=== PATIENT | female | born 1960 | race Caucasian/White ===

== ENCOUNTER → 2020-08-13 11:37 | Outpatient (CLI) | payer OTHER, SELFPAY ==
--- NOTE | ~2020-08-13 | DEXA_ITS ---
Bone Density Report Name: Teri Russ Age: 60 Sex: Female Ethnicity: White Date of : 1960 Indication: postmenopausal; screening for osteoporosis; height loss; prior fracture; Referring Provider: Talat, Bess Study: Bone densitometry was performed. Exam Date: August 13, 2020 Accession number: [id number] Bone Density: Region BMD T-score Z-score Classification AP Spine (L1, L2, L3) 1.155 1.2 2.8 Normal Femoral Neck (Left) 0.755 -0.8 0.5 Normal Total Hip (Left) 1.031 0.7 1.8 Normal Femoral Neck (Right) 0.738 -1.0 0.4 Normal Total Hip (Right) 0.939 0.0 1.0 Normal Total Hip Mean 0.985 0.4 1.4 Normal World Health Organization criteria for BMD impression classify patients as: Normal (T-score at or above -1.0), Osteopenia (T-score between -1.0 and -2.5), or Osteoporosis (T-score at or below -2.5). 10-year Fracture Risk: FRAX not reported because: All T-scores for Spine Total, Hip Total, Femoral Neck at or above -1.0 Previous Exams: Region Exam Age BMD T-score BMD Change BMD Change Date g/cm2 vs Baseline vs Previous AP Spine(L1, L2, L3) 08/13/2020 60 1.155 1.2 -0.014 -0.003 12/27/2016 56 1.158 1.3 -0.011 -0.011 12/06/2014 54 1.169 1.4 Total Hip(Left) 08/13/2020 60 1.031 0.7 0.006 0.000 12/27/2016 56 1.030 0.7 0.005 0.005 12/06/2014 54 1.025 0.7 Total Hip(Right) 08/13/2020 60 0.939 0.0 -0.029* -0.022 12/27/2016 56 0.961 0.2 -0.007 -0.007 12/06/2014 54 0.968 0.2 *Denotes significance at 95% confidence level, LSC for AP Spine = 0.022 g/cm2, LSC for Total Hip = 0.027 g/cm2 Clinical Information Provided by Patient: Has had a low trauma fracture Has used the following medications: Vitamin D Patient maximum height was 64 Menopause Age: 51 No regular weight bearing exercise Does not regularly consume dairy products Drinks caffeinated beverages Onset of menses at age 13 Number of children 2 Impression: The patient has normal bone mass. The patient has risk factors, including: previous fracture. No significant bone loss was observed. Discussion: BONE DENSITY IS ABOVE THE MINIMUM DESIRABLE LEVEL AT ALL SKELETAL SITES TESTED. This patient?s bone mineral density is above the minimum desirable level (T-score -1.0 or better) at all sites measured. The patient should follow a heal
== END ==
PROVIDERS: Visit Provider Nurse Practitioner
DX: Z13.820 Encounter for screening for osteoporosis (principal); Z78.0 Asymptomatic menopausal state
CPT/HCPCS: 77080

== ENCOUNTER → 2020-09-23 13:15 | Outpatient (CLI) | payer OTHER, SELFPAY ==
--- NOTE | ~2020-09-23 | MM_ITS ---
EXAMINATION: MM screening [facility] BI w chula HISTORY: Screening mammogram TECHNIQUE: Craniocaudal and mediolateral oblique 3-D tomosynthesis images were obtained and synthetic 2-D images were generated. CAD analysis was submitted and interpreted. COMPARISON: 09/16/2017, 12/27/2016, 11/22/2016, 11/27/2015 BREAST PARENCHYMAL COMPOSITION: There are scattered areas of fibroglandular density. FINDINGS: Scattered benign-appearing calcifications are present. There is no evidence of suspicious m ass, calcification, or architectural distortion to suggest malignancy in either breast. There has bee n no suspicious interval change. IMPRESSION: 1. No mammographic evidence of malignancy. 2. Recommend routine screening mammography in one year. BI-RADS Category 2: Benign finding(s). Reviewed, dictated and finalized at location A. UIT WALKER
== END ==
PROVIDERS: PCP Internal Medicine; Visit Provider Nurse Practitioner
DX: Z12.31 Encounter for screening mammogram for malignant neoplasm of breast (principal)
CPT/HCPCS: 77063; 77067

== ENCOUNTER → 2022-03-04 10:38 | Outpatient (CLI) | payer OTHER, SELFPAY ==
--- NOTE | ~2022-03-04 | MM_ITS ---
EXAMINATION: MM screening [facility] BI w chula HISTORY: Screening TECHNIQUE: Craniocaudal and mediolateral oblique 3-D tomosynthesis images were obtained and synthetic 2-D images were generated. CAD analysis was submitted and interpreted. COMPARISON: Comparison to multiple prior studies sequentially, with oldest reviewed study dated 11/27. BREAST PARENCHYMAL COMPOSITION: There are scattered areas of fibroglandular density. FINDINGS: There is no evidence of suspicious mass, calcification, or architectural distortion to sugg est malignancy in either breast. There has been no suspicious interval change. IMPRESSION: 1. No mammographic evidence of malignancy. 2. Recommend routine screening mammography in one year. BI-RADS Category 1: Negative Reviewed, dictated and finalized at location A.
== END ==
PROVIDERS: PCP Internal Medicine; Visit Provider Nurse Practitioner
DX: Z12.31 Encounter for screening mammogram for malignant neoplasm of breast (principal)
CPT/HCPCS: 77063; 77067

== ENCOUNTER → 2022-04-15 10:26 | Outpatient (CLI) | payer OTHER, SELFPAY ==
--- NOTE | ~2022-04-15 | US_ITS ---
US thyroid INDICATION: Thyroid nodule TECHNIQUE: Real-time sonographic images of the thyroid gland were obtained. COMPARISON: Ultrasound dated 11/10/2019 FINDINGS: The right thyroid lobe measures 2.6 x 0.7 x 0.9 cm. The left thyroid lobe measures 3.4 x 0 .7 x 1 cm. There are small hypoechoic masses in the right thyroid measuring 4 mm or less, likely rafiq gn. Isthmus measures 2 mm. Normal vascular flow is present. IMPRESSION: 1. No significant change to small hypoechoic left thyroid nodules, largest measuring 4 mm, likely be nign. Reviewed, dictated and finalized at location B. IMPRESSION: 1. No significant change to small hypoechoic left thyroid nodules, largest vanesa suring 4 mm, likely benign.
== END ==
PROVIDERS: PCP Internal Medicine; Visit Provider Internal Medicine Endocrinology, Diabetes & Metabolism
DX: E04.1 Nontoxic single thyroid nodule (principal)
CPT/HCPCS: 76536

== ENCOUNTER 2022-08-23 10:58 | Outpatient (CLI) | payer OTHER, SELFPAY ==
[2022-08-23 11:17] LABS: Basophils Percent Auto 0.4 % (0.2-1.2); Eosinophils Absolute Auto 0.1 K/mm3 (0-0.3); Eosinophils Percent Auto 0.7 % (0-4.4); Hematocrit 50.5 % (37.0-47.0); Hemoglobin 16.2 g/dL (12.0-15.0); Immature Granulocyte Absolute 0.02 K/mm3 (0.00-0.031); Immature Granulocyte Percent A 0.2 % (0-0.5); Immature Platelet Fraction Pct 4.2 % (0.9-11.2); Lymphocytes Absolute Auto 1.36 K/mm3 (0.9-3.2); Lymphocytes Percent Auto 16.1 % (18.3-44.2); Mean Corpuscular HGB Conc 32.1 g/dl (32-36); Mean Corpuscular Hemoglobin 29.6 pg (26-34); Mean Corpuscular Volume 92.3 fl (80-100); Mean Platelet Volume 10.4 fl (7.4-10.4); Monocytes Absolute Auto 0.4 K/mm3 (0.1-0.6); Monocytes Percent Auto 4.4 % (2.6-8.5); Neutrophils Absolute Auto 6.6 K/mm3 (1.3-6.7); Neutrophils Percent Auto 78.2 % (45.5-73.1); Platelet Count Result 110 k/mm3 (150-375); Red Blood Count 5.47 M/mm3 (4.2-5.4); Red Cell Distribution Width 13.2 % (11.5-14.5); White Blood Count 8.4 K/mm3 (4.5-10.0)
[2022-08-23 11:21] LABS: Blood Urea Nitrogen 21 mg/dL (8-26); Carbon Dioxide 31 mmol/L (22-30); Chloride 98 mmol/L (98-109); Estimated Glomerular Filt Rate 56; Glucose 258 mg/dL (70-105); Ionized Calcium (POC) 1.27 mmol/L (1.11-1.31); Potassium 4.2 mmol/L (3.5-4.9); Sodium 140 mmol/L (138-146)
[2022-08-23 16:16] LABS: Alanine Aminotransferase 93 U/L (6-35); Albumin Level 4.6 g/dL (3.5-5.1); Alkaline Phosphatase 214 U/L (38-126); Anion Gap 12 mmol/L (8-16); Aspartate Amino Transferase 61 U/L (14-36); Bilirubin,Total 0.8 mg/dL (0.2-1.3); Blood Urea Nitrogen 21 mg/dL (7-17); Calcium 9.9 mg/dL (8.4-10.2); Carbon Dioxide 29 mmol/L (22-30); Chloride 98 mmol/L (98-107); Estimated Glomerular Filt Rate > 60; Glucose 250 mg/dL (65-110); Potassium 4.2 mmol/L (3.4-5.0); Sodium 139 mmol/L (137-145)
[2022-08-23 17:46] LABS: Folic Acid > 20.0 ng/mL (2.76->20); Vitamin B12 > 1000.0 pg/mL (239-931)
== END 2022-08-23 10:59 | disposition home or self-care (01) ==
LOC: ANHLAB 10:59
PROVIDERS: PCP Internal Medicine; Visit Provider Internal Medicine Hematology & Oncology
DX: D75.838 Other thrombocytosis (principal)
CPT/HCPCS: 36415; 80047; 80053; 82607; 82746; 85025; 85055

== ENCOUNTER 2023-02-18 10:58 | Outpatient (CLI) | payer OTHER, SELFPAY ==
[2023-02-18 11:20] LABS: Basophils Percent Auto 0.5 % (0.2-1.2); Eosinophils Absolute Auto 0.1 K/mm3 (0-0.3); Eosinophils Percent Auto 1.5 % (0-4.4); Hematocrit 44.9 % (37.0-47.0); Hemoglobin 14.2 g/dL (12.0-15.0); Immature Granulocyte Absolute 0.02 K/mm3 (0.00-0.031); Immature Granulocyte Percent A 0.3 % (0-0.5); Immature Platelet Fraction Pct 5.5 % (0.9-11.2); Lymphocytes Percent Auto 26.4 % (18.3-44.2); Mean Corpuscular HGB Conc 31.6 g/dl (32-36); Mean Corpuscular Hemoglobin 29.8 pg (26-34); Mean Corpuscular Volume 94.3 fl (80-100); Mean Platelet Volume 10.9 fl (7.4-10.4); Monocytes Absolute Auto 0.5 K/mm3 (0.1-0.6); Monocytes Percent Auto 7.6 % (2.6-8.5); Neutrophils Absolute Auto 3.9 K/mm3 (1.3-6.7); Neutrophils Percent Auto 63.7 % (45.5-73.1); Platelet Count Result 80 k/mm3 (150-375); Red Blood Count 4.76 M/mm3 (4.2-5.4); Red Cell Distribution Width 13.3 % (11.5-14.5); White Blood Count 6.1 K/mm3 (4.5-10.0)
[2023-02-18 13:42] LABS: Alanine Aminotransferase 57 U/L (6-35); Albumin Level 4.4 g/dL (3.5-5.1); Alkaline Phosphatase 166 U/L (38-126); Anion Gap 4 mmol/L (8-16); Aspartate Amino Transferase 46 U/L (14-36); Bilirubin,Total 0.7 mg/dL (0.2-1.3); Blood Urea Nitrogen 10 mg/dL (7-17); Calcium 9.7 mg/dL (8.4-10.2); Carbon Dioxide 36 mmol/L (22-30); Chloride 101 mmol/L (98-107); Estimated Glomerular Filt Rate > 60; Glucose 197 mg/dL (65-110); Potassium 4.9 mmol/L (3.4-5.0); Sodium 141 mmol/L (137-145)
[2023-02-18 14:46] LABS: Folic Acid > 20.0 ng/mL (2.76->20); Vitamin B12 > 1000.0 pg/mL (239-931)
== END 2023-02-18 10:59 | disposition home or self-care (01) ==
LOC: ANHLAB 11:00
PROVIDERS: PCP Internal Medicine; Visit Provider Internal Medicine Hematology & Oncology
DX: D75.838 Other thrombocytosis (principal)
CPT/HCPCS: 36415; 80053; 82607; 82746; 85025; 85055

== ENCOUNTER 2023-05-20 15:38 | Outpatient (CLI) | payer OTHER, SELFPAY ==
[2023-05-20 15:50] LABS: Hematocrit 45.2 % (37.0-47.0); Hemoglobin 14.1 g/dL (12.0-15.0); Immature Platelet Fraction Pct 4.3 % (0.9-11.2); Mean Corpuscular HGB Conc 31.2 g/dl (32-36); Mean Corpuscular Hemoglobin 29.3 pg (26-34); Mean Platelet Volume 10.3 fl (7.4-10.4); Platelet Count Result 71 k/mm3 (150-375); Red Blood Count 4.81 M/mm3 (4.2-5.4); White Blood Count 4.2 K/mm3 (4.5-10.0)
[2023-05-20 17:16] LABS: Folic Acid > 20.0 ng/mL (2.76->20); Vitamin B12 > 1000.0 pg/mL (239-931)
== END 2023-05-20 15:39 | disposition home or self-care (01) ==
LOC: ANHLAB 15:39
PROVIDERS: PCP Internal Medicine; Visit Provider Internal Medicine Hematology & Oncology
DX: D75.838 Other thrombocytosis (principal)
CPT/HCPCS: 36415; 82607; 82746; 85027; 85055

== ENCOUNTER → 2023-09-03 11:32 | Outpatient (CLI) | payer OTHER, SELFPAY ==
--- NOTE | ~2023-09-03 | MR_ITS ---
EXAMINATION: MR lumbar spine wo con DATE: 09/03/2023 12:20 INDICATION: Low back pain. TECHNIQUE: Magnetic resonance imaging (MRI) of the lumbar spine was performed without intravenous con trast. Sequences included sagittal T2-weighted FSE, sagittal T2-weighted FS FSE, sagittal T1-weighted FSE, and axial T2-weighted FSE. COMPARISON: Lumbar spine MRI 09/24/2017 FINDINGS: There is 11 degrees levoscoliosis of lumbar spine. There is 3 mm anterolisthesis of L3 on L 4. There is mild chronic anterior wedging of T11 vertebral body. There is moderately decreased disc h eight at T10-T11, mildly decreased disc height at T11-T12 and L2-L3, moderately decreased disc height at L3-L4, and severely decreased disc height at L4-L5. The distal spinal cord signal intensity is no rmal. The conus medullaris is at L1-L2. The following disc levels are specifically discussed: L1-L2: The disc is bulging. There is mild bilateral facet joint osteoarthritis. There is mild left ne ural foraminal stenosis. There is mild central canal stenosis. L2-L3: The disc is bulging and has an annular fissure. There is severe bilateral facet joint osteoart hritis. There is mild bilateral neural foraminal stenosis. There is mild central canal stenosis. L3-L4: The disc is bulging. There is severe bilateral facet joint osteoarthritis. There is mild bilat eral neural foraminal stenosis. There is mild central canal stenosis. L4-L5: The disc is bulging and has an annular fissure. There is severe right and moderate left facet joint osteoarthritis. There is moderate right and mild left neural foraminal stenosis. There is mild central canal stenosis. L5-S1: The disc does not extend beyond the endplate margin. There is severe bilateral facet joint ost eoarthritis. There is mild left neural foraminal stenosis. There is no central canal stenosis. IMPRESSION: 1. Severe lumbar spondylosis, mildly worsened from 09/24/2017. 2. Lumbar levoscoliosis. Reviewed, dictated and finalized at location E.
== END ==
PROVIDERS: PCP Internal Medicine; Visit Provider Nurse Practitioner Family
DX: M43.06 Spondylolysis, lumbar region (principal); M41.86 Other forms of scoliosis, lumbar region
CPT/HCPCS: 72148

== ENCOUNTER → 2023-10-06 10:41 | Outpatient (CLI) | payer OTHER, MEDICARE, SELFPAY ==
--- NOTE | ~2023-10-06 | MM_ITS ---
EXAMINATION: MM screening [facility] BI w chula HISTORY: Screening mammogram TECHNIQUE: Craniocaudal and mediolateral oblique 3-D tomosynthesis images were obtained and synthetic 2-D images were generated. CAD analysis was submitted and interpreted. COMPARISON: 03/04/2022, 09/23/2020 bilateral screening mammogram examinations BREAST PARENCHYMAL COMPOSITION: There are scattered areas of fibroglandular density. FINDINGS: There is a biopsy marker on the left; history of prior benign left breast biopsy. There is no evidence of suspicious mass, calcification, or architectural distortion to suggest malignancy in e ither breast. There has been no suspicious interval change. IMPRESSION: 1. No mammographic evidence of malignancy. 2. Recommend routine screening mammography in one year. BI-RADS Category 1: Negative Reviewed, dictated and finalized at location A. TS
--- NOTE | ~2023-10-06 | DEXA_ITS ---
Bone Density Report Name: ANDERSON GUERRERO Age: 63 Sex: Female Ethnicity: White Date of : 1960 Indication: postmenopausal; screening for osteoporosis; height loss; prior fracture; Referring Provider: Candice, Jacob Study: Bone densitometry was performed. Exam Date: October 06, 2023 Accession number: [id number] Bone Density: Region BMD T-score Z-score Classification AP Spine (L1, L2, L3) 1.126 1.0 2.7 Normal Femoral Neck (Left) 0.718 -1.2 0.3 Osteopenia Total Hip (Left) 0.984 0.3 1.6 Normal Femoral Neck (Right) 0.722 -1.1 0.4 Osteopenia Total Hip (Right) 0.926 -0.1 1.1 Normal Total Hip Mean 0.955 0.1 1.4 Normal World Health Organization criteria for BMD impression classify patients as: Normal (T-score at or above -1.0), Osteopenia (T-score between -1.0 and -2.5), or Osteoporosis (T-score at or below -2.5). 10-year Fracture Risk(1): Major Osteoporotic Fracture 12% Hip Fracture 1.0% Reported Risk Factors: [place] (), Neck BMD=0.718, BMI=38.5, previous fracture (1) FRAX(R) Version 3.08. Fracture probability calculated for an untreated patient. Fracture probability may be lower if the patient has received treatment. Previous Exams: Region Exam Age BMD T-score BMD Change BMD Change Date g/cm2 vs Baseline vs Previous AP Spine(L1, L2, L3) 10/06/2023 63 1.126 1.0 -0.044* -0.030* 08/13/2020 60 1.155 1.2 -0.014 -0.003 12/27/2016 56 1.158 1.3 -0.011 -0.011 12/06/2014 54 1.169 1.4 Total Hip(Left) 10/06/2023 63 0.984 0.3 -0.041* -0.047* 08/13/2020 60 1.031 0.7 0.006 0.000 12/27/2016 56 1.030 0.7 0.005 0.005 12/06/2014 54 1.025 0.7 Total Hip(Right) 10/06/2023 63 0.926 -0.1 -0.042* -0.013 08/13/2020 60 0.939 0.0 -0.029* -0.022 12/27/2016 56 0.961 0.2 -0.007 -0.007 12/06/2014 54 0.968 0.2 *Denotes significance at 95% confidence level, LSC for AP Spine = 0.022 g/cm2, LSC for Total Hip = 0.027 g/cm2 Clinical Information Provided by Patient: Has had a low trauma fracture Has used the following medications: Vitamin D, Calcium, MTV Patient maximum height was 64.0 Menopause Age: 51 No regular weight bearing exercise Does not regularly consume dairy products Onset of menses at age 13 Number of children 2
== END ==
PROVIDERS: PCP Obstetrics & Gynecology Gynecology; Visit Provider Internal Medicine
DX: Z12.31 Encounter for screening mammogram for malignant neoplasm of breast (principal); Z13.820 Encounter for screening for osteoporosis; M85.852 Other specified disorders of bone density and structure, left thigh; M85.851 Other specified disorders of bone density and structure, right thigh
CPT/HCPCS: 77063; 77067; 77080

== ENCOUNTER 2023-11-17 13:42 | Outpatient (CLI) | payer MEDICARE, SELFPAY ==
[2023-11-17 13:58] LABS: Basophils Percent Auto 0.6 % (0.2-1.2); Eosinophils Absolute Auto 0.2 K/mm3 (0-0.3); Eosinophils Percent Auto 3.1 % (0-4.4); Hematocrit 45.6 % (37.0-47.0); Hemoglobin 14.3 g/dL (12.0-15.0); Immature Granulocyte Absolute 0.01 K/mm3 (0.00-0.031); Immature Granulocyte Percent A 0.2 % (0-0.5); Lymphocytes Absolute Auto 1.52 K/mm3 (0.9-3.2); Lymphocytes Percent Auto 29.6 % (18.3-44.2); Mean Corpuscular HGB Conc 31.4 g/dl (32-36); Mean Corpuscular Hemoglobin 29.4 pg (26-34); Mean Corpuscular Volume 93.8 fl (80-100); Mean Platelet Volume 10.5 fl (7.4-10.4); Monocytes Absolute Auto 0.4 K/mm3 (0.1-0.6); Monocytes Percent Auto 7.8 % (2.6-8.5); Neutrophils Percent Auto 58.7 % (45.5-73.1); Platelet Count Result 87 k/mm3 (150-375); Red Blood Count 4.86 M/mm3 (4.2-5.4); Red Cell Distribution Width 13.5 % (11.5-14.5); White Blood Count 5.1 K/mm3 (4.5-10.0)
[2023-11-17 17:44] LABS: Alanine Aminotransferase 76 U/L (6-35); Albumin Level 3.9 g/dL (3.5-5.1); Alkaline Phosphatase 189 U/L (38-126); Anion Gap 8 mmol/L (8-16); Aspartate Amino Transferase 59 U/L (14-36); Bilirubin,Total 0.7 mg/dL (0.2-1.3); Blood Urea Nitrogen 12 mg/dL (7-17); Calcium 9.5 mg/dL (8.4-10.2); Carbon Dioxide 33 mmol/L (22-30); Chloride 100 mmol/L (98-107); Estimated Glomerular Filt Rate > 60; Glucose 261 mg/dL (65-110); Potassium 4.7 mmol/L (3.4-5.0); Sodium 141 mmol/L (137-145)
[2023-11-17 19:03] LABS: Folic Acid > 20.0 ng/mL (2.76->20); Vitamin B12 > 1000.0 pg/mL (239-931)
== END 2023-11-17 13:43 | disposition home or self-care (01) ==
LOC: ANHLAB 13:47
PROVIDERS: PCP Obstetrics & Gynecology Gynecology; Visit Provider Internal Medicine Hematology & Oncology
DX: D75.838 Other thrombocytosis (principal)
CPT/HCPCS: 36415; 80053; 82607; 82746; 85025

== ENCOUNTER 2024-01-26 14:18 | Outpatient (CLI) | payer MEDICARE, SELFPAY ==
--- NOTE | ~2024-01-26 | XR_ITS ---
Right Knee Technique: AP and lateral views were obtained. Clinical History: Pain Findings: No fracture or dislocation is seen. There is medial compartment narrowing and medial joint line osteophyte formation.. Soft tissues are unremarkable. No joint effusion is seen. Impression: Moderate to severe degenerative change of the medial compartment. Reviewed, dictated and finalized at location . Impression: Moderate to severe degenerative change of the medial compartment.
--- NOTE | ~2024-01-26 | XR_ITS ---
Left Knee Technique: AP and lateral views were obtained. Clinical History: Pain Findings: No fracture or dislocation is seen. There is mild medial compartment narrowing with medial joint line osteophyte formation. Soft tissues are unremarkable. No joint effusion is seen. Impression: Moderate medial compartment degenerative change, as above. Reviewed, dictated and finalized at location M. Impression: Moderate medial compartment degenerative change, as above.
== END 2024-01-26 14:19 ==
PROVIDERS: PCP Nurse Practitioner Family; Visit Provider Nurse Practitioner Family
DX: M17.0 Bilateral primary osteoarthritis of knee (principal)
CPT/HCPCS: 73560

== ENCOUNTER 2024-05-28 07:12 | Outpatient (CLI) | payer MEDICARE, SELFPAY ==
--- NOTE | ~2024-05-28 | MR_ITS ---
EXAMINATION: MR brain/brain stem wo con DATE: 05/28/2024 07:50 INDICATION: Headache TECHNIQUE: Magnetic resonance imaging (MRI) of the brain and brainstem was performed without intraven ous contrast. Sequences included sagittal and axial T1-weighted SE, axial diffusion-weighted FS EPI A SSET, axial T2*-weighted GRE, axial T2-weighted FLAIR Propeller, and axial T2-weighted Propeller. Kemi arent diffusion coefficient (ADC) maps were created. COMPARISON: None. FINDINGS: No abnormal restricted diffusion to suggest acute ischemic infarct. No MRI evidence of hemorrhage or extra-axial collection. No suspicious foci of susceptibility to suggest prior intraparenchymal hemorr joe. Scattered foci of white matter hyperintensity, likely representing mild small vessel ischemic d isease. No evidence of advanced or lobar predominant parenchymal volume loss. The basilar cisterns ar e patent. Flow voids are preserved. Mild ethmoid mucosal thickening. Paranasal sinuses are otherwise within normal limits. Globes and orbital contents are within normal limits. IMPRESSION: Unremarkable MR brain findings. Reviewed, dictated and finalized at location K.
== END 2024-05-28 07:13 ==
PROVIDERS: PCP Internal Medicine; Visit Provider Internal Medicine
DX: R51.9 Headache, unspecified (principal)
CPT/HCPCS: 70551

== ENCOUNTER 2024-11-19 13:54 | Outpatient (CLI) | payer MEDICARE, SELFPAY ==
[2024-11-19 14:10] LABS: Basophils Percent Auto 0.5 % (0.2-1.2); Eosinophils Absolute Auto 0.1 K/mm3 (0-0.3); Eosinophils Percent Auto 1.6 % (0-4.4); Hematocrit 42.8 % (37.0-47.0); Hemoglobin 13.6 g/dL (12.0-15.0); Immature Granulocyte Absolute 0.02 K/mm3 (0.00-0.031); Immature Granulocyte Percent A 0.2 % (0-0.5); Lymphocytes Absolute Auto 2.01 K/mm3 (0.9-3.2); Lymphocytes Percent Auto 24.7 % (18.3-44.2); Mean Corpuscular HGB Conc 31.8 g/dl (32-36); Mean Corpuscular Hemoglobin 29.4 pg (26-34); Mean Corpuscular Volume 92.4 fl (80-100); Mean Platelet Volume 10.5 fl (7.4-10.4); Monocytes Absolute Auto 0.8 K/mm3 (0.1-0.6); Monocytes Percent Auto 9.9 % (2.6-8.5); Neutrophils Absolute Auto 5.1 K/mm3 (1.3-6.7); Neutrophils Percent Auto 63.1 % (45.5-73.1); Platelet Count Result 117 k/mm3 (150-375); Red Blood Count 4.63 M/mm3 (4.2-5.4); Red Cell Distribution Width 13.5 % (11.5-14.5); White Blood Count 8.2 K/mm3 (4.5-10.0)
[2024-11-19 17:00] LABS: Anion Gap 7 mmol/L (4-12); Blood Urea Nitrogen 35 mg/dL (7-17); Calcium 10.1 mg/dL (8.4-10.2); Carbon Dioxide 34 mmol/L (22-30); Chloride 94 mmol/L (98-107); Estimated Glomerular Filt Rate 37; Glucose 158 mg/dL (65-110); Potassium 4.3 mmol/L (3.4-5.0); Sodium 135 mmol/L (137-145)
[2024-11-19 18:09] LABS: Folic Acid > 20.0 ng/mL (2.76->20); Vitamin B12 > 1000.0 pg/mL (239-931)
== END 2024-11-19 13:55 | disposition home or self-care (01) ==
LOC: ANHLAB 13:56
PROVIDERS: PCP Internal Medicine; Visit Provider Internal Medicine Hematology & Oncology
DX: D69.59 Other secondary thrombocytopenia (principal)
CPT/HCPCS: 36415; 80048; 82607; 82746; 85025

== ENCOUNTER 2025-03-21 14:27 | Outpatient (CLI) | payer MEDICARE, SELFPAY ==
--- NOTE | ~2025-03-21 | XR_ITS ---
Right foot Technique: AP, oblique, and lateral views were obtained. Clinical History: Diabetic foot ulcer Findings: Prior amputation of the phalanges of the fifth digit noted. Amputation of the middle and distal phalanges of the third digit noted. No acute fracture or dislocat ion is seen. Osseous alignment is anatomic. Joint spaces are preserved without erosive or degenerativ e change. There is prominent soft tissue swelling of the first, second, and fourth toes. There is marine abhishek soft tissue swelling the forefoot.. Impression: No definite evidence for acute osteomyelitis. Prior amputations of the third and fifth toes, as above. Extensive soft tissue swelling of the toes and forefoot. Reviewed, dictated and finalized at location M. Impression: No definite evidence for acute osteomyelitis. Prior amputations of the third and fifth toes, as above. Extensive soft tissue swelling of the toes and forefoot.
== END 2025-03-21 14:28 | disposition home or self-care (01) ==
LOC: MICIMG 14:29
PROVIDERS: PCP Internal Medicine; Visit Provider Podiatrist Foot & Ankle Surgery
DX: E11.621 Type 2 diabetes mellitus with foot ulcer (principal); Z89.421 Acquired absence of other right toe(s); M79.89 Other specified soft tissue disorders
CPT/HCPCS: 73630

== ENCOUNTER 2025-04-22 07:01 | Outpatient (CLI) | payer MEDICARE, SELFPAY ==
--- NOTE | ~2025-04-22 | MR_ITS ---
MRI of the right foot CLINICAL HISTORY: Osteomyelitis fourth toe TECHNIQUE: Sagittal T1-weighted and STIR images, axial T1-weighted and T2 fat-sat images, and coronal T1-weighted and T2 fat-sat images were performed. FINDINGS: There is extensive T1 hypointense marrow signal with corresponding marrow edema involving t he proximal, middle, and distal phalanges of the fourth toe, there is a probable cortical destruction . Probable soft tissue ulcer present over the dorsal aspect of the fourth distal phalanx. Prior amputation of the phalanges of the fifth digit. There is marrow edema at the fifth metatarsal h ead with probable focal erosion, and focal osteomyelitis is a consideration at this location. Prior amputation of the middle and distal phalanges of the third digit. No other suspicious bone luci ow signal abnormality seen. There is moderate degenerative change at the fourth tarsometatarsal joint . There is moderate to advanced degenerative change of the interphalangeal joint of the great toe. There is diffuse dorsal subcutaneous soft tissue edema in the foot. No abscess evident. Plantar fasci a intact. Plantar musculature of the foot is intact, aside from generalized fatty atrophy. Possible m ild intermetatarsal bursitis of the first and third interspaces. IMPRESSION: Extensive osteomyelitis involving the proximal, middle, and distal phalanges of the fourth toe. Possible focal/early osteomyelitis of the fifth metatarsal head. Diffuse subcutaneous soft tissue edema over the dorsum of the foot with soft tissue ulcer probably pr esent at the dorsal aspect of the distal fourth toe. No abscess evident. Prior amputation of the phalanges of the fifth toe and the middle and distal phalanges of the third t oe. Reviewed, dictated and finalized at location M. IMPRESSION: Extensive osteomyelitis involving the proximal, middle, and distal phalanges of the fourth toe. Possible focal/early osteomyelitis of the fifth metatarsal head. Diffuse subcutaneous soft tissue edema over the dorsum of the foot with soft ti ssue ulcer probably present at the dorsal aspect of the distal fourth toe. No a bscess evident. Prior amputation of the phalanges of the fifth toe and the middle and distal ph alanges of the third toe.
== END 2025-04-22 07:02 | disposition home or self-care (01) ==
LOC: MICIMG 07:02
PROVIDERS: PCP Internal Medicine; Visit Provider Podiatrist Foot & Ankle Surgery
DX: M86.18 Other acute osteomyelitis, other site (principal)
CPT/HCPCS: 73718

== ENCOUNTER 2025-05-08 12:18 | Outpatient (CLI) | payer MEDICARE, SELFPAY ==
--- NOTE | ~2025-05-08 | MM_ITS ---
EXAMINATION: MM screening [facility] BI w chula HISTORY: Screening mammogram TECHNIQUE: Craniocaudal and mediolateral oblique 3-D tomosynthesis images were obtained and synthetic 2-D images were generated. CAD analysis was submitted and interpreted. COMPARISON: 10/06/2023, 03/04/2022, 09/23/2020 BREAST PARENCHYMAL COMPOSITION:Not Dense. There are scattered areas of fibroglandular density. FINDINGS: No suspicious mass, calcification, or architectural distortion are identified in either micah ast to suggest malignancy. There has been no suspicious interval change. IMPRESSION: No mammographic evidence of malignancy. Recommend routine screening mammography in one year. BI-RADS Category 1: Negative Reviewed, dictated and finalized at location .
== END 2025-05-08 12:19 | disposition home or self-care (01) ==
LOC: MICIMG 12:19
PROVIDERS: PCP Internal Medicine; Visit Provider Obstetrics & Gynecology Gynecology
DX: Z12.31 Encounter for screening mammogram for malignant neoplasm of breast (principal)
CPT/HCPCS: 77063; 77067

== ENCOUNTER 2025-05-20 11:58 | Outpatient (CLI) | payer MEDICARE, SELFPAY ==
--- OUTSIDE RECORDS SUMMARY | 2025-05-20 12:01 | XMS_ITS | Clinical Summary ---
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 0 0 5 Active baclofen (LIORESAL) 10 mg tablet take 1 tablet by oral route 4 times every day 0 0 5 Active PARoxetine (PAXIL) 10 mg tablet take 1 tablet by oral route every day 0 0 5 Active gabapentin ER (GRALISE) 600 mg tablet extended release 24 hr take 3 tablet by oral route every day with the evening meal 0 0 5 Active furosemide (LASIX) 20 mg tablet take 1 tablet by oral route 2 times every day 0 0 5 Active valsartan (DIOVAN) 80 mg tablet take 1 tablet by oral route every day 0 0 5 Active lovastatin (MEVACOR) 40 mg tablet take 2 Tablet by oral route every day with the evening meal 0 0 5 Active allopurinol (ZYLOPRIM) 100 mg tablet take 1 tablet by oral route 3 times every day 0 0 5 Active amitriptyline (ELAVIL) 75 mg tablet take 1 tablet by oral route every day at bedtime 0 0 5 Active HYDROcodone-aceta minophen (NORCO) 7.5-325 mg per tablet take 1 tablet by oral route every 6 hours as needed for pain 0 0 5 Active nitroglycerin (RECTIV) 0.4 % (w/w) ointment Apply ointment into rectum using a Qtip 3 times per day. Wipe away excess ointment (30gm) 1 0 5 Active vitamin E (AQUASOL E) 100 unit capsule Take 100 Units by mouth daily. Active cholecalciferol (VITAMIN D-3) 10,000 unit capsule Take 10,000 Units by mouth daily. Active cyanocobalamin (Vitamin B-12) 2,500 mcg tablet, sublingualIndicat ions:Prevention of Vitamin B12 Deficiency Active black cohosh 20 mg tablet Take by mouth. Activ e cinnamon bark 500 mg capsule Take 500 mg by mouth daily. Active losartan-hydroCHL OROthiazide (HYZAAR) 100-12.5 mg per tablet Take 1 tablet by mouth daily. Active pregabalin (LYRICA) 25 mg capsule Take 25 mg by mouth 2 (two) times a day. Active therapeutic multivitamin (THERA) tabletIndications :Vitamin Deficiency Prevention Take 1 tablet by mouth daily. Active raNITIdine (ZANTAC) 75 mg tablet Take 75 mg by mouth 2 (two) times a day. Active liraglutide (VICTOZA) 0.6 mg/0.1 mL (18 mg/3 mL) injectionIndicati ons:type 2 diabetes mellitus Inject 1.2 mg under the skin daily. Active ascorbic acid (vitamin C) 100 mg tablet Take 100 mg by mouth daily. Active Active Problems No known active problems Encounters Date Type Department Care Team Description 04/29/2025 2:00 PM CDT Orders Only [facility] [address] [place] [address] Other injury of unspecified body region, initial encounter; Cellulitis of umbilicus from Last 3 Months Surgical History Surgery Date Site/Laterality Comments OTHER SURGICAL HISTORY Bilateral elbow surgery for Tennis Elbow SECTION section Medical History Medical History Date Comments Arthritis Arthritis Diabetes mellitus (HCC) Diabetes mellitus Hypertension Hypertension Family History Medical History Relation Name Comments Diabetes Brother Diabetes mellit us; Hypertension Brother Hypertension; Hypertension Father Hypertension; Hypertension Mother Hypertension; Liver cancer Mother Cancer, liver; Diabetes Sister Diabetes mellit us; Hypertension Sister Hypertension; Relation Name Status Comments Brother Father Mother Sister Social History Tobacco Use Types Packs/Day Years Used Date Smoking Tobacco: Former Alcohol Use Standard Drinks/Week Comments No 0 (1 standard drink = 0.6 oz pur e alcohol) Personal Safety Answer Date Recorded Getting School Help Needed Not on file 01/01 Comments Unknown Sex and Gender Information Value Date Recorded Sex Assigned at Not on file Legal Sex Female 9:42 PM 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 Gender Identity Not on file Sexual Orientation Not on file Obstetrics History Last Filed Vital Signs Vital Sign Reading Time Taken Comments Blood Pressure 144/80 10/06/2022 6:35 PM 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 Pulse 72 10/06/2022 6:35 PM 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 Temperature 36.9 C (98.4 F) 10/06/2022 6:35 PM 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 Respiratory Rate 16 10/06/2022 6:35 PM 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 Oxygen Saturation 98% 10/06/2022 6:35 PM 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 Inhaled Oxygen Concentration - - Weight 103.4 kg (228 lb) 10/06/2022 6:35 PM 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 Height 162.6 cm (5' 4) 10/06/2022 6:35 PM 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 Body Mass Index 39.14 10/06/2022 6:35 PM 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 Plan of Treatment Health Maintenance Due Date Last Done Comments Colon Cancer Screening-Colonoscopy 1960 Depression Screening 1960 Fall Risk Assessment 1960 Hepatitis C Screening 1960 Hepatitis B Screening 1976 Breast Cancer Screening-Mammogram 01/13/2020 019, 01/02/2018 Osteoporosis Screening-Bone Density Scan 12/11/2022 12/11/2020, 12/11/2020, 05/29/2020, Additional history exists Well Visit 65+ 2023 Covid-19 Vaccine (2023- 5 season) 2024 09/03/2023, 10/24/2021, 01/09/2021 Pneumococcal vaccine 65+ (3 of 3 - PCV20 or PCV21) 09/10/2024 09/10/2019, 09/01/2018 Influenza Vaccine (#1) 2025 , 07/28/2022, 07/29/2021, Additional history exists DTaP/Tdap/Td Vaccine (2 - Td or Tdap) 05/17/2027 05/17/2017 Zoster Vaccine Completed 12/24/2018, 10/16/2018 Procedures Procedure Name Priority Date/Time Associated Diagnosis Comments SCREENING MAMMOGRAM BILATERAL W JOSH Schedule Routine, Read Routine (OP Routine) 01/12/2019 11:47 AM 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 Encounter for screening mammogram for malignant neoplasm of breast from Last 3 Months or Most Recently Relevant to Health Maintenance Results * Screening Mammogram Bilateral W Josh (01/12/2019 11:47 AM 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) Anatomical Region Laterality Modality Breast Bilateral Mammography Narrative 01/15/2019 10:26 AM CDT Mammogram Technique: Bilateral Digital Breast Tomosynthesis, Bilateral C-view 2D Screening mammogram. Views obtained: bilateral craniocaudal and bilateral mediolateral oblique. Computer Aided Detection was performed. Mammogram Findings: The present examination has been compared to a prior imaging study performed at [facility] on 01/02/2018. There are scattered areas of fibroglandular density. There is no suspicious abnormality in either breast. Impression: Annual screening mammography is recommended. OVERALL FINAL ASSESSMENT: BI-RADS CATEGORY 1: Negative. Procedure Note Aleshia Louis MD - 01/15/2019 Mammogram Technique: Bilateral Digital Breast Tomosynthesis, Bilateral C-view 2D Screening mammogram. Views obtained: bilateral craniocaudal and bilateral mediolateral oblique. Computer Aided Detection was performed. Mammogram Findings: The present examination has been compared to a prior imaging study performed at [facility] on 01/02/2018. There are scattered areas of fibroglandular density. There is no suspicious abnormality in either breast. Impression: Annual screening mammography is recommended. OVERALL FINAL ASSESSMENT: BI-RADS CATEGORY 1: Negative. Johnson Harvey MD IMG MAMMO PROCEDURES Final Result from Last 3 Months or Most Recently Relevant to Health Maintenance Insurance [employer] PREFERRED Care Teams Construction And Maintenance Inspector Relationship Specialty Start Date End Date Johnson Harvey MD [address] [address] PCP - General 01/21/18
--- OUTSIDE RECORDS SUMMARY | 2025-05-20 12:01 | XMS_ITS | Referral Summary ---
Author Organization [facility] Address [address] [facility] [address] [place] [address] Phone Care Team Providers Care Assistant Store Manager Name Role Phone Johnson Harvey MD Primary Care Provide r Encounters Date Type Department Care Team Description 04/29/2025 2:00 PM CDT Orders Only [facility] [address] [place] [address] Other injury of unspecified body region, initial encounter; Cellulitis of umbilicus from Last 3 Months Allergies No known active allergies Medications glipiZIDE [...] Active Active Problems No known active problems Social History Tobacco Use Types Packs/Day Years Used Date Smoking Tobacco: Former Alcohol Use Standard Drinks/Week Comments No 0 (1 standard drink = 0.6 oz pur e alcohol) Personal Safety Answer Date Recorded Getting School Help Needed Not on file 01/01 Comments Unknown Sex and Gender Information Value Date Recorded Sex Assigned at Not on file Legal Sex Female 9:42 PM GAS SYSTEM OPERATOR Gender Identity Not on file Sexual Orientation Not on file Last Filed Vital Signs Vital Sign Reading Time Taken Comments Blood Pressure 144/80 10/06/2022 6:35 PM GAS SYSTEM OPERATOR Pulse 72 10/06/2022 6:35 PM GAS SYSTEM OPERATOR Temperature 36.9 C (98.4 F) 10/06/2022 6:35 PM GAS SYSTEM OPERATOR Respiratory Rate 16 10/06/2022 6:35 PM GAS SYSTEM OPERATOR Oxygen Saturation 98% 10/06/2022 6:35 PM GAS SYSTEM OPERATOR Inhaled Oxygen Concentration - - Weight 103.4 kg (228 lb) 10/06/2022 6:35 PM GAS SYSTEM OPERATOR Height 162.6 cm (5' 4) 10/06/2022 6:35 PM GAS SYSTEM OPERATOR Body Mass Index 39.14 10/06/2022 6:35 PM GAS SYSTEM OPERATOR Plan of Treatment Not on file Procedures Procedure Name Priority Date/Time Associated Diagnosis Comments SCREENING MAMMOGRAM BILATERAL W JOSH Schedule Routine, Read Routine (OP Routine) 01/12/2019 11:47 AM GAS SYSTEM OPERATOR Encounter for screening mammogram for malignant neoplasm of breast from Last 3 Months or Most Recently Relevant to Health Maintenance Results * Screening Mammogram Bilateral W Josh (01/12/2019 11:47 AM GAS SYSTEM OPERATOR) Anatomical Region Laterality Modality Breast Bilateral Mammography Narrative 01/15/2019 10:26 AM CDT Mammogram Technique: Bilateral Digital Breast Tomosynthesis, Bilateral C-view 2D Screening mammogram. Views obtained: bilateral craniocaudal and bilateral mediolateral oblique. Computer Aided Detection was performed. Mammogram Findings: The present examination has been compared to a prior imaging study performed at [facility] on 01/02/2018. There are scattered areas [...] to a prior imaging study performed at [facility] on 01/02/2018. There are scattered areas of fibroglandular density. There is no suspicious abnormality in either breast. Impression: Annual screening mammography is recommended. OVERALL FINAL ASSESSMENT: BI-RADS CATEGORY 1: Negative. Johnson Harvey MD IMG MAMMO PROCEDURES Final Result from Last 3 Months or Most Recently Relevant to Health Maintenance Insurance [facility] CORE HEALTH PLAN [facility] HMO/PPO Address: [address] [place] [address] [place] [address] [facility] MEDICARE ADVANTAGE [facility] MEDICARE Address: [facility] [address] [place] [address] Care Teams Assistant Store Manager Relationship Specialty Start Date End Date Johnson Harvey MD [address] [facility] [address] [place] [address] PCP - General 01/21/18
--- OUTSIDE RECORDS SUMMARY | 2025-05-20 12:01 | XMS_ITS ---
Author Organization [employer] [facility] Address [address] [place] [address] Care Team Providers Care Ophthalmic Lens Inspector Name Role Phone Karen Hernández Primary Care Provider REASON FOR VISIT establish care Encounters Encounter Location Date Provider Diagnosis [facility] - Karen Hernández [address] [place] [address] 11/05/2024 Karen Hernández Plan Of Treatment No Information Progress Notes * Eddy GUERREROOB: (64 yo F)Acc No.[id number]:11/05/2024 Progress Notes Patient: Teri RAMIREZ Provider: Twan Hernández MD :1960 A ge:64 Y S ex:Female Date:11/05/2024 Address:[address] [place], [place] [address] Subjective: * Chief Complaints: * 1 . Establish care. * Medical History: Objective: * Vitals: Assessment: Plan: * Treatment: * Billing Information: * Visit Code: * Procedure Codes: * Electronic signature of Escobar Hernández MD on 05/20/2025 at 12:01 PM CDT Sign off status: Pending * Provider: Twan Hernández MD Date: Generated for Concha love/Nancy/Angelaitting on: 05/20/2025 12:01 PM CDT
--- OUTSIDE RECORDS SUMMARY | 2025-05-20 12:01 | XMS_ITS | Encounter Summary ---
Author Organization [facility] Address [address] [address] Care Team Providers Care Childhood Development Teacher Name Role Phone Jacob Harvey MD Primary Care Provider Reason for Visit * Reason Comments Cirrhosis Encounter Details Date Type Department Care Team (Late Contact Info) Description 04/05/2024 Telephone [facility] - [address] [address] Debi Luque RN Cirrhosis Social History Tobacco Use Types Packs/Day Years Used Date Smoking Tobacco: Former Cigarettes Smokeless Tobacco: Never Comments:Quit 1 1/2 years Alcohol Use Standard Drinks/Week Comments No 0 (1 standard drink = 0.6 oz pur e alcohol) Socially Comments No Sex and Gender Information Value Date Recorded Sex Assigned at Not on file Legal Sex Female 8:11 AM FIELD SERVICE REPRESENTATIVE Gender Identity Not on file Sexual Orientation Not on file 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 Not on file Not on file documented as of this encounter Miscellaneous Notes * Telephone Encounter - Debi Luque RN - 04/05/2024 5:06 PM CDT Call received from MD aguilar pt to report documented in this encounter Plan of Treatment Upcoming Encounters Date Type Department Care Team (Late Contact Info) Description 06/14/2025 8:00 AM CDT Office Visit [facility] [place] [address] [facility] [place] [address] Tennille Lopes, CLOSING SPECIALIST-SERVICE COUNTER CASHIER [address] [facility] [place] [address] documented as of this encounter Goals Goal Patient Goal Type Associated Problems Recent Progress Patient-Stated? Author Medication Management General On track( 024 12:39 PM FIELD SERVICE REPRESENTATIVE) Beatriz Fernández, RN Note: Expected end date: Ongoing Interventions: Take all medications as prescribed Let your doctor know right away about any changes in your medications Make sure to request a refill of your medication at least one week prior to your last dose documented as of this encounter Visit Diagnoses Not on filedocumented in this encounter Care Teams Childhood Development Teacher Relationship Specialty Start Date End Date Jacob Harvey MD [address] [phone] PCP - General 06/30/18 documented as of this encounter
--- OUTSIDE RECORDS SUMMARY | 2025-05-20 12:01 | XMS_ITS | Encounter Summary ---
Author Organization [facility] Address [address] [facility] [place] [address] Care Team Providers Care Federal Appellate Law Clerk Name Role Phone Jacob Harvey MD Primary Care Provider Encounter Details Date Type Department Care Team (Late Contact Info) Description 05/01/2025 Results Follow-Up [facility] - [place] [address] [place] [phone] Tennille Lopes, FISHERIES TECHNICAL OFFICER-SCHEDULER MAINTENANCE [address] OF GASTROENTEROLOGY [place], [place] [phone] Social History Tobacco Use Types Packs/Day Years Used Date Smoking Tobacco: Former Cigarettes Smokeless Tobacco: Never Comments:Quit 1 1/2 years Alcohol Use Standard Drinks/Week Comments No 0 (1 standard drink = 0.6 oz pur e alcohol) Socially Comments No Sex and Gender Information Value Date Recorded Sex Assigned at Not on file Legal Sex Female 8:11 AM CARPENTRY SUPERVISOR Gender Identity Not on file Sexual Orientation Not on file 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 Author Medication Management General On track( 024 12:39 PM CARPENTRY SUPERVISOR) No Beatriz Mccall, RN Note: Expected end date: Ongoing Interventions: Take all medications as prescribed Let your doctor know right away about any changes in your medications Make sure to request a refill of your medication at least one week prior to your last dose Safety General On track( 024 1:06 PM CARPENTRY SUPERVISOR) No Merry Remy, DEA Note: Expected end date: ongoing Interventions: Your nurse will assess your risk for falls/injury each visit documented as of this encounter Visit Diagnoses Not on filedocumented in this encounter Care Teams Federal Appellate Law Clerk Relationship Specialty Start Date End Date Jacob Harvey MD [address] [phone] PCP - General 06/30/18 documented as of this encounter
--- OUTSIDE RECORDS SUMMARY | 2025-05-20 12:02 | XMS_ITS | Patient Health Record ---
Author Organization [employer] [facility] Address [address] [facility] [place] [address] Care Team Providers Care Solar Photovoltaic Electrician Name Role Phone Karen Hernández Primary Care Provider [phone] Reason For Referral No Information Encounters Encounter Location Date Provider Diagnosis [facility] - Karen Hernández [address] [place] [address] 08/31/2024 Karen [facility] - Karen Hernández [address] [place] [address] 09/03/2024 Karen Hernández Plan Of Treatment No Information
--- OUTSIDE RECORDS SUMMARY | 2025-05-20 12:02 | XMS_ITS | Clinical Summary ---
Author Organization [facility] Address [address] [place] [address] [place] [address] Care Team Providers Care Technical Internship Name Role Phone Jacob Harvey MD Primary Care Provider Allergies No known active allergies Medications allopurinoL (ZYLOPRIM) 100 mg tablet allopurinol 100 mg tablet TAKE 1 TABLET BY MOUTH TWICE DAILY Active baclofen (LIORESAL) 10 mg tablet TK 1 T PO TID WF OR MILK PRF MSP 0 Active gabapentin (NEURONTIN) 600 mg tablet TK 2 TS PO TID 0 Active metFORMIN (GLUCOPHAGE XR) 500 mg Extended Release 24 hour tablet 0 Active levothyroxine 50 mcg tablet 0 Active furosemide (LASIX) 20 mg tablet Take 40 mg by mouth daily. Active rosuvastatin (CRESTOR) 40 mg tablet 0 Active Vitamin Y85-Pmwxg Acid 0.5-1 mg Tablet Vitamin B-12 TK 1T PO QD Active Vitamin E 100 unit/0.25 mL Drops Take 400 Units by mouth. Active cholecalciferol , Vitamin D3, (Vitamin D3) 25 mcg (1,000 unit) Capsule Vitamin D TK 1T PO QD Active Vit B Comp & C-Vit E-FA-Myesha-Zn (Adult One Daily Multivitamin) 0.4 mg Tablet Take by mouth. A ctive Cinnamon Bark (Cinnamon) 500 mg Capsule Cinnamon 1 tablet daily Active alcohol Pads, Medicated Alcohol Pads 1 PER INJECTION Active atorvastatin (LIPITOR) 80 mg tablet Take 80 mg by mouth daily. 2 Active rOPINIRole (REQUIP) 0.25 mg tablet Take 0.25 mg by mouth 3 times daily. Active spironolactone (ALDACTONE) 50 mg tablet Take 50 mg by mouth daily. Active buprenorphine (BUTRANS) 10 mcg/hour patch Apply 10 mcg to skin as directed every 7 days. Active Jardiance 25 mg tablet Take 1 Tablet by mouth daily in the morning. Active semaglutide (Ozempic) 2 mg/dose (8 mg/3 mL) Pen Injector Apply 1 mg to affected area. Active solifenacin (VESICARE) 10 mg Tablet Take 10 mg by mouth daily. Active diclofenac sodium (VOLTAREN) 75 mg Tablet, Delayed Release (E.C.) Take 75 mg by mouth 2 times daily. 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 Encounters Date Type Department Care Team Description 04/30/2025 External Device Data [facility] ABSTRACTION Provider, Abstract 03/28/2025 External Device Data [facility] ABSTRACTION Provider, Abstract 03/27/2025 External Device Data [facility] ABSTRACTION Provider, Abstract from Last 3 Months Family History Medical History Relation Name Comments Diabetes Brother Healthy Daughter Heart Failure Father Cancer Mother Healthy Sister Liver Disease Sister Healthy Son Relation Name Status Comments Brother Alive Daughter Alive Father Mother Sister Alive Son Alive Social History Tobacco Use Types Packs/Day Years Used Date Smoking Tobacco: Former Cigarettes 3 1 1 - 09/04/1987 Smokeless Tobacco: Never Tobacco Cessation:Counseling Given: Not Answered Alcohol Use Standard Drinks/Week Comments Yes 0 (1 standard drink = 0.6 oz pur e alcohol) OCCASIONLLY Comments Unknown Sex and Gender Information Value Date Recorded Sex Assigned at Not on file Legal Sex Female 2:12 PM CDT Gender Identity Not on file Sexual Orientation Not on file Last Filed Vital Signs Vital Sign Reading Time Taken Comments Blood Pressure 92/52 11/21/2024 11:37 AM BATCHMAKER Pulse 68 11/21/2024 11:37 AM BATCHMAKER Temperature 36.3 C (97.4 F) 11/21/2024 11:37 AM BATCHMAKER Respiratory Rate 18 05/21/2024 11:52 AM CDT Oxygen Saturation 90% 11/21/2024 11:37 AM BATCHMAKER Inhaled Oxygen Concentration - - Weight 93.9 kg (207 lb) 11/21/2024 11:37 AM BATCHMAKER Height 160 cm (5' 3) 03/02/2022 11:36 AM CDT Body Mass Index 36.67 03/02/2022 11:36 AM CDT Plan of Treatment Upcoming Encounters Date Type Department Care Team (Late st Contact Info) Description 05/21/2025 10:00 AM CDT Office Visit [facility] - [place] [address] [facility] [address] [place] [address] Eric Bhatt MD [address] [facility] [address] [place] [address] Health Maintenance Due Date Last Done Comments DIABETES ANNUAL FOOT EXAM 1976 DIABETES ANNUAL RETINAL EXAM 1976 DIABETES MICROALBUMIN ANNUAL SCREEN 1976 LDL CHOLESTEROL ANNUAL 1976 COLORECTAL SCREENING 2003 Colorectal Cancer Screening 2003 FIT-DNA Q 3 years 2003 FIT/FOBT Q 1 year 2003 Flex Sig/CT Colonography Q 5 years 2003 RSV VACCINE (60+ or ) (1 - Risk 60-74 years 1-dose series) 2018 ZOSTER VACCINE (2 of 3) 02/18/2019 12/24/2018 BREAST CANCER SCREENING 01/13/2020 01/13/20 19, 01/12/2019, 01/02/2018, Additional history exists DIABETES HBA1C Q 6 MONTHS 03/10/2024 09/10/2023 PNEUMOCOCCAL VACCINE 50+ YEA RS (3 of 3 - PCV20 or PCV21) 09/10/2024 09/10/2019, 09/01/2018 Medicare [place]) Preventative Visit/Annual Wellness Visit 11/07/2024 INFLUENZA VACCINE (#1) 2025 2, 07/29/2021, 07/16/2020, Additional history exists OSTEOPOROSIS SCREENING 12/11/2025 1, 12/11/2020, 05/29/2020, Additional history exists DTAP/TDAP/TD VACCINES (2 - T d or Tdap) 05/17/2027 05/17/2017 Insurance [facility] [address] [address] Care Teams Technical Internship Relationship Specialty Start Date End Date Jacob Harvey MD PCP - General Internal Medicine 11/22/23
--- OUTSIDE RECORDS SUMMARY | 2025-05-20 12:02 | XMS_ITS | Clinical Summary ---
Author Organization [facility] Address [address] [place] [address] Care Team Providers Care Television News Anchor Name Role Phone Jacob Harvey MD Primary Care Provider Source Comments [facility],non-owned Affiliates and Associated Physician Practices is amultiple site organization consisting of ambulatory clinics and hospital sitesin [place], [place], [place] and [place]. This disclosure is being madepursuant to the Care Everywhere program and may not contain all information available regarding this patient. Last updated 18.[facility] Allergies No known active allergies Medications * Be aware that medications may not be up to date on this document. Alwaysverify current medications with the patient. ALLOPURINOL PO Take 100 mg by mouth 2 times daily As directed Active baclofen (LIORESAL) 10 MG tabletIndicati ons:Nonalcohol ic fatty liver disease Take 1 (one) tablet by mouth 3 times daily May cause drowsiness. Active glimepiride (AMARYL) 2 MG tablet Take 2 (two) tablets by mouth 2 times daily Active JARDIANCE 25 MG tablet Take 1 (one) tablet by mouth once daily 0 8 Active gabapentin (NEURONTIN) 600 MG tablet Take 2 (two) tablets by mouth 3 times daily 0 8 Active rOPINIRole (REQUIP) 0.25 MG tablet Take 1 (one) tablet by mouth Take one tablet in the AM, two tablets in the PM. 0 8 Active vitamin C (ASCORBIC ACID) 1000 MG tablet Take 1 (one) tablet by mouth once daily Active vitamin E (TOCOPHERYL) 400 UNIT capsule Take 1,000 Units by mouth once daily Active Cinnamon 500 MG Take 2 (two) tablets by mouth once daily Active levothyroxine (SYNTHROID) 50 MCG tablet Take 1 (one) tablet by mouth daily before breakfast Active hydroCHLOROthi azide (MICROZIDE) 12.5 MG capsule Take 1 (one) capsule by mouth once daily Active losartan (COZAAR) 100 MG tablet Take 1 (one) tablet by mouth once daily Active semaglutide (OZEMPIC, 0.25 OR 0.5 MG/DOSE,) 2 MG/1.5ML pen Inject 0.5 mg subcutaneously every 7 days Active solifenacin (Vesicare) 10 MG tablet Take 1 (one) tablet by mouth once daily Active atorvastatin (Lipitor) 80 MG tablet Take 1 (one) tablet by mouth once daily 3 Active multivitamin daily tablet Take 1 (one) tablet by mouth daily with food Active calcium carbonate (Caltrate) 600 MG tablet Take 1 (one) tablet by mouth daily with food Active Cyanocobalamin (VITAMIN B 12 PO) Take 1 tablet by mouth once daily 5000 units po every Tuesday, Tuesday, Tuesday Active Cholecalcifero l (Vitamin D-3) 125 MCG (5000 UT) Take 1 (one) tablet by mouth once daily Active spironolactone (Aldactone) 50 MG tablet TAKE 3 TABLETS BY MOUTH DAILY 270 tablet 1 4 Active buprenorphine (Butrans) 10 MCG/HR patch Apply 1 (one) patch to skin every 7 days Active Tresiba FlexTouch 100 UNIT/ML pen Inject 20 (twenty) Units subcutaneously at bedtime Active furosemide (Lasix) 40 MG tablet Take 1.5 (one and one-half) tablets by mouth once daily 135 tablet 3 5 026 Active Active Problems Problem Noted Date Diagnosed Date Vitamin D deficiency 12/20/2019 Overview (12/20/2019): 12/13/19 25-OH vit D (study labs): 51 ng/ml on 1000 IU/d Obesity 10/24/2018 Hypertension 10/24/2018 Esophageal stricture 10/24/2018 Overview (10/24/2018): Hx of dilatations at [facility] multiple times 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 Biopsy; [facility] 02/12. Stage 4 10/06/18 Fibroscan CAP 387, E 14.3 kPa US 01/2019, no lesions 05/18/19 liver biopsy (BMS study entry): PAYNE cirrhosis 05/03/19 Fibroscan (study): CAP 372, E 45.9 kPa 05/29/20 Fibroscan (study): CAP 348, LSM 33.2 kPa 06/03/20 liver biopsy (BMS study): PAYNE cirrhosis 02/05/22: her treatment assignment in BMS was 10 ug qwk (out of 0, 10, 20, 40) x 48 wks Metabolic syndrome 06/30/2018 Type 2 diabetes mellitus 06/30/2018 Hyperlipidemia 06/30/2018 Sleep apnea 05/17/2017 Leg pain 10/15/2009 Numbness and tingling of leg 10/15/2009 Neuropathy Encounters Date Type Department Care Team Description 05/01/2025 Results Follow-Up [facility] - GI [address] [facility] [place] [address] Tennille Lopes APRN-CNP 04/29/2025 10:22 AM CDT - 04/29/2025 11:59 PM CDT Hospital Encounter [facility] [address] [place] [address] Tennille Lopes APRN-CNP Discharge Disposition: Home or Self Care 04/29/2025 Travel 04/11/2025 Travel from Last 3 Months Family History Relation Name Status Comments Brother Alive Father Mother Sister Alive Social History Tobacco Use Types Packs/Day Years Used Date Smoking Tobacco: Former Cigarettes Smokeless Tobacco: Never Tobacco Cessation:Counseling Given: Not Answered Comments:Quit 1 1/2 years Alcohol Use Standard Drinks/Week Comments No 0 (1 standard drink = 0.6 oz pur e alcohol) Socially Comments No Sex and Gender Information Value Date Recorded Sex Assigned at Not on file Legal Sex Female 8:11 AM FURNACE CLEANER Gender Identity Not on file Sexual Orientation Not on file 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 Not on file Not on file Last Filed Vital Signs Vital Sign Reading Time Taken Comments Blood Pressure 122/70 10/25/2024 12:31 PM FURNACE CLEANER Pulse 73 10/25/2024 12:31 PM F[employer]NACE CLE[employer]ER Temperature 36.6 C (97.8 F) 10/25/2024 12:31 PM F[employer]NACE CLE[employer]ER Respiratory Rate 18 04/19/2024 9:30 PM CDT Oxygen Saturation 98% 10/25/2024 12:31 PM FURNACE CLEANER Inhaled Oxygen Concentration - - Weight 93 kg (205 lb) 10/25/2024 12:31 PM FURNACE CLEANER Height 157.5 cm (5' 2) 10/25/2024 12:31 PM FURNACE CLEANER Body Mass Index 37.49 10/25/2024 12:31 PM FURNACE CLEANER Plan of Treatment Upcoming Encounters Date Type Department Care Team (Late st Contact Info) Description 06/14/2025 8:00 AM CDT Office Visit [facility] - GI [address] [facility] [place] [address] Tennille Lopes, STAMPER BLOCKER-TUBE PULLER [address] [place] [address] [address] [place] [address] Health Maintenance Due Date Last Done Comments COLOGUARD (AGES 45-75) - COLON CA SCREENING 1958 COLON MONITORING 1958 COLONOSCOPY - COLON CA SCREENING 1958 CT COLONOGRAPHY - COLON CA SCREENING 1960 Colorectal Cancer Screening 1958 FIT - COLON CA SCREENING 1958 FLEX SIG - COLON CA SCREENING 1958 DTAP/TDAP/TD VACCINES (1 - Tdap) 1977 PNEUMOCOCCAL VACCINE 50+ (1 of 2 - PCV) 1977 ZOSTER VACCINE (1 of 2) 2008 HEPATITIS B VACCINE (1 of 3 - Risk 3-dose series) 2018 Respiratory Syncytial Virus (RSV) Vaccine Pt: or over 60 yrs (1 - Risk 60-74 years 1-dose series) 2018 DIABETES RETINOPATHY SCREENING 12/29/2018 DIABETES-FOOT EXAM WITH MONOFILAMENT 12/29/2018 MAMMOGRAM 01/12/2021 01/12/2019, 06/2019, 01/12/2019, Additional history exists DIABETES-HGB A1C 03/10/2024 09/10/2023 COVID-19 VACCINE ( season) 2024 09/03/2023, 10/24/2021, 01/09/2021 DEPRESSION SCREENING 11/07/2024 DIABETES - URINE PROTEIN SCREENING 11/07/2024 MEDICARE AWV CALENDAR YEAR 2024 INFLUENZA VACCINE (#1) 2025 , 09/03/2023, 07/28/2022, Additional history exists DIABETES-SERUM CREATININE 11/06/20252023, 10/25/2024, 07/21/2024, Additional history exists HEPATITIS C SCREENING Completed 06/30/2018 BONE DENSITY TESTING Completed 12/11/2020, 05/29/2020, 05/18/2019 HIB VACCINE Aged Out No longer eligi ble based on patient's age to complete this topic HPV VACCINE Aged Out No longer eligi ble based on patient's age to complete this topic MENINGOCOCCAL (Group B) VACCINE SHARED DECISION-MAKING Aged Out No longer eligible based on patient's age to complete this topic MENINGOCOCCAL GROUPS A/C/Y/W VACCINE Aged Out No longer eligible based on patient's age to complete this topic Goals Goal Patient Goal Type Associated Problems Recent Progress Patient-Stated? Author Medication Management General On track( 024 12:39 PM FURNACE CLEANER) Beatriz Fernández, RN Note: Expected end date: Ongoing Interventions: Take all medications as prescribed Let your doctor know right away about any changes in your medications Make sure to request a refill of your medication at least one week prior to your last dose Safety General On track( 024 1:06 PM FURNACE CLEANER) No Merry Remy, RN Note: Expected end date: ongoing Interventions: Your nurse will assess your risk for falls/injury each visit Procedures Procedure Name Priority Date/Time Associated Diagnosis Comments US ABDOMEN LIMITED Routine 04/29/2025 10 :53 AM CDT 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 (HCC) BASIC METABOLIC PANEL (CALCIUM TOTAL) Routine 11/06/2024 10:03 AM FURNACE CLEANER 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 Other ascites HEMOGLOBIN A1C (EXTERNAL RESULT ENTRY) Routine 09/10/2023 11:58 AM CDT DEXA BONE DENSITY AXIAL SKELETON Routine 12/11/2020 10:12 AM FURNACE CLEANER 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 No discrete hepatic observations identified. 2.Liver Visualization Score B: Moderate limitations. 3.US-1 Negative. Repeat surveillance US in 6 months. 4.Cholelithiasis without evidence of acute cholecystitis. The report was drafted by Óscar Ames MD (associate vice president). I, Hali Tobin MD have personally reviewed and interpreted this examination/study. 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 Liver Observations: None. Main Portal Vein: Color Doppler evaluation demonstrates patency of the main portal vein. Hepatic Veins: Color Doppler evaluation demonstrates patency of the hepatic veins. Bile Ducts: The common bile duct is nondilated, measuring 3.2 mm. No intrahepatic or extrahepatic biliary dilation. Gallbladder: Gallstones are seen within the gallbladder without pericholecystic fluid or gallbladder wall thickening. Sonographic Song's sign is negative. Ascites: No ascites is present. Spleen: The spleen measures 15.7 cm in length. Pancreas: The visible pancreas is normal in echogenicity. Right Kidney: The right kidney measures 10.9 cm in length. Limited views of the right kidney reveal no evidence of nephrolithiasis or hydronephrosis. No discrete mass identified. 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 Liver Observations: None. Main Portal Vein: Color Doppler evaluation demonstrates patency of the main portal vein. Hepatic Veins: Color Doppler evaluation demonstrates patency of the hepatic veins. Bile Ducts: The common bile duct is nondilated, measuring 3.2 mm. No intrahepatic or extrahepatic biliary dilation. Gallbladder: Gallstones are seen within the gallbladder without pericholecystic fluidor gallbladder wall thickening. Sonographic Song's sign is negative. Ascites: No ascites is present. Spleen: The spleen measures 15.7 cm in length. Pancreas: The visible pancreas is normal in echogenicity. Right Kidney: The right kidney measures 10.9 cm in length. Limited views of the right kidney reveal no evidence of nephrolithiasis or hydronephrosis. No discrete mass identified. Impression: 1.Hepatic cirrhosis with sequelae of portal hypertension including splenomegaly. No discrete hepatic observations identified. 2.Liver Visualization Score B: Moderate limitations. 3.US-1 Negative. Repeat surveillance US in 6 months. 4.Cholelithiasis without evidence of acute cholecystitis. The report was drafted by Óscar Ames MD (associate vice president). I, Hali Tobin MD have personally reviewed and interpreted this examination/study. > Interpreting Provider: Hali Tobin MD on 51:24 PM us Tennillemarcelle Lopes STAMPER BLOCKER-TUBE PULLER US ORDERABLES Fin al Result * (ABNORMAL) BASIC METABOLIC PANEL (CALCIUM TOTAL) (11/06/2024 10:03 AM FURNACE CLEANER) Glucose 150(H) 65 - 99 mg/dL [facility] Comment: Fasting reference interval For someone without known diabetes, a glucose value >125 mg/dL indicates that they may have diabetes and this should be confirmed with a follow-up test. BUN 21 7 - 25 mg/dL [facility] Creatinine 0.95 0.50 - 1.05 mg/dL [facility] eGFR by Cystatin C 66 > OR = 60 mL/min/1. 73m2 [facility] BUN/Creatinine Ratio SEE NOTE: 6 - 22 (calc) [facility] Comment: Not Reported: BUN and Creatinine are within reference range. Sodium 139 135 - 146 mmol/L [facility] Potassium 4.1 3.5 - 5.3 mmol/L [facility] Chloride 97(L) 98 - 110 mmol/L [facility] CO2 33(H) 20 - 32 mmol/L [facility] Calcium 9.7 8.6 - 10.4 mg/dL [facility] Comment: Test Performed at: [facility] [address] [place] [address] ZANE RIBEIRO MD Blood BLOOD SPECIMEN / Unknown 11/06/2024 10:03 AM FURNACE CLEANER 11/06/2024 10:03 AM FURNACE CLEANER Tennille Lopes STAMPER BLOCKER-TUBE PULLER LAB - CHEMISTRY ORD ERABLES Final Result Performing Organization Address City/[facility]/ZIP Co de Phone Number [place] [address] [place] [address] * (ABNORMAL) HEMOGLOBIN A1C (EXTERNAL RESULT ENTRY) (09/10/2023 11:58 AM CDT) Hemoglobin A1c (EXTERNAL RESULT) 6.9(A) % [facility] Blood BLOOD SPECIMEN / Unknown 09/10/2023 11:58 AM CDT Historical Provider MD LAB - CHEMISTRY ORDERABLE S Final Result Performing Organization Address [facility] Co de Phone Number [place] [address] [place] [address] * BONE DENSITY AXIAL SKELETON(1OR MORE SITES)[id number] (12/11/2020 10:12 AM FURNACE CLEANER) Anatomical Region Laterality Modality Other 12/11/2020 1:36 PM FURNACE CLEANER Narrative 12/11/2020 2:35 PM FURNACE CLEANER EXAMINATION: Dual energy x-ray absorptiometry of the lumbar spine and hip. 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 Patient's height 64 in; weight 240 lb. FINDINGS: Detailed data from the exam is sent separately to the ordering physician and is also available on [employer], the Radiology Department's computerized picture archive system. COMPARISON: Comparison is made to a prior study dated 05/29/2020. SUMMARY: BONE MINERAL DENSITY (BMD) lumbar spine (L1-4): Normal; T-score 1.3, previously 1.1. BONE MINERAL DENSITY (BMD) left femoral neck: Normal; T-score -0.6 previously -0.8. FRAX 10-year fracture risk is not reported because all T-scores for lumbar spine and left femur are above -1.0. DEFINITIONS: T-score = Standard Deviation Normal: A value for bone mineral density(BMD) within 1 standard deviation of the young adult reference mean. (T-score above -1) Low bone mass(osteopenia): A value for bone mineral density(BMD) more than 1 standard deviation below the young adult mean, but less than 2.5 standard deviations below the young adult mean. ( T-score between -1 and -2.5) Osteoporosis: A value for bone mineral density 2.5 standard deviations or more below the young adult mean. ( T-score at or below -2.5) Severe osteoporosis: Osteoporosis + the presence of one or more fragility fractures. Please note that T-score values are important in determining increased risk for fractures. The T-score represents the standard deviation above or below the mean bone mineral density for young adults. With each -1 standard deviation decrease in bone mineral density, the risk for fracture doubles exponentially. A T-score of -1 will double the risk , and -2 will be 4 times the risk. As a rule of thumb, a T-score of -1 to -2.5 indicates increasing degrees of osteopenia. Dictated by Wicho Altamirano MD (Nuclear Medicine resident). This report was approved by Wicho Altamirano on 12/11/2020 1:37 PM . I, Dr. GO LOUIS D.O. have personally reviewed and interpreted this examination/study. This report was electronically signed by GO LOUIS D.O. on 12/11/2020 2:35 PM . Procedure Note Go Louis, DO - 12/11/2020 EXAMINATION: Dual energy x-ray absorptiometry of the lumbar spine andhip. 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 Patient's height 64 in;weight 240 lb. FINDINGS: Detailed data from the exam is sent separately to the ordering physician and is also available on [employer], the Radiology Department's computerized picture archive system. COMPARISON: Comparison is made to a prior study dated 05/29/2020. SUMMARY: BONE MINERAL DENSITY (BMD) lumbar spine (L1-4): Normal; T-score 1.3, previously 1.1. BONE MINERAL DENSITY (BMD) left femoral neck: Normal; T-score -0.6 previously -0.8. FRAX 10-year fracture risk is not reported because all T-scores forlumbar spine and left femur are above -1.0. DEFINITIONS: T-score = Standard Deviation Normal: A value for bone mineral density(BMD) within 1 standarddeviation of the young adult reference mean. (T-score above -1) Low bone mass(osteopenia): A value for bone mineral density(BMD) morethan 1 standard deviation below the young adult mean, but less than 2.5 standard deviations below the young adult mean. ( T-score between -1 and -2.5) Osteoporosis: A value for bone mineral density 2.5 standard deviationsor more below the young adult mean. ( T-score at or below -2.5) Severe osteoporosis: Osteoporosis + the presence of one or morefragility fractures. Please note that T-score values are important in determining increased risk for fractures. The T-score represents the standard deviation aboveor below the mean bone mineral density for young adults. With each -1 standard deviation decrease in bone mineral density, the risk forfracture doubles exponentially. A T-score of -1 will double the risk , and -2will be 4 times the risk. As a rule of thumb, a T-score of -1 to -2.5indicates increasing degrees of osteopenia. Dictated by Wicho Altamirano MD (Nuclear Medicine resident). This report was approved by Wicho Altamirano on 12/11/2020 1:37 PM . I, Dr. GO LOUIS D.O. have personally reviewed and interpreted this examination/study. This report was electronically signed by GO LOUIS D.O. on12/11/2020 2:35 PM . Kev Tyler MD DEXA ORDERABLES Fi nal Result * HEPATITIS C AB SCREEN RFLX NAAT QUANT (06/30/2018 12:37 PM CDT) Hepatitis C Antibody Non-react misti Non-reac tive 06/30/2018 3:41 PM CDT [facility] Comment: Hepatitis C Antibody screen indicates no serologic evidence of past or current infection with Hepatitis C Virus. Patients with unexplained liver disease who are immunocompromised or suspected of having acute Hepatitis C infection may benefit from Nucleic Acid Test (CHEVY) for Hepatitis C Viral RNA to confirm Hepatitis C status. Blood BLOOD SPECIMEN / Unknown Lab Venipuncture / Unknown 06/30/2018 12:37 PM CDT 06/30/2018 1:58 PM CDT [facility] Lenin Alejandro Granado MD LAB - CHEMISTR Y ORDERABLES Final Result [facility] [address] [place] [address], [facility] [phone] from Last 3 Months or Most Recently Relevant to Health [place] [address] [employer] [place] [address] Care Teams Television News Anchor Relationship Specialty Start Date End Date Jacob Harvey MD [address] [facility] [address] [place] [address] PCP - General 06/30/18
--- OUTSIDE RECORDS SUMMARY | 2025-05-20 12:02 | XMS_ITS | Data Portability ---
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 General Assignment Reporter variances may occur. Despite proofreading, typographical errors may occur. Occasional wrong-word or 'ptnts-n-wyjy' substitutions may have occurred due to the inherent limitations of voice recording. Read the chart carefully and recognize, using context, where substitutions have occurred. Not available 03/28/2025 14:27:39 04/08/2025 04/08/2025 This note is dictated and transcribed by [employer]. General Assignment Reporter variances may occur. Despite proofreading, typographical errors may occur. Occasional wrong-word or 'qctig-s-azml' substitutions may have occurred due to the inherent limitations of voice recording. Read the chart carefully and recognize, using context, where substitutions have occurred. Not available 04/08/2025 16:12:52 04/15/2025 04/15/2025 05/14/2023: TSH 5.62H, FT4 1.1 AST/ALT 44/56, ALP 166 A1C 6.8H 05/20/2023: Dr Bhatt WBC 4.2, PLT 71 09/10/2023: Gluc 107 ALP 218, ALT 52/AST 49 A1C 6.9 WBC 3.6, PLT 65 01/14/2024: ALP 195, AST 37, ALT 48 A1C 8.2 WBC 3.7, PLT 67 03/28/2024: SL CBC: PLT 65L 04/11/2024: [facility] CMP: Stable 05/17/2024: TG 179 Gluc 206, BUN 30H, Cr 1.35H, GFR 44L, ALP 200, AST/ALT 43/55 A1C 9.0 TSH 4.94 PLT 75 08/15/2024: TSH 4.51H TG 164 A1C 11.9 ALP 332, AST/ALT 62/66 HCT 45.7, PLT 94L 11/08/2024: A1C 8.7 HCT 45.7, PLT 98 Gluc 156, BUN 29, Cr 1.18, GFR 51, AST/ALT 36/44, ALP 213 11/19/2024: DR Bhatt BUN 35, Cr 1.43, GFR 37, gluc 158 PLT 117 [email or web address] Not available 04/15/2025 15:07:12 05/06/2025 05/06/2025 This note is dictated and transcribed by [employer]. General Assignment Reporter variances may occur. Despite proofreading, typographical errors may occur. Occasional wrong-word or 'vxyve-q-nfpu' substitutions may have occurred due to the inherent limitations of voice recording. Read the chart carefully and recognize, using context, where substitutions have occurred.[email or web address] Not available 05/06/2025 14:43:36 Plan of Treatment Reminders Order Date Submit Date Provider Last Modified By Organization Details Last Modified Time Details Appointments Establish ed Patient 2024 11:30A Twan Oliveira DPM Not available Not available Not available Any 2024 02:30P Twan morales MD Not available Not available Not available Post-Op 2024 03:15P Twan Oliveira DPM Not available Not available Not available Follow Up 2024 10:00A M Bry morales MD Not available Not available Not available Lab CMP, serum or plasma 2024 025 [employer] [facility], [address], [place], [address], 04/19/2025 04:31:29 lipid panel, serum 2024 025 [employer] [facility], [address], [place], [address], 04/19/2025 04:31:27 CBC w/ auto diff 2024 025 [employer] [facility], [address], [place], [address], 04/19/2025 04:31:31 TSH + free T4, serum 2024 025 [employer] [facility], [address], [place], [address], 04/19/2025 04:31:28 Referral vascular surgeon referral - Please call patient to schedule an appointme nt. Thank you. 2024 025 [place], [address] [facility] [place], [address], [place], [address], 04/22/2025 11:05:22 nephrolog ist referral - Please call patient to schedule an appointme nt. Thank you. 2024 025 RUFINA Marquez MD, [address], [address], [place], [address], 04/22/2025 11:35:21 orthopedi c surgeon referral - Please call patient to schedule an appointme nt with David Cerna. Thank you. 2024 025 RUFINA [facility], [address], [place], [address], 04/16/2025 14:40:29 Procedures None recorded. Surgeries None recorded. Imaging MAMMO, screening , digital, bilateral 2024 025 [email or web address] [facility], [address], [place], [address], 04/15/2025 16:03:02 MRI, foot, w/o contrast - rule out osteomyel itis 4th toe 2024 025 [email or web address] [facility], [address], [place], [address], 05/13/2025 08:13:23 Medication Orders None recorded. Patient TargetsNo targets recorded. Patient InstructionsNo instructions recorded. Reason for Referral Orthopedic Surgeon Referral for Pain of right hip joint Please call patient to schedule an appointment with David Cerna. Thank you. Referring Physician: Bry Harvey, Internal Medicine, Encounter Date: 04/15/2025 Vascular Surgeon Referral fo r Varicose veins of lower extremity Please call patient to schedule an appointment. Thank you. Referring Physician: Bry Harvey, Internal Medicine, Encounter Date: 04/15/2025 Cardiovascular Disease Specialist Referral for Ch ronic kidney disease Please call patient to schedule an appointment. Thank you. Referring Physician: Bry Harvey Internal Medicine, Encounter Date: 04/15/2025 Results Created Date Observation Date Name Description Value Unit Range Abnormal Flag Note LastModifiedBy Organization Detail LastModifiedTime 03/22/20 25 03/21/2025 imagi ng/di agnos tic resul t No observ ation record ed. [facility] [address], [place], [address], 03/22/2025 07:26:07 03/22/20 25 03/21/2025 imagi ng/di agnos tic resul t No observ ation record ed. [facility] [address], [place], [address], 03/22/2025 07:36:09 03/25/20 25 03/21/2025 XR, foot, 3 or more view No observ ation record ed. [email or web address] Not Available 03/26 09:01:11 04/22/20 25 04/22/2025 MRI, foot, w/o contr ast No observ ation record ed. [email or web address] [facility] [address], [place], [address], 05/13/2025 08:13:23 05/08/20 25 05/08/2025 imagi ng/di agnos tic resul t No observ ation record ed. [facility] [address], [place], [address], 05/08/2025 13:55:33 Result Notes None recorded. Problems Name Problem SNOMED Code Status Onset Date Resolution Date Notes Provider Name and Address Organization Details Recorded Time Renewal of prescript ion Active 2021 Not Available [facility] 3 02:53:36 Celluliti s of toe of left foot 60785289348 371232 Active 2018 Not Available [facility] 3 02:53:36 Disorder of shoulder 972381094 Active Not Available [facility] 3 02:53:36 Benign essential hypertens ion 5088792 Active Not Available [facility] 3 02:53:36 Foot ulcer due to type 2 diabetes mellitus 31359737766 00 Active 2021 Not Available [facility] 3 02:53:36 Dry skin 50834696 Active 2018 Not Available [facility] 3 02:53:36 Puncture wound of foot 46062080 Active 2016 Not Available [facility] 3 02:53:36 Radiother apy follow-up 175831327 Active Not Available [facility] 3 02:53:36 Localized , primary osteoarth ritis 310296376 Active Not Available [facility] 3 02:53:37 Partial thickness rotator cuff tear Active Not Available [facility] 3 02:53:37 Synovitis and tenosynov itis Active Not Available [facility] 3 02:53:37 Idiopathi c periphera l neuropath y 98620200 Active Not Available [facility] 3 02:53:37 Osteoarth ritis of knee 305420308 Active Not Available [facility] 3 02:53:37 Shoulder joint pain 145892185 Active Not Available [facility] 3 02:53:37 Eruption 217798562 Active 2021 Not Available [facility] 3 02:53:37 Current tear of medial cartilage AND/OR meniscus of knee Active Not Available [facility] 3 02:53:37 Knee pain Active Not Available [facility] 3 02:53:37 Type 2 diabetes mellitus without complicat ion 404215048 Completed Bry hernandez MD [address] [facility], [address], [address] , [facility] 3 17:43:16 Pain of left hip joint 89475025957 9100 Active 2021 Not Available [facility] 3 02:53:37 Pain of right hip joint 53305600257 9102 Active 2021 Not Available [facility] 3 02:53:37 Pain of toe of right foot 29085891592 9101 Active 2018 Not Available [facility] 3 02:53:38 Trochante jinny bursitis of left hip 05125966976 9103 Active 2021 Not Available [facility] 3 02:53:38 Trochante jinny bursitis of right hip 97367198131 9100 Active 2021 Not Available [facility] 3 02:53:38 Mononeuri tis 76231760 Active Not Available [facility] 3 02:53:38 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 785889864 Active 2021 Not Available [facility] 3 02:53:38 Uncontrol led type 2 diabetes mellitus 652517805 Active Not Available [facility] 3 02:53:38 Blister of toe without infection 82502776 Active Not Available [facility] 3 02:53:38 Hyperlipi demia 90415578 Active Not Available [facility] 3 02:53:38 Essential hypertens ion 81681807 Active 2021 Not Available [facility] 3 02:53:39 Tinea pedis 2443872 Active 2018 Not Available [facility] 3 02:53:39 Derangeme nt of knee 06386267 Active Not Available [facility] 3 02:53:39 Fracture of forearm 65122737 Active Not Available [facility] 3 02:53:39 Closed fracture of head of radius 28082163 Active Not Available [facility] 3 02:53:39 Brachial neuritis 82332484 Active Not Available [facility] 3 02:53:39 Diabetes mellitus 81524900 Active 2018 Not Available [facility] 3 02:53:39 Sleep apnea 28765215 Active 2016 Not Available [facility] 3 02:53:39 Fatigue 00604890 Active Not Available [facility] 3 02:53:39 Gout 42582856 Active 2018 Not Available [facility] 3 02:53:39 Pain in limb 96084054 Active Not Available [facility] 3 02:53:40 Type 2 diabetes mellitus without complicat ion 631331081 Active 2022 Bry hernandez MD [address], [place], [address] , [facility] [employer] [facility] 3 17:43:16 Low back pain 571128725 Active 2022 Bry hernandez MD [address], [place], [address] , [employer] 3 17:44:07 Thromboti c thrombocy topenic purpura 53647576 Active 2022 Bry hernandez MD [address], [address], [place], [address] , [employer] 3 17:44:31 Non-alcoh olic fatty liver 925087617 Active 2022 Bry hernandez MD [address], [place], [address] , [employer] 3 17:44:40 Chronic kidney disease 579850138 Active 2022 Bry hernandez MD [address], [address], [place], [address] , [employer] 3 17:44:49 Dysphagia 84761932 Active 2022 Bry hernandez MD [address], [place], [address] , [employer] 3 17:45:00 Urinary incontine nce 301582034 Active 2022 Bry hernandez MD [address], [place], [address] , [employer] 3 17:45:06 Hypothyro idism 38295033 Active 2022 Bry hernandez MD [address], [address], [place], [address] , [employer] 3 17:45:11 Varicose veins of lower extremity 98006377 Active 2022 Bry hernandez MD [address], [place], [address] , [employer] 3 17:45:56 Restless legs 32215236 Active 2022 Bry hernandez MD [address], [address], [place], [address] , [facility] 3 17:47:28 Moderate recurrent major depressio n 06583926 Active 2022 Bry hernandez MD [address], [place], [address] , [facility] 3 17:47:56 Well controlle d type 2 diabetes mellitus 330620414 Active 2022 Karen Hernández MD [address], [address], [place], [address] , [facility] 3 12:56:16 Pain of left shoulder joint 18554331391 768202 Active 2022 Merced Boucher null, [facility] 3 12:55:10 Pain of bilateral hip joints 28123512453 432127 Active 2022 Vicky Colon CNA null, [facility] 3 14:56:31 Lumbar spondylos is 303167125 Active 2022 DONALD Cintron [address], [place], [address] , [facility] 3 15:37:37 Upper respirato ry infection 15838428 Active 2023 Daniela Bolivar MA null, [place] [facility] 4 12:39:25 Hammer toe 598248663 Active 2023 Brian Oliveira DPM [address], [address], [place], [address] , [facility] 4 13:54:31 Pain in toe 590813280 Active 2023 Brian Oliveira DPM [address], [address], [place], [address] , [facility] 4 13:54:40 Abdominal bloating 709425668 Active 2023 Bry hernandez MD [address], [place], [address] , [facility] 4 15:23:34 Ascites 744213398 Active 2023 Bry hernandez MD [address], [place], [address] , [facility] 4 15:47:22 Headache 60584573 Active 2023 Daniela Bolivar MA null, [facility] 4 17:41:34 Vitamin D deficienc y 72740022 Active 2023 Daniela Bolivar MA null, [place] [employer] [facility] 4 17:42:33 Ulcer of big toe 517950791 Active 2023 Brian Oliveira DPM [address], [place], [address] , [facility] [employer] [facility] [employer] [facility] 4 15:10:51 Ulcer of toe 279889715 Active 2023 Brian Oliveira DPM [address], [place], [address] , [facility] [employer] [facility] [employer] [facility] 4 15:10:57 Acute osteomyel itis of phalanx of toe 936147243 Active 2023 Brian Oliveira DPM [address], [place], [address] , [facility] 4 13:06:47 Dehiscenc e of external surgical incision wound 52254417431 9108 Active 2023 Brian Oliveira DPM [address], [place], [address] , [facility] 4 14:15:27 Callosity on toe 760057033 Active 2023 Brian Oliveira DPM [address], [place], [address] , [facility] 4 14:16:03 Celluliti s of right foot 22800040118 659305 Active 2023 Brian Oliveira DPM [address], [place], [address] , [facility] 4 14:41:15 Blister of foot with infection 34613988 Active 2023 Brian Oliveira DPM [address], [place], [address] , [facility] 4 14:42:40 Pain in left foot 85523094305 9107 Active 2023 Brian Oliveira DPM [address], [place], [address] , [facility] 4 14:57:13 Deep venous thrombosi s of lower extremity 934793697 Active 2023 Brian Oliveira DPM [address], [place], [address] , [facility] 4 14:57:56 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 86427771144 988538 Active 2023 Brian Oliveira DPM [address], [place], [address] , [facility] 4 12:45:22 Open wound of foot 783928717 Active 2024 Bry hernandez MD [address], [place], [address] , [facility] 5 22:52:44 Periphera l arterial occlusive disease 402355448 Active 2024 Brian Oliveira DPM [address], [place], [address] , [facility] 5 12:47:33 Postopera tive visit 126852765 Active 2024 Brian Oliveira DPM [address], [place], [address] , [facility] [employer] [facility] 5 14:57:06 Dehiscenc e of surgical wound 63291744 Active 2024 Brian Oliveira DPM [address], [place], [address] , [facility] [employer] [facility] 5 15:59:58 Celluliti s of toe of right foot Active 2024 Brian Oliveira DPM [address], [place], [address] , [facility] [employer] [facility] 5 15:01:59 Acute osteomyel itis 706781900 Active 2024 Brian Oliveira DPM [address], [place], [address] , [facility] [employer] [facility] 5 16:13:17 Type 2 diabetes mellitus 46252696 Active 2024 Bry hernandez MD [address], [place], [address] , [facility] [employer] [facility] 5 12:32:00 Open wound of foot, excluding toe(s) 315459554 Active 2024 PARKER Moraes, [facility] 5 15:05:13 Open wound 945271845 Active 2024 PARKER Moraes, [facility] 5 15:07:28 Ulcer of toe of right foot Active 2024 Brian Oliveira DPM [address], [place], [address] , [facility] [employer] [facility] 5 14:43:29 Acute osteomyel itis of right foot 42646571677 37354 Active 2024 Brian Oliveira DPM [address], [place], [address] , [employer] 5 12:37:02 Problem Notes None recorded. Procedures Surgical History Date Name Laterality Status Provider Name and Address Organization Details Recorded Time 5 Suture Removal completed Brian Oliveira DPM [address], [place], [address], [employer] [facility] [facility] [email or web address] 02/18/2025 10:21:28 4 Wound Care-Podiatry completed Brian Oliveira DPM [address], [place], [address], [employer] [facility] [email or web address] 10/24/2024 12:19:47 4 Wound Care-Podiatry completed Brian Oliveira DPM [address], [place], [address], [employer] [facility] [email or web address] 10/18/2024 16:55:51 4 Wound Care-Podiatry completed Brian Oliveira DPM [address], [place], [address], [employer] 09/12/2024 15:59:38 4 Wound Care-Podiatry completed Carmen Meyer RN [place] [facility] [employer] 08/29/2024 11:51:08 4 Callus Debridement, One completed Brian Oliveira DPM [address], [place], [address], [employer] [facility] [email or web address] 08/29/2024 14:19:02 4 Wound Care-Podiatry completed Brian Oliveira DPM [address], [place], [address], [employer] [facility] [email or web address] 08/29/2024 14:11:03 4 Callus Debridement, One completed Brian Oliveira DPM [address], [place], [address], [facility] [employer] [facility] 08/29/2024 14:16:31 4 Wound Care-Podiatry completed Brian Oliveira DPM [address] [facility] [address], [place], [address], [facility] [employer] [facility] 08/15/2024 14:12:21 4 Wound Care-Podiatry completed Brian Oliveira DPM [address], [place], [address], [facility] [employer] [facility] 06/11/2024 15:08:36 4 Medicare Wellness CPT Code, Welcome completed Earnest Monterroso LPN [facility] [employer] [facility] 05/29/2024 09:09:41 4 Advanced Care Planning completed Earnest Monterroso LPN [facility] [employer] [facility] 05/29/2024 12:05:49 2 procedure on vein completed Not Available [facility] 01/05/2023 02:47:42 9 Rotator cuff surgery completed Vicky Colon [facility] [employer] [facility] 09/06/2023 14:54:26 0 section completed Vicky Colon [facility] [employer] [facility] 09/06/2023 14:54:42 procedure on elbow completed Vicky Colon [facility] [employer] [facility] 09/06/2023 14:54:07 Knee completed Not Available [facility] 11/2022 02:47:42 Toe completed Sherie Foster [facility] 08/28/2024 12:02:58 amputation of toe completed Sherie Foster [employer] [facility] 04/15/2025 14:34:40 Imaging Results None recorded. Procedure Notes None recorded. Medical Equipment None Reported. Allergies No known drug allergies Medications Name Sig Start Date Stop Date Status Note LastModified by Organization Details LastModified Time amoxicill in 500 mg capsule TAKE 1 CAPSULE BY MOUTH THREE TIMES DAILY UNTIL GONE 02/08 completed Not Available Not Available Not Available furosemid e 40 mg tablet TAKE 1 AND 1/2 TABLETS BY MOUTH ONCE DAILY active Not Available Not Available No t Available clotrimaz ole 10 mg praveena DISSOLVE 1 TABLET BY MOUTH FIVE TIMES DAILY 04/14 completed Not Available Not Available Not Available atorvasta tin 80 mg tablet TAKE 1 TABLET BY MOUTH EVERY DAY active Not Available Not Available No t Available prednison e 10 mg tablet 04/09 completed Not Available Not Available Not Available gabapenti n 600 mg tablet TAKE 2 TABLETS ORALLY THREE TIMES PER DAY 30 DAYS active Not Available Not Available No t Available paroxetin e 10 mg tablet Take 1 tablet every day by oral route. 01/22 completed Not Available Not Available Not Available clindamyc in HCl 300 mg capsule 12/26 completed Not Available Not Available Not Available ammonium lactate 12 % lotion APPLY LOTION TOPICALL Y TWICE DAILY TO FEET 09/17 completed Not Available Not Available Not Available triazolam 0.25 mg tablet TAKE 1 TABLET BY MOUTH ONE HOUR PRIOR TO DENTAL PROCEDUR E. BRING 2ND DOSE TO DENTAL APPOINTM ENT. 05/17 completed Not Available Not Available Not Available azithromy jane 250 mg tablet TAKE 2 TABLETS BY MOUTH TODAY, THEN TAKE 1 TABLET DAILY FOR 4 DAYS DIRECTED 04/19 completed Not Available Not Available Not Available amitripty line 75 mg tablet Take 1 tablet every day by oral route at bedtime for 90 days. 07/07 completed Not Available Not Available Not Available ofloxacin 0.3 % eye drops INSTILL 2 DROPS INTO EACH EYE 4 TIMES DAILY FOR 7 DAYS 02/08 completed Not Available Not Available Not Available fluconazo le 150 mg tablet active Not Available Not Available Not Available hydrocodo ne 5 mg-acetam inophen 325 mg tablet TAKE 1 TABLET BY MOUTH EVERY 6 HOURS NEEDED PAIN 05/20 completed Not Available Not Available Not Available meloxicam 15 mg tablet Take 1 tablet every day by oral route. active Not Available Not Available No t Available glipizide 10 mg tablet TAKE ONE TABLET BY MOUTH TWICE DAILY 07/24 completed Not Available Not Available Not Available bupivacai ne HCl 0.5 % (5 mg/mL) injection solution in office 04/15 completed Not Available Not Available Not Available Alcohol Pads 1 PER INJECTIO N active Not Available Not Available No t Available lovastati n 40 mg tablet one daily 05/11 completed Not Available Not Available Not Available terconazo le 0.8 % vaginal cream 05/17 completed Not Available Not Available Not Available Nexium 40 mg capsule,d elayed release TAKE ONE CAPSULE BY MOUTH ONCE DAILY 05/17 completed Not Available Not Available Not Available allopurin ol 100 mg tablet TAKE 1 TABLET BY MOUTH TWICE A DAY active Not Available Not Available No t Available ciproflox acin 500 mg tablet Take 1 tablet every 12 hours by oral route for 7 days. 2024 active Not Available Not Available Not Avai lable hydrocodo ne 10 mg-acetam inophen 325 mg tablet TAKE 1 TABLET BY MOUTH THREE TIMES A DAY NEEDED 09/06 completed Not Available Not Available Not Available peg-elect rolyte solution 420 gram oral solution active Not Available Not Available Not Available spironola ctone 25 mg tablet 04/19 completed Not Available Not Available Not Available amoxicill in 500 mg tablet TAKE 1 TABLET BY MOUTH THREE TIMES DAILY UNTIL ALL TAKEN 05/17 completed Not Available Not Available Not Available glimepiri de 2 mg tablet TAKE 2 TABLETS BY MOUTH TWICE A DAY WITH MEALS 04/15 completed Not Available Not Available Not Available valsartan 80 mg-hydroc hlorothia zide 12.5 mg tablet TAKE ONE TABLET BY MOUTH ONCE DAILY active Not Available Not Available No t Available Promethaz ine VC-Codein e 6.25 mg-5 mg-10 mg/5 mL oral syrup active Not Available Not Available Not Available hydrocort isone 2.5 % topical cream with perineal applicato r 01/18 completed Not Available Not Available Not Available Euthyrox 25 mcg tablet TAKE 1 TABLET BY MOUTH ONCE DAILY IN THE MORNING active Not Available Not Available No t Available amoxicill in 875 mg tablet TAKE 1 TABLET BY MOUTH TWICE DAILY FOR 5 DAYS 02/08 completed Not Available Not Available Not Available gabapenti n 800 mg tablet 05/08 completed Not Available Not Available Not Available ropinirol e 0.25 mg tablet PLEASE SEE ATTACHED FOR DETAILED DIRECTIO NS active Not Available Not Available No t Available ciproflox acin 0.3 % eye drops 08/28 completed Not Available Not Available Not Available Kenalog 10 mg/mL suspensio n for injection in office 04/15 completed ND: [id number] 02-24 Not Available Not Available Not Available dexametha sone 1 mg tablet Take 1 tablet at 10 pm night before 8 am cortisol level drawn active Not Available Not Available No t Available baclofen 10 mg tablet TAKE 1 TABLET BY MOUTH THREE TIMES A DAY FOR 90 DAYS active Not Available Not Available No t Available doxycycli ne monohydra te 100 mg capsule TAKE 1 CAPSULE BY MOUTH TWICE DAILY WITH MEALS FOR 10 DAYS active Not Available Not Available No t Available levothyro xine 50 mcg tablet TAKE 1 TABLET BY MOUTH EVERY DAY IN THE MORNING active Not Available Not Available No t Available hydrocodo ne 7.5 mg-acetam inophen 325 mg tablet TAKE 1 TABLET BY MOUTH EVERY 6 HOURS FOR 30 DAYS 06/18 completed Not Available Not Available Not Available cephalexi n 500 mg capsule TAKE 2 CAPSULES BY MOUTH TWICE DAILY FOR 10 DAYS active Not Available Not Available No t Available pantopraz ole 40 mg tablet,de layed release Take 1 tablet every day by oral route for 30 days. active Not Available Not Available No t Available dexametha sone 4 mg tablet 05/17 completed Not Available Not Available Not Available clotrimaz ole-betam ethasone 1 %-0.05 % topical cream APPLY CREAM TWICE DAILY FOR 7 DAYS THEN NEEDED 04/14 completed Not Available Not Available Not Available glimepiri de 4 mg tablet TAKE 1 TABLET BY MOUTH TWICE DAILY BEFORE MEAL(S) FOR 30 DAYS active Not Available Not Available No t Available hydrocodo ne 7.5 mg-acetam inophen 650 mg tablet active Not Available Not Available Not Available gentian danika 2 % topical solution Apply in between toes daily toe resoluti on 09/17 completed Not Available Not Available Not Available hydrochlo rothiazid e 12.5 mg capsule TAKE 1 CAPSULE BY MOUTH ONCE DAILY 06/18 completed Not Available Not Available Not Available nystatin- triamcino lone 100,000 unit/g-0. 1 % topical cream 06/09 completed Not Available Not Available Not Available diclofena c potassium 50 mg tablet active Not Available Not Available Not Available gabapenti n 300 mg capsule Take 3 capsules 3 times a day by oral route. 07/24 completed Not Available Not Available Not Available diclofena c sodium 75 mg tablet,de layed release TAKE 1 TABLET BY MOUTH TWICE A DAY 2023 active Not Available Not Available Not Avai lable cephalexi n 500 mg tablet Take 1 tablet every 6 hours by oral route as directed for 10 days, for cellulit is of foot. 12/19 completed Not Available Not Available Not Available mupirocin 2 % topical ointment APPLY A VERY SMALL AMOUNT TO THE WOUND DAILY WITH LIGHT DRESSING 05/17 completed Not Available Not Available Not Available furosemid e 20 mg tablet take 1 po qd 09/17 completed Not Available Not Available Not Available lidocaine HCl 20 mg/mL (2 %) injection solution Take 80 mg by injectio n route. 09/07 completed Not Available Not Available Not Available levofloxa jane 500 mg tablet TAKE 1 TABLET BY MOUTH EVERY DAY FOR 10 DAYS active Not Available Not Available No t Available lovastati n 20 mg tablet one daily 08/20 completed Not Available Not Available Not Available methylpre dnisolone 4 mg tablets in a dose pack 09/07 completed Not Available Not Available Not Available Vitamin D2 1,250 mcg (50,000 unit) capsule 05/17 completed Not Available Not Available Not Available colchicin e 0.6 mg tablet TAKE TWO TABLETS BY MOUTH NOW AND ONE TALBET AN HOUR LATER active Not Available Not Available No t Available ketoconaz ole 2 % topical cream as needed 06/09 completed Not Available Not Available Not Available hydrocodo ne 7.5 mg-acetam inophen 500 mg tablet active Not Available Not Available Not Available losartan 100 mg tablet TAKE 1/2 TABLET ONCE DAILY active Not Available Not Available No t Available metformin ER 500 mg tablet,ex tended release 24 hr TAKE 1 TABLET BY MOUTH TWICE DAILY WITH MEALS 06/18 completed Not Available Not Available Not Available spironola ctone 50 mg tablet TAKE 3 TABLETS BY MOUTH DAILY active Not Available Not Available No t Available amoxicill in 875 mg-potass ium clavulana te 125 mg tablet TAKE 1 TABLET BY MOUTH TWICE DAILY FOR 7 DAYS 01/03 completed Not Available Not Available Not Available Pneumovax -23 25 mcg/0.5 mL injection syringe 12/11 completed Not Available Not Available Not Available bupivacai ne (PF) 0.25 % (2.5 mg/mL) injection solution in office 04/19 completed Not Available Not Available Not Available rosuvasta tin 40 mg tablet TAKE 1 TABLET BY MOUTH TWICE WEEKLY AT BEDTIME 05/17 completed Not Available Not Available Not Available Marcaine (PF) 0.5 % (5 mg/mL) injection solution Take 20 mg by injectio n route. 05/29 completed Not Available Not Available Not Available Tricor 48 mg tablet Take 1 tablet every day by oral route. 05/02 completed Not Available Not Available Not Available solifenac in 10 mg tablet Take 1 tablet every day by oral route for 90 days. active Not Available Not Available No t Available fentanyl 12 mcg/hr transderm al patch APPLY 1 PATCH EVERY 72 HOURS 12/26 completed Not Available Not Available Not Available Lyrica 150 mg capsule 05/08 completed Not Available Not Available Not Available chlorhexi dine gluconate 0.12 % mouthwash RINSE WITH 15 ML BY MOUTH FOR 30 SECONDS THEN EXPECTOR ATE TWICE DAILY FOR 2 WEEKS 05/17 completed Not Available Not Available Not Available losartan 100 mg-hydroc hlorothia zide 12.5 mg tablet TAKE 1 TABLET BY MOUTH ONCE DAILY 11/13 completed Not Available Not Available Not Available Vitamin B-12 TK 1T PO QD 2017 active Not Available Not Available Not Avai lable vitamin E TK 1T PO QD 2017 active Not Available Not Available Not Avai lable Vitamin D TK 1T PO QD 2017 active Not Available Not Available Not Avai lable potassium 1 tablet daily 06/11 completed Not Available Not Available Not Available ketoconaz ole 12/[address] marlo chiu Not Available Not Available Not Available black cohosh 1 Tablet daily 02/03 completed Not Available Not Available Not Available Ranitidin e 04/09 completed Not Available Not Available Not Available Cinnamon 1 tablet daily 2017 active Not Available Not Available Not Avai lable OneTouch Ultra2 Meter kit active Not Available Not Available No t Available lidocaine (PF) 5 mg/mL (0.5 %) injection solution Take 30 mg by injectio n route. 09/07 completed Not Available Not Available Not Available Zostavax (PF) 19,400 unit/0.65 mL subcutane ous suspensio n active Not Available Not Available Not Available metformin ER 500 mg 24 hr tablet,ex tended release (gastric retention ) TAKE ONE TABLET BY MOUTH TWICE DAILY WITH MEALS 02/03 completed Not Available Not Available Not Available fenofibra te nanocryst allized 145 mg tablet TAKE 1 TABLET BY MOUTH ONCE DAILY FOR 90 DAYS active Not Available Not Available No t Available Janumet 50 mg-1,000 mg tablet Take 1 tablet twice a day by oral route. 09/19 completed Not Available Not Available Not Available Havrix (PF) 1,440 AVERY unit/mL intramusc ular syringe 08/20 completed Not Available Not Available Not Available Vaqta (PF) 50 unit/mL intramusc ular suspensio n 12/11 completed Not Available Not Available Not Available fenofibra te 54 mg tablet Take 1 tablet by mouth once daily 01/18 completed Not Available Not Available Not Available Prevnar 13 (PF) 0.5 mL intramusc ular syringe PHARMACI ST ADMINIST ERED IMMUNIZA TION ADMINIST ERED AT TIME OF DISPENSI NG active Not Available Not Available No t Available Suprep Bowel Prep Kit 17.5 gram-3.13 gram-1.6 gram oral solution MIX AND DRINK 1 2 AT 5PM ON 4 1 AND 1 2 AT 5AM ON 4 2 05/05 completed Not Available Not Available Not Available buprenorp kailey 10 mcg/hour weekly transderm al patch APPLY 1 PATCH ONTO THE SKIN ONCE WEEKLY active Not Available Not Available No t Available ropivacai ne (PF) 5 mg/mL (0.5 %) injection solution Take 20 mg by injectio n route. 09/07 completed Not Available Not Available Not Available Gralise 600 mg tablet,ex tended release active Not Available Not Available Not Available OneTouch Verio test strips USE TO TEST ONCE DAILY 01/22 completed Not Available Not Available Not Available Rectiv 0.4 % (w/w) ointment 05/17 completed Not Available Not Available Not Available Fluzone 7963-5822 45 mcg (15 mcg x 3)/0.5 mL intramusc ular suspensio n active Not Available Not Available Not Available Vascepa 1 gram capsule Take 2 capsules twice a day by oral route for 90 days. 01/16 completed Not Available Not Available Not Available Invokana 300 mg tablet TAKE 1 TABLET BY MOUTH ONCE DAILY 01/11 completed Not Available Not Available Not Available Victoza 3-Elias 0.6 mg/0.1 mL (18 mg/3 mL) subcutane ous pen injector Inject 1.2 Milligra ms subcutan eously daily 12/17 completed Not Available Not Available Not Available Fluvirin 8699-1474 45 mcg (15 mcg x 3)/0.5 mL intramusc ular suspensio n INJECT 0.5 ML INTRAMUS CULARLY DIRECTED . active Not Available Not Available No t Available Jardiance 10 mg tablet Take 1 tablet every day by oral route in the morning for 14 days. active Not Available Not Available No t Available Jardiance 25 mg tablet TAKE 1 TABLET BY MOUTH EVERY DAY active Not Available Not Available No t Available Trulicity 0.75 mg/0.5 mL subcutane ous pen injector INJECT 0.75 MG SUBCUTAN EOUSLY IN THE MORNING EACH WEEK active Not Available Not Available No t Available Tresiba FlexTouch U-100 insulin 100 unit/mL (3 mL) subcutane ous pen INJECT 20 UNITS UNDER THE SKIN ONCE DAILY AT BEDTIME WITH A SNACK active Not Available Not Available No t Available Belbuca 150 mcg buccal film 1 EA BUCCALLY EVERY 12 HOURS 10 DAYS 08/28 completed Not Available Not Available Not Available Narcan 4 mg/actuat ion nasal spray 05/05 completed Not Available Not Available Not Available OneTouch Verio Flex Meter USE TO TEST BLOOD GLUCOSE ONCE DAILY 01/22 completed Not Available Not Available Not Available Afluria 2545-4094 (PF) 45 mcg(15 mcg x 3)/0.5 mL intramusc ular syringe active Not Available Not Available Not Available Fluarix Quad (PF) 60 mcg (15 mcg x 4)/0.5 mL IM syringe 12/26 completed Not Available Not Available Not Available Shingrix (PF) 50 mcg/0.5 mL intramusc ular suspensio n, kit 04/09 completed Not Available Not Available Not Available Ozempic 0.25 mg or 0.5 mg (2 mg/1.5 mL) subcutane ous pen injector INJECT SUBCUTAN EOUSLY 0.5MG WEEKLY IN THE MORNING 09/07 completed Not Available Not Available Not Available Dexcom G6 Sensor device FOR CONTINUO US BLOOD GLUCOSE MONITORI NG CHANGE SENSOR EVERY 10 DAYS 06/09 completed Not Available Not Available Not Available Dexcom G6 Transmitt er device USE DIRECTED 06/09 completed Not Available Not Available Not Available Fluarix Quad (PF) 60 mcg (15 mcg x 4)/0.5 mL IM syringe 12/11 completed Not Available Not Available Not Available OneTouch Delica Plus Lancet 33 gauge USE TO TEST BLOOD GLUCOSE ONCE DAILY active Not Available Not Available No t Available Flublok Quad (PF) 180 mcg (45 mcg x 4)/0.5 mL IM syringe 08/20 completed Not Available Not Available Not Available Flublok Quad (PF) 180 mcg (45 mcg x 4)/0.5 mL IM syringe PHARMACI ST ADMINIST ERED IMMUNIZA TION ADMINIST ERED AT TIME OF DISPENSI NG active Not Available Not Available No t Available Ozempic 1 mg/dose (4 mg/3 mL) subcutane ous pen injector INJECT 1MG UNDER THE SKIN ONCE WEEKLY 04/15 completed Not Available Not Available Not Available Ozempic 2 mg/dose (8 mg/3 mL) subcutane ous pen injector INJECT 2MG UNDER THE SKIN ONCE WEEKLY active Not Available Not Available No t Available Ozempic 0.25 mg or 0.5 mg (2 mg/3 mL) subcutane ous pen injector INJECT 0.5 MG EVERY WEEK BY SUBCUTAN EOUS ROUTE FOR 90 DAYS. 12/19 completed Not Available Not Available Not Available Dulce Maria 2nd Gen Pen Needle 32 gauge x 5/32 USE TO INJECT INSULIN ONCE DAILY active Not Available Not Available No t Available Vitals Date Recorded Body height Body mass index (BMI) Body weight Heart rate Respiratory rate Oxygen saturation Oxygen saturation in Arterial blood by Pulse oximetry Systolic And Diastolic Provider Name and Address Organization Details Last Updated DateTime 5 157.48 cm 37.3 kg/m2 00227.8 4 g 84 /min 14 /min 99 % 99 % 103/60 mm[Hg] Ingrid VICTORIA - [facility] [employer] [facility] 5 14:13:03 Date Recorded Body height Body mass index (BMI) Body weight Heart rate Respiratory rate Oxygen saturation Oxygen saturation in Arterial blood by Pulse oximetry Systolic And Diastolic Provider Name and Address Organization Details Last Updated DateTime 5 157.48 cm 37.3 kg/m2 09178.8 4 g 80 /min 14 /min 98 % 98 % 113/58 mm[Hg] Ingrid Figueroa [facility] [employer] [facility] 5 15:28:57 Date Recorded Body height Body mass index (BMI) Body weight Body temperature Heart rate Systolic And Diastolic Provider Name and Address Organization Details Last Updated DateTime 5 157.48 cm 37.5 kg/m2 83030.4 4 g 98.2 [degF] 66 /min 114/70 mm[Hg] Sherie Foster Terrance [facility] [employer] [facility] 5 14:37:23 Date Recorded Body height Body mass index (BMI) Body weight Respiratory rate Heart rate Body temperature Oxygen saturation Oxygen saturation in Arterial blood by Pulse oximetry Systolic And Diastolic Provider Name and Address Organization Details Last Updated DateTime 5 157.48 cm 37.5 kg/m2 65457.4 4 g 16 /min 83 /min 98.1 [degF] 98 % 98 % 120/72 mm[Hg] Beatriz Louis [facility] [employer] 5 14:29:32 Date Recorded Body height Body mass index (BMI) Body weight Heart rate Body temperature Oxygen saturation Oxygen saturation in Arterial blood by Pulse oximetry Systolic And Diastolic Provider Name and Address Organization Details Last Updated DateTime 5 157.48 cm 37.5 kg/m2 13812.4 4 g 80 /min 97.7 [degF] 96 % 96 % 114/64 mm[Hg] Ming Tomlinson Terrance [facility] [employer] [facility] 5 12:19:40 Social History Question Answer Notes LastModified by Organization Details LastModified Time Tobacco Smoking Status Former Smoker quit 1985 MISA Floyd, [facility] [employer] [facility] 09/06/2023 14:53:41 Do You Have An Advance Directive? No [id number] Information not available 01/05/2023 How Many Years Have You Consumed Alcohol? 40 [email or web address] Information not available 05/29/2024 Are You Blind Or Do You Have Difficulty Seeing? No Information not available 04/19/2024 Is Blood Transfusion Acceptable In An Emergency? Yes [email or web address] Information not available 05/29/2024 What Is Your Level Of Caffeine Consumption? Occasional [id number] Information not available 01/05/2023 How Much Tobacco Do You Chew? None [id number] Information not available 01/05/2023 In The 14 Days Before Symptom Onset, Have You Had Close Contact With A Laboratory-confi rmed COVID-19 While That Case Was Ill? No [id number] Information not available 01/05/2023 In The 14 Days Before Symptom Onset, Have You Had Close Contact With A Person Who Is Under Investigation For COVID-19 While That Person Was Ill? No [id number] Information not available 01/05/2023 Are You Deaf Or Do You Have Serious Difficulty Hearing? Yes Information not available 04/19/2024 What Type Of Diet Are You Following? REGULAR [id number] Information not available 01/05/2023 Which Illicit Or Recreational Drugs Have You Used? None [id number] Information not available 01/05/2023 What Is The Highest Grade Or Level Of School You Have Completed Or The Highest Degree You Have Received? [id number] MIGRATION.030 [id number] Information not available 01/05/2023 How Many Days Of Moderate To Strenuous Exercise, Like A Brisk Walk, Did You Do In The Last 7 Days? 0 [email or web address] Information not available 05/29/2024 Have There Been Any Changes To Your Family Or Social Situation? No [id number] [id number] Information not available 01/05/2023 What Is The Fluoride Status Of Your Home? Unknown [id number] Information not available 01/05/2023 When Did You Quit Smoking? 14+yearssincelastc igarette MIGRATION.030 [id number] Information not available 01/05/2023 Are There Any Guns Present In Your Home? Yes Kept In Safe MIGRATION.030 [id number] Information not available 01/05/2023 Do You Use Insect Repellent Routinely? Yes [id number] Information not available 01/05/2023 Where Do You Live? SingleLevelHouse MIGRATION.[id number] [id number] Information not available 01/05/2023 Advance Directive- Providers Has Reviewed Directive And Consents To Follow Them (insert Provider Name With Any Objectives In Notes Field) No [email or web address] Information not available 05/29/2024 Presence Of Domestic Violence No Information not available 05/29/2024 Guns Present In The Home? Yes [email or web address] Information not available 05/29/2024 Are You Able To Care For Yourself? Yes [email or web address] Information not available 05/29/2024 Are You Blind Or Do Yo Have Difficulty Seeing? No [email or web address] Information not available 05/29/2024 Are You Deaf Or Do You Have Serious Difficulty Hearing? No [email or web address] Information not available 05/29/2024 General Stress Level? Low [email or web address] Information not available 05/29/2024 Live Alone Of With Others? With Others [email or web address] Information not available 05/29/2024 Do You Have A Medical Power Of Environmental Quality Analyst? No [id number] Information not available 01/05/2023 What Was The Date Of Your Most Recent Tobacco Screening? 05/20/2025 [email or web address] Information not available 05/20/2025 What Is Your Current Pack Years? 10-19packyears [email or web address] Information not available 05/29/2024 Have You Ever Been Counseled For Unhealthy Alcohol Use? No [email or web address] Information not available 05/29/2024 Do You Have Any Pets? Yes Dog [email or web address] Information not available 05/29/2024 What Is Your Relationship Status? [id number] Information not available 01/05/2023 Do You Have Smoke And Carbon Monoxide Detectors In Your Home? Yes [id number] Information not available 01/05/2023 At What Age Did You Start Smoking Tobacco? 15 [email or web address] Information not available 05/29/2024 Are You Passively Exposed To Smoke? Yes MIGRATION.[id number] [id number] Information not available 01/05/2023 Are There Any Smokers In Your House? Yes MIGRATION.[id number] [id number] Information not available 01/05/2023 How Much Tobacco Do You Smoke? No [email or web address] Information not available 05/29/2024 What Types Of Sporting Activities Do You Participate In? None [email or web address] Information not available 05/29/2024 Do You Use Sunscreen Routinely? Yes [id number] [id number] Information not available 01/05/2023 Has Tobacco Cessation Counseling Been Provided? No Information not available 02/08/2023 How Many Years Have You Smoked Tobacco? 10 [email or web address] Information not available 05/29/2024 Have You Recently Traveled Abroad? No MIGRATION.[id number] [id number] Information not available 01/05/2023 Do You Have Difficulty Walking Or Climbing Stairs? Yes Information not available 04/19/2024 Do You Have Any Dietary Restrictions? No MIGRATION.0301 [id number] Information not available 01/05/2023 How Many Days In The Past Year Have You Consumed 4 Or More Drinks? 0 [email or web address] Information not available 05/29/2024 Sex: Female Functional Status Question Answer Note LastModified by Organizat ion Details LastModified Time Do you use any illicit or recreational drugs? No [id number] Information not available 01/05/2023 Do you or have you ever used any other forms of tobacco or nicotine? No [id number] Information not available 01/05/2023 What is your level of alcohol consumption? Occasional [email or web address] Information not available 09/06/2023 Are you currently employed? Yes Information not available 09/20/2023 Do you have transportation difficulties? No Information not available 04/19/2024 Are you able to walk? [email or web address] Information not available 04/19/2024 Do you have difficulty doing errands alone? No Information not available 04/19/2024 Are you able to care for yourself? 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 No Information not available 04/19/2024 Do you or have you ever used e-cigarettes or vape? Never used electronic cigarettes MIGRATION.[id number] Information not available 01/05/2023 What is your exercise level? None stays active MIGRATION.[id number] Information not available 01/05/2023 Mental Status Question Answer Note LastModified by Organizat ion Details LastModified Time Do you feel stressed (tense, restless, nervous, or anxious, or unable to sleep at night)? [id number] Information not available 01/05/2023 Do you have difficulty concentrating, remembering or making decisions? Yes Information no t available 04/19/2024 Family History Relationship Description Onset Age of this Age Resolved Age Notes LastModified by Organization Details LastModified Time Mother Family history of malignant neoplasm [email or web address] Not available 05/06 14:10:20 Mother Hypertensive disorder [id number] Not available 01/05/2023 02:47:47 Father Hypertensive disorder [id number] Not available 01/05/2023 02:47:47 Medical History Condition Response NERVE DISEASE Y BLINDNESS N RHEUMATIC FEVER N KIDNEY STONES N BLADDER PROBLEMS N MRSA N CARPAL TUNNEL SYNDROME N OTHER # 1 N POLIO N LUNG DISEASE/DISORDER N HISTORY OF DRUG ABUSE N RADIATION / CHEMOTHERAPY N COPD N Other # 2 N SPORTS INJURY N ANKLE PAIN N BLOOD DISEASES N EAR OR HEARING PROBLEMS N MUMPS N SCHIZOPHRENIA N SHINGLES N SHOULDER PAIN N DEPRESSION (INCLUDING POST ) N BOWEL PROBLEMS N STROKE/TIA N KNEE PAIN N ULCERS N BENIGN PROSTATIC HYPERPLASIA N MEASLES N HYPOTENSION N MYOCARDIAL INFARCTION N OBESITY N GERD/NAUSEA N ANEURYSM N URINARY/BLADDER/KIDNEY PROBLEMS N CORONARY ARTERY DISEASE (CAD) N ADDICTION CONCERNS N ENDOMETRIOSIS N Impotence N USE OF BLOOD THINNERS N SKIN PROBLEMS N EMPHYSEMA N GASTROINTESTINAL DISORDER N PERIPHERAL VASCULAR DISEASE N MUSCLE,JOINT OR BONE PROBLEMS N DVT N STOMACH ULCERS N GASTROINTESTINAL BLEEDING N BLOOD CLOTS Y ASTHMA N CATARACTS N USE OF NSAIDS N CONCUSSION OR SPINAL TRAUMA N ERECTILE DYSFUNCTION N VARICOSITIES Y GI PROBLEMS N Low Testosterone N NEUROPATHY N INFERTILITY N AIDS/HIV N FRACTURES N CHEMOTHERAPY / RADIATION N LIVER DISEASE Y MALE HYPOGONADISM N ELBOW PAIN N HYPERTENSION Y Deficiency N TOURETTE'S N ANXIETY DISORDER N Metal allergy N BLOOD TRANSFUSION N ANEMIA/BLOOD DISORDER N CHRONIC EAR INFECTIONS N BIPOLAR DISORDER N BRONCHITIS N OSTEOARTHRITIS N TUBERCULOSIS N GLAUCOMA N FOOT PROBLEM N HEART VALVE DISORDERS N DIVERTICULITIS N CHICKENPOX N SLEEP APNEA N SOFT TISSUE INJURY N ALLERGIES/HAYFEVER N INFECTIOUS DISEASE N PROSTATE N HEART ARRHYTHMIA N INSOMNIA N RHEUMATOID ARTHRITIS N HIGH CHOLESTEROL / HYPERLIPIDEMIA N EYE PROBLEMS N HYPERTHYROIDISM N EDEMA N CHRONIC PAIN SYNDROME N HYPOTHYROIDISM Y CAROTID BLOCKAGE N CONSTIPATION N BACK / NECK PROBLEMS N ATHEROSCLEROSIS N BURSITIS N BREAST PROBLEMS N HERNIATED DISC N DIALYSIS N ECZEMA N FIBROMYALGIA N OSTEOPOROSIS N ARTHRITIS Y PERIPHERAL NEUROPATHY N APPENDICITIS N DIABETES, TYPE Y BAD TEETH N ENT N HEARTBURN / REFLUX N AUTISM SPECTRUM DISORDER (ASD) N HEPATITIS / LIVER DISEASE Y GOUT Y SLEEP DISORDER N ALZHEIMER'S DISEASE N Brain Problems N HERPES N DEMENTIA N HEADACHES/MIGRAINES N SEIZURES/EPILEPSY N VASCULAR DISEASE N PACEMAKER N Blood Disorder N HIP PAIN N DIZZINESS N HEAD TRAUMA OR INJURY N HEART DISEASE/HEART PROBLEMS N KIDNEY DISEASE N MULTIPLE SCLEROSIS N CARDIAC ARRHYTHMIA N CANCER: SPECIFY N ANESTHESIA COMPLICATIONS N ATRIAL FIBRILLATION N Gall Stones N PULMONARY EMBOLISM N AUTOIMMUNE DISEASE N Gynecological History Statement/Question Response How many live births 2 Date of Last Colonoscopy Date of Last Mammogram Date of LMP Most Recent Bone Density Date of Last Pap Current Control Method Menopause Obstetrics History GPAL:G 2 P 2 0 0 2 Type Value Multiple Births 0 Full Term 2 Induced 0 Spontaneous 0 Premature 0 Living 2 Ectopics 0 Total 2 Immunizations Vaccine Type Date Status Note Provider Nam e and Address Organization Details Recorded Time Influenza, split virus, quadrivalent, preservative 2 [facility] 09[facility]11[facility]59 COVID-19, mRNA, LNP-S, PF, 100 mcg/0.5mL dose or 50 mcg/0.25mL dose 1 [facility] 09:11:59 Influenza, split virus, quadrivalent, preservative 1 completed CLARITZA Honeycutt [facility] 05/29/2024 09:11:59 COVID-19 vaccine, vector-nr, rS-Ad26, PF, 0.5 mL 1 completed CLARITZA Honeycutt [facility] 05/29/2024 09:11:59 Pneumococcal conjugate PCV 13 9 completed CLARITZA Honeycutt [facility] 05/29/2024 09:11:59 Influenza, split virus, quadrivalent, preservative 9 completed Not Available [facility] 01/05/2023 03:00:11 zoster live 9 completed CLARITZA Honeycutt, [facility] 05/29/2024 09:11:59 influenza, unspecified formulation 8 completed Not Available [facility] 01/05/2023 03:00:11 pneumococcal polysaccharide PPV23 8 completed Earnest Monterroso LPN null, [facility] 05/29/2024 09:11:59 Influenza, split virus, quadrivalent, preservative 0 completed CLARITZA Honeycutt, [facility] 05/29/2024 09:11:59 influenza, unspecified formulation 7 completed CLARITZA Honeycutt, [facility] 05/29/2024 09:11:59 Tdap 7 completed Not Available [facility] 01/05/2023 03:00:11 Influenza, split virus, trivalent, PF 3 [facility]29/[facility]24 09:11:59 COVID-19, mRNA, LNP-S, PF, 100 mcg/0.5mL dose or 50 mcg/0.25mL dose 3 completed [facility] 05/29/2024 09:15:14 Influenza, high-dose, quadrivalent, PF 3 completed [facility]/29/2024 09:15:14 RSV, recombinant, protein subunit RSVpreF, adjuvant reconstituted, 0.5 mL, PF 3 completed [facility]/29/2024 09:15:14 Influenza, recombinant, quadrivalent, PF 0 completed CLARITZA Honeycutt, [facility] 05/29/2024 09:11:59 Influenza, recombinant, quadrivalent, PF 1 completed Earnest Monterroso LPN null, [facility] 05/29/2024 09:11:59 zoster recombinant 9 completed Earnest Monterroso LPN null, [facility] 05/29/2024 09:11:59 zoster recombinant 8 completed Earnest Monterroso LPN null, [facility] 05/29/2024 09:11:59 Influenza, split virus, trivalent, preservative 4 completed Earnest Monterroso LPN null, [facility] 05/29/2024 09:11:59 Influenza, split virus, trivalent, PF 5 completed Earnest Monterroso LPN null, [facility] 05/29/2024 09:11:59 Influenza, split virus, trivalent, PF 6 completed Earnest Monterroso LPN null, [facility] 05/29/2024 09:11:59 Influenza, split virus, trivalent, PF 7 completed Earnest Monterroso LPN null, [facility] 05/29/2024 09:11:59 Hep A, adult 9 completed Earnest Monterroso LPN null, [facility] 05/29/2024 09:11:59 Hep A, adult 8 completed Earnest Monterroso LPN null, [facility] 05/29/2024 09:11:59 Influenza, split virus, quadrivalent, PF 8 completed Earnest Monterroso LPN null, [facility] 05/29/2024 09:11:59 Influenza, split virus, quadrivalent, PF 2 completed Earnest Monterroso LPN null, [facility] 05/29/2024 09:11:59 COVID-19, mRNA, LNP-S, PF, 50 mcg/0.5 mL 3 completed Earnest Monterroso LPN null, [facility] 05/29/2024 09:15:14 COVID-19, mRNA, LNP-S, PF, jose-sucrose, 30 mcg/0.3 mL 4 completed PARKER Moraes, [facility] [employer] [facility] 04/15/2025 14:33:21 Influenza, high-dose, trivalent, PF 4 completed PARKER Moraes null, [facility] [employer] [facility] 04/15/2025 14:33:21 Past Encounters Encounter ID Performer Location Encounter Start Date Encounter Closed Date Diagnosis/Indication Diagnosis SNOMED-CT Code Diagnosis ICD10 Code Diagnosis Note [id number] MD ERNESTO Triplett[facility] [place] [address] [place] [address] 02/03/2021 00:00:00 02/03/2021 17:14:59 [id number] Bry hernandez MD S_[facility] Internal Med [facility] [address] [place] [address] [place] [address] 04/27/2021 00:00:00 04/27/2021 18:26:25 [id number] Karen Hernández MD [facility] [place] [address] [place] [address] 05/05/2021 00:00:00 05/05/2021 13:31:00 [id number] S_Histor ic_Gateway [facility] Podiat[facility] [place] [address] [place] [address] 05/25/2021 00:00:00 05/26/2021 09:07:14 [id number] Karen Hernández MD [facility] [place] [address] [place] [address] 08/07/2021 00:00:00 08/07/2021 13:01:39 [id number] Bry hernandez MD S[facility] Internal Med [facility] [address] [facility], [facility] 15 [place] [address] 09/17/2021 00:00:00 09/30/2021 12:21:52 [id number] A[facility] ic[facility]Gateway [facility] [place] [address] [place] [address] 12/28/2021 00:00:00 12/28/2021 14:15:09 [id number] Bry hernandez MD [facility] [address] [facility] [place] [address] 01/18/2022 00:00:00 01/18/2022 15:21:19 [id number] A[facility]_Histor ic[facility]Gateway [facility] [place] [address] [place] [address] 01/25/2022 00:00:00 01/25/2022 13:37:16 [id number] Karen Hernández MD [facility] [place] [address] [place] [address] 02/05/2022 00:00:00 02/05/2022 12:40:07 [id number] A[facility]_Histor ic[facility]Gateway [facility] [place] [address] [place] [address] 02/15/2022 00:00:00 02/16/2022 11:47:16 [id number] Ryan Faulkner MD [facility] [place] [address] [place] [address] 02/16/2022 00:00:00 02/16/2022 15:36:30 [id number] Ryan Faulkner MD [facility] [place] [address] [place] [address] 04/01/2022 00:00:00 04/01/2022 11:54:41 [id number] Bry hernandez MD [facility] Internal Med [facility] [address] [place] [address] 05/11/2022 00:00:00 05/11/2022 17:15:06 [id number] Ryan Faulkner MD [facility] [place] [address] [place] [address] 05/13/2022 00:00:00 05/13/2022 13:59:04 [id number] Ryan Faulkner MD [facility] [place] [address] [place] [address] 06/17/2022 00:00:00 06/17/2022 12:11:07 [id number] A[facility]_Histor ic_Gateway [facility] [place] [address] [place] [address] 07/05/2022 00:00:00 07/05/2022 13:30:49 [id number] Bry hernandez MD [facility] Internal Med [facility] 15 [address] [facility], [facility] [address] [place] [address] 09/07/2022 00:00:00 09/07/2022 12:33:41 [id number] AHS_Histor ic_Gateway [facility] [place] [address] [place] [address] 10/04/2022 00:00:00 10/04/2022 15:45:43 [id number] Bry hernandez MD [facility] Internal Med [facility] [address] [facility], [address] [address] 02/08/2023 11:57:12 02/08/2023 12:53:04 Screening - NAD [id number] Z13.9 C-Scope: 02/07/15, Dr Wagner, next in 5 years from [facility]-scop e: 02/06/2021 : Dr Wagner, next in 7 yearsEGD: 06/12/2021 : Dr Wagner Mammogram: 01/12/19: NegOrdered PAP: Done by Dr Blanca, is on paxil for night sweats DEXA: done on 12/11/2020 , thru Dr Ryan ed 09/07/2022 UTD on flu shotUTD on Tdap 05/17/17UT D PCV #23 09/01/18, #12 09/10/2019 [facility] A vaccine[facility]D on COVID 19 vaccine RTC in 4 monthsdo labsER if worse,she did verbalize her understand ing of the above Type 2 vito betes mellitus without complication [id number] E11.9 On glimeperid e 2mg 2 tab bidOn jardiance 25mg dailyOn ozempic Dr Hernández: 02/05/[address] Groves on 02/15/2022 , next 06/21/2022 Eye: [facility] 04/2022 Get labs Hyperlipidemia 58249159 E78.5 On atorvastat in 80mg dailyStop the fenofibrat e On vascepa 1gm 2 cap bidDoes well Get labs Pain of le ft hip joint [id number] 27675 M25.552 David BENNETT 05/13/2022 Low back pain 533054261 M54.50 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 She insists that she will going to drive On narcanOn hydrocodon Jenn baclofenOn gabapentin 600mg 2 tabs tid Sees pain management IPC Gout 10350066 M10.9 On allopurino lDoes well Essential hypertension 63975549 I10 Not on lasixOn HCTZ 12.5mg dailyOn losartan 100mg dailyOn KDoes well Thrombotic thrombocytopenic purpura 79636074 M31.[address] Bhatt in the pastLow plt could be from hepatitisD oes not want to see hematology Needs to keep apt with hepatology Dr Bhatt, 02/18/2022 , 03/02/2022 Non-alcoho lic fatty liver 011175113 K76.0 US and hepatitis panel was done by Dr Juan hernandez referral to GI OV 08/07/18:D id get liver biopsy, get the reportNext apt is on 08/30/[address] Granado ADDENDUM:Jesenia Martinez, 09/07/18, get EGD and follow up in 4 months Addendum: 11/26/18:1 12/25/17: EGD at [facility] OV 12/11/18:F ollow up with GI Addendum:D r [place] 01/08/19: Got a referral to bariatric surgery and also US liver every 6 months OV 04/09/19:S ees Dr Martinez liver MD OV 08/20/19:S ees Dr Barone, is to get labs and is getting a study medication OV 12/17/2019 :Sees hepatologdelma st, is in a 'liver study' was told it was doing the sameNext apt in 2 month, she is getting an 'injection ' every h e did have a MRI done, get the report OV 04/14/2020 :Sees Dr Barone GIIs to get a biopsy in May 2020 OV 08/18/2020 :See hepatology Get another apt OV 12/15/2020 :Keep apt with hepatology OV 04/27/2021 :Needs to see hepatology Get a referral OV 09/17/2021 :CMP: LFTs WNL 09/12/2021 See GI OV 01/18/2022 :Is to see hepatology on 06/14/2022 in [facility] OV 05/11/2022 :Sees Dr Barone [facility] OV 09/07/2022 :Needs an apt with hepatology OV 02/08/2023 :Needs to see Dr barone Chronic ki dney disease 496650330 N18.9 Still declines any aptGFR stable 02/04/2023 labs Dysphagia 62631191 R13.1 0 EGD: 06/12/2021 : Dr Wagner, +ve esophageal ring, gastritisF eels that this is very intermitte nt, is able to eat and drink Urinary incontinence 165 470409 R32 On solifenaci n 10mg daily, given by [employer] OB Hypothyroidism 66221528 E03.9 On levothyrox ine 50mcgs dailySees Dr Hernández Pain of ri ght hip joint [id number] 64806 M25.551 David BENNETT, referred again 02/08/2023 Varicose v eins of lower extremity 09380272 I83.[address] Anderson DE PAZ in the past, feels she needs to get another referralDr Barron 04/28/2022 , get another apt Restless legs 50435611 G 25.81 On ropinirole 0.25mg dailyDoes well Moderate r ecurrent major depression 81717604 F33.1 On paroxetine 10mg daily Does wellGiven to her by Dr Blanca 09/01/2022 Screening mammography 24 998034 Z12.31 Screening for osteoporosis 624970142 Z13.820 [id number] Bry hernandez MD [facility] Internal Med [facility] [address] [facility], [facility] [address] [place] [address] 05/17/2023 14:05:50 05/17/2023 14:55:02 Screening - NAD 126020600 Z13.9 C-Scope: 02/07/15, Dr Wagner, next in 5 years [facility]: 02/06/2021 : Dr Wagner, next in 7 yearsEGD: 06/12/2021 : Dr Wagner Mammogram: 01/12/19: NegOrdered PAP: Done by Dr Blanca, is on paxil for night sweats DEXA: done on 12/11/2020 , thru Dr Ryan ed 09/07/2022 UTD on flu shotUTD on Tdap 05/17/17UT D PCV #23 09/01/18, #12 09/10/2019 [facility] A vaccineUTD on COVID 19 vaccine RTC in 4 monthsdo labsER if worse,she did verbalize her understand ing of the above Type 2 vito betes mellitus without complication 330835903 E11.9 On glimeperid e 2mg 2 tab bidOn metformin ER 500mg bidOn jardiance 25mg dailyOn ozempic Dr Hernández: next apt 06/09/[address] Groves on 02/15/2022 , next 06/21/2022 Eye: [facility] 04/2022 Get labs Hyperlipidemia 39110108 E78.5 On atorvastat in 80mg daily, should not be on any other statinStop the fenofibrat Jenn vascepa 1gm 2 cap bidDoes well Get labs Pain of le ft hip joint [id number] 97722 M25.552 David BENNETT 05/13/2022 Low back pain 410472437 M54.50 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 She insists that she will going to drive On narcanOn hydrocodon Jenn baclofenOn gabapentin 600mg 2 tabs tid Sees pain management IPC Gout 92003433 M10.9 On allopurino lDoes well Essential hypertension 60504646 I10 Not on lasix On HCTZ 12.5mg dailyOn losartan 100mg dailyOn K Does well Thrombotic thrombocytopenic purpura 90906714 M31.[address] Bhatt in the pastLow plt could be from hepatitis Needs to keep apt with hepatology Dr Bhatt, 02/18/2022 , 03/02/2022 Non-alcoho lic fatty liver 602720350 K76.0 US and hepatitis panel was done by Dr Martinez t a referral to GI OV 08/07/18:D id get liver biopsy, get the reportNext apt is on 08/30/[address] Granado ADDENDUM:Jesenia Martinez, 09/07/18, get EGD and follow up in 4 months Addendum: 11/26/18:1 12/25/17: EGD at [facility] OV 12/11/18:F ollow up with GI Addendum:Jesenia Granado 01/08/19: Got a referral to bariatric surgery and also US liver every 6 months OV 04/09/19:S ees Dr Martinez liver MD OV 08/20/19:S ees Dr Barone, is to get labs and is getting a study medication OV 12/17/2019 :Sees hepatologi st, is in a 'liver study' was told it was doing the sameNext apt in 2 month, she is getting an 'injection ' every h e did have a MRI done, get the report OV 04/14/2020 :Sees Dr Barone GIIs to get a biopsy in May 2020 OV 08/18/2020 :See hepatology Get another apt OV 12/15/2020 :Keep apt with hepatology OV 04/27/2021 :Needs to see hepatology Get a referral OV 09/17/2021 :CMP: LFTs WNL 09/12/2021 See GI OV 01/18/2022 :Is to see hepatology on 06/14/2022 in [facility] OV 05/11/2022 :Sees Dr Giacomo HENDRIX OV 09/07/2022 :Needs an apt with hepatology OV 02/08/2023 :Needs to see Dr barone OV 05/17/2023 : Keep apt with Dr Barone Chronic ki dney disease 614233463 N18.9 Still declines any aptGFR stable Dysphagia 60006949 R13.1 0 EGD: 06/12/2021 : Dr Wagner, +ve esophageal ring, gastritisF eels that this is very intermitte nt, is able to eat and drink Urinary incontinence 165 801191 R32 On solifenaci n 10mg daily, given by [employer] OB Hypothyroidism 15954541 E03.9 On levothyrox ine 50mcgs dailySees Dr Hernández Pain of ri ght hip joint 2548540335 97564 M25.551 David Cerna PA, referred again 02/08/2023 Varicose v eins of lower extremity 98584431 I83.[address] Anderson LOERA in the past, feels she needs to get another referral Dr Barron 04/28/2022 , get another apt Restless legs 75500089 G 25.81 On ropinirole 0.25mg dailyDoes well Moderate r ecurrent major depression 72462014 F33.1 On paroxetine 10mg daily Does wellGiven to her by Dr Blanca 09/01/2022 Screening mammography 24 339888 Z12.31 Screening for osteoporosis 141201404 Z13.820 [id number] Karen Hernández MD [facility] [place] [address] [place] [address] 06/09/2023 12:31:49 06/09/2023 13:08:46 Well controlled type 2 diabetes mellitus 638700237 E11.9 a1c of 6.8% down from 8.4% range - continue on current regimen but uptitrate ozempic to 2 mg once weekly- samples provided for 2 months and continue on glimepirid e scale, jardiance. Discussed carb counting and how to read food labels. Recommende d patient to utilize the diabetesfo [employer]Hash[employer] from the ADA website to help with food preparatio n as this presents ideal carb content per meal so this will make carb counting much easier for patient. Recommende d she incorporat e natural insulin low vision therapist s such as pears, apples, cinnamon, roz and sweet potatoes to help mobilize her endogenous insulin. Recommende d up to 150 minutes of moderate level activity/e xercise weekly. Hypothyroidism 84374800 E03.9 TSH and FT4 in range- continue on LT4 50 mcg daily. She was reminded to take her LT4 on empty stomach with glass of water and wait one hour to eat or have her coffee in morning and up to 4 hours if ever taking any heartburn or reflux medication s to help optimize absorption . Discussed paleo like diet with restrictio n of GMOs to help with energy and to optimize absorption of vitamins and minerals and reduce inflammati on. Spent up to 25 minutes preparing to see the patient (eg, review of tests), obtaining and/or reviewing separately obtained history, performing a medically appropriat e examinatio n and evaluation , counseling and educating the patient, ordering medication s, tests, along with documentin g clinical informatio n in the electronic health record, independen tly interpreti ng results and communicat ing results to the patient. Patient can be followed by PCP - she/he is aware of my resignatio n and last day of August 19. If needed his/her PCP can refer patient to another endocrinol ogist in the area. All questions /concerns answered and refills necessary at visit today. [id number] Jc Crisostomo MD [facility] [place] [address] [place] [address] 09/06/2023 14:30:42 09/06/2023 15:58:17 Trochanteric bursitis of left hip 8608583116 43709 M70.62 Trochanter ic bursitis of right hip 1735318605 40922 M70.61 Pain of bi lateral hip joints 6553457053 4193211 M25.551 M25.552 Low back pain 490187906 M54.50 Lumbar spondylosis 05289 0009 M47.253 [id number] Bry hernandez MD [facility] Internal [facility] [address] [place] [address] 09/20/2023 11:46:28 09/20/2023 12:58:18 Screening - NAD 891220118 Z13.9 C-Scope: 02/07/15, Dr Wagner, next in 5 years [facility]-sc[facility]: 02/06/2021 : Dr Wagner, next in 7 yearsEGD: 06/12/2021 : Dr Wagner Mammogram: 01/12/19: NegOrdered PAP: Done by Dr Blanca, is on paxil for night sweats DEXA: done on 12/11/2020 , thru Dr Ryan ed 09/07/2022 UTD on flu shotUTD on Tdap 05/17/17UT D PCV #23 09/01/18, #12 09/10/2019 UTD [facility]rix [facility]16[facility]18 [facility] on hep A vaccineUTD on COVID 19 vaccine, get latest vaccineCan do RSV vaccine RTC in 4 monthsdo labsER if worse,she did verbalize her understand ing of the above Type 2 vito betes mellitus without complication 117664764 E11.9 On glimeperid e 2mg 2 tab bidOn metformin ER 500mg bidOn jardiance 25mg dailyOn ozempic, renewed 09/20/[address] Hernández 06/09/[address] Groves on 02/15/2022 , next 06/21/2022 Eye: [facility] 04/2022 Get labs Hyperlipidemia 91601166 E78.5 On atorvastat in 80mg daily, should not be on any other statinStop the fenofibrat Jenn vascepa 1gm 2 cap bid, renewed 09/20/2023 Does well Get labs Pain of le ft hip joint 1342875225 15771 M25.552 David Cerna PA 05/13/2022 Low back pain 258990259 M54.50 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 She insists that she will going to drive On narcanOn hydrocodon Jenn baclofenOn gabapentin 600mg 2 tabs tid Sees pain management IPC MRI L Spine 09/03/2023 : Lauren Choi Gout 50581336 M10.9 On allopurino lDoes well Essential hypertension 14556124 I10 Not on lasix On HCTZ 12.5mg dailyOn losartan 100mg dailyOn K Does well Thrombotic thrombocytopenic purpura 48942537 M31.[address] Bhatt in the pastLow plt could be from hepatitis Needs to keep apt with hepatology Dr Bhatt, 02/18/2022 , 03/02/2022 Dr Bhatt 05/23/2023 , f/u in 6 months Non-alcoho lic fatty liver 626182725 K76.0 US and hepatitis panel was done by Dr Martinez t a referral to GI OV 08/07/18:D id get liver biopsy, get the reportNext apt is on 08/30/[address] Granado ADDENDUM:Jesenia Martinez, 09/07/18, get EGD and follow up in 4 months Addendum: 11/26/18:1 12/25/17: EGD at [facility] OV 12/11/18:F ollow up with GI Addendum:Jesenia Granado 01/08/19: Got a referral to bariatric surgery and also US liver every 6 months OV 04/09/19:S ees Dr Martinez liver MD OV 08/20/19:S ees Dr Barone, is to get labs and is getting a study medication OV 12/17/2019 :Sees hepatologdelma gleason, is in a 'liver study' was told it was doing the sameNext apt in 2 month, she is getting an 'injection ' every h e did have a MRI done, get the report OV 04/14/2020 :Sees Dr Barone GIIs to get a biopsy in May 2020 OV 08/18/2020 :See hepatology Get another apt OV 12/15/2020 :Keep apt with hepatology OV 04/27/2021 :Needs to see hepatology Get a referral OV 09/17/2021 :CMP: LFTs WNL 09/12/2021 See GI OV 01/18/2022 :Is to see hepatology on [facility]14/2022 [facility] OV 05/11/2022 :Sees Dr Barone [facility] OV 09/07/2022 :Needs an apt with hepatology OV 02/08/2023 :Needs to see Dr barone OV 05/17/2023 : Keep apt with Dr Barone OV 09/20/2023 Tennille Lopes [facility] [employer] GI: 05/03/2023 , next apt in 6 months Chronic ki dney disease 301082363 N18.9 Still declines any aptGFR stable Dysphagia 07923378 R13.1 0 EGD: 06/12/2021 : Dr Wagner, +ve esophageal ring, gastritisF eels that this is very intermitte nt, is able to eat and drink Urinary incontinence 165 886534 R32 On solifenaci n 10mg daily, given by [employer] OB Hypothyroidism 56300021 E03.9 On levothyrox ine 50mcgs daily Seen Dr Edgar Heredia of [facility] hip joint 1123617221 32314 M25.551 David BENNETT, referred again 02/08/2023 Varicose v eins of lower extremity 11640934 I83.[address] Barron [facility] in the past, feels she needs to get another referral Dr Barron 04/28/2022 , get another apt Restless legs 40248556 G 25.81 On ropinirole 0.25mg dailyDoes well Moderate r ecurrent major depression 36712673 F33.1 On paroxetine 10mg daily Does wellGiven to her by Dr Blanca 09/01/2022 Screening mammography 24 329176 Z12.31 Screening for osteoporosis 470586209 Z13.610 [id number] Bry hernandez MD [facility] Internal Med [facility] [address] [facility], [address] [place] [address] 01/17/2024 14:42:28 01/17/2024 15:40:23 Screening - NAD 135165660 Z13.9 C-Scope: 02/07/15, Dr Wagner, next in 5 years from [facility]-scop e: 02/06/2021 : Dr Wagner, next in 7 yearsEGD: 06/12/2021 : Dr Wagner Mammogram: 01/12/19: Neg 023: Neg PAP: Done by Dr Blanca, is on paxil for night sweats DEXA: done on 12/11/2020 , thru Dr Watkins12/06: Low bone mass, ca and vit d UTD on flu shotUTD on Tdap 05/17/17UT D PCV #23 09/01/18, #12 09/10/2019 UTD [facility]ingrix 10[place]16/18 [facility]UT[facility] on hep A vaccineUTD on COVID 19 vaccine, get latest vaccineCan do RSV vaccine RTC in 4 monthsdo labsER if worse,she did verbalize her understand ing of the above Type 2 vito betes mellitus without complication 557549679 E11.9 On glimeperid e 2mg 2 tab bidOn metformin ER 500mg bidOn jardiance 25mg dailyOn ozempic Has seen Dr Hernández 06/09/[address] Groves on 02/15/2022 , next 06/21/2022 Eye: [facility] 04/2022 Get labs Hyperlipidemia 66461186 E78.5 On atorvastat in 80mg daily, should not be on any other statinStop the fenofibrat eNot on vascepa 1gm 2 cap bidDoes well Get labs Pain of le ft hip joint 2047970619 71807 M25.552 David BENNETT 05/13/2022 Low back pain 858526617 M54.50 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 She insists that she will going to drive On narcanOn hydrocodon Jenn baclofenOn gabapentin 600mg 2 tabs tid Sees pain management IPC MRI L Spine 09/03/2023 : Lauren Choi Gout 80436354 M10.9 On allopurino lDoes well Essential hypertension 13780303 I10 Not on lasix On HCTZ 12.5mg dailyOn losartan 100mg dailyOn K Does well Thrombotic thrombocytopenic purpura 51021574 M31.[address] Bhatt in the pastLow plt could be from hepatitis Needs to keep apt with hepatology Dr Bhatt, 02/18/2022 , 03/02/2022 Dr Bhatt 05/23/2023 , f/u in 6 months Non-alcoho lic fatty liver 093090704 K76.0 US and hepatitis panel was done by Dr ViscontiGe t a referral to GI OV 08/07/18:D ion get liver biopsy, get the reportNext apt is on 08/30/[address] Granado ADDENDUM:Jeesnia Martinez, 09/07/18, get EGD and follow up in 4 months Addendum: 11/26/18:1 12/25/17: EGD at [facility] OV 12/11/18:F ollow up with GI Addendum:Jesenia Granado 01/08/19: Got a referral to bariatric surgery and also US liver every 6 months OV 04/09/19:S ees Dr Martinez liver OV 08/20/19:S ees Dr Barone, is to get labs and is getting a study medication OV 12/17/2019 :Sees hepatologdelma gleason, is in a 'liver study' was told it was doing the sameNext apt in 2 month, she is getting an 'injection ' every h e did have a MRI done, get the report OV 04/14/2020 :Sees Dr Barone GIIs to get a biopsy in May 2020 OV 08/18/2020 :See hepatology Get another apt OV 12/15/2020 :Keep apt with hepatology OV 04/27/2021 :Needs to see hepatology Get a referral OV 09/17/2021 :CMP: LFTs WNL 09/12/2021 See GI OV 01/18/2022 :Is to see hepatology on 06/14/2022 in [facility] OV 05/11/2022 :Sees Dr Barone U OV 09/07/2022 :Needs an apt with hepatology OV 02/08/2023 :Needs to see Dr barone OV 05/17/2023 : Keep apt with Dr Barone OV 09/20/2023 Tennille Lopes [employer] GI: 05/03/2023 , next apt in 6 months OV 01/17/2024 : Sees GI Chronic ki dney disease 614935554 N18.9 Still declines any aptGFR stable Dysphagia 15798564 R13.1 0 EGD: 06/12/2021 : Dr Wagner, +ve esophageal ring, gastritisF eels that this is very intermitte nt, is able to eat and drink Urinary incontinence 165 553822 R32 On solifenaci n 10mg daily, given by [employer] OB Hypothyroidism 98860377 E03.9 On levothyrox ine 50mcgs daily Seen Dr Edgar [facility] 2074335617 38384 M25.551 David BENNETT, referred again 01/17/2024 Varicose v eins of lower extremity 21444969 I83.[address] Barron [facility] in the past, feels she needs to get another referral Dr Barron 04/28/2022 , get another apt Restless legs 51638105 G 25.81 On ropinirole 0.25mg dailyDoes well Moderate r ecurrent major depression 22362211 F33.1 On paroxetine 10mg daily Does wellGiven to her by Dr Blanca 09/01/2022 [id number] Martín Coronado MD [facility] [place] [place] [address] [place] [address] 02/13/2024 09:45:28 02/13/2024 11:18:02 Trochanteric bursitis of left hip 7556472637 60803 M70.62 Trochanter ic bursitis of right hip 8386693588 63998 M70.61 Low back pain 057430756 M54.50 [id number] Brian Oliveira DPM [facility] Pod[facility] [place] [address] [place] [address] 03/12/2024 14:55:58 03/14/2024 14:54:01 Hammer toe 972659707 M20.41 M20.42 discussed options in detailPati ent will need to get her sugars under control and then we will discuss surgeryfol low up 2 mo Pain in toe 901919503 M7 9.674 recommend offloading educated patient on offloading optionspat ient to get her sugars down and will discuss surgery [id number] Bry hernandez MD S_G Internal Med [facility] [address] , [address] [place] [address] 04/19/2024 15:03:18 04/19/2024 15:53:14 Screening - NAD 950017149 Z13.9 C-Scope: 02/07/15, Dr Wagner, next in 5 years from [facility]: 02/06/2021 : Dr Wagner, next in 7 yearsEGD: 06/12/2021 : Dr Wagner Mammogram: 01/12/19: Neg 023: Neg PAP: Done by Dr Blanca, is on paxil for night sweats DEXA: done on 12/11/2020 , thru Dr Clarosi112/06: Low bone mass, ca and vit d UTD on flu shotUTD on Tdap 05/17/17UT D PCV #23 09/01/18, #12 09/10/2019 UTD shingrix 10/16/18 at [facility]UTD on hep A vaccineUTD on COVID 19 vaccine, get latest vaccineCan do RSV vaccine RTC in 4 monthsdo labsER if worse,she did verbalize her understand ing of the above Type 2 vito betes mellitus without complication 523314160 E11.9 On glimeperid e 2mg 2 tab bidOn metformin ER 500mg bidOn jardiance 25mg dailyOn ozempic Has seen Dr Hernández 06/09/[address] Groves on 02/15/2022 , next 06/21/2022 Eye: [facility] 04/2022 Get labs Hyperlipidemia 01033908 E78.5 On atorvastat in 80mg daily, should not be on any other statinStop the fenofibrat eNot on vascepa 1gm 2 cap bidDoes well Get labs Pain of le ft hip joint 6477118849 65324 M25.552 David BENNETT 05/13/2022 Low back pain 690129444 M54.50 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 She insists that she will going to drive On narcanOn hydrocodon Jenn baclofenOn gabapentin 600mg 2 tabs tid Sees pain management IPC MRI L Spine 09/03/2023 : Lauren Choi Gout 40335706 M10.9 On allopurino lDoes well Essential hypertension 71970455 I10 Not on lasix On HCTZ 12.5mg dailyOn losartan 100mg dailyOn K Does well Thrombotic thrombocytopenic purpura 21409896 M31.[address] Bhatt in the pastLow plt could be from hepatitis Needs to keep apt with hepatology Dr Bhatt, 02/18/2022 , 03/02/2022 Dr Bhatt 05/23/2023 , f/u in 6 months Non-alcoho lic fatty liver 196052482 K76.0 US and hepatitis panel was done by Dr Martinez t a referral to GI OV 08/07/18:D id get liver biopsy, get the reportNext apt is on 08/30/[address] Granado ADDENDUM:Jesenia Martinez, 09/07/18, get EGD and follow up in 4 months Addendum: 11/26/18:1 12/25/17: EGD at [facility] OV 12/11/18:F ollow up with GI Addendum:Jesenia Granado 01/08/19: Got a referral to bariatric surgery and also US liver every 6 months OV 04/09/19:S ees Dr Martinez liver MD OV 08/20/19:S ees Dr Barone, is to get labs and is getting a study medication OV 12/17/2019 :Sees hepatologdelma gleason, is in a 'liver study' was told it was doing the sameNext apt in 2 month, she is getting an 'injection ' every h e did have a MRI done, get the report OV 04/14/2020 :Sees Dr Barone GIIs to get a biopsy in May 2020 OV 08/18/2020 :See hepatology Get another apt OV 12/15/2020 :Keep apt with hepatology OV 04/27/2021 :Needs to see hepatology Get a referral OV 09/17/2021 :CMP: LFTs WNL 09/12/2021 See GI OV 01/18/2022 :Is to see hepatology on 06/14/2022 [facility] OV 05/11/2022 :Sees Dr Barone [facility] OV 09/07/2022 :Needs an apt with hepatology OV 02/08/2023 :Needs to see Dr barone OV 05/17/2023 : Keep apt with Dr Barone OV 09/20/2023 Tennille Lopes [employer] GI: 05/03/2023 , next apt in 6 months OV 01/17/2024 : Sees GI OV 04/19/2024 : See her GI, referred 04/19/2024 Chronic ki dney disease 864552776 N18.9 Still declines any aptGFR stable Dysphagia 62311590 R13.1 0 EGD: 06/12/2021 : Dr Wagner, +ve esophageal ring, gastritisF eels that this is very intermitte nt, is able to eat and drink Urinary incontinence 165 450847 R32 On solifenaci n 10mg daily, given by [employer] OB Hypothyroidism 75273735 E03.9 On levothyrox ine 50mcgs daily Seen Dr Edgar [facility] 1138075714 59857 M25.551 David BENNETT, referred again 01/17/2024 Varicose v eins of lower extremity 86506338 I83.[address] Barron [facility] in the past, feels she needs to get another referral Dr Barron 04/28/2022 , get another apt Restless legs 50087606 G 25.81 On ropinirole 0.25mg dailyDoes well Moderate r ecurrent major depression 85178449 F33.1 On paroxetine 10mg daily Does wellGiven to her by Dr Blanca 09/01/2022 Abdominal bloating 24910 9008 R14.0 Is on ozempic and opiatesAdv ised to stop the ozempic and curtail her use of opiatesWil l now proceed to [facility] ER as she prefers to go there as her liver MD is there Ascites 302028974 R18.8 Has seen her liver MDNow on aldactone 50mg dailyNow on lasix 40mg daily+ve ascites noted, will need to get drained, will need to go to the ER, will go to U ERDid d/w Dr. Chowdary [facility] ER attending, patient to proceed to the ER stat, she has verbalized her understand ing of the above Addendum: 04/23/2024 [facility] 04/20/2024 , large volume paracentes is performed, now to see GI hepatology [id number] Martín Coronado MD [facility] [address] [address] 05/22/2024 10:41:38 05/22/2024 11:41:46 Pain of right hip joint 6045627166 56913 M25.551 Trochanter ic bursitis of left hip 5686585558 09693 M70.62 Trochanter ic bursitis of right hip 9462739037 68002 M70.61 Low back pain 825552539 M54.50 [id number] Bry hernandez MD [facility] Internal Med [facility] [address] [facility], [facility] [place] [address] 05/29/2024 10:50:16 05/29/2024 11:55:03 Screening - NAD 575155995 Z13.9 C-Scope: 02/07/15, Dr Wagner, next in 5 years [facility]: 02/06/2021 : Dr Wagner, next in 7 yearsEGD: 06/12/2021 : Dr Wagner Mammogram: 01/12/19: Neg 023: Neg PAP: Done by Dr Blanca, is on paxil for night sweats DEXA: done on 12/11/2020 , thru Dr Clarosi112/06: Low bone mass, ca and vit d UTD on flu shotUTD on Tdap 05/17/17UT D PCV #23 09/01/18, #12 09/10/2019 UTD [facility]rix 10[place]16[place]18 [facility]UT[facility] on hep A vaccineUTD on COVID 19 vaccine, get latest vaccineCan do RSV vaccine RTC in 4 monthsdo labsER if worse,she did verbalize her understand ing of the above Type 2 vito betes mellitus without complication 614977650 E11.9 On glimeperid e 2mg 2 tab bidOn metformin ER 500mg bid, will d/c this d/t CKDOn jardiance 25mg dailyOn molly Has seen Dr Hernández 06/09/[address] Groves on 02/15/2022 , next 06/21/2022 Eye: [facility] 04/2022 Repeat the labs, may need to start on insulin, discussed this today, 05/29/2024 , wants to hold off and get labs Hyperlipidemia 20634271 E78.5 On atorvastat in 80mg daily, should not be on any other statinStop the fenofibrat eNot on vascepa 1gm 2 cap bidDoes well Get labs Pain of le ft hip joint 3869500327 23424 M25.552 David BENNETT 05/13/2022 , 05/22/2024 Low back pain 850796491 M54.50 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.[address] Bhatt in the pastLow plt could be from hepatitis Needs to keep apt with hepatology Dr Bhatt, 02/18/2022 , 03/02/2022 Dr Bhatt 05/23/2023 , f/u in 6 monthsDr Bhatt 05/21/2024 , f/u in 6 months Non-alcoho lic fatty liver 545076762 K76.0 US and hepatitis panel was done by Dr Martinez t a referral to GI OV 08/07/18:D id get liver biopsy, get the reportNext apt is on 08/30/[address] Granado ADDENDUM:Jesenia Martinez, 09/07/18, get EGD and follow up in 4 months Addendum: 11/26/18:1 12/25/17: EGD at [facility] OV 12/11/18:F ollow up with GI Addendum:Jesenia Granado 01/08/19: Got a referral to bariatric surgery and also US liver every 6 months OV 04/09/19:S ees Dr Martinez liver MD OV 08/20/19:S ees Dr Barone, is to get labs and is getting a study medication OV 12/17/2019 :Sees hepatologi st, is in a 'liver study' was told it was doing the sameNext apt in 2 month, she is getting an 'injection ' every h e did have a MRI done, get the report OV 04/14/2020 :Sees Dr Barone GIIs to get a biopsy in May 2020 OV 08/18/2020 :See hepatology Get another apt OV 12/15/2020 :Keep apt with hepatology OV 04/27/2021 :Needs to see hepatology Get a referral OV 09/17/2021 :CMP: LFTs WNL 09/12/2021 See GI OV 01/18/2022 :Is to see hepatology on [facility]14[facility]2022 [facility] OV 05/11/2022 :Sees Dr Barone [facility] OV 09/07/2022 :Needs an apt with hepatology OV 02/08/2023 :Needs to see Dr barone OV 05/17/2023 : Keep apt with Dr Barone OV 09/20/2023 Tennille Lopes [employer] GI: 05/03/2023 , next apt in 6 months OV 01/17/2024 : Sees GI OV 04/19/2024 : See her GI, referred 04/19/2024 OV 05/29/2024 : Referral provided last month Chronic ki dney disease 890196780 N18.9 Needs to see nephrology , can refer Dysphagia 77086578 R13.1 0 EGD: 06/12/2021 : Dr Wagner, +ve esophageal ring, gastritisF eels that this is very intermitte nt, is able to eat and drink Urinary incontinence 165 602381 R32 On solifenaci n 10mg daily, given by [employer] OB Hypothyroidism 30667554 E03.9 On levothyrox ine 50mcgs daily Seen Dr Edgar Heredia of ri ght hip joint 5645357367 87792 M25.551 David BENNETT 05/22/2024 , s/p kenalog Varicose v eins of lower extremity 79561667 I83.[address] Barron [facility] in the past, feels she needs to get another referral Dr Barron 04/28/2022 , get another apt, referred 05/29/2024 Restless legs 91033369 G 25.81 On ropinirole 0.25mg dailyDoes well Moderate r ecurrent major depression 10039204 F33.1 On paroxetine 10mg daily Does wellGiven to her by Dr Blanca 09/01/2022 Abdominal bloating 53963 9008 R14.0 Is on ozempic and opiatesAdv ised to stop the ozempic and curtail her use of opiatesWil l now proceed to [facility] ER as she prefers to go there as her liver MD is there Ascites 990469152 R18.8 Has seen her liver MDNow on aldactone 50mg dailyNow on lasix 40mg daily+ve ascites noted, will need to get drained, will need to go to the ER, will go to U ERDid d/w Dr. Chowdary [facility] ER attending, patient to proceed to the ER stat, she has verbalized her understand ing of the above Addendum: 04/23/2024 [facility] health 04/20/2024 , large volume paracentes is performed, now to see GI hepatology OV 05/29/2024 : States that she did see GI and now has increased her lasix Adult heal th examination 425303457 Z00.00 Screening for disorder 906004740 Z13.9 Headache 12790980 R51.9 MRI 05/28/2024 : NegDoes well now, intermitte nt headaches, advised not to take any tylenol [id number] Brian Oliveira DPM [facility] Podiatry [place] [address] [place] [address] 06/11/2024 14:24:45 06/11/2024 15:44:07 Ulcer of big toe 216177993 L97.509 right great toe - full-thick ness fibrotic and callus wound beddaily Betadine wet-to-dry dressingsd ebrided todayofflo ading at all timesFollo w-up 1 week Ulcer of toe 795071426 L 97.509 distal third toe - Full-thick ness granular wound bednot debridedwo und care as above [id number] Brian Oliveira DPM [facility] Podiatry [place] [address] [place] [address] 06/18/2024 16:55:47 06/19/2024 13:47:12 Ulcer of big toe 396705315 L97.509 right great toe - full-thick ness callus wound beddaily Betadine wet-to-dry dressingso ffloading at all timesFollo w-up Two weeks Ulcer of toe 357556568 L 97.509 distal third toe - Full-thick ness granular wound bednot debridedwo und care as abovefollo w-up 2 weeks [id number] Brian Oliveira DPM [facility] Podiatry [place] [address] [place] [address] 08/02/2024 14:27:51 2024 16:17:55 Ulcer of big toe 472718565 L97.509 right great toe x 2 - full-thick ness callus wound beddaily Betadine wet-to-dry dressingso ffloading at all timesFollo w-up Two weeks Ulcer of toe 392033112 L 97.509 distal third toe - Full-thick ness granular wound bednot debridedof floading at timeswound care as abovefollo w-up 2 weeks [id number] Martín Coronado MD [facility] Ortho [place] [address] [place] [address] 08/03/2024 11:37:19 08/03/2024 12:39:45 Pain of right hip joint 3630732731 40090 M25.551 Trochanter ic bursitis of right hip 4445599586 74157 M70.61 Low back pain 324812393 M54.50 [id number] Brian Oliveira DPM [facility] [address] [place] [address] 08/15/2024 12:04:43 08/15/2024 14:38:13 Acute osteomyelitis of phalanx of toe 647102850 M86.179 right 3rd toeDiscuss ed options in detailpati ent states she will go to the emergency roomcephal exin on 08/02- for 10 days- finishedx- rays reviewed on 08/02 with erosive changes to the distal phalanxpla n amputation right 3rd toe with biopsy Ulcer of big toe 8070986 02 L97.509 right great toe x 1 - full-thick ness callus wound beddaily Betadine wet-to-dry dressingso ffloading at all timesFollo w-up Two weeks Ulcer of toe 713823841 L 97.509 distal third toe - Full-thick ness granular wound bednot debridedpr obing to ava finney at timeswound care dailyfollo w-up in hospital [id number] Brian Oliveira DPM [facility] [address] [place] [address] 08/22/2024 13:57:42 08/30/2024 11:12:05 Postoperative care 985588700 Z48.89 right third toe, partial amputation eschar to woundcont betadine wet-to-dry dressing daily Blister of toe without infection 57040336 S90.424A right second toe- blisterBet adine wet-to-dry dressingof floadingda jose wound care Dehiscence of external surgical incision wound 7506815446 80400 T81.31XA right 3rd toedressin gs as above Callosity on toe 5150963 01 L84 wound healed right great toe with calluscall us debrided without incident [id number] Bry hernandez MD [facility] Internal Med [facility] [address] [facility], [address] [place] [address] 08/28/2024 11:46:21 08/28/2024 12:58:33 Screening - NAD 178704727 Z13.9 C-Scope: 02/07/15, Dr Wagner, next in 5 years from the date-scop e: 02/06/2021 : Dr Wagner, next in 7 yearsEGD: 06/12/2021 : Dr Wagner Mammogram: 01/12/19: Neg 023: Neg PAP: Done by Dr Blanca, is on paxil for night sweats DEXA: done on 12/11/2020 , thru Dr Clarosi112/06: Low bone mass, ca and vit d Get yearly flu shotUTD on Tdap 05/17/17UT D PCV #23 09/01/18, #12 09/10/2019 UTD [facility]rix [facility]16[facility]18 [facility]UT[facility] on hep A vaccineUTD on COVID 19 vaccine, get latest vaccineCan do RSV vaccine RTC in 4 monthsdo labsER if worse,she did verbalize her understand ing of the above Type 2 vito betes mellitus without complication 526521635 E11.9 On glimeperid e 2mg 2 tab bid, will now do 1 tab bid 08/28/2024 as now will be on trescibaOn metformin ER 500mg bid, will d/marvin this d/t CKDOn jardiance 25mg dailyNot taking ozempicSta rt on tresciba 10U at bedtime 08/28/2024 , all side effects explained to her, including the side effects for LOW glucose Has seen Dr Hernández 06/09/[address] Groves on 02/15/2022 , next 06/21/2022 Eye: [facility] 04/2022 Hyperlipidemia 35539872 E78.5 On atorvastat in 80mg daily, should not be on any other statinStop the fenofibrat eNot on vascepa 1gm 2 cap bidDoes well Get labs Pain of le ft hip joint 1180060510 64348 M25.552 David BENNETT 05/13/2022 , 05/22/2024 Low back pain 940355983 M54.50 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 She insists that she will going to drive On narcanOn hydrocodon Jenn baclofenOn gabapentin 600mg 2 tabs tid Sees pain management IPC MRI L Spine 09/03/2023 : Lauren Cifuentes ay 05/29/2024 : Advised to discuss with the pain management to get off the hydrocodon e d/t tylenol in the medication , discuss use of oxycodone or even morphine Gout 36419298 M10.9 On allopurino lDoes well Essential hypertension 46519673 I10 Not on HCTZ 12.5mg dailyOn lasix Tennille Lopes NPOn losartan 100mg dailyOn spironolac tone 50mg dailyOn K Does wellSeen by Dr Barron 04/08/2024 Thrombotic thrombocytopenic purpura 58758339 M31.[address] Bhatt in the pastLow plt could be from hepatitis Needs to keep apt with hepatology Dr Bhatt, 02/18/2022 , 03/02/2022 Dr Bhatt 05/23/2023 , f/u in 6 monthsDr Bhatt 05/21/2024 , f/u in 6 months Non-alcoho lic fatty liver 063284651 K76.0 US and hepatitis panel was done by Dr Martinez t a referral to GI OV 08/07/18:D id get liver biopsy, get the reportNext apt is on 08/30/[address] Granado ADDENDUM:Jesenia Martinez, 09/07/18, get EGD and follow up in 4 months Addendum: 11/26/18:1 12/25/17: EGD at [facility] OV 12/11/18:F ollow up with GI Addendum:Jesenia Granado 01/08/19: Got a referral to bariatric surgery and also US liver every 6 months OV 04/09/19:S ees Dr Martinez liver MD OV 08/20/19:S ees Dr Barone, is to get labs and is getting a study medication OV 12/17/2019 :Sees hepatologdelma gleason, is in a 'liver study' was told it was doing the sameNext apt in 2 month, she is getting an 'injection ' every h e did have a MRI done, get the report OV 04/14/2020 :Sees Dr Barone GIIs to get a biopsy in May 2020 OV 08/18/2020 :See hepatology Get another apt OV 12/15/2020 :Keep apt with hepatology OV 04/27/2021 :Needs to see hepatology Get a referral OV 09/17/2021 :CMP: LFTs WNL 09/12/2021 See GI OV 01/18/2022 :Is to see [facility]2022 [facility] 05/11/2022 :Sees Dr Barone [facility] 09/07/2022 :Needs an apt with hepatology OV 02/08/2023 :Needs to see Dr barone OV 05/17/2023 : Keep apt with Dr Barone OV 09/20/2023 Tennille Lopes [employer] GI: 05/03/2023 , next apt in 6 months OV 01/17/2024 : Sees GI OV 04/19/2024 : See her GI, referred 04/19/2024 OV 05/29/2024 : Referral provided last month OV 08/28/2024 : Sees Tennille Lopes [employer] GI Chronic ki dney disease 598642134 N18.9 Needs to see nephrology , can refer Dysphagia 59183098 R13.1 0 EGD: 06/12/2021 : Dr Wagner, +ve esophageal ring, gastritisF eels that this is very intermitte nt, is able to eat and drink Urinary incontinence 165 406024 R32 On solifenaci n 10mg daily, 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 by EVENT [employer] MEMBER OB Hypothyroidism 37247925 E03.9 On levothyrox ine 50mcgs daily Seen Dr Hernández Pain of ri ght hip joint [id number] 66132 M25.551 David Cerna PA 05/22/2024 , s/p kenalog Varicose v eins of lower extremity 88711994 I83.[address] Anderson LOERA in the past, feels she needs to get another referral Dr Barron 04/28/2022 , get another apt, referred 05/29/2024 Restless legs 86971807 G 25.81 On ropinirole 0.25mg dailyDoes well Moderate r ecurrent major depression 58380677 F33.1 On paroxetine 10mg daily Does wellGiven to her by Dr Blanca 09/01/2022 Abdominal bloating 07104 9008 R14.0 Is on ozempic and opiatesAdv ised to stop the ozempic and curtail her use of opiatesWil l now proceed to [facility] as she prefers to go there as her liver MD is there Ascites 755447329 R18.8 Has seen her liver MDNow on aldactone 50mg dailyNow on lasix 40mg daily+ve ascites noted, will need to get drained, will need to go to the ER, will go to [facility] d/w Dr. Chowdary [facility] ER attending, patient to proceed to the ER stat, she has verbalized her understand ing of the above Addendum: 04/23/2024 [facility] health 04/20/2024 , large volume paracentes is performed, now to see GI hepatology OV 05/29/2024 : States that she did see GI and now has increased her lasix OV 08/28/2024 : Sees GINow on aldactone and lasix Headache 68040255 R51.9 MRI 05/28/2024 : NegDoes well now, intermitte nt headaches, advised not to take any tylenol Screening mammography 24 885474 Z12.31 [id number] Brian Oliveira DPM [facility] [address] [place] [address] 08/29/2024 11:03:31 08/29/2024 14:07:28 Postoperative care 291618360 Z48.89 right third toe, partial amputation eschar to woundcont betadine wet-to-dry dressing daily Blister of toe without infection 61970740 S90.424A right second toe- blisterres olved Dehiscence of external surgical incision wound 6633730872 33570 T81.31XD right 3rd toedressin gs as above Callosity on toe 8693798 01 L84 wound healed right great toe with calluscall us debrided without incident [id number] ALEKSANDR[facility] [address] [place] [address] 09/12/2024 14:37:10 09/12/2024 16:38:51 Postoperative care 737897408 Z48.89 right third toe, partial amputation healedoffl oading Dehiscence of external surgical incision wound 7198948853 24970 T81.31XD right 3rd toehealedr ecommend diabetic shoes and a diabetic insoles Callosity on toe 6038018 01 L84 wound healed right great toe with calluscall us debrided without incident [id number] Brian Oliveira DPM [facility] [place] [address] [facility] [address] [place] [address] 10/11/2024 14:21:07 11/02/2024 14:42:57 Blister of foot with infection 94903589 L08.9 toes right 5,4,and 2ndkeep toes clean and dryapply betadine wet to dry dressings dailyrecom mend wide extra depth shoesfollo w up in one week Cellulitis of right foot 0258836589 2261887 L03.115 right foot Pain in left foot 944668 6146 69213 M79.672 rule out osteomyeli tis- toe fracture Deep venou s thrombosis of lower extremity 309721705 I82.281 [id number] Brian Oliveira DPM [facility] [address] [place] [address] 10/17/2024 11:08:40 10/17/2024 15:40:32 Blister of foot with infection 70481439 L08.9 toes right 5,4 resolvedke ep toes clean and dryapply betadine wet to dry dressings dailyrecom mend wide extra depth shoesfollo w up in one week Cellulitis of right foot 2841084758 5069869 L03.115 right foot - resolved Pain in left foot 729533 9165 91974 M79.672 rule out osteomyeli tis- toe fracturene g xrayspain is better Deep venou s thrombosis of lower extremity 634482789 I82.409 awaiting testing 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 2051364929 1284047 E11.621 right 2nd toewound debridedda jose wound careoffloa ding of toesfollow up in one week [id number] Brian Oliveira DPM [facility] [address] [place] [address] 10/24/2024 11:04:09 10/24/2024 13:03:54 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 4207800827 6880978 E11.621 right 2nd toe and right 5th toewound debridedda jose wound careoffloa ding of toesfollow up in 2-3 weeks, if problems arise prior to patient will need to go to urgent Care, ER, primary care as I will be out of town until November 12 which I notified the patient [id number] Bry hernandez MD [facility] Primary [facility] [address] [facility] [address] [place] [address] 12/19/2024 09:30:35 12/19/2024 10:22:40 Screening - NAD 799037807 Z13.9 C-Scope: 02/07/15, Dr Wagner, next in 5 years from [facility]-scop e: 02/06/2021 : Dr Wagner, next in 7 yearsEGD: 06/12/2021 : Dr Wagner Mammogram: 01/12/19: Neg 023: Neg PAP: Done by Dr Blanca, is on paxil for night sweats DEXA: done on 12/11/2020 , thru Dr Clarosi112/06: Low bone mass, ca and vit d Get yearly flu shotUTD on Tdap 05/17/17UT D PCV #23 09/01/18, #12 09/10/2019 [facility] A vaccineUTD on COVID 19 vaccine, get latest vaccineCan do RSV vaccine RTC in 3 monthsdo labsER if worse,she did verbalize her understand ing of the above Type 2 vito betes mellitus without complication 470765032 E11.9 On glimeperid e 2mg 2 tab bid, will now do 1 tab bid 08/28/2024 as now will be on trescibaOn metformin ER 500mg bid, will d/marvin this d/t CKDOn jardiance 25mg dailyNot taking ozempicOn tresciba 10U at bedtime 08/28/2024 , all side effects explained to her, including the side effects for LOW glucose Has seen Dr Hernández 06/09/[address] Groves on 02/15/2022 , next 06/21/2022 Eye: [facility] 04/2022 Malika Walsh [employer] endocrine 10/03/2024 , restarted the ozempic Hyperlipidemia 12421446 E78.5 On atorvastat in 80mg daily, should not be on any other statinStop the fenofibrat eNot on vascepa 1gm 2 cap bidDoes well Get labs Pain of le ft hip joint 1126209592 34822 M25.552 David Cerna PA 05/13/2022 , 05/22/2024 Low back pain 446967741 M54.50 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 She insists that she will going to drive On narcanOn hydrocodon Jenn baclofenOn gabapentin 600mg 2 tabs tid Sees pain management IPC MRI L Spine 09/03/2023 : Lauren Colinjesenia ay 05/29/2024 : Advised to discuss with the pain management to get off the hydrocodon e d/t tylenol in the medication , discuss use of oxycodone or even morphine Gout 06759145 M10.9 On allopurino lDoes well Essential hypertension 81513431 I10 Not on HCTZ 12.5mg dailyOn lasix Tennille Lopes NPOn losartan 100mg dailyOn spironolac tone 50mg dailyOn K Does wellSeen by Dr Barron 04/08/2024 Thrombotic thrombocytopenic purpura 72122972 M31.[address] Bhatt in the pastLow plt could be from hepatitis Needs to keep apt with hepatology Dr Bhatt, 02/18/2022 , 03/02/2022 Dr Bhatt 05/23/2023 , f/u in 6 monthsDr Bhatt 05/21/2024 , f/u in 6 months Non-alcoho lic fatty liver 739938255 K76.0 US and hepatitis panel was done by Dr Martinez t a referral to GI OV 08/07/18:D id get liver biopsy, get the reportNext apt is on 08/30/[address] Granado ADDENDUM:Jesenia Martinez, 09/07/18, get EGD and follow up in 4 months Addendum: 11/26/18:1 12/25/17: EGD at [facility] OV 12/11/18:F ollow up with GI Addendum:Jesenia Granado 01/08/19: Got a referral to bariatric surgery and also US liver every 6 months OV 04/09/19:S ees Dr Martinez liver OV 08/20/19:S ees Dr Barone, is to get labs and is getting a study medication OV 12/17/2019 :Sees hepatologi st, is in a 'liver study' was told it was doing the sameNext apt in 2 month, she is getting an 'injection ' every h e did have a MRI done, get the report OV 04/14/2020 :Sees Dr Barone GIIs to get a biopsy in May 2020 OV 08/18/2020 :See hepatology Get another apt OV 12/15/2020 :Keep apt with hepatology OV 04/27/2021 :Needs to see hepatology Get a referral OV 09/17/2021 :CMP: LFTs WNL 09/12/2021 See GI OV 01/18/2022 :Is to see hepat[facility] on [facility]14[facility]2022 [facility] OV 05/11/2022 :Sees Dr Barone [facility] OV 09/07/2022 :Needs an apt with hepatology OV 02/08/2023 :Needs to see Dr barone OV 05/17/2023 : Keep apt with Dr Barone OV 09/20/2023 Tennille Lopes [employer] GI: 05/03/2023 , next apt in 6 months OV 01/17/2024 : Sees GI OV 04/19/2024 : See her GI, referred 04/19/2024 OV 05/29/2024 : Referral provided last month OV 08/28/2024 : Sees Tennille Lopes NP GI OV 12/19/2024 : Keep apts with GI Chronic ki dney disease 193843536 N18.9 Needs to see nephrology , can refer Dysphagia 96872851 R13.1 0 EGD: 06/12/2021 : Dr Wagner, +ve esophageal ring, gastritisF eels that this is very intermitte nt, is able to eat and drink Urinary incontinence 165 520203 R32 On solifenaci n 10mg daily, given by [employer] OB Hypothyroidism 93192354 E03.9 On levothyrox ine 50mcgs daily Seen Dr Hernández Pain of ri ght hip joint 6641535881 89333 M25.551 David BENNETT 05/22/2024 , s/p kenalog Varicose v eins of lower extremity 40792069 I83.[address] Barron [facility] Restless legs 17694367 G 25.81 On ropinirole 0.25mg dailyDoes well Moderate r ecurrent major depression 29553680 F33.1 On paroxetine 10mg daily Does wellGiven to her by Dr Blanca 09/01/2022 Abdominal bloating 00177 9008 R14.0 Is on ozempic and opiatesAdv ised to stop the ozempic and curtail her use of opiatesWil l now proceed to [facility] ER as she prefers to go there as her liver MD is there Ascites 082721026 R18.8 Has seen her liver MDNow on aldactone 50mg dailyNow on lasix 40mg daily+ve ascites noted, will need to get drained, will need to go to the ER, will go to [facility] ERDid d/w Dr. Chowdary [facility] ER attending, patient to proceed to the ER stat, she has verbalized her understand ing of the above Addendum: 04/23/2024 [facility] health 04/20/2024 , large volume paracentes is performed, now to see GI hepatology OV 05/29/2024 : States that she did see GI and now has increased her lasix OV 08/28/2024 : Sees GINow on aldactone and lasix OV 12/19/2024 : Has noted increased ascites, not tense, no abdominal pain, she is going to call Tennille Lopes [employer] and see if she should have this drained now, advised to go to the ER if any symptoms worsen! Headache 02431717 R51.9 MRI 05/28/2024 : NegDoes well now, intermitte nt headaches, advised not to take any tylenol Screening mammography 24 036149 Z12.31 Open wound of foot [address] Oliveira podiatry 10/24/2024 , next 11/14/2024 US venous 10/23/2024 : Neg for DVT Upper resp iratory infection 54278057 J06.9 Has noted a slight cough, productive for yellowish sputum, will start on augmentin, will call if not betterOff work note provided 12/19/2024 ER if worse [id number] Brian Oliveira DPM [facility] [place] [address] [place] [address] 11/15/2024 14:48:22 11/21/2024 08:54:56 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 2350072902 0955557 E11.621 right 2nd toe - healedrigh t 5th toe- full-thick ness wounddaily wound care - daily with Betadine wet-to-dry dressingof floading of toesx-rays reviewed with the patient negative for erosive changes 5th toefollow up 1 weekobtain arterial ultrasound rule out arterial insufficie ncy [id number] Brian Oliveira DPM [facility] Podiat[facility] [place] [address] [place] [address] 11/26/2024 11:26:36 11/30/2024 13:33:24 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 3816921998 6284295 E11.621 right 5th toe- full-thick ness wounddaily wound care - daily with Betadine wet-to-dry dressingof floading of toesmupiro jane dressing applied todayx-ray s reviewed with the patient negative for erosive changes 5th toefollow up 2 weeksobtai n arterial ultrasound rule out arterial insufficie ncy Peripheral arterial occlusive disease 667992685 I73.9 due to non-healin g wound spoke to [facility]- Dr. Cortez is vascular- will reach out to schedule a follow up and ART [id number] Brian Oliveira DPM [facility] Podiat[facility] [place] [address] [place] [address] 12/24/2024 12:33:38 12/25/2024 12:56:23 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 5935004815 8292795 E11.621 right 5th toe- full-thick ness wounddaily wound care - daily with Betadine wet-to-dry dressingfi bereket amoxicilli n per PCPoffload ing of toesmupiro jane dressing applied todayx-ray s reviewed with the patient negative for erosive changes 5th toefollow up 2 weeks- repeat x-rays at that timearteri al ultrasound s on 11/28/2024 normal bilateral Peripheral arterial occlusive disease 575892096 I73.9 follow-up per vascular recommenda melly al ultrasound s 11/28/2024 - normal [id number] Brian Oliveira DPM [facility] Podiatry [place] [address] [place] [address] 01/03/2025 12:39:48 01/04/2025 14:20:42 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 0330955951 0281080 E11.621 right 5th toe- full-thick ness wounddaily wound care - daily with Betadine wet-to-dry dressingof floading of toesx-rays reviewed with the patient negative for erosive changes 5th toe With pathologic fracture to the proximal phalanx consistent with osteomyeli tisschedul e january 14 amputation of right 5th toe due to open wound and osteo proximal phalanxobt ain surgical clearancea rterial ultrasound s on 11/28/2024 normal bilateral Peripheral arterial occlusive disease 526793116 I73.9 follow-up per vascular recommenda melly salguero ultrasound s 11/28/2024 - normal [id number] Bry hernandez MD [facility] Primary Care [facility] [address] [facility] [address] [place] [address] 01/07/2025 14:01:01 01/09/2025 10:46:52 Screening - NAD 360076098 Z13.9 C-Scope: 02/07/15, Dr Wagner, next in 5 years from the date-scop e: 02/06/2021 : Dr Wagner, next in 7 yearsEGD: 06/12/2021 : Dr Wagner Mammogram: 01/12/19: Neg 023: Neg PAP: Done by Dr Blanca, is on paxil for night sweats DEXA: done on 12/11/2020 , thru Dr Clarosi112/06: Low bone mass, ca and vit d Get yearly flu shotUTD on Tdap 05/17/17UT D PCV #23 09/01/18, #12 09/10/2019 [facility] hep A vaccineUTD on COVID 19 vaccine, get latest vaccineCan do RSV vaccine RTC in 3 monthsdo labsER if worse,she did verbalize her understand ing of the above Type 2 vito betes mellitus without complication 417446494 E11.9 On glimeperid e 2mg 2 tab bid, will now do 1 tab bid 08/28/2024 as now will be on trescibaOn metformin ER 500mg bid, will d/marvin this d/t CKDOn jardiance 25mg dailyNot taking ozempicOn tresciba 10U at bedtime 08/28/2024 , all side effects explained to her, including the side effects for LOW glucose Has seen Dr Hernández 06/09/[address] Groves on 02/15/2022 , next 06/21/2022 Eye: [facility] 04/2022 Malika Walsh [employer] endocrine 10/03/2024 , restarted the ozempicAnn Altgilbers 11/21/2024 Hyperlipidemia 34121324 E78.5 On atorvastat in 80mg daily, should not be on any other statinStop the fenofibrat eNot on vascepa 1gm 2 cap bidDoes well Get labs Pain of le ft hip joint 4592608292 03015 M25.552 David Cerna PA 05/13/2022 , 05/22/2024 Low back pain 333407180 M54.50 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 She insists that she will going to drive On narcanOn hydrocodon Jenn baclofenOn gabapentin 600mg 2 tabs tid Sees pain management IPC, last OV 12/13/2024 MRI L Spine 09/03/2023 : Lauren Cifuentes ay 05/29/2024 : Advised to discuss with the pain management to get off the hydrocodon e d/t tylenol in the medication , discuss use of oxycodone or even morphine Gout 48880155 M10.9 On allopurino lDoes well Essential hypertension 95330365 I10 Not on HCTZ 12.5mg dailyOn lasix Tennille Lopes NPOn losartan 100mg dailyOn spironolac tone 50mg dailyOn K Does wellSeen by Dr Barron 04/08/2024 Dr Barron [facility] 11/28/2024 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.[address] Bhatt in the pastLow plt could be from hepatitis Needs to keep apt with hepatology Dr Bhatt, 02/18/2022 , 03/02/2022 Dr Bhatt 05/23/2023 , f/u in 6 monthsDr Bhatt 05/21/2024 , f/u in 6 months Non-alcoho lic fatty liver 191249674 K76.0 US and hepatitis panel was done by Dr Martinez t a referral to GI OV 08/07/18:D id get liver biopsy, get the reportNext apt is on 08/30/[address] Granado ADDENDUM:Jesenia Martinez, 09/07/18, get EGD and follow up in 4 months Addendum: 11/26/18:1 12/25/17: EGD at [facility] OV 12/11/18:F ollow up with GI Addendum:Jesenia Granado 01/08/19: Got a referral to bariatric surgery and also US liver every 6 months OV 04/09/19:S ees Dr Martinez liver MD OV 08/20/19:S ees Dr Barone, is to get labs and is getting a study medication OV 12/17/2019 :Sees hepatologdelma st, is in a 'liver study' was told it was doing the sameNext apt in 2 month, she is getting an 'injection ' every h e did have a MRI done, get the report OV 04/14/2020 :Sees Dr Barone GIIs to get a biopsy in May 2020 OV 08/18/2020 :See hepatology Get another apt OV 12/15/2020 :Keep apt with hepatology OV 04/27/2021 :Needs to see hepatology Get a referral OV 09/17/2021 :CMP: LFTs WNL 09/12/2021 See GI OV 01/18/2022 :Is to see hepatology on 06/14/2022 [facility] OV 05/11/2022 :Sees Dr Barone [facility] OV 09/07/2022 :Needs an apt with hepatology OV 02/08/2023 :Needs to see Dr barone OV 05/17/2023 : Keep apt with Dr Barone OV 09/20/2023 Tennille Lopes [employer] GI: 05/03/2023 , next apt in 6 months OV 01/17/2024 : Sees GI OV 04/19/2024 : See her GI, referred 04/19/2024 OV 05/29/2024 : Referral provided last month OV 08/28/2024 : Sees Tennille Lopes NP GI OV 12/19/2024 : Keep apts with GI Chronic ki dney disease 291819147 N18.9 Needs to see nephrology , can refer Dysphagia 19087096 R13.1 0 EGD: 06/12/2021 : Dr Wagner, +ve esophageal ring, gastritisF eels that this is very intermitte nt, is able to eat and drink Urinary incontinence 165 363432 R32 On solifenaci n 10mg daily, given by [employer] OB Hypothyroidism 75154461 E03.9 On levothyrox ine 50mcgs daily Seen Dr [facility] 7940372910 28883 M25.551 David BENNETT 05/22/2024 , s/p kenalog Varicose v eins of lower extremity 05193521 I83.[address] Barron [facility] Restless legs 14783468 G 25.81 On ropinirole 0.25mg dailyDoes well Moderate r ecurrent major depression 90347662 F33.1 On paroxetine 10mg daily Does wellGiven to her by Dr Blanca 09/01/2022 Abdominal bloating 38309 9008 R14.0 Is on ozempic and opiatesAdv ised to stop the ozempic and curtail her use of opiatesWil l now proceed to [facility] ER as she prefers to go there as her liver MD is there Ascites 110191333 R18.8 Has seen her liver MDNow on aldactone 50mg dailyNow on lasix 40mg daily+ve ascites noted, will need to get drained, will need to go to the ER, will go to [facility] [place] d/w Dr. Chowdary [facility] ER attending, patient to proceed to the ER stat, she has verbalized her understand ing of the above Addendum: 04/23/2024 [facility] health 04/20/2024 , large volume paracentes is performed, now to see GI hepatology OV 05/29/2024 : States that she did see GI and now has increased her lasix OV 08/28/2024 : Sees [place]ow on aldactone and lasix OV 12/19/2024 : Has noted increased ascites, not tense, no abdominal pain, she is going to call Tennille Lopes NP and see if she should have this drained now, advised to go to the ER if any symptoms worsen! Headache 32884389 R51.9 MRI 05/28/2024 : NegDoes well now, intermitte nt headaches, advised not to take any tylenol Screening mammography 24 979554 Z12.31 Open wound of foot [address] Oliveira podiatry 10/24/2024 , next 11/14/2024 US venous 10/23/2024 : Neg for DVT Surgery Amputation of R 5th toeSurgeon : Eric earance: Cleared by Dr Barron and she will remain a moderate risk for this procedure [id number] Martín Coronado MD [facility] Ortho [place] [address] [place] [address] 01/22/2025 15:08:31 01/22/2025 15:52:02 Pain of right hip joint 1949625320 45016 M25.551 Trochanter ic bursitis of right hip 7402103974 84899 M70.61 [id number] Brian Oliveira DPM [facility] Podiatry [place] [address] [place] [address] 02/04/2025 14:36:24 02/11/2025 09:51:36 Postoperative visit 941755955 Z48.89 Follow-up amputation right 5th toedressin gs changedpat ient formed on what dressings to apply- Betadine wet-to-dry dressing or apply triple antibiotic ointment and dry dressing dailyfollo w-up on week [id number] Brian Oliveira DPM [facility] Podiatry [place] [address] [place] [address] 02/11/2025 14:55:38 02/18/2025 12:36:36 Postoperative visit 415267402 Z48.89 Follow-up amputation right 5th toesilver nitrate applied to the distal aspect of the area of wound dehiscence dressings changedpat ient formed on what dressings to apply- Betadine wet-to-dry dressing dailyfollo w-up on week- Possible suture removal Dehiscence of surgical wound 77079353 T81.30XA distal aspect right 5th toe 0.5 cm in lengthsilv er nitrate applied to the area of granular tissue at the wound dehiscence Betadine wet-to-dry dressing applied [id number] Brian Oliveira DPM [facility] Podiatry [place] [address] [place] [address] 02/18/2025 09:53:04 02/21/2025 08:36:44 Postoperative visit 605688921 Z48.89 amputation right 5th toedressin gs changedmay DC dressingss utures removedpat h results- positive for chronic osteomyeli tis completely removed with amputation follow-up 2 months- for diabetic foot care Dehiscence of surgical wound 86244214 T81.30XA distal aspect right 5th toe healed [id number] Brian Oliveira DPM [facility] Podiatry [place] [address] [facility] [address] [place] [address] 03/21/2025 13:53:53 03/25/2025 13:40:39 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 1135711256 2583255 E11.621 right 4th toe- full-thick ness wounddaily wound care - daily with Betadine wet-to-dry dressingof floading of toesx-rays rule out- osteomyeli tis 4th toearteria l ultrasound s on 11/28/2024 normal bilateralr eturn to office in 1 week Cellulitis of toe of right foot 6247859148 L03.031 right 4th toe-order for aerobic wound cultures right 4th toe with sensitivit y [id number] Brian Oliveira DPM [facility] Podiatry [place] [address] [place] [address] 03/28/2025 13:54:06 03/29/2025 11:44:24 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 6671503475 1149582 E11.621 right 4th toe- full-thick ness wounddaily wound care - daily with Betadine wet-to-dry dressingof floading of toesx-rays rule out- osteomyeli tis 4th toearteria l ultrasound s on 11/28/2024 normal bilateralr eturn to office in 1 week Cellulitis of toe of right foot 9831822880 L03.031 right 4th toeresolve d [id number] Brian Oliveira DPM [facility] Podiatry [place] [address] [place] [address] 04/08/2025 15:15:47 04/09/2025 15:19:46 Acute osteomyelitis 967222656 M86.18 order MRI to rule out osteomyeli tis right 4th toe Foot ulcer due to type 2 diabetes mellitus 1916841064 100 E11.621 right 4th toecontinu e Betadine wet-to-dry dressingwo und cleaned with Hibiclens todayprobi ng to bonepossib le osteomyeli tis obtain MRIfollow- up in 2 weeks [id number] Bry hernandez MD [facility] Primary Care [facility] [address] [facility] [address] [place] [address] 04/15/2025 14:18:08 04/15/2025 15:23:47 Screening - NAD 328763021 Z13.9 C-Scope: 02/07/15, Dr Wagner, next in 5 years from the date-scop e: 02/06/2021 : Dr Wagner, next in 7 yearsEGD: 06/12/2021 : Dr Wagner Mammogram: 01/12/19: Neg 023: Neg PAP: Done by Dr Blanca, is on paxil for night sweats DEXA: done on 12/11/2020 , thru Dr Clarosi112/06: Low bone mass, ca and vit d Get yearly flu shotUTD on Tdap 05/17/17UT D PCV #23 09/01/18, #12 09/10/2019 UTD shingrix 10/16/18 [facility] on hep A vaccineUTD on COVID 19 vaccine, get latest vaccineCan do RSV vaccine RTC in 3 monthsdo labsER if worse,she did verbalize her understand ing of the above Hyperlipidemia 95085251 E78.5 On atorvastat in 80mg daily, should not be on any other statinStop the fenofibrat eNot on vascepa 1gm 2 cap bidDoes well Get labs Pain of le ft hip joint [id number] 00329 M25.552 David BENNETT 05/13/2022 , 05/22/2024 Low back pain 151152268 M54.50 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 She insists that she will going to drive On narcanOn hydrocodon Jenn baclofenOn gabapentin 600mg 2 tabs tid Sees pain management [facility], last OV 12/13/2024 MRI L Spine 09/03/2023 : Lauren Cifuentes ay 05/29/2024 : Advised to discuss with the pain management to get off the hydrocodon e d/t tylenol in the medication , discuss use of oxycodone or even morphine Gout 09537450 M10.9 On allopurino lDoes well Essential hypertension 78607914 I10 Not on HCTZ 12.5mg dailyOn lasix Tennillerolo Lopes NPOn losartan 100mg dailyOn spironolac tone 50mg dailyOn K Does wellSeen by Dr Barron 04/08/2024 Dr Barron [facility] 11/28/2024 Thrombotic thrombocytopenic purpura 99388593 M31.[address] Bhatt in the pastLow plt could be from hepatitis Needs to keep apt with hepatology Dr Bhatt, 02/18/2022 , 03/02/2022 Dr Bhatt 05/23/2023 , f/u in 6 monthsDr Nova 05/21/2024 , f/u in 6 monthsDr Nova 11/21/2024 , f/u in 6 months Non-alcoho lic fatty liver 534157650 K76.0 US and hepatitis panel was done by Dr Juan hernanedz referral to GI OV 08/07/18:D id get liver biopsy, get the reportNext apt is on 08/30/[address] Granado ADDENDUM:Jesenia Martinez, 09/07/18, get EGD and follow up in 4 months Addendum: 11/26/18:1 12/25/17: EGD at [facility] OV 12/11/18:F ollow up with GI Addendum:Jesenia Granado 01/08/19: Got a referral to bariatric surgery and also US liver every 6 months OV 04/09/19:S ees Dr Martinez liver MD OV 08/20/19:S ees Dr Barone, is to get labs and is getting a study medication OV 12/17/2019 :Sees hepatologi st, is in a 'liver study' was told it was doing the sameNext apt in 2 month, she is getting an 'injection ' every e did have a MRI done, get the report OV 04/14/2020 :Sees Dr Barone GIIs to get a biopsy in May 2020 OV 08/18/2020 :See hepatology Get another apt OV 12/15/2020 :Keep apt with hepatology OV 04/27/2021 :Needs to see hepatology Get a referral OV 09/17/2021 :CMP: LFTs WNL 09/12/2021 See GI OV 01/18/2022 :Is to see hepatology on 06/14/2022 in [facility] OV 05/11/2022 :Sees Dr Barone [facility] OV 09/07/2022 :Needs an apt with hepatology OV 02/08/2023 :Needs to see Dr barone OV 05/17/2023 : Keep apt with Dr Barone OV 09/20/2023 Tennille Lopes [employer] GI: 05/03/2023 , next apt in 6 months OV 01/17/2024 : Sees GI OV 04/19/2024 : See her GI, referred 04/19/2024 OV 05/29/2024 : Referral provided last month OV 08/28/2024 : Sees Tennille Lopes [employer] GI OV 12/19/2024 : Keep apts with GI OV 04/15/2025 : Sees GI Chronic ki dney disease 892620517 N18.9 Needs to see nephrology , can refer Dysphagia 02591130 R13.1 0 EGD: 06/12/2021 : Dr Wagner, +ve esophageal ring, gastritis Feels that this is very intermitte nt, is able to eat and drink Urinary incontinence 165 795406 R32 On solifenaci n 10mg daily, given by [employer]FF [employer] OB Hypothyroidism 44052725 E03.9 On levothyrox ine 50mcgs daily Seen Dr Hernández Pain of [facility] hip joint 3114389996 58522 M25.551 David BENNETT 05/22/2024 , s/p kenalog Varicose v eins of lower extremity 74996135 I83.[address] Barron [facility] Restless legs 21677863 G 25.81 On ropinirole 0.25mg dailyDoes well Moderate r ecurrent major depression 46914652 F33.1 On paroxetine 10mg daily Does wellGiven to her by Dr Blanca 09/01/2022 Abdominal bloating 10491 9008 R14.0 Is on ozempic and opiatesAdv ised to stop the ozempic and curtail her use of opiates, but now 04/15/2025 states that she has restarted the ozempic and is doing well on thisWill now proceed to [facility] ER as she prefers to go there as her liver MD is there Ascites 970007580 R18.8 Has seen her liver MDNow on aldactone 50mg dailyNow on lasix 40mg daily+ve ascites noted, will need to get drained, will need to go to the ER, will go [facility] ERDid d/w Dr. Chowdary [facility] ER attending, patient to proceed to the ER stat, she has verbalized her understand ing of the above Addendum: 04/23/2024 [facility] 04/20/2024 , large volume paracentes is performed, now to see GI hepatology OV 05/29/2024 : States that she did see GI and now has increased her lasix OV 08/28/2024 : Sees GINow on aldactone and lasix OV 12/19/2024 : Has noted increased ascites, not tense, no abdominal pain, she is going to call Tennille Lopes [employer] and see if she should have this drained now, advised to go to the ER if any symptoms worsen! OV 04/15/2025 : Does well today,keep apt with GI Headache 66969550 R51.9 MRI 05/28/2024 : NegDoes well now, intermitte nt headaches, advised not to take any tylenol Screening mammography 24 219756 Z12.31 Open wound of foot [address] Oliveira podiatry 10/24/2024 , next 11/14/2024 US venous 10/23/2024 : Neg for DVT Surgery Amputation of R 5th toeSurgeon : Eric earance: Cleared by Dr Barron and she will remain a moderate risk for this procedure Dr Oliveira, next apt 05/20/2025 Type 2 vito betes mellitus 95808173 E11.8 On glimeperid e 2mg 2 tab bid, will now do 1 tab bid 08/28/2024 as now will be on trescibaOn metformin ER 500mg bid, will d/marvin this d/t CKDOn jardiance 25mg dailyOn ozempicOn tresciba 10U at bedtime 08/28/2024 , all side effects explained to her, including the side effects for LOW glucose Has seen Dr Hernández 06/09/[address] Groves on 02/15/2022 , next 06/21/2022 Eye: [facility] 04/2022 Malika Walsh [employer] endocrine 10/03/2024 , restarted the ozempicAnn Altgilbers 11/21/2024 [id number] Brian Oliveira DPM [facility] Podiat[facility] [place] [address] [place] [address] 05/06/2025 14:07:59 05/17/2025 08:42:56 Ulcer of toe of right foot 2080657577 3603558 L97.512 MRI reviewed- concerns for osteomyeli tistoe overall look good with oral abx treatmentd ue to continued wound with cellulitis patient was recommende d to report to the nearest emergency room for further evaluation and care- patient states understand ingBetadin e wet-to-dry dressing applied to woundsfoll ow-up post discharge from hospital Cellulitis of toe of right foot [id number] L03.031 right 4th toeas above Health Concerns Section Related Observation LastModified by Organization Detai ls LastModified Time None Recorded Concern Status LastModified by Organization Details LastModified Time None Recorded Advance Directives Directive N: Payers Insurance Date Sequence Insurance Name Policy Number Policy Suarez Covered Member ID Suarez Member ID Guarantor Name 05/17/2025 1 [facility] (MEDICARE REPLACEMENT/ ADVANTAGE - HMO) [id number] Teri Russ [id number] Teri Russ 05/02/2025 2 [employer] (MEDICARE REPLACEMENT/ ADVANTAGE - HMO) [id number] Teri Russ [id number] Teri Russ 01/17/2024 1 [facility] [id number] Elias Chiu Russ [id number] Teri Russ 05/02/2025 1 [place] Teri Russ [id number] Teri Russ Notes Date Note Type Note Provider Name and Address Organization Details Recorded Time 03/28/2025 text/html . Patient is a 64-year-old female who returns the office for open wound to the 4th toe she is doing well she had cellulitis of the right 4th toe which is resolved. Patient continues have a full-thickness wound over the proximal interphalangeal joint. Patient states she continues Betadine wet-to-dry dressing to the area. Patient denies any fever, chills, nausea vomiting. Patient denies any other complaints. Brian Oliveira DPM [address] [employer], [place], [address], [employer] 03/28/2025 14:59:54 04/08/2025 text/html . Patient is a 64-year-old female she returns with a wound to the right 4th toe. Patient states that the wound has not healed it continues to drain. Patient states that the cellulitis did resolve but she has noticed more drainage. Patient has mild swelling to the toe. Patient denies any other complaints. Brian Oliveira DPM [address], [place], [address], [employer] 04/09/2025 08:57:23 04/15/2025 text/html 12/26/17Here to establish carePast PMD Dr Rader Hx:LBPDMIIHLDKnelea painRLSReviewed social family and surgical historyHere to establish careShe states that she does she pain management and get 'shots' in the knee, and feels that this is helping her so that she does not need as much opiatesShe is to see Dr Martin and the pain management MD tooShlea also was seeing a steersman and wants another referral to a steersman and an eye MD OV 02/06/18:Here for her one month aptIs doing well at this timeOV 05/08/18:Here for her routine aptShe states that she is doing well at this timeNo recent labsOV 08/07/18:She is here for her routine aptShe did see Dr Hernández and her medications were changedIs now on glimeperide, jardiance and vicotzaOV 12/11/18:Here for her routine aptShe states that she is doing well at this timeShe did do the labs on 12/02/[address] Garcias also fell in 09/24 on the R shoulder now has pain, unable to lft the shoulder did get the shot in shoulder from Dr Faulkner 10/26/19OV 04/09/19:Here for her routine aptFeels well, s/p surgery for the R shoulder on 03/26/19, still has the staplesSelpidio did do the labs alsoOV 04/14/2020:Here for her routine aptShe is doing Chelsea has done the labs OV 08/18/2020:Here for her routine aptShe is doing well at this timeShe did do the labsShe has done [place] has yet to see hepatologyShe does have a incisional hernia and has noted that it has increased in sizeOV 12/15/2020:Here for her routine aptShe did do the labsShe is doing Chelsea is seeing pain managementOV 04/27/2021:Here for her routine aptShe is doing Chelsea did do the labs and is here to review theseOV 09/17/2021:Here for her routine aptShe did do the labsShe does state that she feels tired as she has been working 14 hour daysOV 01/18/2022:Here for her routine aptShe is doing Chelsea does c/o R hip pain, feels it 'gives out'Also wants a referral to Dr Barron for her R leg varicose veinsShlea did do the labs on 01/02/2022 OV 05/11/2022:Here for her routine aptShe is doing wellSome labs done by Mei a referral for L hip pain, is seeing David Cerna for R hip painOV 09/07/2022:Here for her f/u apt, she is doing well, she did do the labs on 09/04/2022 OV 02/08/2023:Here for her f/u apt, she did do the labs OV 05/17/2023: Here for her f/u apt, she is doing well today, she did do the labs on 05/14/2023 OV 09/20/2023: Here for her routine apt, she feels well today OV 01/17/2024: Here for her f/u apt, she is doing well today, she did do the labs OV 04/19/2024: Here for her f/u apt, she feels that she has noted some abdominal bloating, no N/V or diarrhea, no abd pain, feels 'gassy', no blood in urine or stool, no fevers or chills, no constipation OV 05/29/2024: Here for her routine apt and MWV, is doing well today OV 08/28/2024; Here for her f/u apt, she is doing well today OV 12/19/2024: Here for her f/u apt, she feels that she does have a URI with a cough and feeling feverish, she states that her Elias 'gave it to me'! She did do the labs on 11/19/2024 OV 04/15/2025: Here for her f/u apt, she is here with her , feels well today Bry Harvey MD [address], [address] [address], [place], [address], [facility] 04/15/2025 18:09:52 05/06/2025 text/html . Patient is a 64-year-old female she returns the office for follow-up on a wound to the right foot. Patient states that she has developed swelling and redness to the toe she states that the wound may have worsened. Patient had an MRI which is suggestive of osteomyelitis I did review these results with the patient and I recommended that she go to the emergency room due to the findings for further workup and evaluation due to the increased infection. Patient states understanding. Patient denies any other complaints. Brian Oliveira DPM [address], [place], [address], [facility] 05/15/2025 10:25:31 OBGyn Episode No OBEpisode recorded.
--- OUTSIDE RECORDS SUMMARY | 2025-05-20 12:02 | XMS_ITS ---
Author Organization [employer] [facility] Address [address] [facility] [place] [address] Care Team Providers Care Renal Social Worker Name Role Phone Karen Hernández Primary Care Provider REASON FOR VISIT diabetes Encounters Encounter Location Date Provider Diagnosis [facility] - Karen Hernández [address] [place] [address] 09/03/2024 Karen Hernández Plan Of Treatment No Information Progress Notes * Brooklyn GUERREROAntioneOB: (64 yo F)Acc No.[id number]:09/03/2024 Progress Notes Patient: Teri RAMIREZ Provider: Twan Hernández MD :1960 A ge:64 Y S ex:Female Date:09/03/2024 Address:[address] [place], [place] [id number] Subjective: * Chief Complaints: * 1 . Diabetes. * HPI: D viktorbetes: 64 yo female referred to our clinic by courtesy of Dr. Harvey for management and evaluation of hypothyroidism, uncontrolled type 2 DM, dyslipidemia. patient taking glimepiride twice daily before meals along with metformin twice daily along with farxiga 5 mg daily. She is also taking tresiba 10 units at bedtime. * Medical History: Objective: * Vitals: Assessment: Plan: * Treatment: * Billing Information: * Visit Code: * Procedure Codes: * Electronic signature of Escobar Hernández MD on 05/20/2025 at 12:01 PM CDT Sign off status: Pending * Provider: Twan Hernández MD Date: 1 Generated for Concha love/Nancy/eTransmitting on: 0 05/20/2025 12:01 PM CDT History and Physical Notes * HPI (History of Present Illness) Category Sub-Category Detail Notes Category Not es Diabetes 64 yo female referred to our clinic by courtesy of Dr. Harvey for management and evaluation of hypothyroidism, uncontrolled type 2 DM, dyslipidemia. patient taking glimepiride twice daily before meals along with metformin twice daily along with farxiga 5 mg daily. She is also taking tresiba 10 units at bedtime.
[2025-05-20 12:21] LABS: Hematocrit 41.1 % (37.0-47.0); Hemoglobin 12.9 g/dL (12.0-15.0); Immature Granulocyte Percent A 0.0 % (0-0.5); Lymphocytes Absolute Auto 1.09 K/mm3 (0.9-3.2); Mean Corpuscular HGB Conc 31.4 g/dl (32-36); Mean Corpuscular Hemoglobin 29.8 pg (26-34); Mean Corpuscular Volume 94.9 fl (80-100); Nucleated Red Blood Cells Absolute Auto 0.000 K/mm3 (0.0-0.012); Nucleated Red Blood Cells Perc 0.0 % (0.0-0.2); Platelet Count Result 61 k/mm3 (150-375); Red Blood Count 4.33 M/mm3 (4.2-5.4); White Blood Count 4.0 K/mm3 (4.5-10.0)
[2025-05-20 16:29] LABS: Anion Gap 6 mmol/L (4-12); Blood Urea Nitrogen 16 mg/dL (7-17); Calcium 9.4 mg/dL (8.4-10.2); Carbon Dioxide 28 mmol/L (22-30); Chloride 104 mmol/L (98-107); Estimated Glomerular Filt Rate > 60; Glucose 194 mg/dL (65-110); Potassium 4.2 mmol/L (3.4-5.0); Sodium 138 mmol/L (137-145)
[2025-05-20 17:42] LABS: Vitamin B12 > 1000.0 pg/mL (239-931)
== END 2025-05-20 11:59 | disposition home or self-care (01) ==
LOC: ANHLAB 11:58
PROVIDERS: PCP Internal Medicine; Visit Provider Internal Medicine Hematology & Oncology
DX: D69.59 Other secondary thrombocytopenia (principal)
CPT/HCPCS: 36415; 80048; 82607; 82746; 85025

== ENCOUNTER 2025-05-22 17:48 | Emergency (ER) | payer MEDICARE, SELFPAY ==
--- NOTE | ~2025-05-22 | CT_ITS ---
EXAMINATION: CT lumbar spine wo con DATE: 05/22/2025 20:08 INDICATION: lower back pain, radiating down L leg . TECHNIQUE: Computed tomography (CT) of the lumbar spine was performed without intravenous contrast. A utomated exposure control and iterative reconstruction technique were employed. The dose-length produ ct was 874.62 mGy-cm. COMPARISON: MR L-spine, 09/03/2023. FINDINGS: Nodular liver border. Upper abdominal varices. Atherosclerotic calcifications. Cholelithias is. Right common femoral vein stent. Mild scoliosis. 5 nonrib-bearing lumbar-type vertebral bodies. P edicles intact. 3 mm anterolisthesis at L3-4. Vertebral body heights preserved. Multilevel severe deg enerative disc disease. Multilevel moderate and severe degrees of facet arthropathy in the lower lumb ar spine. Severe right neural foraminal narrowing at L4-5 secondary to degenerative changes. Severe c entral canal stenosis at L4-L5 secondary to degenerative changes. Chronic mild anterior wedge deformi ty at T11. IMPRESSION: Stable grade 1 anterolisthesis at L3-4. Severe central canal narrowing and right neural foraminal mika rowing at L4-5, both secondary to degenerative changes. Cirrhosis with portal hypertension. Cholelithiasis, without definite evidence of cholecystitis. Reviewed, dictated and finalized at location K. IMPRESSION: Stable grade 1 anterolisthesis at L3-4. Severe central canal narrowing and righ t neural foraminal narrowing at L4-5, both secondary to degenerative changes. Cirrhosis with portal hypertension. Cholelithiasis, without definite evidence o f cholecystitis.
--- OUTSIDE RECORDS SUMMARY | 2025-05-22 17:51 | XMS_ITS | Clinical Summary ---
Author Organization [facility] Address [address] [place] [address] Care Team Providers Care Section Weaver Name Role Phone Unavailable Primary Care Provider Unavailabl e Social History Tobacco Use Types Packs/Day Years Used Date Smoking Tobacco: Never Assessed Comments Unknown Sex and Gender Information Value Date Recorded Sex Assigned at Not on file Legal Sex Female 7:41 AM CDT Gender Identity Not on file Sexual Orientation Not on file Plan of Treatment Health Maintenance Due Date Last Done Comments Colorectal Cancer Screening Colonoscopy (10 Years) 1960 Hepatitis C 1976 DTaP, Tdap and Td Vaccines ( 1 - Tdap) 1977 Mammogram Screening 1998 Pneumococcal Vaccine: 50+ Ye ars (1 of 1 - PCV) 2008 Zoster Vaccines (1 of 2) 2008 Annual Medicare Wellness Visit 2023 Dexa Scan (General) 2023 COVID-19 Vaccine ( - 2023-2 5 season) 2024 RSV Immunization or 60+ Years (1 - 1-dose 75+ series) 2033 Meningococcal B Vaccine Aged Out No l onger eligible based on patient's age to complete this topic Meningococcal Vaccine Aged Out No heather ole eligible based on patient's age to complete this topic RSV Immunizations Under 20 Months Aged Out No longer eligible based on patient's age to complete this topic Insurance [facility]
--- OUTSIDE RECORDS SUMMARY | 2025-05-22 17:51 | XMS_ITS | Clinical Summary ---
Author Organization [facility] Address [address] [facility] [address] [place] [address] Phone Care Team Providers Care Jet Blade Polisher Name Role Phone Johnson Harvey MD Primary [...] Description 04/29/2025 2:00 PM CDT Orders Only [facility] [address] [place] [address] Other injury of unspecified body region, initial [...] on file Legal Sex Female 9:42 PM ETHYLENE COMPRESSOR OPERATOR Gender Identity Not on file Sexual Orientation Not on file Obstetrics History Last Filed Vital Signs Vital Sign Reading Time Taken Comments Blood Pressure 144/80 10/06/2022 6:35 PM ETHYLENE COMPRESSOR OPERATOR Pulse 72 10/06/2022 6:35 PM ETHYLENE COMPRESSOR OPERATOR Temperature 36.9 C (98.4 F) 10/06/2022 6:35 PM ETHYLENE COMPRESSOR OPERATOR Respiratory Rate 16 10/06/2022 6:35 PM ETHYLENE COMPRESSOR OPERATOR Oxygen Saturation 98% 10/06/2022 6:35 PM ETHYLENE COMPRESSOR OPERATOR Inhaled Oxygen Concentration - - Weight 103.4 kg (228 lb) 10/06/2022 6:35 PM ETHYLENE COMPRESSOR OPERATOR Height 162.6 cm (5' 4) 10/06/2022 6:35 PM ETHYLENE COMPRESSOR OPERATOR Body Mass Index 39.14 10/06/2022 6:35 PM ETHYLENE COMPRESSOR OPERATOR Plan of Treatment Health Maintenance Due Date [...] Read Routine (OP Routine) 01/12/2019 11:47 AM ETHYLENE COMPRESSOR OPERATOR Encounter for screening mammogram for malignant neoplasm of breast from Last 3 Months or Most Recently Relevant to Health Maintenance Results * Screening Mammogram Bilateral W Josh (01/12/2019 11:47 AM ETHYLENE COMPRESSOR OPERATOR) Anatomical Region Laterality Modality Breast Bilateral Mammography Narrative 01/15/2019 10:26 AM CDT Mammogram Technique: Bilateral Digital Breast Tomosynthesis, Bilateral C-view 2D Screening mammogram. Views obtained: bilateral craniocaudal and bilateral mediolateral oblique. Computer Aided Detection was performed. Mammogram Findings: The present examination has been compared to a prior imaging study performed at [facility] on 01/02/2018. There are scattered areas of [...] to a prior imaging study performed at [facility] on 01/02/2018. There are scattered areas of fibroglandular density. There is no suspicious abnormality in either breast. Impression: Annual screening mammography is recommended. OVERALL FINAL ASSESSMENT: BI-RADS CATEGORY 1: Negative. Johnson Harvey MD IMG MAMMO PROCEDURES Final Result from Last 3 Months or Most Recently Relevant to Health Maintenance Insurance [employer] PREFERRED Care Teams Jet Blade Polisher Relationship Specialty Start Date End Date Johnson Harvey MD [address] [address] PCP - General 01/21/18
--- OUTSIDE RECORDS SUMMARY | 2025-05-22 17:51 | XMS_ITS | Continuity of Care Document ---
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 Name Role Phone JACOB HARVEY Primary Care Provider [phone] JACOB HARVEY Referring Provider BHANU OLIVEIRA Orderly DAVID CERNA Orthopedic Surgeon ROLO BHATT Care Assistant [facility] jenn [facility] Tow Truck Operator Assessment Encounter Date Assessment Date Assessment LastModified by Organization Details LastModified Time 05/21/2025 05/21/2025 05/14/2023: TSH 5.62H, FT4 1.1 AST/ALT 44/56, ALP 166 A1C 6.8H 05/20/2023: Dr Bhatt WBC 4.2, PLT 71 09/10/2023: Gluc 107 ALP 218, ALT 52/AST 49 A1C 6.9 WBC 3.6, PLT 65 01/14/2024: ALP 195, AST 37, ALT 48 A1C 8.2 WBC 3.7, PLT 67 03/28/2024: [facility] CBC: PLT 65L 04/11/2024: [facility] CMP: Stable 05/17/2024: TG 179 Gluc 206, [...] 1.43, GFR 37, gluc 158 PLT 117 04/18/2025: BUN 22/Cr 1.13/GFR 54, Gluc 143, AST/ALT 48/55, ALP 197 05/13/2025: A1C 7.2 Gluc 155 Lab done in endocrine office 45 minutes spent with the patient from 2.55pm till 3.50 pm Labs and consult reviewed, she is to get R toe surgery and is to get pbx teacher to be seen her tomorrow 05/22/2025 kar Not available 05/21/2025 17:00:00 Plan of Treatment Reminders Order Date Submit Date Provider Last Modified By Organization Details Last Modified Time Details Appointments Surgery 2024 08:00A Twan Oliveira DPM Not available Not available Not available Post-Op 2024 03:15P Twan Oliveira DPM Not available Not available Not available Follow Up 2024 10:00A Twan morales MD Not available Not available Not available Lab HbA1c (hemoglob in A1c), blood 2024 025 Dobleas [facility], [address], [place], [address], 05/21/2025 16:39:14 microalbu min, urine 2024 025 Dobleas [facility], [address], [place], [address], 05/21/2025 16:39:16 CMP, serum or plasma 2024 025 Dobleas [facility], [address], [place], [address], 05/21/2025 16:39:16 lipid panel, serum 2024 025 Dobleas [facility], [address], [address], [place], [address], 05/21/2025 16:39:15 CBC w/ auto diff 2024 025 Dobleas [facility], [address], [address], [place], [address], 05/21/2025 16:39:13 TSH + free T4, serum 2024 025 Dobleas [facility], [address], [address], [place], [address], 05/21/2025 16:39:14 Referral vascular surgeon referral - Please call patient to schedule an appointme nt. Thank you. 2024 025 [email or web address] [place], [address] [facility], [address], [place], [address], 05/21/2025 16:57:19 nephrolog ist referral - Please call patient to schedule an appointme nt. Thank you. 2024 025 Rell Marquez MD, [address], [address], [place], [address], 05/21/2025 16:57:20 podiatris t referral - Please call patient to schedule an appointme nt. Thank you. 2024 025 SELVIN Oliveira DPM, [address], [address], [place], [address], 05/22/2025 13:46:41 orthopedi c surgeon referral - Please call patient to schedule an appointme nt with David Cerna. Thank you. 2024 025 RUFINA [facility], [address], [place], [address], 05/22/2025 12:27:34 Procedures None recorded. Surgeries None recorded. Imaging MAMMO, screening , digital, bilateral 2024 025 [email or web address] [facility], [address], [address], [place], [address], 05/22/2025 09:28:42 Medication Orders None recorded. Patient TargetsNo targets recorded. Patient Instructions Encounter Date Encounter Id Patient Instructions Last Modified By Organization Details Last Modified Time 05/21/2025 [id number] diabetic eye exam* [email or web address] Not available 05/21/2025 16:56:28 Reason for Referral Orthopedic Surgeon Referral for Pain of right hip joint Please call patient to schedule an appointment with David Cerna. Thank you. Referring Physician: Jacob Harvey, Internal Medicine, Encounter Date: 05/21/2025 Vascular Surgeon Referral fo r Varicose veins of lower extremity Please call patient to schedule an appointment. Thank you. Referring Physician: Jacob Harvey, Internal Medicine, Encounter Date: 05/21/2025 Horse Buyer Referral for Ch ronic kidney disease Please call patient to schedule an appointment. Thank you. Referring Physician: Jacob Harvey Internal Medicine, Encounter Date: 05/21/2025 Orderly Referral for Type 2 diabetes mellitus Please call patient to schedule an appointment. Thank you. Referring Physician: Jacob Harvey Internal Medicine, Encounter Date: 05/21/2025 Results Created Date Observation Date Name Description Value Unit Range Abnormal Flag Note LastModifiedBy Organization Detail LastModifiedTime 04/22/2004/22/2025 MRI, foot, w/o contr ast No observ ation record ed. [email or web address] [facility] [address], [place], [address], 05/13/2025 08:13:23 05/08/20 25 05/08/2025 imagi ng/di agnos tic resul t No observ ation record ed. [facility] [address], [place], [address], 05/08/2025 13:55:33 05/22/20 25 XR, foot, 3 or more view No observ ation record ed. [email or web address] [place] [address], [place], [address], 05/22/2025 10:35:31 Result Notes None recorded. Problems Name Problem SNOMED Code Status Onset Date Resolution Date Notes Provider Name and Address Organization Details Recorded Time Renewal of prescript ion Active 2021 Not Available [facility] 3 02:53:36 Celluliti s of toe of left foot 20403315395 453539 Active 2018 Not Available [facility] 3 02:53:36 Disorder of shoulder 647024929 Active Not Available [facility] 3 02:53:36 Benign essential hypertens ion 3102774 Active Not Available [facility] 3 02:53:36 Foot ulcer due to type 2 diabetes mellitus 35351558236 00 Active 2021 Not Available [facility] 3 02:53:36 Dry skin 44601083 Active 2018 Not Available [facility] 3 02:53:36 Puncture wound of foot 49367543 Active 2016 Not Available [facility] 3 02:53:36 Radiother apy follow-up 647511022 Active Not Available [facility] 3 02:53:36 Localized , primary osteoarth ritis 940841241 Active Not Available [facility] 3 02:53:37 Partial thickness rotator cuff tear 215579922 Active Not Available [facility] 3 02:53:37 Synovitis and tenosynov itis 985566332 Active Not Available [facility] 3 02:53:37 Idiopathi c periphera l neuropath y 05562262 Active Not Available [facility] 3 02:53:37 Osteoarth ritis of knee 212039174 Active Not Available [facility] 3 02:53:37 Shoulder joint pain 590071708 Active Not Available [facility] 3 02:53:37 Eruption 635279015 Active 2021 Not Available [facility] 3 02:53:37 Current tear of medial cartilage AND/OR meniscus of knee Active Not Available [facility] 3 02:53:37 Knee pain Active Not Available [facility] 3 02:53:37 Type 2 diabetes mellitus without complicat ion 618587787 Completed Jacob hernandez MD [address] [facility], [facility] [address], [place], [address] , [facility] [employer] [facility] 3 17:43:16 Pain of left hip joint 30909307338 9100 Active 2021 Not Available [facility] 3 02:53:37 Pain of right hip joint 92917826130 9102 Active 2021 Not Available [facility] 3 02:53:37 Pain of toe of right foot 71462776432 9101 Active 2018 Not Available [facility] 3 02:53:38 Trochante jinny bursitis of left hip 45436050787 9103 Active 2021 Not Available [facility] 3 02:53:38 Trochante jinny bursitis of right hip 69862917902 9100 Active 2021 Not Available [facility] 3 02:53:38 Mononeuri tis 60896942 Active Not Available [facility] 3 02:53:38 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 641917763 Active 2021 Not Available [facility] 3 02:53:38 Uncontrol led type 2 diabetes mellitus 984504942 Active Not Available [facility] 3 02:53:38 Blister of toe without infection 18890336 Active Not Available [facility] 3 02:53:38 Hyperlipi demia 29196195 Active Not Available [facility] 3 02:53:38 Essential hypertens ion 92505164 Active 2021 Not Available [facility] 3 02:53:39 Tinea pedis 9656653 Active 2018 Not Available [facility] 3 02:53:39 Derangeme nt of knee 26485456 Active Not Available [facility] 3 02:53:39 Fracture of forearm 31811406 Active Not Available [facility] 3 02:53:39 Closed fracture of head of radius 12103414 Active Not Available [facility] 3 02:53:39 Brachial neuritis 84282050 Active Not Available [facility] 3 02:53:39 Diabetes mellitus 94172106 Active 2018 Not Available [facility] 3 02:53:39 Sleep apnea 66931255 Active 2016 Not Available [facility] 3 02:53:39 Fatigue 25143538 Active Not Available [facility] 3 02:53:39 Gout 32064458 Active 2018 Not Available [facility] 3 02:53:39 Pain in limb 61921859 Active Not Available [facility] 3 02:53:40 Type 2 diabetes mellitus without complicat ion 345245923 Active 2022 Jacob hernandez MD [address], [address], [place], [address] , [employer] [facility] [employer] 3 17:43:16 Low back pain 993346969 Active 2022 Jacob hernandez MD [address], [address], [place], [address] , [employer] 3 17:44:07 Thromboti c thrombocy topenic purpura 50160083 Active 2022 Jacob hernandez MD [address], [address], [place], [address] , [employer] [facility] [employer] 3 17:44:31 Non-alcoh olic fatty liver 825981406 Active 2022 Jacob hernandez MD [address], [address], [place], [address] , [facility] [employer] [facility] [employer] [facility] 3 17:44:40 Chronic kidney disease 189920388 Active 2022 Jacob hernandez MD [address], [address], [place], [address] , [employer] [facility] [employer] [facility] 17:44:49 Dysphagia 02505266 Active 2022 Jacob hernandez MD [address], [address], [place], [address] , [employer] [facility] [employer] [facility] 17:45:00 Urinary incontine sde 364406286 Active 2022 Jacob hernandez MD [address], [address], [place], [address] , [employer] [facility] [employer] [facility] 17:45:06 Hypothyro idism 16875080 Active 2022 Jacob hernandez MD [address], [address], [place], [address] , [employer] [facility] [employer] [facility] 17:45:11 Varicose veins of lower extremity 45232917 Active 2022 Jacob hernandez MD [address], [address], [place], [address] , [employer] [facility] [employer] [facility] 3 17:45:56 Restless legs 41262431 Active 2022 Jacob hernandez MD [address], [address], [place], [address] , [employer] [facility] [employer] [facility] 3 17:47:28 Moderate recurrent major depressio n 21112950 Active 2022 Jacob hernandez MD [address], [address], [place], [address] , [facility] [place] [facility] 3 17:47:56 Well controlle d type 2 diabetes mellitus 712807404 Active 2022 Karen Hernández MD [address], [address], [place], [address] , [facility] [place] [facility] 3 12:56:16 Pain of left shoulder joint 39452623548 570478 Active 2022 Merced Boucher null, [place] - [place] [facility] 3 12:55:10 Pain of bilateral hip joints 17618026314 791920 Active 2022 Vicky Colon CNA null, [place] - [facility] 3 14:56:31 Lumbar spondylos is 018396385 Active 2022 DONALD Cintron [address], [address], [place], [address] , [facility] - [facility] MEDICAL [facility] 3 15:37:37 Upper respirato ry infection 24542129 Active 2023 Daniela Bolivar MA null, [place] - [facility] [place] [facility] 4 12:39:25 Hammer toe 209689608 Active 2023 Bhanu Oliveira DPM [address], [address], [place], [address] , [facility]ICAL [facility] 4 13:54:31 Pain in toe 130223681 Active 2023 Bhanu Oliveira DPM [address], [address], [place], [address] , [facility] MEDICAL [facility] 4 13:54:40 Abdominal bloating 792425382 Active 2023 Jacob hernandez MD [address], [address], [place], [address] , [facility] - [facility] MEDICAL GROUP [facility] 4 15:23:34 Ascites 163868581 Active 2023 Jacob hernandez MD [address], [address], [place], [address] , [facility] [employer] [facility] 4 15:47:22 Headache 11813336 Active 2023 Daniela Bolivar MA null, [facility] MEDICAL GROUP [facility] 4 17:41:34 Vitamin D deficienc y 00994557 Active 2023 Daniela Bolivar MA null, [facility] Circular GROUP [facility] 4 17:42:33 Ulcer of big toe 043192340 Active 2023 Bhanu Oliveira DPM [address], [address], [place], [address] , [facility] [employer] GROUP [facility] 4 15:10:51 Ulcer of toe 233769711 Active 2023 Bhanu Oliveira DPM [address], [address], [place], [address] , [facility] Circ[employer] GROUP [facility] 4 15:10:57 Acute osteomyel itis of phalanx of toe 527512324 Active 2023 Bhanu Oliveira DPM [address], [address], [place], [address] , [facility] [employer] GROUP [facility] 4 13:06:47 Dehiscenc e of external surgical incision wound 84832967662 9108 Active 2023 Bhanu Oliveira DPM [address], [address], [place], [address] , [facility] [employer] [facility] 4 14:15:27 Callosity on toe 881522128 Active 2023 Bhanu Oliveira DPM [address], [address], [place], [address] , [facility] [employer] [facility] 4 14:16:03 Celluliti s of right foot 25675187413 581563 Active 2023 Bhanu Oliveira DPM [address], [address], [place], [address] , [facility] [employer] [facility] 4 14:41:15 Blister of foot with infection 94199243 Active 2023 Bhanu Oliveira DPM [address], [place], [address] , [facility] 4 14:42:40 Pain in left foot 04113711811 9107 Active 2023 Bhanu Oliveira DPM [address], [address], [place], [address] , [facility] 4 14:57:13 Deep venous thrombosi s of lower extremity 973021199 Active 2023 Bhanu Oliveira DPM [address], [address], [place], [address] , [facility] 4 14:57:56 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 74914026720 086548 Active 2023 Bhanu Oliveira DPM [address], [address], [place], [address] , [facility] MEDICAL [facility] 4 12:45:22 Open wound of foot 851263415 Active 2024 Jacob hernandez MD [address], [address], [place], [address] , [facility] 5 22:52:44 Periphera l arterial occlusive disease 186003428 Active 2024 Bhanu Oliveira DPM [address], [place], [address] , [facility] 5 12:47:33 Postopera tive visit 968999212 Active 2024 Bhanu Oliveira DPM [address], [address], [place], [address] , [facility] 5 14:57:06 Dehiscenc e of surgical wound 85207068 Active 2024 Bhanu Oliveira DPM [address], [address], [place], [address] , [facility] [employer] [facility] [employer] [facility] 5 15:59:58 Celluliti s of toe of right foot Active 2024 Bhanu Oliveira DPM [address], [address], [place], [address] , [facility] [employer] [facility] [employer] [facility] 5 15:01:59 Acute osteomyel itis 280652348 Active 2024 Bhanu Oliveira DPM [address], [place], [address] , [facility] [employer] [facility] [employer] [facility] 5 16:13:17 Type 2 diabetes mellitus 29098230 Active 2024 Jacob hernandez MD [address], [address], [place], [address] , [facility] [employer] [facility] [employer] [facility] 5 12:32:00 Open wound of foot, excluding toe(s) 812743528 Active 2024 PARKER Moraes, [facility] [employer] [facility] 5 15:05:13 Open wound 928917612 Active 2024 PARKER Moraes, [employer] [facility] [employer] [facility] 5 15:07:28 Ulcer of toe of right foot Active 2024 Bhanu Oliveira DPM [address], [place], [address] , [facility] [employer] [facility] [employer] [facility] 5 14:43:29 Acute osteomyel itis of right foot 03429104752 43877 Active 2024 Bhanu Oliveira DPM [address], [place], [address] , [employer] [facility] [employer] [facility] 5 12:37:02 Problem Notes None recorded. Procedures Surgical History Date Name Laterality Status Provider Name and Address Organization Details Recorded Time Suture Removal completed Bhanu Oliveira DPM [address], [address], [place], [address], [facility] [employer] [facility] [employer] [facility] 02/18/2025 10:21:28 4 Wound Care-Podiatry completed Bhanu Oliveira DPM [address], [place], [address], [facility] [employer] [facility] [employer] 10/24/2024 12:19:47 4 Wound Care-Podiatry completed Bhanu Oliveira DPM [address], [place], [address], [facility] [employer] [facility] 10/18/2024 16:55:51 4 Wound Care-Podiatry completed Bhanu Oliveira DPM [address], [place], [address], [facility] [employer] [facility] [employer] [place] 09/12/2024 15:59:38 4 Wound Care-Podiatry completed Carmen Meyer RN MA [employer] [facility] [employer] [place] 08/29/2024 11:51:08 4 Callus Debridement, One completed Bhanu Oliveira DPM [address], [place], [address], [facility] [employer] [facility] [employer] [facility] [employer] [place] 08/29/2024 14:19:02 4 Wound Care-Podiatry completed Bhanu Oliveira DPM [address], [address], [place], [address], [facility] [employer] [facility] MEDICAL [facility] 08/29/2024 14:11:03 4 Callus Debridement, One completed Bhanu Oliveira DPM [address], [address], [place], [address], [facility] [employer] [facility] 08/29/2024 14:16:31 4 Wound Care-Podiatry completed Bhanu Oliveira DPM [address], [place], [address], [facility] 08/15/2024 14:12:21 4 Wound Care-Podiatry completed Bhanu Oliveira DPM [address], [address], [place], [address], [facility] Circular [facility] 06/11/2024 15:08:36 4 Medicare Wellness CPT Code, Welcome completed Earnest Monterroso LPN [facility] Circular [facility] 05/29/2024 09:09:41 4 Advanced Care Planning completed Earnest Monterroso LPN [facility] [employer] [facility] 05/29/2024 12:05:49 2 procedure on vein completed Not Available [facility] 01/05/2023 02:47:42 9 Rotator cuff surgery completed Vicky Isaiah [facility] [employer] [facility] 09/06/2023 14:54:26 0 section completed Vicky Isaiah, [facility] 09/06/2023 14:54:42 procedure on elbow completed Vicky Isaiah [facility] [employer] [facility] 09/06/2023 14:54:07 Knee completed Not Available [facility] 11/2022 02:47:42 Toe completed Sherie Foster [facility] [employer] [facility] 08/28/2024 12:02:58 amputation of toe completed Sherie Foster [facility] [employer] [facility] 04/15/2025 14:34:40 Imaging Results None recorded. Procedure [...] hours by oral route for 7 days. 05/21 completed Not Available Not Available Not Available hydrocodo ne 10 mg-acetam inophen 325 mg [...] Not Available glimepiri de 2 mg tablet Take by oral route. active Not Available Not Available No t Available valsartan 80 mg-hydroc hlorothia zide 12.5 [...] n for injection in office 04/15 completed [facility]: [id number] 4-20 Not Available Not Available Not Available dexametha [...] BY MOUTH TWICE DAILY FOR 10 DAYS 05/21 completed Not Available Not Available Not Available pantopraz ole 40 mg tablet,de layed [...] Available hydrochlo rothiazid e 12.5 mg capsule Take 1 capsule every day by oral route. active Not Available Not Available No t Available nystatin- triamcino lone 100,000 unit/g-0. 1 [...] 1 TABLET BY MOUTH TWICE A DAY 05/21 completed Not Available Not Available Not Available cephalexi n 500 mg tablet Take 1 [...] 20 mg tablet take 1 po qd 11/11 /2021 completed Not Available Not Available Not Available lidocaine HCl 20 mg/mL (2 %) injection solution Take 80 mg by injectio n route. 09/07 completed Not Available Not Available Not Available levofloxa jane 500 mg tablet TAKE 1 TABLET BY MOUTH EVERY DAY FOR 10 DAYS 05/21 completed Not Available Not Available Not Available lovastati n 20 mg tablet one [...] completed Not Available Not Available Not Available calcium carbonate 600mg daily active Not Available Not Available No t Available Vitamin B-12 TK 1T PO QD [...] ole 12/[address] marlo hurd Not Available Not Available Not Available black [...] Not Available Not Available Not Available Fluzone 6135-6367 45 mcg (15 mcg x 3)/0.5 mL intramusc ular suspensio n active Not Available Not Available Not Available Vascepa 1 gram capsule Take 2 capsules twice a day by oral route for 90 days. 01/16 completed Not Available Not Available Not Available Multi Vitamin active Not Available Not Available Not Available Invokana 300 mg tablet TAKE 1 TABLET BY MOUTH ONCE DAILY 01/11 completed Not Available Not Available Not Available Victoza 3-Elias 0.6 mg/0.1 mL (18 mg/3 mL) subcutane ous pen injector Inject 1.2 Milligra ms subcutan eously daily 12/17 completed Not Available Not Available Not Available Fluvirin 4607-4261 45 mcg (15 mcg x 3)/0.5 mL [...] Not Available Not Available Not Available Afluria 8789-2172 (PF) 45 mcg(15 mcg x 3)/0.5 mL [...] (BMI) Body weight Body temperature Heart rate Oxygen saturation Oxygen saturation in Arterial blood by Pulse oximetry Systolic And Diastolic Provider Name and Address Organization Details Last Updated DateTime 5 157.48 cm 38.2 kg/m2 93601.8 1 g 97.5 [degF] 80 /min 94 % 94 % 112/60 mm[Hg] Arlyn Weller MA 3D Data 15:50:45 Social History Question Answer Notes LastModified by Organization Details LastModified Time Tobacco Smoking Status Former Smoker quit 1985 MISA Floyd 3D Data 09/06/2023 14:53:41 Do You Have An Advance Directive? No MIGRATION.0301 [id number] Information not available 01/05/2023 How Many Years Have You Consumed Alcohol? 40 [email or web address] Information not available 05/29/2024 Are You Blind Or Do You Have Difficulty Seeing? No Information not available 04/19/2024 Is Blood Transfusion Acceptable In An Emergency? Yes Information not available 05/29/2024 What Is Your Level Of Caffeine Consumption? Occasional MIGRATION.0301 [id number] Information not available 01/05/2023 How Much Tobacco Do You Chew? None MIGRATION.030 116797 Information not available 01/05/2023 In The 14 Days Before Symptom Onset, Have You Had Close Contact With A Laboratory-confi rmed COVID-19 While That Case Was Ill? No MIGRATION.030 506339 Information not available 01/05/2023 In The 14 Days Before Symptom Onset, Have You Had Close Contact With A Person Who Is Under Investigation For COVID-19 While That Person Was Ill? No MIGRATION.030 [id number] Information not available 01/05/2023 Are You Deaf Or Do You Have Serious Difficulty Hearing? Yes Information not available 04/19/2024 What Type Of Diet Are You Following? REGULAR MIGRATION.030 [id number] Information not available 01/05/2023 Which Illicit Or Recreational Drugs Have You Used? None MIGRATION.030 243472 Information not available 01/05/2023 What Is The Highest Grade Or Level Of School You Have Completed Or The Highest Degree You Have Received? [id number] MIGRATION.030 639038 Information not available 01/05/2023 How Many Days Of Moderate To Strenuous Exercise, Like A Brisk Walk, Did You Do In The Last 7 Days? 0 [email or web address] Information not available 05/29/2024 Have There Been Any Changes To Your Family Or Social Situation? No MIGRATION.0301 718897 Information not available 01/05/2023 What Is The Fluoride Status Of Your Home? Unknown MIGRATION.030 129494 Information not available 01/05/2023 When Did You Quit Smoking? 14+yearssincelastc igarette MIGRATION.030 156410 Information not available 01/05/2023 Are There Any Guns Present In Your Home? Yes Kept In Safe MIGRATION.030 971765 Information not available 01/05/2023 Do You Use Insect Repellent Routinely? Yes MIGRATION.0301 [id number] Information not available 01/05/2023 Where Do You Live? SingleLevelHouse MIGRATION.0301 [id number] Information not available 01/05/2023 Advance Directive- Providers Has Reviewed Directive And Consents To Follow Them (insert Provider Name With Any Objectives In Notes Field) No [email or web address] Information not available 05/29/2024 Presence Of Domestic Violence No [email or web address] Information not available 05/29/2024 Guns Present In The Home? Yes Information not available 05/29/2024 Are You Able To Care For Yourself? Yes [email or web address] Information not available 05/29/2024 Are You Blind Or Do Yo Have Difficulty Seeing? No [email or web address] Information not available 05/29/2024 Are You Deaf Or Do You Have Serious Difficulty Hearing? No [email or web address] Information not available 05/29/2024 General Stress Level? Low [email or web address] Information not available 05/29/2024 Live Alone Of With Others? With Others [email or web address] Information not available 05/29/2024 Do You Have A Medical Power Of Kitchen Chef? No MIGRATION.0301 707339 Information not available 01/05/2023 What Was The Date Of Your Most Recent Tobacco Screening? 05/21/2025 [email or web address] Information not available 05/21/2025 What Is Your Current Pack Years? 10-19packyears [email or web address] Information not available 05/29/2024 Have You Ever Been Counseled For Unhealthy Alcohol Use? No [email or web address] Information not available 05/29/2024 Do You Have Any Pets? Yes Dog [email or web address] Information not available 05/29/2024 What Is Your Relationship Status? MIGRATION.0301 [id number] Information not available 01/05/2023 Do You Have Smoke And Carbon Monoxide Detectors In Your Home? Yes MIGRATION.0301 [id number] Information not available 01/05/2023 At What Age Did You Start Smoking Tobacco? 15 [email or web address] Information not available 05/29/2024 Are You Passively Exposed To Smoke? Yes MIGRATION.0301 [id number] Information not available 01/05/2023 Are There Any Smokers In Your House? Yes MIGRATION.0301 550324 Information not available 01/05/2023 How Much Tobacco Do You Smoke? No [email or web address] Information not available 05/29/2024 What Types Of Sporting Activities Do You Participate In? None [email or web address] Information not available 05/29/2024 Do You Use Sunscreen Routinely? Yes MIGRATION.0301 506274 Information not available 01/05/2023 Has Tobacco Cessation Counseling Been Provided? No Information not available 02/08/2023 How Many Years Have You Smoked Tobacco? 10 [email or web address] Information not available 05/29/2024 Have You Recently Traveled Abroad? No MIGRATION.0301 611356 Information not available 01/05/2023 Do You Have Difficulty Walking Or Climbing Stairs? Yes Information not available 04/19/2024 Do You Have Any Dietary Restrictions? No MIGRATION.0301 [id number] Information not available 01/05/2023 How Many Days In The Past Year Have You Consumed 4 Or More Drinks? 0 [email or web address] Information not available 05/29/2024 Sex: Female Functional Status Question Answer Note LastModified by [employer] ion Details LastModified Time Do you use any illicit or recreational drugs? No MIGRATION.69828 40124 Information not available 01/05/2023 Do you or have you ever used any other forms of tobacco or nicotine? 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 No Information not available 04/19/2024 Do you or have you ever used e-cigarettes or vape? Never used electronic cigarettes MIGRATION.69127 50421 Information not available 01/05/2023 What is your exercise level? None stays active MIGRATION.93849 37127 Information not available 01/05/2023 Mental Status Question Answer Note LastModified by Organizat ion Details LastModified Time Do you feel stressed (tense, restless, nervous, or anxious, or unable to sleep at night)? [id number] MIGRATION.[id number] 26 Information not available 01/05/2023 Do you have difficulty concentrating, remembering or making decisions? Yes Information no t available 04/19/2024 Family History Relationship Description Onset Age of this Age Resolved Age Notes LastModified by Organization Details LastModified Time Mother Family history of malignant neoplasm Not available 05/06 14:10:20 Mother Hypertensive disorder MIGRATION.963 [id number] Not available 01/05/2023 02:47:47 Father Hypertensive disorder MIGRATION.905 [id number] Not available 01/05/2023 02:47:47 Medical History Condition Response BLINDNESS N NERVE DISEASE Y RHEUMATIC FEVER N BLADDER PROBLEMS N KIDNEY STONES N CARPAL TUNNEL SYNDROME N MRSA N OTHER # 1 N POLIO N LUNG DISEASE/DISORDER N HISTORY OF DRUG ABUSE N RADIATION / CHEMOTHERAPY N COPD N Other # 2 N ANKLE PAIN N SPORTS INJURY N BLOOD DISEASES N EAR OR HEARING PROBLEMS N MUMPS N SCHIZOPHRENIA N SHINGLES N DEPRESSION (INCLUDING POST ) N SHOULDER PAIN N BOWEL PROBLEMS N STROKE/TIA N KNEE [...] split virus, quadrivalent, preservative 2 completed CLARITZA Honeycutt, [facility] 05/29/2024 09:11:59 COVID-19, mRNA, LNP-S, PF, 100 mcg/0.5mL dose or 50 mcg/0.25mL dose 1 [facility] 09:11:59 Influenza, split virus, quadrivalent, preservative 1 completed CLARITZA Honeycutt, [facility] 05/29/2024 09:11:59 COVID-19 vaccine, vector-nr, rS-Ad26, PF, 0.5 mL 1 completed CLARITZA Honeycutt, [facility] 05/29/2024 09:11:59 Pneumococcal conjugate PCV 13 9 completed CLARITZA Honeycutt, [facility] 05/29/2024 09:11:59 Influenza, split virus, quadrivalent, preservative 9 completed Not Available [facility] 01/05/2023 03:00:11 zoster live 9 [facility] 05/29/2024 09:11:59 influenza, unspecified formulation 8 completed Not Available [facility] 01/05/2023 03:00:11 pneumococcal polysaccharide PPV23 8 completed Earnest Monterroso LPN null, [facility] 05/29/2024 09:11:59 Influenza, split virus, quadrivalent, preservative 0 completed CLARITZA Honeycutt, [facility] 05/29/2024 09:11:59 influenza, unspecified formulation 7 completed CLARITZA Honeycutt, [facility] 05/29/2024 09:11:59 Tdap 7 completed Not Available [facility] 01/05/2023 03:00:11 Influenza, split virus, trivalent, PF 3 completed [facility] 05/29/2024 09:11:59 COVID-19, mRNA, LNP-S, PF, 100 mcg/0.5mL dose or 50 mcg/0.25mL dose 3 [facility] 05/29/2024 09:15:14 Influenza, high-dose, quadrivalent, PF 3 completed [facility] 05/29/2024 09:15:14 RSV, recombinant, protein subunit RSVpreF, adjuvant reconstituted, 0.5 mL, PF 3 completed [facility] 05/29/2024 09:15:14 Influenza, recombinant, quadrivalent, PF 0 completed CLARITZA Honeycutt, [facility] 05/29/2024 09:11:59 Influenza, recombinant, quadrivalent, PF 1 completed Earnest Monterroso LPN null, [facility] 05/29/2024 09:11:59 zoster recombinant 9 completed Earnest Monterroso LPN null, [facility] 05/29/2024 09:11:59 zoster recombinant 8 completed Earnest Monterroso LPN null, [facility] 05/29/2024 09:11:59 Influenza, split virus, trivalent, preservative 4 completed Earnest Monterroso LPN null, [facility] 05/29/2024 09:11:59 Influenza, split virus, trivalent, PF 5 completed Earnest Monterroso LPN null, [facility] 05/29/2024 09:11:59 Influenza, split virus, trivalent, PF 6 completed Earnest Monterroso LPN null, [facility] 05/29/2024 09:11:59 Influenza, split virus, trivalent, PF 7 completed Earnest Monterroso LPN null, [facility] 05/29/2024 09:11:59 Hep A, adult 9 completed Earnest Monterroso LPN null, [facility] 05/29/2024 09:11:59 Hep A, adult 8 completed Earnest Monterroso LPN null, [facility] 05/29/2024 09:11:59 Influenza, split virus, quadrivalent, PF 8 completed Earnest Monterroso LPN null, [facility] 05/29/2024 09:11:59 Influenza, split virus, quadrivalent, PF 2 completed Earnest Monterroso LPN null, [facility] 05/29/2024 09:11:59 COVID-19, mRNA, LNP-S, PF, 50 mcg/0.5 mL 3 completed Earnest Monterrsoo LPN null, [facility] 05/29/2024 09:15:14 COVID-19, mRNA, LNP-S, PF, jose-sucrose, 30 mcg/0.3 mL 4 completed PARKER Moraes, [facility] [employer] [facility] 04/15/2025 14:33:21 Influenza, high-dose, trivalent, PF 4 completed PARKER Moraes, [facility] [employer] [facility] 04/15/2025 14:33:21 Past Encounters Encounter ID Performer Location Encounter Start Date Encounter Closed Date Diagnosis/Indication Diagnosis SNOMED-CT Code Diagnosis ICD10 Code Diagnosis Note [id number] Bhanu Oliveira DPM [facility] Podiat[facility] [place] [address] [place] [address] 05/06/2025 14:07:59 05/17/2025 08:42:56 Ulcer of toe of right foot [id number] 8638864 L97.512 MRI reviewed- concerns for osteomyeli tistoe overall look good with oral abx treatmentd ue to continued wound with cellulitis patient was recommende d to report to the nearest emergency room for further evaluation and care- patient states understand ingBetadin e wet-to-dry dressing applied to woundsfoll ow-up post discharge from hospital Cellulitis of toe of right foot 0637765377 L03.031 right 4th toeas above [id number] Bhanu Oliveira DPM [facility] Podiatry [place] [address] [place] [address] 05/20/2025 12:12:11 05/22/2025 10:31:58 Ulcer of toe of right foot 2050553060 1701215 L97.512 MRI reviewed- reviewed possible osteomyeli tisnew x-rays show confirmed new erosive changescul tures revieweddu e to continued breakdown of bone who will proceed with amputation of the toe secondary to osteomyeli tisObtain surgical clearancep gustavo amputation of toe right 4th toe at the ambulatory surgery center Acute oste omyelitis of right foot 7102473692 360785 M86.171 right 4th toe- proximal and middle phalanxcul tures Pseudomona s [id number] Jacob hernandez MD S[facility] Internal Med [facility] [address] [facility], [address] [place] [address] 05/21/2025 15:20:18 05/21/2025 16:57:19 Screening - NAD 851744951 Z13.9 C-Scope: 02/07/15, Dr Wagner, next in 5 years from the [facility]-scop e: 02/06/2021 : Dr Wagner, next in 7 yearsEGD: 06/12/2021 : Dr Wagner Mammogram: 01/12/19: Neg 023: Neg PAP: Done by Dr Blanca, is on paxil for night sweats DEXA: done on 12/11/2020 , thru Dr Clarosi112/06: Low bone mass, ca and vit d Get yearly flu shotUTD on Tdap 05/17/17UT D PCV #23 09/01/18, #12 09/10/2019 [facility] 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.[address] Bhatt in the pastLow plt could be from hepatitis Needs to keep apt with hepatology Dr Bhatt, 02/18/2022 , 03/02/2022 Dr Bhatt 05/23/2023 , f/u in 6 monthsDr Nova 05/21/2024 , f/u in 6 monthsDr Nova 11/21/2024 , f/u in 6 months Non-alcoho lic fatty liver 876753222 K76.0 US and hepatitis panel was done by Dr Martinez t a referral to GI OV 08/07/18:D id get liver biopsy, get the reportNext apt is on 08/30/[address] Granado ADDENDUM:Jesenia Martinez, 09/07/18, get EGD and follow up in 4 months Addendum: 11/26/18:1 12/25/17: EGD at [facility] OV 12/11/18:F ollow up with GI Addendum:Jesenia [...] with Dr Barone OV 09/20/2023 Tennille Lopes ENVIRONMENTAL LEAD GI: 05/03/2023 , next apt in 6 months OV 01/17/2024 : Sees GI OV 04/19/2024 : See her GI, referred 04/19/2024 OV 05/29/2024 : Referral provided last month OV 08/28/2024 : Sees Tennille Lopes NP GI OV 12/19/2024 : Keep apts with GI OV 04/15/2025 : Sees GI OV 05/21/2025 : Now sees her GI Chronic ki dney disease 750955329 N18.9 Needs to see nephrology , can refer Dysphagia 92262090 R13.1 0 EGD: 06/12/2021 : Dr Wagner, +ve esophageal ring, gastritis Feels that this is very intermitte nt, is able to eat and drink Urinary incontinence 165 862753 R32 On solifenaci n 10mg daily, given by ENVIRONMENTAL LEAD OB Hypothyroidism 81432450 E03.9 On levothyrox ine 50mcgs daily Seen Dr Hernández Pain of ri ght hip joint 9721538879 37023 M25.551 David BENNETT 05/22/2024 , s/p kenalog Varicose v eins of lower extremity 53785348 I83.[address] Barron SL Restless legs 74690764 G 25.81 On ropinirole 0.25mg dailyDoes well Moderate r ecurrent major depression 30196959 F33.1 Not on paroxetine 10mg daily Does wellwas given to her by Dr Blanca 09/01/2022 Abdominal bloating 33197 9008 R14.0 Is on ozempic and opiatesAdv ised to stop the ozempic and curtail her use of opiates, but now 04/15/2025 states that she has restarted the ozempic and is doing well on thisWill now proceed to [facility] as she prefers to go there as her liver MD is there OV 05/21/2025 :Advised to keep her apt with her GI Ascites 131906479 R18.8 Has seen her liver MDNow on aldactone 50mg dailyNow on lasix 40mg daily+ve ascites noted, will need to get drained, will need to go to the ER, [facility]w Dr. Chowdary [facility] attending, patient to proceed to the ER stat, she has verbalized her understand ing of the above Addendum: 04/23/2024 [facility] health 04/20/2024 , large volume paracentes is performed, now to see GI hepatology OV 05/29/2024 : States that she did see GI and now has increased her lasix OV 08/28/2024 : Sees GINow on aldactone and lasix OV 12/19/2024 : Has noted increased ascites, not tense, no abdominal pain, she is going to call Tennille Lopes ENVIRONMENTAL LEAD and see if she should have this drained now, advised to go to the ER if any symptoms worsen! OV 04/15/2025 : Does well today,keep apt with GI OV 05/21/2025 : Keep apt with her GI Headache 46667925 R51.9 MRI 05/28/2024 : NegDoes well now, intermitte nt headaches, advised not to take any tylenol Screening mammography 24 735651 Z12.31 Open wound of foot [address] Oliveira podiatry 10/24/2024 , next 11/14/2024 US venous 10/23/2024 : Neg for DVT Surgery Amputation of R 5th toeSurgeon : Eric earance: Cleared by Dr Barron and she will remain a moderate risk for this procedure Dr Oliveira, next apt 05/20/2025 OV 05/21/2025 : Now is to get the R toe amputated on 05/31/2025 She is on ozempic and was told to let her surgeon know about thisShe will need clearance by Dr Barron her cardiologi stShe has already stopped the ozempic and has been told by her surgeon Dr Oliveira not to take it till after her surgery Type 2 vito betes mellitus 77194073 E11.8 On glimeperid e 2mg 2 tab [...] Eye: [facility] 04/2022 Malika Walsh ENVIRONMENTAL LEAD endocrine 10/03/2024 , restarted the ozempicAnn Altgilbers 11/21/2024 Malika Altgilbers 05/13/2025 , ozempic increased to 2mg weekly Health Concerns Section Related Observation LastModified by Organization Detai ls LastModified Time None Recorded Concern Status LastModified by Organization Details LastModified Time None Recorded Payers Encounter Date Sequence Insurance Name Policy Number Policy Suarez Covered Member ID Suarez Member ID Guarantor Name 05/21/2025 1 [facility] (MEDICARE REPLACEMENT/A DVANTAGE - HMO) [id number] Teri Russ [id number] Teri Russ Notes Date Note Type Note Provider Name and Address Organization Details Recorded Time 05/21/2025 text/html 12/26/17Here to establish carePast PMD Dr StapleshipPsergio Hx:LBPDMIIHLDKnee painRLSReviewed social family and surgical historyHere to establish Josey states that she does she pain management and get 'shots' in the knee, and feels that this is helping her so that she does not need as much opiatesShe is to see Dr Martin and the pain management MD Reis also was seeing a agricultural labor camp manager and wants another referral to a agricultural labor camp manager and an eye MD OV 02/06/18:Here for [...] R shoulder on 03/26/19, still has the staplesShe did do the labs alsoOV 04/14/2020:Here for her routine aptShe is doing Chelsea has done the labs OV 08/18/2020:Here for her routine aptShe is doing well at this timeShe did do the labsShe has done DEXJose De Jesuse has yet to see hepatologyShe does have [...] Dr Barron for her R leg varicose veinsShamerica did do the labs on 01/02/2022 OV [...] here with her , feels well today OV 05/21/2025: Here for her f/u apt, she is now scheduled to get R toe surgery with Dr Sams also has noted R back pain, not taken her opiates as yet d/t pharmacy availability, she denies any loss or bowel or bladder control, does have some pain that radiates to the R lower leg and foot Jacob Harvey MD [address] [facility], [facility] [address], [place], [address], [place] [employer] 05/21/2025 19:03:46 OBGyn Episode No OBEpisode recorded.
--- OUTSIDE RECORDS SUMMARY | 2025-05-22 17:51 | XMS_ITS ---
Author Organization [facility] [facility] Address [address] [place] [address] Care Team Providers Care Resaw Operator Name Role Phone Karen Hernández Primary Care Provider [phone] REASON FOR VISIT establish care Encounters Encounter Location Date Provider Diagnosis [facility] - Karen Hernández [address] [place] [address] 11/05/2024 Karen Hernández Plan Of Treatment No Information Progress Notes * Eddy GUERREROOB: (64 yo F)Acc No.[id number]:11/05/2024 Progress Notes Patient: Teri RAMIREZ Provider: Twan Hernández MD :1960 A ge:64 Y S ex:Female Date:11/05/2024 Address:[address] [place], [place] [id number] Subjective: * Chief Complaints: * 1 . Establish care. * Medical History: Objective: * Vitals: Assessment: Plan: * Treatment: * Billing Information: * Visit Code: * Procedure Codes: * Electronic signature of Escobar Hernández MD on 05/22/2025 at 01:32 PM CDT Sign off status: Pending * Provider: Twan Hernández MD Date: Generated for Concha love/Nancy/eTtavonsmitting on: 0 05/22/2025 01:32 PM CDT
--- OUTSIDE RECORDS SUMMARY | 2025-05-22 17:51 | XMS_ITS | Referral Summary ---
Author Organization [facility] Address [address] [facility] [address] [place] [address] Phone Care Team Providers Care Public Works Manager Name Role Phone Johnson Harvey MD Primary Care Provide r Encounters Date Type Department Care Team Description 04/29/2025 2:00 PM CDT Orders Only [facility] [address] [place] [id number] Other injury of unspecified body region, initial [...] on file Legal Sex Female 9:42 PM EMERGENCY VEHICLE OPERATOR Gender Identity Not on file Sexual Orientation Not on file Last Filed Vital Signs Vital Sign Reading Time Taken Comments Blood Pressure 144/80 10/06/2022 6:35 PM EMERGENCY VEHICLE OPERATOR Pulse 72 10/06/2022 6:35 PM EMERGENCY VEHICLE OPERATOR Temperature 36.9 C (98.4 F) 10/06/2022 6:35 PM EMERGENCY VEHICLE OPERATOR Respiratory Rate 16 10/06/2022 6:35 PM EMERGENCY VEHICLE OPERATOR Oxygen Saturation 98% 10/06/2022 6:35 PM EMERGENCY VEHICLE OPERATOR Inhaled Oxygen Concentration - - Weight 103.4 kg (228 lb) 10/06/2022 6:35 PM EMERGENCY VEHICLE OPERATOR Height 162.6 cm (5' 4) 10/06/2022 6:35 PM EMERGENCY VEHICLE OPERATOR Body Mass Index 39.14 10/06/2022 6:35 PM EMERGENCY VEHICLE OPERATOR Plan of Treatment Not on file Procedures Procedure Name Priority Date/Time Associated Diagnosis Comments SCREENING MAMMOGRAM BILATERAL W JOSH Schedule Routine, Read Routine (OP Routine) 01/12/2019 11:47 AM EMERGENCY VEHICLE OPERATOR Encounter for screening mammogram for malignant neoplasm of breast from Last 3 Months or Most Recently Relevant to Health Maintenance Results * Screening Mammogram Bilateral W Josh (01/12/2019 11:47 AM EMERGENCY VEHICLE OPERATOR) Anatomical Region Laterality Modality Breast Bilateral Mammography Narrative 01/15/2019 10:26 AM CDT Mammogram Technique: Bilateral Digital Breast Tomosynthesis, Bilateral C-view 2D Screening mammogram. Views obtained: bilateral craniocaudal and bilateral mediolateral oblique. Computer Aided Detection was performed. Mammogram Findings: The present examination has been compared to a prior imaging study performed at [facility] on 01/02/2018. There are scattered areas [...] to a prior imaging study performed at [facility] on 01/02/2018. There are scattered areas of fibroglandular density. There is no suspicious abnormality in either breast. Impression: Annual screening mammography is recommended. OVERALL FINAL ASSESSMENT: BI-RADS CATEGORY 1: Negative. Johnson Harvey MD IMG MAMMO PROCEDURES Final Result from Last 3 Months or Most Recently Relevant to Health Maintenance Insurance [facility] [address] [facility] MEDICARE ADVANTAGE Care Teams Public Works Manager Relationship Specialty Start Date End Date Johnson Harvey MD [address] [facility] [address] [place] [address] PCP - General 01/21/18
--- OUTSIDE RECORDS SUMMARY | 2025-05-22 17:51 | XMS_ITS | Encounter Summary ---
Author Organization [facility] Address [address] [place] [address] Care Team Providers Care Party Plan Sales Agent Name Role Phone Jacob Harvey MD Primary Care Provider Reason for Visit * Reason Comments Cirrhosis Encounter Details Date Type Department Care Team (Late Contact Info) Description 04/05/2024 Telephone [facility] [address] [address] Debi Luque RN Cirrhosis Social History Tobacco Use Types Packs/Day Years Used Date Smoking Tobacco: Former Cigarettes Smokeless Tobacco: Never Comments:Quit 1 1/2 years Alcohol Use Standard Drinks/Week Comments No 0 (1 standard drink = 0.6 oz pur e alcohol) Socially Comments No Sex and Gender Information Value Date Recorded Sex Assigned at Not on file Legal Sex Female 8:11 AM FRAME GATE MORTISER OPERATOR Gender Identity Not on file Sexual Orientation Not on file 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 Author Medication Management General On track( 024 12:39 PM FRAME GATE MORTISER OPERATOR) Beatriz Fernández, RN Note: Expected end date: Ongoing Interventions: Take all medications as prescribed Let your doctor know right away about any changes in your medications Make sure to request a refill of your medication at least one week prior to your last dose documented as of this encounter Visit Diagnoses Not on filedocumented in this encounter Care Teams Party Plan Sales Agent Relationship Specialty Start Date End Date Jacob Harvey MD [address] [phone] PCP - General 06/30/18 documented as of this encounter
--- OUTSIDE RECORDS SUMMARY | 2025-05-22 17:51 | XMS_ITS | Encounter Summary ---
Author Organization [facility] Address [address] [facility] [place] [address] Care Team Providers Care Top Spotter Name Role Phone Jacob Harvey MD Primary Care Provider Encounter Details Date Type Department Care Team (Late Contact Info) Description 05/01/2025 Results Follow-Up [facility] [place] [address] [place] [phone] Tennille Lopes, MAJOR SALES ASSOCIATE-PARIMUTUEL CLERK [address] OF [facility] [place], [place] [phone] Social History Tobacco Use Types Packs/Day Years Used Date Smoking Tobacco: Former Cigarettes Smokeless Tobacco: Never Comments:Quit 1 1/2 years Alcohol Use Standard Drinks/Week Comments No 0 (1 standard drink = 0.6 oz pur e alcohol) Socially Comments No Sex and Gender Information Value Date Recorded Sex Assigned at Not on file Legal Sex Female 8:11 AM STOGY MAKER Gender Identity Not on file Sexual Orientation Not on file 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 Author Medication Management General On track( 024 12:39 PM STOGY MAKER) No Beatriz Mccall, RN Note: Expected end date: Ongoing Interventions: Take all medications as prescribed Let your doctor know right away about any changes in your medications Make sure to request a refill of your medication at least one week prior to your last dose Safety General On track( 024 1:06 PM STOGY MAKER) No Merry Remy, DEA Note: Expected end date: ongoing Interventions: Your nurse will assess your risk for falls/injury each visit documented as of this encounter Visit Diagnoses Not on filedocumented in this encounter Care Teams Top Spotter Relationship Specialty Start Date End Date Jacob Harvey MD [address] [phone] PCP - General 06/30/18 documented as of this encounter
--- OUTSIDE RECORDS SUMMARY | 2025-05-22 17:52 | XMS_ITS | Patient Health Record ---
Author Organization [employer] [employer] [facility] Address [address] [facility] [place] [address] Care Team Providers Care Wardrobe Coordinator Name Role Phone Karen Hernández Primary Care Provider Reason For Referral No Information Encounters Encounter Location Date Provider Diagnosis [facility] - Karen Hernández [address] [place] [address] 08/31/2024 Karen [facility] - Karen Hernández [address] [place] [address] 09/03/2024 Karen Hernández Plan Of Treatment No Information
--- OUTSIDE RECORDS SUMMARY | 2025-05-22 17:52 | XMS_ITS | Data Portability ---
Author Organization [place] - [facility] [email or web address] [facility], Main Office Address [address] [place] [address] Care Team Providers Care Casket Trimmer Name Role Phone BRY HARVEY Primary Care Provider BRY HARVEY Referring Provider [phone] BRIAN DURAN Disability Insurance Hearing Officer DAVID CERNA Orthopedic Surgeon [phone] ROLO BHATT Emergency Department Nurse BRETT BARRON [facility] jenn [facility] Dice Manager Assessment Encounter Date Assessment Date Assessment LastModified by Organization Details LastModified Time 04/08/2025 04/08/2025 This note is dictated and transcribed by [employer]. Chain Sales Representative variances may occur. Despite proofreading, typographical errors may occur. Occasional wrong-word or 'libxv-v-isgk' substitutions may have occurred due to the [...] A1C 8.2 WBC 3.7, PLT 67 03/28/2024: [facility] CBC: PLT 65L 04/11/2024: [facility] CMP: Stable 05/17/2024: TG 179 Gluc 206, [...] 1.43, GFR 37, gluc 158 PLT 117 Not available 04/15/2025 15:07:12 05/06/2025 05/06/2025 This note is dictated and transcribed by [employer]. Chain Sales Representative variances may occur. Despite proofreading, typographical errors may occur. Occasional wrong-word or 'gtttt-v-nkut' substitutions may have occurred due to the inherent limitations of voice recording. Read the chart carefully and recognize, using context, where substitutions have occurred.lea Not available 05/06/2025 14:43:36 05/20/2025 05/20/2025 This note is dictated and transcribed by [employer]. Chain Sales Representative variances may occur. Despite proofreading, typographical errors may occur. Occasional wrong-word or 'kybxo-g-xpod' substitutions may have occurred due to the inherent limitations of voice recording. 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 05/22/2025 Not available 05/21/2025 17:00:00 Plan of Treatment Reminders Order Date Submit Date Provider Last Modified By Organization Details Last Modified Time Details Appointments Surgery 2024 08:00A Twan Duran DPM Not available Not available Not available Post-Op 2024 03:15P Twan Duran DPM Not available Not available Not available Follow Up 2024 10:00A Twan morales MD Not available Not available Not available Lab HbA1c (hemoglob in A1c), blood 2024 025 [employer] [facility], [address], [place], [address], 05/21/2025 16:39:14 microalbu min, urine 2024 025 [employer] [facility], [address], [place], [address], 05/21/2025 16:39:16 CMP, serum or plasma 2024 025 [facility], [address], [place], [address], 05/21/2025 16:39:16 lipid panel, serum 2024 025 [facility], [address], [address], [place], [address], 05/21/2025 16:39:15 CBC w/ auto diff 2024 025 [facility] [address], [place], [address], 05/21/2025 16:39:13 TSH + free T4, serum 2024 025 [facility], [address], [place], [address], 05/21/2025 16:39:14 CMP, serum or plasma 2024 025 [facility], [address], [place], [address], 04/19/2025 04:31:29 lipid panel, serum 2024 025 [facility], [address], [place], [address], 04/19/2025 04:31:27 CBC w/ auto diff 2024 025 [facility] [address], [place], [address], 04/19/2025 04:31:31 TSH + free T4, serum 2024 025 [facility], [address], [place], [address], 04/19/2025 04:31:28 Referral vascular surgeon referral - Please call patient to schedule an appointme nt. Thank you. 2024 025 [place], [address], [address], [place], [address], 05/21/2025 16:57:19 nephrolog ist referral - Please call patient to schedule an appointme nt. Thank you. 2024 025 minor Marquez MD, [address], [address], [place], [address], 05/21/2025 16:57:20 podiatris t referral - Please call patient to schedule an appointme nt. Thank you. 2024 025 SELVIN Duran DPM, [address] [facility], [address], [place], [address], 05/22/2025 13:46:41 orthopedi c surgeon referral - Please call patient to schedule an appointme nt with David Cerna. Thank you. 2024 025 RUFINA [facility], [address], [place], [address], 05/22/2025 12:27:34 vascular surgeon referral - Please call patient to schedule an appointme nt. Thank you. 2024 025 [place], [address], [address], [place], [address], 04/22/2025 11:05:22 nephrolog ist referral - Please call patient to schedule an appointme nt. Thank you. 2024 025 RUFINA Marquez MD, [address], [address], [place], [address], 04/22/2025 11:35:21 orthopedi c surgeon referral - Please call patient to schedule an appointme nt with David Cerna. Thank you. 2024 025 ATHENANURYX [facility], [address], [place], [address], 04/16/2025 14:40:29 Procedures None recorded. Surgeries None recorded. Imaging MAMMO, screening , digital, bilateral 2024 025 [email or web address] [facility], [address], [address], [place], [address], 05/22/2025 09:28:42 XR, foot, 3 or more view 2024 025 [email or web address] [facility] [place], [address], [place], [address], 05/22/2025 10:35:32 MAMMO, screening , digital, bilateral 2024 025 [email or web address] [facility], [address], [address], [place], [address], 04/15/2025 16:03:02 MRI, foot, w/o contrast - rule out osteomyel itis 4th toe 2024 025 [email or web address] [facility], [address], [address], [place], [address], 05/13/2025 08:13:23 Medication Orders ciproflox acin 500 mg tablet 2024 025 [email or web address] [id number], [address], [place], [address], 05/21/2025 15:53:49 Patient TargetsNo targets recorded. Patient Instructions Encounter Date Encounter Id Patient Instructions Last Modified By Organization Details Last Modified Time 05/21/2025 [id number] diabetic eye exam* Not available 05/21/2025 16:56:28 Reason for Referral Orthopedic Surgeon Referral for Pain of right hip joint Please call patient to schedule an appointment with David Cerna. Thank you. Referring Physician: Bry Harvey Internal Medicine, Encounter Date: 04/15/2025 Vascular Surgeon Referral fo r Varicose veins of lower extremity Please call patient to schedule an appointment. Thank you. Referring Physician: Bry Harvey Internal [facility], Encounter Date: 04/15/2025 Cigarette Seller Referral for Ch ronic kidney disease Please call patient to schedule an appointment. Thank you. Referring Physician: Bry Harvey Internal [facility], Encounter Date: 04/15/2025 Orthopedic Surgeon Referral for Pain of right hip joint Please call patient to schedule an appointment with David Cerna. Thank you. Referring Physician: Bry Harvey Internal [facility], Encounter Date: 05/21/2025 Vascular Surgeon Referral fo r Varicose veins of lower extremity Please call patient to schedule an appointment. Thank you. Referring Physician: Bry Harvey Internal [facility], Encounter Date: 05/21/2025 Cigarette Seller Referral for Ch ronic kidney disease Please call patient to schedule an appointment. Thank you. Referring Physician: Bry Harvey Internal [facility], Encounter Date: 05/21/2025 Disability Insurance Hearing Officer Referral for Type 2 diabetes mellitus Please call patient to schedule an appointment. Thank you. Referring Physician: Bry Harvey Internal Medicine, Encounter Date: 05/21/2025 Results Created Date Observation Date Name Description Value Unit Range Abnormal Flag Note LastModifiedBy Organization Detail LastModifiedTime 03/22/2003/21/2025 imagi ng/di agnos tic resul t No observ ation record ed. [facility] [address], [place], [address], 03/22/2025 07:26:07 03/22/2003/21/2025 imagi ng/di agnos tic resul t No observ ation record ed. [facility] [address], [place], [address], 03/22/2025 07:36:09 03/25/20 25 03/21/2025 XR, foot, 3 or more view No observ ation record ed. [email or web address] Not Available 03/26 09:01:11 04/22/20 25 04/22/2025 MRI, foot, w/o contr ast No observ ation record ed. [email or web address] [facility] [address], [place], [address], 05/13/2025 08:13:23 05/08/20 25 05/08/2025 imagi ng/di agnos tic resul t No observ ation record ed. [facility] [address], [place], [address], 05/08/2025 13:55:33 05/22/20 XR, foot, 3 or more view No observ ation record ed. [email or web address] [facility] [place] [address], [place], [address], 05/22/2025 10:35:31 Result Notes None recorded. Problems Name Problem SNOMED Code Status Onset Date Resolution Date Notes Provider Name and Address Organization Details Recorded Time Renewal of prescript ion Active 2021 Not Available [facility] 3 02:53:36 Celluliti s of toe of left foot 08134341282 551230 Active 2018 Not Available [facility] 3 02:53:36 Disorder of shoulder 017147382 Active Not Available [facility] 3 02:53:36 Benign essential hypertens ion 0340605 Active Not Available [facility] 3 02:53:36 Foot ulcer due to type 2 diabetes mellitus 58897198330 00 Active 02/21/ 2022 Not Available [facility] 3 02:53:36 Dry skin 23477134 Active 2018 Not Available [facility] 3 02:53:36 Puncture wound of foot 53363142 Active 2016 Not Available [facility] 3 02:53:36 Radiother apy follow-up 657856215 Active Not Available [facility] 3 02:53:36 Localized , primary osteoarth ritis 935978909 Active Not Available [facility] 3 02:53:37 Partial thickness rotator cuff tear 960410698 Active Not Available [facility] 3 02:53:37 Synovitis and tenosynov itis 622853842 Active Not Available [facility] 3 02:53:37 Idiopathi c periphera l neuropath y 95459279 Active Not Available [facility] 3 02:53:37 Osteoarth ritis of knee 777680648 Active Not Available [facility] 3 02:53:37 Shoulder joint pain 675981716 Active Not Available [facility] 3 02:53:37 Eruption 965630532 Active 2021 Not Available [facility] 3 02:53:37 Current tear of medial cartilage AND/OR meniscus of knee Active Not Available [facility] 3 02:53:37 Knee pain Active Not Available [facility] 3 02:53:37 Type 2 diabetes mellitus without complicat ion 067502875 Completed Bry carlos MD [address] [facility], [facility] [address], [place], [address] , [facility] 3 17:43:16 Pain of left hip joint 10369212676 9100 Active 2021 Not Available [facility] 3 02:53:37 Pain of right hip joint 11165255383 9102 Active 2021 Not Available [facility] 3 02:53:37 Pain of toe of right foot 64410604559 9101 Active 2018 Not Available [facility] 3 02:53:38 Trochante jinny bursitis of left hip 60587118193 9103 Active 2021 Not Available [employer] 3 02:53:38 Trochante jinny bursitis of right hip 00219021563 9100 Active 2021 Not Available [facility] 3 02:53:38 Mononeuri tis 56387449 Active Not Available [facility] 3 02:53:38 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 206554785 Active 2021 Not Available [facility] 3 02:53:38 Uncontrol led type 2 diabetes mellitus 577223650 Active Not Available [facility] 3 02:53:38 Blister of toe without infection 84906359 Active Not Available [facility] 3 02:53:38 Hyperlipi demia 10973180 Active Not Available [facility] 3 02:53:38 Essential hypertens ion 87844352 Active 2021 Not Available [facility] 3 02:53:39 Tinea pedis 0251460 Active 2018 Not Available [facility] 3 02:53:39 Derangeme nt of knee 00957667 Active Not Available [facility] 3 02:53:39 Fracture of forearm 90301345 Active Not Available [facility] 3 02:53:39 Closed fracture of head of radius 19129329 Active Not Available [facility] 3 02:53:39 Brachial neuritis 13903000 Active Not Available [facility] 3 02:53:39 Diabetes mellitus 04318971 Active 2018 Not Available [employer] 3 02:53:39 Sleep apnea 31231050 Active 2016 Not Available [facility] 3 02:53:39 Fatigue 08563054 Active Not Available [facility] 3 02:53:39 Gout 55725757 Active 2018 Not Available [facility] 3 02:53:39 Pain in limb 83918288 Active Not Available [facility] 3 02:53:40 Type 2 diabetes mellitus without complicat ion 764362533 Active 2022 Bry carlos MD [address], [place], [address] , [employer] [facility] 3 17:43:16 Low back pain 159217764 Active 2022 Bry carlos MD [address], [place], [address] , [employer] 3 17:44:07 Thromboti c thrombocy topenic purpura 54496303 Active 2022 Bry carlos MD [address], [place], [address] , [employer] 3 17:44:31 Non-alcoh olic fatty liver 002509819 Active 2022 Bry carlos MD [address], [place], [address] , [employer] 3 17:44:40 Chronic kidney disease 339420818 Active 2022 Bry carlos MD [address], [place], [address] , [employer] 3 17:44:49 Dysphagia 08836573 Active 2022 Bry carlos MD [address], [place], [address] , [employer] 3 17:45:00 Urinary incontine gae 075637480 Active 2022 Bry carlos MD [address], [place], [address] , [employer] [facility] 3 17:45:06 Hypothyro idism 16658176 Active 2022 Bry carlos MD [address], [place], [address] , [facility] 3 17:45:11 Varicose veins of lower extremity 70454190 Active 2022 Bry carlos MD [address], [address], [place], [address] , [facility] 3 17:45:56 Restless legs 15817257 Active 2022 Bry carlos MD [address], [place], [address] , [facility] 3 17:47:28 Moderate recurrent major depressio n 96733023 Active 2022 Bry carlos MD [address], [place], [address] , [facility] 3 17:47:56 Well controlle d type 2 diabetes mellitus 000378806 Active 2022 Karen Hernández MD [address], [place], [address] , [facility] 3 12:56:16 Pain of left shoulder joint 34623074577 238530 Active 2022 Merced Boucher null, [place] [facility] 3 12:55:10 Pain of bilateral hip joints 08675438822 802566 Active 2022 Vicky Colon CNA null, [place] [facility] 3 14:56:31 Lumbar spondylos is 786350453 Active 2022 DONALD Cintron [address], [place], [address] , [facility] 3 15:37:37 Upper respirato ry infection 75749995 Active 2023 Daniela Bolivar MA null, [place] [facility] 4 12:39:25 Hammer toe 165065996 Active 2023 Brian Duran DPM [address], [place], [address] , [facility] 4 13:54:31 Pain in toe 017329547 Active 2023 Brian Duran DPM [address], [place], [address] , [facility] 4 13:54:40 Abdominal bloating 745933887 Active 2023 Bry carlos MD [address], [place], [address] , [facility] 4 15:23:34 Ascites 066307489 Active 2023 Bry carlos MD [address], [place], [address] , [facility] 4 15:47:22 Headache 87941940 Active 2023 Daniela Bolivar MA null, [facility] 4 17:41:34 Vitamin D deficienc y 60544834 Active 2023 Daniela Bolivar MA null, [facility] 4 17:42:33 Ulcer of big toe 691281458 Active 2023 Brian Duran DPM [address], [place], [address] , [facility] 4 15:10:51 Ulcer of toe 715700778 Active 2023 Brian Duran DPM [address], [place], [address] , [facility] 4 15:10:57 Acute osteomyel itis of phalanx of toe 901236926 Active 2023 Brian Duran DPM [address], [place], [address] , [place] [facility] 4 13:06:47 Dehiscenc e of external surgical incision wound 45686167517 9108 Active 2023 Brian Duran DPM [address], [place], [address] , [place] [facility] 4 14:15:27 Callosity on toe 432439932 Active 2023 Brian Duran DPM [address], [place], [address] , [place] [facility] 4 14:16:03 Celluliti s of right foot 51507825253 720578 Active 2023 Brian Duran DPM [address], [place], [address] , [place] [facility] 4 14:41:15 Blister of foot with infection 19025002 Active 2023 Brian Duran DPM [address], [place], [address] , [place] [facility] 4 14:42:40 Pain in left foot 45153030242 9107 Active 2023 Brian Duran DPM [address], [place], [address] , [facility] 4 14:57:13 Deep venous thrombosi s of lower extremity 252642027 Active 2023 Brian Duran DPM [address], [place], [address] , [place] [facility] 4 14:57:56 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 22552386142 925708 Active 2023 Brian Duran DPM [address], [place], [address] , [place] [facility] 4 12:45:22 Open wound of foot 208796827 Active 2024 Bry carlos MD [address], [place], [address] , [employer] 5 22:52:44 Periphera l arterial occlusive disease 476620561 Active 2024 Brian Duran DPM [address], [place], [address] , [employer] 12:47:33 Postopera tive visit 417730820 Active 2024 Brian Duran DPM [address], [place], [address] , [employer] 5 14:57:06 Dehiscenc e of surgical wound 57169123 Active 2024 Brian Duran DPM [address], [place], [address] , [employer] 5 15:59:58 Celluliti s of toe of right foot Active 2024 Brian Duran DPM [address], [place], [address] , [employer] 5 15:01:59 Acute osteomyel itis 728895890 Active 2024 Brian Duran DPM [address], [place], [address] , [employer] 5 16:13:17 Type 2 diabetes mellitus 21350684 Active 2024 Bry carlos MD [address], [place], [address] , [employer] 5 12:32:00 Open wound of foot, excluding toe(s) 563736501 Active 2024 PARKER Moraes, [place] [employer] [facility] [email or web address] [facility] 5 15:05:13 Open wound 052276262 Active 2024 VAUGHN MoraesA null, [facility] 5 15:07:28 Ulcer of toe of right foot Active 2024 Brian Duran DPM [address], [place], [address] , [facility] 5 14:43:29 Acute osteomyel itis of right foot 96433743785 39124 Active 2024 Brian Duran DPM [address], [place], [address] , [facility] [employer] [facility] [employer] 5 12:37:02 Problem Notes None recorded. Procedures Surgical History Date Name Laterality Status Provider Name and Address Organization Details Recorded Time 5 Suture Removal completed Brian Duran DPM [address], [place], [address], [facility] [employer] 02/18/2025 10:21:28 4 Wound Care-Podiatry completed Brian Duran DPM [address], [place], [address], [facility] [employer] 10/24/2024 12:19:47 4 Wound Care-Podiatry completed Brian Duran DPM [address], [place], [address], [facility] [employer] 10/18/2024 16:55:51 4 Wound Care-Podiatry completed Brian Duran DPM [address], [place], [address], [facility] [employer] [facility] [employer] 09/12/2024 15:59:38 4 Wound Care-Podiatry completed Carmen Meyer RN [facility] [employer] [facility] 08/29/2024 11:51:08 4 Callus Debridement, One completed Brian Duran DPM [address], [place], [address], [facility] [employer] [facility] 08/29/2024 14:19:02 4 Wound Care-Podiatry completed Brian Duran DPM [address], [place], [address], [facility] [employer] [facility] 08/29/2024 14:11:03 4 Callus Debridement, One completed Brian Duran DPM [address], [place], [address], [facility] [employer] [facility] 08/29/2024 14:16:31 4 Wound Care-Podiatry completed Brian Duran DPM [address], [place], [address], [facility] [employer] [facility] 08/15/2024 14:12:21 4 Wound Care-Podiatry completed Brian Duran DPM [address], [place], [address], [facility] [employer] [facility] 06/11/2024 15:08:36 4 Medicare Wellness CPT Code, Welcome completed Earnest Monterroso LPN [facility] [employer] [facility] 05/29/2024 09:09:41 4 Advanced Care Planning completed Earnest Monterroso LPN [facility] [employer] [facility] 05/29/2024 12:05:49 2 procedure on vein completed Not Available [facility] 01/05/2023 02:47:42 9 Rotator cuff surgery completed Vicky Colon CNA [facility] [employer] [facility] 09/06/2023 14:54:26 0 section completed Vicky Colon [facility] [employer] [facility] [employer]QUIPMENT RE[employer] [employer] [facility] 09/06/2023 14:54:42 procedure on elbow completed Vicky Colon [facility] 09/06/2023 14:54:07 Knee completed Not Available [facility] 11/2022 02:47:42 Toe completed PARKER Moraes [facility] [employer] [facility] 08/28/2024 12:02:58 amputation of toe completed PARKER Moraes [facility] 04/15/2025 14:34:40 Imaging Results None recorded. Procedure [...] n for injection in office 04/[address] [facility]: [id number] 02-24 Not Available Not Available Not [...] Not Available Not Available Not Available Fluzone 2285-7883 45 mcg (15 mcg x 3)/0.5 mL [...] Not Available Not Available Not Available Fluvirin 9470-3726 45 mcg (15 mcg x 3)/0.5 mL [...] Not Available Not Available Not Available Afluria 8543-9948 (PF) 45 mcg(15 mcg x 3)/0.5 mL [...] 2nd Gen Pen Needle 32 gauge x USE TO INJECT INSULIN ONCE DAILY active Not Available Not Available No t Available Vitals Date Recorded Body height Body mass index (BMI) Body weight Heart rate Respiratory rate Oxygen saturation Oxygen saturation in Arterial blood by Pulse oximetry Systolic And Diastolic Provider Name and Address Organization Details Last Updated DateTime 5 157.48 cm 37.3 kg/m2 86054.8 4 g 80 /min 14 /min 98 % 98 % 113/58 mm[Hg] Ingrid Figueroa [facility] [email or web address] [facility] 5 15:28:57 Date Recorded Body height Body mass index (BMI) Body weight Body temperature Heart rate Systolic And Diastolic Provider Name and Address Organization Details Last Updated DateTime 5 157.48 cm 37.5 kg/m2 49776.4 4 g 98.2 [degF] 66 /min 114/70 mm[Hg] Sherie Foster [facility] [employer] [facility] 5 14:37:23 Date Recorded Body height Body mass index (BMI) Body weight Respiratory rate Heart rate Body temperature Oxygen saturation Oxygen saturation in Arterial blood by Pulse oximetry Systolic And Diastolic Provider Name and Address Organization Details Last Updated DateTime 5 157.48 cm 37.5 kg/m2 01146.4 4 g 16 /min 83 /min 98.1 [degF] 98 % 98 % 120/72 mm[Hg] Beatriz Louis [facility] [email or web address] [facility] 5 14:29:32 Date Recorded Body height Body mass index (BMI) Body weight Heart rate Body temperature Oxygen saturation Oxygen saturation in Arterial blood by Pulse oximetry Systolic And Diastolic Provider Name and Address Organization Details Last Updated DateTime 5 157.48 cm 37.5 kg/m2 18308.4 4 g 80 /min 97.7 [degF] 96 % 96 % 114/64 mm[Hg] Ming Tomlinson [facility] [employer] [facility] 5 12:19:40 Date Recorded Body height Body mass index (BMI) Body weight Body temperature Heart rate Oxygen saturation Oxygen saturation in Arterial blood by Pulse oximetry Systolic And Diastolic Provider Name and Address Organization Details Last Updated DateTime 5 157.48 cm 38.2 kg/m2 79760.8 1 g 97.5 [degF] 80 /min 94 % 94 % 112/60 mm[Hg] Arlyn Weller [place] [employer] [facility] [employer] 15:50:45 Social History Question Answer Notes LastModified by Organization Details LastModified Time Tobacco Smoking Status Former Smoker quit 1985 MISA Floyd, [facility] [employer] 09/06/2023 14:53:41 Do You Have An Advance Directive? No MIGRATION.030 [id number] Information not available 01/05/2023 How Many Years Have You Consumed Alcohol? 40 [email or web address] Information not available 05/29/2024 Are You Blind Or Do You Have Difficulty Seeing? No Information not available 04/19/2024 Is Blood Transfusion Acceptable In An Emergency? Yes [email or web address] Information not available 05/29/2024 What Is Your Level Of Caffeine Consumption? Occasional MIGRATION.030 [id number] Information not available 01/05/2023 How Much Tobacco Do You Chew? None MIGRATION.030 793836 Information not available 01/05/2023 In The 14 Days Before Symptom Onset, Have You Had Close Contact With A Laboratory-confi rmed COVID-19 While That Case Was Ill? No MIGRATION.030 [id number] Information not available 01/05/2023 In The 14 Days Before Symptom Onset, Have You Had Close Contact With A Person Who Is Under Investigation For COVID-19 While That Person Was Ill? No MIGRATION.030 [id number] Information not available 01/05/2023 Are You Deaf Or Do You Have Serious Difficulty Hearing? Yes Information not available 04/19/2024 What Type Of Diet Are You Following? REGULAR MIGRATION.030 [id number] Information not available 01/05/2023 Which Illicit Or Recreational Drugs Have You Used? None MIGRATION.030 481540 Information not available 01/05/2023 What Is The Highest Grade Or Level Of School You Have Completed Or The Highest Degree You Have Received? [id number] MIGRATION.300026 Information not available 01/05/2023 How Many Days Of Moderate To Strenuous Exercise, Like A Brisk Walk, Did You Do In The Last 7 Days? 0 [email or web address] Information not available 05/29/2024 Have There Been Any Changes To Your Family Or Social Situation? No MIGRATION.0301 [id number] Information not available 01/05/2023 What Is The Fluoride Status Of Your Home? Unknown MIGRATION.0301 884392 Information not available 01/05/2023 When Did You Quit Smoking? 14+yearssincelastc igarette MIGRATION.030 858663 Information not available 01/05/2023 Are There Any Guns Present In Your Home? Yes Kept In Safe MIGRATION.0301 986250 Information not available 01/05/2023 Do You Use Insect Repellent Routinely? Yes MIGRATION.030 398991 Information not available 01/05/2023 Where Do You Live? SingleLevelHouse MIGRATION.030 938935 Information not available 01/05/2023 Advance Directive- Providers Has Reviewed Directive And Consents To Follow Them (insert Provider Name With Any Objectives In Notes Field) No Information not available 05/29/2024 Presence Of Domestic Violence No [email or web address] Information not available 05/29/2024 Guns Present In The Home? Yes [email or web address] Information not available 05/29/2024 Are You Able To Care For Yourself? Yes [email or web address] Information not available 05/29/2024 Are You Blind Or Do Yo Have Difficulty Seeing? No [email or web address] Information not available 05/29/2024 Are You Deaf Or Do You Have Serious Difficulty Hearing? No [email or web address] Information not available 05/29/2024 General Stress Level? Low [email or web address] Information not available 05/29/2024 Live Alone Of With Others? With Others [email or web address] Information not available 05/29/2024 Do You Have A Medical Power Of Motor Vehicle Compliance Analyst? No MIGRATION.030 770330 Information not available 01/05/2023 What Was The Date Of Your Most Recent Tobacco Screening? 05/21/2025 [email or web address] Information not available 05/21/2025 What Is Your Current Pack Years? 10-19packyears Information not available 05/29/2024 Have You Ever Been Counseled For Unhealthy Alcohol Use? No [email or web address] Information not available 05/29/2024 Do You Have Any Pets? Yes Dog [email or web address] Information not available 05/29/2024 What Is Your Relationship Status? MIGRATION.0301 [id number] Information not available 01/05/2023 Do You Have Smoke And Carbon Monoxide Detectors In Your Home? Yes MIGRATION.0301 468407 Information not available 01/05/2023 At What Age Did You Start Smoking Tobacco? 15 [email or web address] Information not available 05/29/2024 Are You Passively Exposed To Smoke? Yes MIGRATION.0301 [id number] Information not available 01/05/2023 Are There Any Smokers In Your House? Yes MIGRATION.0301 537568 Information not available 01/05/2023 How Much Tobacco Do You Smoke? No [email or web address] Information not available 05/29/2024 What Types Of Sporting Activities Do You Participate In? None [email or web address] Information not available 05/29/2024 Do You Use Sunscreen Routinely? Yes MIGRATION.0301 [id number] Information not available 01/05/2023 Has Tobacco Cessation Counseling Been Provided? No Information not available 02/08/2023 How Many Years Have You Smoked Tobacco? 10 Information not available 05/29/2024 Have You Recently Traveled Abroad? No MIGRATION.0301 999750 Information not available 01/05/2023 Do You Have Difficulty Walking Or Climbing Stairs? Yes Information not available 04/19/2024 Do You Have Any Dietary Restrictions? No MIGRATION.0301 798554 Information not available 01/05/2023 How Many Days In The Past Year Have You Consumed 4 Or More Drinks? 0 [email or web address] Information not available 05/29/2024 Sex: Female Functional Status Question Answer Note LastModified by Organizat ion Details LastModified Time Do you use any illicit or recreational drugs? No MIGRATION.32121 89694 Information not available 01/05/2023 Do you or have you ever used any other forms of tobacco or nicotine? 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 No Information not available 04/19/2024 Do you or have you ever used e-cigarettes or vape? Never used electronic cigarettes MIGRATION.48877 99766 Information not available 01/05/2023 What is your exercise level? None stays active MIGRATION.68023 96301 Information not available 01/05/2023 Mental Status Question Answer Note LastModified by Organizat ion Details LastModified Time Do you feel stressed (tense, restless, nervous, or anxious, or unable to sleep at night)? [id number] MIGRATION.[id number] 26 Information not available 01/05/2023 Do you have difficulty concentrating, remembering or making decisions? Yes [email or web address] Information no t available 04/19/2024 Family History Relationship Description Onset Age of this Age Resolved Age Notes LastModified by Organization Details LastModified Time Mother Family history of malignant neoplasm [email or web address] Not available 05/06 14:10:20 Mother Hypertensive disorder MIGRATION.422 [id number] Not available 01/05/2023 02:47:47 Father Hypertensive disorder MIGRATION.739 [id number] Not available 01/05/2023 02:47:47 Medical History Condition [...] ) N BOWEL PROBLEMS N STROKE/TIA N ULCERS N KNEE PAIN N BENIGN PROSTATIC HYPERPLASIA N MEASLES N HYPOTENSION N MYOCARDIAL INFARCTION N OBESITY N GERD/NAUSEA N ANEURYSM N URINARY/BLADDER/KIDNEY PROBLEMS N CORONARY ARTERY DISEASE (CAD) N ADDICTION CONCERNS N Impotence N ENDOMETRIOSIS N USE OF BLOOD THINNERS N SKIN [...] N LIVER DISEASE Y MALE HYPOGONADISM N HYPERTENSION Y ELBOW PAIN N Deficiency N TOURETTE'S N Metal allergy N ANXIETY DISORDER N BLOOD TRANSFUSION N ANEMIA/BLOOD DISORDER N CHRONIC EAR INFECTIONS N BIPOLAR DISORDER N BRONCHITIS N OSTEOARTHRITIS N TUBERCULOSIS N GLAUCOMA N FOOT PROBLEM N HEART VALVE DISORDERS N DIVERTICULITIS N SLEEP APNEA N CHICKENPOX N SOFT TISSUE INJURY N ALLERGIES/HAYFEVER N INFECTIOUS DISEASE N PROSTATE N HEART ARRHYTHMIA N INSOMNIA N RHEUMATOID ARTHRITIS N HIGH CHOLESTEROL / HYPERLIPIDEMIA N HYPERTHYROIDISM N EYE PROBLEMS N EDEMA N CHRONIC PAIN SYNDROME N HYPOTHYROIDISM Y CONSTIPATION N CAROTID BLOCKAGE N BACK / NECK PROBLEMS N ATHEROSCLEROSIS [...] Brain Problems N HERPES N DEMENTIA N SEIZURES/EPILEPSY N HEADACHES/MIGRAINES N VASCULAR DISEASE N PACEMAKER N HIP PAIN N Blood Disorder N DIZZINESS N HEAD TRAUMA OR INJURY N KIDNEY DISEASE N HEART DISEASE/HEART PROBLEMS N MULTIPLE SCLEROSIS N CARDIAC ARRHYTHMIA N CANCER: SPECIFY N ANESTHESIA COMPLICATIONS N Gall Stones N ATRIAL FIBRILLATION N PULMONARY EMBOLISM N AUTOIMMUNE DISEASE N [...] split virus, quadrivalent, preservative 2 completed CLARITZA Honeycutt [employer] 05/29/2024 09:11:59 COVID-19, mRNA, LNP-S, PF, 100 mcg/0.5mL dose or 50 mcg/0.25mL dose 1 completed CLARITZA Honeycutt [employer] 05/29/2024 09:11:59 Influenza, split virus, quadrivalent, preservative 1 completed Earnest Monterroso LPN null, [facility] 05/29/2024 09:11:59 COVID-19 vaccine, vector-nr, rS-Ad26, PF, 0.5 mL 1 completed CLARITZA Honeycutt, [facility] 05/29/2024 09:11:59 Pneumococcal conjugate PCV 13 9 completed CLARITZA Honeycutt, [facility] 05/29/2024 09:11:59 Influenza, split virus, quadrivalent, preservative 9 completed Not Available [facility] 01/05/2023 03:00:11 zoster live 9 completed CLARITZA Honeycutt, [facility] 05/29/2024 09:11:59 influenza, unspecified formulation 8 completed Not Available [facility] 01/05/2023 03:00:11 pneumococcal polysaccharide PPV23 8 completed Earnest Monterroso LPN ileana, [facility] 05/29/2024 09:11:59 Influenza, split virus, quadrivalent, preservative 0 completed [facility] 05/29/2024 09:11:59 influenza, unspecified formulation 7 completed [facility] 05/29/2024 09:11:59 Tdap 7 completed Not Available [facility] 01/05/2023 03:00:11 Influenza, split virus, trivalent, PF 3 completed Earnest Monterroso LPN ileana, [facility] 05/29/2024 09:11:59 COVID-19, mRNA, LNP-S, PF, 100 mcg/0.5mL dose or 50 mcg/0.25mL dose 3 completed [facility] 05/29/2024 09:15:14 Influenza, high-dose, quadrivalent, PF 3 completed CLARITZA Honeycutt, [facility] 05/29/2024 09:15:14 RSV, recombinant, protein subunit RSVpreF, adjuvant reconstituted, 0.5 mL, PF 3 completed CLARITZA Honeycutt, [facility] 05/29/2024 09:15:14 Influenza, recombinant, quadrivalent, PF 0 completed Earnest Monterroso LPN null, [facility] 05/29/2024 09:11:59 Influenza, recombinant, quadrivalent, PF 1 completed CLARITZA Honeycutt, [facility] 05/29/2024 09:11:59 zoster recombinant 9 completed CLARITZA Honeycutt, [facility] 05/29/2024 09:11:59 zoster recombinant 8 completed CLARITZA Honeycutt, [facility] 05/29/2024 09:11:59 Influenza, split virus, trivalent, preservative 4 completed [facility] 05/29/2024 09:11:59 Influenza, split virus, trivalent, PF 5 completed CLARITZA Honeycutt, [facility] 05/29/2024 09:11:59 Influenza, split virus, trivalent, PF 6 completed CLARITZA Honeycutt, [facility] 05/29/2024 09:11:59 Influenza, split virus, trivalent, PF 7 completed CLARITZA Honeycutt, [facility] 05/29/2024 09:11:59 Hep A, adult 9 completed CLARITZA Honeycutt, [facility] 05/29/2024 09:11:59 Hep A, adult 8 completed CLARITZA Honeycutt, [facility] 05/29/2024 09:11:59 Influenza, split virus, quadrivalent, PF 8 completed Earnest Monterroso LPN null, [facility] 05/29/2024 09:11:59 Influenza, split virus, quadrivalent, PF 2 completed Earnest Monterroso LPN null, [facility] 05/29/2024 09:11:59 COVID-19, mRNA, LNP-S, PF, 50 mcg/0.5 mL 3 completed Earnest Monterroso [employer] null, [facility] 05/29/2024 09:15:14 COVID-19, mRNA, LNP-S, PF, jose-sucrose, 30 mcg/0.3 mL 4 completed Sherie Foster RMA null, [facility] 04/15/2025 14:33:21 Influenza, high-dose, trivalent, PF 4 completed Sherie Foster RMA null, [facility] 04/15/2025 14:33:21 Past Encounters Encounter ID Performer Location Encounter Start Date Encounter Closed Date Diagnosis/Indication Diagnosis SNOMED-CT Code Diagnosis ICD10 Code Diagnosis Note [id number] Karen Hernández MD [facility] [place] [address] [place] [address] 02/03/2021 00:00:00 02/03/2021 17:14:59 [id number] Bry carlos MD [facility] Internal Med [facility] [address] [facility] [place] [address] 04/27/2021 00:00:00 04/27/2021 18:26:25 [id number] [facility] [place] [address] [place] [address] 05/05/2021 00:00:00 05/05/2021 13:31:00 [id number] [facility] Pod[facility] [place] [address] [place] [address] 05/25/2021 00:00:00 05/26/2021 09:07:14 [id number] Karen Hernández MD [facility] [place] [address] [place] [address] 08/07/2021 00:00:00 08/07/2021 13:01:39 [id number] Bry carlos MD [facility] Internal Med [facility] [address] [place] [address], [facility] 15 [place] [address] 09/17/2021 00:00:00 09/30/2021 12:21:52 [id number] [facility] [place] [address] [place] [address] 12/28/2021 00:00:00 12/28/2021 14:15:09 [id number] Bry carlos MD [facility] Internal Med [facility] [address] [facility] , [facility] [place] [place] [address] 01/18/2022 00:00:00 01/18/2022 15:21:19 [id number] [facility] [place] [address] [place] [address] 01/25/2022 00:00:00 01/25/2022 13:37:16 [id number] Karen Hernández MD [facility] [place] [address] [place] [address] 02/05/2022 00:00:00 02/05/2022 12:40:07 [id number] [facility] [place] [address] [place] [address] 02/15/2022 00:00:00 02/16/2022 11:47:16 [id number] Ryan Faulkner MD [facility] [place] [address] [facility] [address] [place] [address] 02/16/2022 00:00:00 02/16/2022 15:36:30 [id number] Ryan Faulkner MD [facility] [place] [address] [place] [address] 04/01/2022 00:00:00 04/01/2022 11:54:41 [id number] Bry carlos MD [facility] Internal Med [place] [address] [place] [address] [place] [address] 05/11/2022 00:00:00 05/11/2022 17:15:06 [id number] Ryan Faulkner MD [facility] [place] [address] [place] [address] 05/13/2022 00:00:00 05/13/2022 13:59:04 [id number] Ryan Faulkner MD [facility] [place] [address] [place] [address] 06/17/2022 00:00:00 06/17/2022 12:11:07 [id number] [facility] [place] [address] [place] [address] 07/05/2022 00:00:00 07/05/2022 13:30:49 [id number] Bry carlos MD [facility] Internal [facility] [place] [address] [place] [address] 09/07/2022 00:00:00 09/07/2022 12:33:41 [id number] [facility] [place] [address] [place] [address] 10/04/2022 00:00:00 10/04/2022 15:45:43 [id number] Bry carlos MD [facility] Internal Med [place] [address] [facility] 15 [place] [address] 02/08/2023 11:57:12 02/08/2023 12:53:04 [facility] - NAD [id number] Z13.9 C-Scope: 02/07/15, Dr Wagner, next in 5 years from [facility]sc[facility] e: 02/06/2021 : Dr Wagner, next in [...] Type 2 vito betes mellitus without complication [id number] E11.9 On glimeperid e 2mg 2 tab bidOn jardiance 25mg dailyOn ozempic Dr Hernández: 02/05/[address] Groves on 02/15/2022 , next 06/21/2022 Eye: [facility] 04/2022 Get labs Hyperlipidemia 36635665 E78.5 On atorvastat in 80mg dailyStop the fenofibrat e On vascepa 1gm 2 cap bidDoes well Get labs Pain of le ft hip joint 9129665239 11018 M25.552 David BENNETT 05/13/2022 Low back pain 735379075 M54.[address] [facility], 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 She insists that she will going to drive On narcanOn hydrocodon Jenn baclofenOn gabapentin 600mg 2 tabs tid Sees pain management IPC Gout 09962925 M10.9 On allopurino lDoes well Essential hypertension 79716759 I10 Not on lasixOn HCTZ 12.5mg dailyOn losartan 100mg dailyOn KDoes well Thrombotic thrombocytopenic purpura 10821047 M31.[address] Bhatt in the pastLow plt could be from hepatitisD oes not want to see hematology Needs to keep apt with hepatology Dr Bhatt, 02/18/2022 , 03/02/2022 Non-alcoho lic fatty liver [id number] K76.0 US and hepatitis panel was done by Dr Martinez t a referral to GI OV 08/07/18:D id get liver biopsy, get the reportNext apt is on 08/30/[address] Granado ADDENDUM:Jesenia Lam, 09/07/18, get EGD and follow up in 4 months Addendum: 11/26/18:1 12/25/17: EGD at [facility] OV 12/11/18:F ollow up with GI Addendum:Jesenia Granado 01/08/19: Got a referral to bariatric surgery and also US liver every 6 months OV 04/09/19:S ees Dr Lam liver MD OV 08/20/19:S ees Dr Barone, [...] see Dr barone Chronic ki dney disease [id number] N18.9 Still declines any aptGFR stable 02/04/2023 labs Dysphagia 97646419 R13.1 0 EGD: 06/12/2021 : Dr Wagner, +ve esophageal ring, gastritisF eels that this is very intermitte nt, is able to eat and drink Urinary incontinence 165 368030 R32 On solifenaci n 10mg daily, given by [employer] OB Hypothyroidism 24379922 E03.9 On levothyrox ine 50mcgs dailySees Dr Hernández Pain of ri ght hip joint 8641021918 97790 M25.551 David BENNETT, referred again 02/08/2023 Varicose v eins of lower extremity 32529615 I83.[address] Anderson LOERA in the past, feels she needs to get another referralDr Anderson 04/28/2022 , get another apt Restless legs 44052530 G 25.81 On ropinirole 0.25mg dailyDoes well Moderate r ecurrent major depression 32467683 F33.1 On paroxetine 10mg daily Does wellGiven to her by Dr Blanca 09/01/2022 Screening mammography 24 927956 Z12.31 Screening for osteoporosis 776352337 Z13.820 [id number] Bry carlos MD [facility] Internal Med [facility] [address] [facility] [address] [place] [address] 05/17/2023 14:05:50 05/17/2023 14:55:02 Screening - NAD 714426318 Z13.9 C-Scope: 02/07/15, Dr Wagner, next in 5 years from the [facility]-sc[facility] e: 02/06/2021 : Dr Wagner, next in [...] Type 2 vito betes mellitus without complication 679025294 E11.9 On glimeperid e 2mg 2 tab bidOn metformin ER 500mg bidOn jardiance 25mg dailyOn ozempic Dr Hernández: next apt 06/09/[address] Groves on 02/15/2022 , next 06/21/2022 Eye: [facility] 04/2022 Get labs Hyperlipidemia 29618817 E78.5 On atorvastat in 80mg daily, should not be on any other statinStop the fenofibrat Jenn vascepa 1gm 2 cap bidDoes well Get labs Pain of le ft hip joint [id number] 63203 M25.552 David BENNETT 05/13/2022 Low back pain 590505673 M54.50 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 She insists that she will going to drive On narcanOn hydrocodon Jenn baclofenOn gabapentin 600mg 2 tabs tid Sees pain management IPC Gout 06015832 M10.9 On allopurino lDoes well Essential hypertension 97983882 I10 Not on lasix On HCTZ 12.5mg dailyOn losartan 100mg dailyOn K Does well Thrombotic thrombocytopenic purpura 84154311 M31.[address] Bhatt in the pastLow plt could be from hepatitis Needs to keep apt with hepatology Dr Bhatt, 02/18/2022 , 03/02/2022 Non-alcoho lic fatty liver 883690818 K76.0 US and hepatitis panel was done by Dr Martinez t a referral to GI OV 08/07/18:D id get liver biopsy, get the reportNext apt is on 08/30/[address] Granado ADDENDUM:Jesenia Lam, 09/07/18, get EGD and follow up in 4 months Addendum: 11/26/18:1 12/25/17: EGD at [facility] OV 12/11/18:F ollow up with GI Addendum:Jesenia Granado 01/08/19: Got a referral to bariatric surgery and also US liver every 6 months OV 04/09/19:S ees Dr Lam liver [place] 08/20/19:S ees Dr Barone, is [...] with Dr Barone Chronic ki dney disease 206858372 N18.9 Still declines any aptGFR stable Dysphagia 24115772 R13.1 0 EGD: 06/12/2021 : Dr Wagner, +ve esophageal ring, gastritisF eels that this is very intermitte nt, is able to eat and drink Urinary incontinence 165 410876 R32 On solifenaci n 10mg daily, given by [employer] OB Hypothyroidism 85008132 E03.9 On levothyrox ine 50mcgs dailySees Dr Hernández Pain of ri ght hip joint 7471027635 01113 M25.551 David BENNETT, referred again 02/08/2023 Varicose v eins of lower extremity 20668451 I83.[address] Anderson DE PAZ in the past, feels she needs to get another referral Dr Barron 04/28/2022 , get another apt Restless legs [id number] G 25.81 On ropinirole 0.25mg dailyDoes well Moderate r ecurrent major depression 73737451 F33.1 On paroxetine 10mg daily Does wellGiven to her by Dr Blanca 09/01/2022 Screening mammography 24 529675 Z12.31 Screening for osteoporosis 202618332 Z13.820 [id number] Karen Hernández MD [facility] [place] [address] [place] [address] 06/09/2023 12:31:49 06/09/2023 13:08:46 Well controlled type 2 diabetes mellitus 645878497 E11.9 a1c of 6.8% down from 8.4% range - continue on current regimen but uptitrate ozempic to 2 mg once weekly- samples provided for 2 months and continue on glimepirid e scale, jardiance. Discussed carb counting and how to read food labels. Recommende d patient to utilize the diabetesfo [employer] from the ADA website to help with food preparatio n as this presents ideal carb content per meal so this will make carb counting much easier for patient. Recommende d she incorporat e natural insulin regular senior care provider s such as pears, apples, cinnamon, roz and sweet potatoes to help mobilize her endogenous insulin. Recommende d up to 150 minutes of moderate level activity/e xercise weekly. Hypothyroidism 92226109 E03.9 TSH and FT4 in range- continue [...] answered and refills necessary at visit today. [id number] Jc Crisostomo MD [facility] [place] [address] [place] [address] 09/06/2023 14:30:42 09/06/2023 15:58:17 Trochanteric bursitis of left hip [id number] 05877 M70.62 Trochanter ic bursitis of right hip 6350788774 73914 M70.61 Pain of bi lateral hip joints 9723164815 0876647 M25.551 M25.552 Low back pain 187460326 M54.50 Lumbar spondylosis 66536 0009 M47.462 [id number] Bry carlos MD [facility] [address] [facility], [address] [place] [address] 09/20/2023 11:46:28 09/20/2023 12:58:18 Screening - NAD 399407555 Z13.9 C-Scope: 02/07/15, Dr Wagner, next in 5 years from [facility]: 02/06/2021 : Dr Wagner, next in 7 yearsEGD: 06/12/2021 : Dr Wagner Mammogram: 01/12/19: NegOrdered PAP: Done by Dr Blanca, is on paxil for night sweats DEXA: done on 12/11/2020 , thru Dr Ryan ed 09/07/2022 UTD on flu shotUTD on Tdap 05/17/17UT D PCV #23 09/01/18, #12 09/10/2019 UTD shingrix 10/16/18 at [facility] on hep A vaccineUTD on COVID 19 vaccine, get latest vaccineCan do RSV vaccine RTC in 4 monthsdo labsER if worse,she did verbalize her understand ing of the above Type 2 vito betes mellitus without complication 444143426 E11.9 On glimeperid e 2mg 2 tab bidOn metformin ER 500mg bidOn jardiance 25mg dailyOn ozempic, renewed 09/20/[address] Hernández 06/09/[address] Groves on 02/15/2022 , next 06/21/2022 Eye: [facility] 04/2022 Get labs Hyperlipidemia 27883482 E78.5 On atorvastat in 80mg daily, should not be on any other statinStop the fenofibrat Jenn vascepa 1gm 2 cap bid, renewed 09/20/2023 Does well Get labs Pain of le ft hip joint 8618934842 04485 M25.552 David BENNETT 05/13/2022 Low back pain 250762149 M54.50 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 She insists that she will going to drive On narcanOn hydrocodon Jenn baclofenOn gabapentin 600mg 2 tabs tid Sees pain management IPC MRI L Spine 09/03/2023 : Lauren Choi Gout 87201276 M10.9 On allopurino lDoes well Essential hypertension 92361532 I10 Not on lasix On HCTZ 12.5mg dailyOn losartan 100mg dailyOn K Does well Thrombotic thrombocytopenic purpura 83504446 M31.[address] Bhatt in the pastLow plt could be from hepatitis Needs to keep apt with hepatology Dr Bhatt, 02/18/2022 , 03/02/2022 Dr Bhatt 05/23/2023 , f/u in 6 months Non-alcoho lic fatty liver 111525416 K76.0 US and hepatitis panel was done by Dr Martinez t a referral to GI OV 08/07/18:D id get liver biopsy, get the reportNext apt is on 08/30/[address] Granado ADDENDUM:Jesenia Lam, 09/07/18, get EGD and follow up in 4 months Addendum: 11/26/18:1 12/25/17: EGD at [facility] OV 12/11/18:F ollow up with GI Addendum:Jesenia Granado 01/08/19: Got a referral to bariatric surgery and also US liver every 6 months OV 04/09/19:S ees Dr Lam liver OV 08/20/19:S ees Dr Barone, is [...] with Dr Barone OV 09/20/2023 Tennille Lopes [employer] GI: 05/03/2023 , next apt in 6 months Chronic ki dney disease 075484468 N18.9 Still declines any aptGFR stable Dysphagia 01415441 R13.1 0 EGD: 06/12/2021 : Dr Wagner, +ve esophageal ring, gastritisF eels that this is very intermitte nt, is able to eat and drink Urinary incontinence 165 262391 R32 On solifenaci n 10mg daily, given by [employer] OB Hypothyroidism 31256729 E03.9 On levothyrox ine 50mcgs daily Seen Dr Hernández Pain of ri ght hip joint 7361735517 36925 M25.551 David BENNETT, referred again 02/08/2023 Varicose v eins of lower extremity 34655319 I83.[address] Anderson LOERA in the past, feels she needs to get another referral Dr Barron 04/28/2022 , get another apt Restless legs 02126729 G 25.81 On ropinirole 0.25mg dailyDoes well Moderate r ecurrent major depression 05797037 F33.1 On paroxetine 10mg daily Does wellGiven to her by Dr Blanca 09/01/2022 Screening mammography 24 215592 Z12.31 Screening for osteoporosis 840182941 Z13.319 [id number] Bry carlos MD [facility] [address] , [address] [place] [address] 01/17/2024 14:42:28 01/17/2024 15:40:23 Screening - NAD 733909541 Z13.9 C-Scope: 02/07/15, Dr Wagner, next in 5 years from the [facility]: 02/06/2021 : Dr Wagner, next in 7 yearsEGD: 06/12/2021 : Dr Wagner Mammogram: 01/12/19: Neg 023: Neg PAP: Done by Dr Blanca, is on paxil for night sweats DEXA: done on 12/11/2020 , thru Dr Clarosi112/06: Low bone mass, ca and vit d UTD on flu shotUTD on Tdap 05/17/17UT D PCV #23 09/01/18, #12 09/10/2019 [facility] 19 [facility], get latest vaccineCan do RSV vaccine RTC in 4 monthsdo labsER if worse,she did verbalize her understand ing of the above Type 2 vito betes mellitus without complication 183984249 E11.9 On glimeperid e 2mg 2 tab bidOn metformin ER 500mg bidOn jardiance 25mg dailyOn ozempic Has seen Dr Hernández 06/09/[address] Groves on 02/15/2022 , next 06/21/2022 Eye: [facility] 04/2022 Get labs Hyperlipidemia 84999441 E78.5 On atorvastat in 80mg daily, should not be on any other statinStop the fenofibrat eNot on vascepa 1gm 2 cap bidDoes well Get labs Pain of le ft hip joint 7090873757 99473 M25.552 David BENNETT 05/13/2022 Low back pain 472049100 M54.50 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 She insists that she will going to drive On narcanOn hydrocodon Jenn baclofenOn gabapentin 600mg 2 tabs tid Sees pain management IPC MRI L Spine 09/03/2023 : Lauren Choi Gout 87796039 M10.9 On allopurino lDoes well Essential hypertension 51996347 I10 Not on lasix On HCTZ 12.5mg dailyOn losartan 100mg dailyOn K Does well Thrombotic thrombocytopenic purpura 92096284 M31.[address] Bhatt in the pastLow plt could be from hepatitis Needs to keep apt with hepatology Dr Bhatt, 02/18/2022 , 03/02/2022 Dr Bhatt 05/23/2023 , f/u in 6 months Non-alcoho lic fatty liver 397661256 K76.0 US and hepatitis panel was done by Dr Martinez t a referral to GI OV 08/07/18:D id get liver biopsy, get the reportNext apt is on 08/30/[address] Granado ADDENDUM:Jesenia Lam, 09/07/18, get EGD and follow up in 4 months Addendum: 11/26/18:1 12/25/17: EGD at [facility] OV 12/11/18:F ollow up with GI Addendum:Jesenia Granado 01/08/19: Got a referral to bariatric surgery and also US liver every 6 months OV 04/09/19:S ees Dr Lam liver MD OV 08/20/19:S eeumer Barone, is to get labs and is [...] with Dr Barone OV 09/20/2023 Tennille Lopes NP GI: 05/03/2023 , next apt in 6 months OV 01/17/2024 : Sees GI Chronic ki dney disease 578860343 N18.9 Still declines any aptGFR stable Dysphagia 28868908 R13.1 0 EGD: 06/12/2021 : Dr Wagner, +ve esophageal ring, gastritisF eels that this is very intermitte nt, is able to eat and drink Urinary incontinence 165 478070 R32 On solifenaci n 10mg daily, given by [employer] OB Hypothyroidism 69554779 E03.9 On levothyrox ine 50mcgs daily Seen Dr Edgar Heredia of [facility] hip joint 7868292031 88174 M25.551 David Cerna PA, referred again 01/17/2024 Varicose v eins of lower extremity 28344093 I83.[address] Barron [facility] in the past, feels she needs to get another referral Dr Barron 04/28/2022 , get another apt Restless legs 50229427 G 25.81 On ropinirole 0.25mg dailyDoes well Moderate r ecurrent major depression 03278407 F33.1 On paroxetine 10mg daily Does wellGiven to her by Dr Blanca 09/01/2022 [id number] Martín Coronado MD [facility] [place] [address] [place] [address] 02/13/2024 09:45:28 02/13/2024 11:18:02 Trochanteric bursitis of left hip 9413262327 60290 M70.62 Trochanter ic bursitis of right hip 2693408053 80810 M70.61 Low back pain 351746318 M54.50 [id number] Brian Duran DPM [facility] [place] [address] [place] [address] 03/12/2024 14:55:58 03/14/2024 14:54:01 Hammer toe 438701891 M20.41 M20.42 discussed options in detailPati ent will need to get her sugars under control and then we will discuss surgeryfol low up 2 mo Pain in toe 547593181 M7 9.674 recommend offloading educated patient on offloading optionspat ient to get her sugars down and will discuss surgery [id number] Bry carlos MD [facility] [address], [address] [place] [address] 04/19/2024 15:03:18 04/19/2024 15:53:14 Screening - NAD 998178950 Z13.9 C-Scope: 02/07/15, Dr Wagner, next in 5 years from the [facility]: 02/06/2021 : Dr Wagner, next in [...] Type 2 vito betes mellitus without complication 566860905 E11.9 On glimeperid e 2mg 2 tab bidOn metformin ER 500mg bidOn jardiance 25mg dailyOn ozempic Has seen Dr Hernández 06/09/[address] Groves on 02/15/2022 , next 06/21/2022 Eye: [facility] 04/2022 Get labs Hyperlipidemia 61768276 E78.5 On atorvastat in 80mg daily, should not be on any other statinStop the fenofibrat eNot on vascepa 1gm 2 cap bidDoes well Get labs Pain of le ft hip joint 8271409098 64070 M25.552 David BENNETT 05/13/2022 Low back pain 771835131 M54.50 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.[address] Bhatt in the pastLow plt could be from hepatitis Needs to keep apt with hepatology Dr Bhatt, 02/18/2022 , 03/02/2022 Dr Bhatt 05/23/2023 , f/u in 6 months Non-alcoho lic fatty liver 852614899 K76.0 US and hepatitis panel was done by Dr Martinez t a referral to GI OV 08/07/18:D ion get liver biopsy, get the reportNext apt is on 08/30/[address] Granado ADDENDUM:Jesenia Lam, 09/07/18, get EGD and follow up in 4 months Addendum: 11/26/18:1 12/25/17: EGD at [facility] OV 12/11/18:F ollow up with GI Addendum:Jesenia Granado 01/08/19: Got a referral to bariatric surgery and also US liver every 6 months OV 04/09/19:S ees Dr Lam liver MD OV 08/20/19:S ees Dr Barone, [...] with Dr Barone OV 09/20/2023 Tennille Lopes [employer] GI: 05/03/2023 , next apt in 6 months OV 01/17/2024 : Sees GI OV 04/19/2024 : See her GI, referred 04/19/2024 Chronic ki dney disease 060239838 N18.9 Still declines any aptGFR stable Dysphagia 47605791 R13.1 0 EGD: 06/12/2021 : Dr Wagner, +ve esophageal ring, gastritisF eels that this is very intermitte nt, is able to eat and drink Urinary incontinence 165 686839 R32 On solifenaci n 10mg daily, given by [employer] OB Hypothyroidism 81226419 E03.9 On levothyrox ine 50mcgs daily Seen Dr Hernández Pain of ri ght hip joint 4741063488 57123 M25.551 David BENNETT, referred again 01/17/2024 Varicose v eins of lower extremity 28042872 I83.[address] Anderson LOERA in the past, feels she needs to get another referral Dr Barron 04/28/2022 , get another apt Restless legs 31322133 G 25.81 On ropinirole 0.25mg dailyDoes well Moderate r ecurrent major depression 94603268 F33.1 On paroxetine 10mg daily Does wellGiven to her by Dr Blanca 09/01/2022 Abdominal bloating 56260 9008 R14.0 Is on ozempic and opiatesAdv ised to stop the ozempic and curtail her use of opiatesWil l now proceed to [facility] ER as she prefers to go there as her liver MD is there Ascites 166015718 R18.8 Has seen her liver MDNow on aldactone 50mg dailyNow on lasix 40mg daily+ve ascites noted, will need to get drained, will need to go to the ER, will go to [facility] Reuben d/w Dr. Chowdary [facility] ER attending, patient to proceed to the ER stat, she has verbalized her understand ing of the above Addendum: 04/23/2024 [facility] 04/20/2024 , large volume paracentes is performed, now to see GI hepatology [id number] Martín Coronado MD [facility] [place] [address] [place] [address] 05/22/2024 10:41:38 05/22/2024 11:41:46 Pain of right hip joint 6333745658 06148 M25.551 Trochanter ic bursitis of left hip 4200109915 06336 M70.62 Trochanter ic bursitis of right hip 1039815389 13342 M70.61 Low back pain 637502721 M54.50 [id number] Bry carlos MD [facility] [address] [facility], [facility] [address] [place] [address] 05/29/2024 10:50:16 05/29/2024 11:55:03 Screening - NAD 216614503 Z13.9 C-Scope: 02/07/15, Dr Wagner, next in 5 years from the [facility]: 02/06/2021 : Dr Wagner, next in 7 yearsEGD: 06/12/2021 : Dr Wagner Mammogram: 01/12/19: Neg 023: Neg PAP: Done by Dr Blanca, is on paxil for night sweats DEXA: done on 12/11/2020 , thru Dr Watkins12/06: Low bone mass, ca and vit d UTD on flu shotUTD on Tdap 05/17/17UT D PCV #23 09/01/18, #12 09/10/2019 [facility] 19 [facility], get latest vaccineCan do RSV vaccine RTC in 4 monthsdo labsER if worse,she did verbalize her understand ing of the above Type 2 vito betes mellitus without complication 848190779 E11.9 On glimeperid e 2mg 2 tab bidOn metformin ER 500mg bid, will d/c this d/t CKDOn jardiance 25mg dailyOn ozempic Has seen Dr Hernández 06/09/[address] Groves on 02/15/2022 , next 06/21/2022 Eye: [facility] 04/2022 Repeat the labs, may need to start on insulin, discussed this today, 05/29/2024 , wants to hold off and get labs Hyperlipidemia 33520940 E78.5 On atorvastat in 80mg daily, should not be on any other statinStop the fenofibrat eNot on vascepa 1gm 2 cap bidDoes well Get labs Pain of le ft hip joint 7986067829 76123 M25.552 David BENNETT 05/13/2022 , 05/22/2024 Low back pain 995272869 M54.[address] [employer], 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 [...] use of oxycodone or even morphine Gout 05250073 M10.9 On allopurino lDoes well Essential hypertension 94318932 I10 Not on lasix On HCTZ 12.5mg dailyOn losartan 100mg dailyOn K Does well Thrombotic thrombocytopenic purpura 01546248 M31.[address] Bhatt in the pastLow plt could be from hepatitis Needs to keep apt with hepatology Dr Bhatt, 02/18/2022 , 03/02/2022 Dr Bhatt 05/23/2023 , f/u in 6 monthsDr Bhatt 05/21/2024 , f/u in 6 months Non-alcoho lic fatty liver 771027399 K76.0 US and hepatitis panel was done by Dr Martinez t a referral to GI OV 08/07/18:D id get liver biopsy, get the reportNext apt is on 08/30/[address] Granado ADDENDUM:Jesenia Lam, 09/07/18, get EGD and follow up in 4 months Addendum: 11/26/18:1 12/25/17: EGD at [facility] OV 12/11/18:F ollow up with GI Addendum:Jesenia Granado 01/08/19: Got a referral to bariatric surgery and also US liver every 6 months OV 04/09/19:S ees Dr Lam liver MD OV 08/20/19:S ees Dr Barone, [...] with Dr Barone OV 09/20/2023 Tennille Lopes [employer] GI: 05/03/2023 , next apt in 6 months OV 01/17/2024 : Sees GI OV 04/19/2024 : See her GI, referred 04/19/2024 OV 05/29/2024 : Referral provided last month Chronic ki dney disease 366675985 N18.9 Needs to see nephrology , can refer Dysphagia 70942505 R13.1 0 EGD: 06/12/2021 : Dr Wagner, +ve esophageal ring, gastritisF eels that this is very intermitte nt, is able to eat and drink Urinary incontinence 165 636148 R32 On solifenaci n 10mg daily, given by [employer] OB Hypothyroidism 78452818 E03.9 On levothyrox ine 50mcgs daily Seen Dr Edgar Heredia of ri ght hip joint 4838338089 21190 M25.551 David BENNETT 05/22/2024 , s/p kenalog Varicose v eins of lower extremity 76916328 I83.[address] Barron [facility] in the past, feels she needs to get another referral Dr Barron 04/28/2022 , get another apt, referred 05/29/2024 Restless legs 53625294 G 25.81 On ropinirole 0.25mg dailyDoes well Moderate r ecurrent major depression 97821216 F33.1 On paroxetine 10mg daily Does wellGiven to her by Dr Blanca 09/01/2022 Abdominal bloating 09934 9008 R14.0 Is on ozempic and opiatesAdv ised to stop the ozempic and curtail her use of opiatesWil l now proceed [facility] as she [facility] to go there as her liver MD is there Ascites 451769296 R18.8 Has seen her liver MDNow on aldactone 50mg dailyNow on lasix 40mg daily+ve ascites noted, will need to get drained, will need to go to the ER, will go [facility] ERDid d/w Dr. Chowdary [facility] ER attending, patient to proceed to the ER stat, she has verbalized her understand ing of the above Addendum: 04/23/2024 [facility] 04/20/2024 , large volume paracentes is performed, now to see GI hepatology OV 05/29/2024 : States that she did see GI and now has increased her lasix Adult heal th examination 077006581 Z00.00 Screening for disorder 864316884 Z13.9 Headache 16451272 R51.9 MRI 05/28/2024 : NegDoes well now, intermitte nt headaches, advised not to take any tylenol [id number] Brian Duran DPM [facility] [place] [address] [place] [address] 06/11/2024 14:24:45 06/11/2024 15:44:07 Ulcer of big toe 469975786 L97.509 right great toe - full-thick ness fibrotic and callus wound beddaily Betadine wet-to-dry dressingsd ebrided todayofflo ading at all timesFollo w-up 1 week Ulcer of toe 012656059 L 97.509 distal third toe - Full-thick ness granular wound bednot debridedwo und care as above [id number] Brian Duran DPM [facility] Podiatry [place] [address] [place] [address] 06/18/2024 16:55:47 06/19/2024 13:47:12 Ulcer of big toe 819769925 L97.509 right great toe - full-thick ness callus wound beddaily Betadine wet-to-dry dressingso ffloading at all timesFollo w-up Two weeks Ulcer of toe 299729543 L 97.509 distal third toe - Full-thick ness granular wound bednot debridedwo und care as abovefollo w-up 2 weeks [id number] Brian Duran DPM [facility] Podiatry [place] [address] [place] [address] 08/02/2024 14:27:51 2024 16:17:55 Ulcer of big toe 520073850 L97.509 right great toe x 2 - full-thick ness callus wound beddaily Betadine wet-to-dry dressingso ffloading at all timesFollo w-up Two weeks Ulcer of toe 619751902 L 97.509 distal third toe - Full-thick ness granular wound bednot debridedof floading at timeswound care as abovefollo w-up 2 weeks [id number] Martín Coronado MD [facility] Ortho [place] [address] [place] [address] 08/03/2024 11:37:19 08/03/2024 12:39:45 Pain of right hip joint 6520441778 28153 M25.551 Trochanter ic bursitis of right hip 5315665229 13902 M70.61 Low back pain 427343487 M54.50 [id number] Brian Duran DPM [facility] W[facility] [address] [place] [address] 08/15/2024 12:04:43 08/15/2024 14:38:13 Acute osteomyelitis of phalanx of toe 635758714 M86.179 right 3rd toeDiscuss ed options in detailpati ent states she will go to the emergency roomcephal exin on 08/02- for 10 days- finishedx- rays reviewed on 08/02 with erosive changes to the distal phalanxpla n amputation right 3rd toe with biopsy Ulcer of big toe 3030914 02 L97.509 right great toe x 1 - full-thick ness callus wound beddaily Betadine wet-to-dry dressingso ffloading at all timesFollo w-up Two weeks Ulcer of toe 168843138 L 97.509 distal third toe - Full-thick ness granular wound bednot debridedpr obing to ava finney at timeswound care dailyfollo w-up in hospital [id number] Brian Duran DPM [facility] Wound Care [address] [place] [address] 08/22/2024 13:57:42 08/30/2024 11:12:05 Postoperative care 733736723 Z48.89 right third toe, partial amputation eschar to woundcont betadine wet-to-dry dressing daily Blister of toe without infection 81621115 S90.424A right second toe- blisterBet adine wet-to-dry dressingof floadingda jose wound care Dehiscence of external surgical incision wound 9683975273 70099 T81.31XA right 3rd toedressin gs as above Callosity on toe 7703447 01 L84 wound healed right great toe with calluscall us debrided without incident [id number] MD [facility]AL[facility] [address] [facility], [facility] [address] [place] [address] 08/28/2024 11:46:21 08/28/2024 12:58:33 Screening - NAD 709263652 Z13.9 C-Scope: 02/07/15, Dr Wagner, next [facility] 5 [facility]: 02/06/2021 : Dr Wagner, next in [...] Type 2 vito betes mellitus without complication 220025202 E11.9 On glimeperid e 2mg 2 tab bid, will now do 1 tab bid 08/28/2024 as now will be on trescibaOn metformin ER 500mg bid, will d/marvin this d/t CKDOn jardiance 25mg dailyNot taking ozempicSta rt on tresciba 10U at bedtime 08/28/2024 , all side effects explained to her, including the side effects for LOW glucose Has seen Dr Hernándze 06/09/[address] Groves on 02/15/2022 , next 06/21/2022 Eye: [facility] 04/2022 Hyperlipidemia 85847369 E78.5 On atorvastat in 80mg daily, should not be on any other statinStop the fenofibrat eNot on vascepa 1gm 2 cap bidDoes well Get labs Pain of le ft hip joint 5983481017 62745 M25.552 David BENNETT 05/13/2022 , 05/22/2024 Low back pain 855814269 M54.50 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 , she states that her [employer] company has allowed her to drive, expressed concern for this! She insists that she will going to drive On narcanOn hydrocodon Jenn baclofenOn gabapentin 600mg 2 tabs tid Sees pain management IPC MRI L Spine 09/03/2023 : Lauren Vane ay 05/29/2024 : Advised to discuss with the pain management to get off the hydrocodon e d/t tylenol in the medication , discuss use of oxycodone or even morphine Gout 82428741 M10.9 On allopurino lDoes well Essential hypertension 30014494 I10 Not on HCTZ 12.5mg dailyOn lasix Tennille Lopes NPOn losartan 100mg dailyOn spironolac tone 50mg dailyOn K Does wellSeen by Dr Barron 04/08/2024 Thrombotic thrombocytopenic purpura 62380027 M31.[address] Bhatt in the pastLow plt could be from hepatitis Needs to keep apt with hepatology Dr Bhatt, 02/18/2022 , 03/02/2022 Dr Bhatt 05/23/2023 , f/u in 6 monthsDr Bhatt 05/21/2024 , f/u in 6 months Non-alcoho lic fatty liver 067112978 K76.0 US and hepatitis panel was done by Dr Martinez t a referral to GI OV 08/07/18:D id get liver biopsy, get the reportNext apt is on 08/30/[address] Granado ADDENDUM:Jesenia Lam, 09/07/18, get EGD and follow up in 4 months Addendum: 11/26/18:1 12/25/17: EGD at [facility] OV 12/11/18:F ollow up with GI Addendum:Jesenia Granado 01/08/19: Got a referral to bariatric surgery and also US liver every 6 months OV 04/09/19:S ees Dr Lam liver OV 08/20/19:S ees Dr Barone, is [...] with Dr Barone OV 09/20/2023 Tennille Lopes [employer] GI: 05/03/2023 , next apt in 6 months OV 01/17/2024 : Sees GI OV 04/19/2024 : See her GI, referred 04/19/2024 OV 05/29/2024 : Referral provided last month OV 08/28/2024 : Sees Tennille Lopes [employer] GI Chronic ki dney disease 253114591 N18.9 Needs to see nephrology , can refer Dysphagia 99498575 R13.1 0 EGD: 06/12/2021 : Dr Wagner, +ve esophageal ring, gastritisF eels that this is very intermitte nt, is able to eat and drink Urinary incontinence 165 347153 R32 On solifenaci n 10mg daily, given by [employer] OB Hypothyroidism 98413257 E03.9 On levothyrox ine 50mcgs daily Seen Dr Edgar Heredia of ri ght hip joint 7170106214 53045 M25.551 David BENNETT 05/22/2024 , s/p kenalog Varicose v eins of lower extremity 83338315 I83.[address] Anderson LOERA in the past, feels she needs to get another referral Dr Barron 04/28/2022 , get another apt, referred 05/29/2024 Restless legs 28085231 G 25.81 On ropinirole 0.25mg dailyDoes well Moderate r ecurrent major depression 63070856 F33.1 On paroxetine 10mg daily Does wellGiven to her by Dr Blanca 09/01/2022 Abdominal bloating 31830 9008 R14.0 Is on ozempic and opiatesAdv ised to stop the ozempic and curtail her use of opiatesWil l now proceed to [facility] ER as she prefers to go there as her liver MD is there Ascites 562630375 R18.8 Has seen her liver MDNow on aldactone 50mg dailyNow on lasix 40mg daily+ve ascites noted, will need to get drained, will need to go to the ER, will go to U ERDid d/w Dr. Chowdary [facility] ER attending, patient to proceed to the ER stat, she has verbalized her understand ing of the above Addendum: 04/23/2024 [facility] health 04/20/2024 , large volume paracentes is performed, now to see GI hepatology OV 05/29/2024 : States that she did see GI and now has increased her lasix OV 08/28/2024 : Sees GINow on aldactone and lasix Headache 03549404 R51.9 MRI 05/28/2024 : NegDoes well now, intermitte nt headaches, advised not to take any tylenol Screening mammography 24 586960 Z12.31 [id number] ALEKSANDR[facility] [address] [place] [address] 08/29/2024 11:03:31 08/29/2024 14:07:28 Postoperative care 406415229 Z48.89 right third toe, partial amputation eschar to woundcont betadine wet-to-dry dressing daily Blister of toe without infection 62939631 S90.424A right second toe- blisterres olved Dehiscence of external surgical incision wound 8513398430 37537 T81.31XD right 3rd toedressin gs as above Callosity on toe 0804438 01 L84 wound healed right great toe with calluscall us debrided without incident [id number] Brian Duran DPM [facility] [address] [place] [address] 09/12/2024 14:37:10 09/12/2024 16:38:51 Postoperative care 848586739 Z48.89 right third toe, partial amputation healedoffl oading Dehiscence of external surgical incision wound 4148536745 01901 T81.31XD right 3rd toehealedr ecommend diabetic shoes and a diabetic insoles Callosity on toe 6140932 01 L84 wound healed right great toe with calluscall us debrided without incident [id number] Brian Duran DPM [facility] [place] [address] [facility] [address] [place] [address] 10/11/2024 14:21:07 11/02/2024 14:42:57 Blister of foot with infection 11696104 L08.9 toes right 5,4,and 2ndkeep toes clean and dryapply betadine wet to dry dressings dailyrecom mend wide extra depth shoesfollo w up in one week Cellulitis of right foot 1900395774 9816704 L03.115 right foot Pain in left foot 705226 7186 71137 M79.672 rule out osteomyeli tis- toe fracture Deep venou s thrombosis of lower extremity 931267390 I82.089 [id number] Brian Duran DPM [facility] [address] [place] [address] 10/17/2024 11:08:40 10/17/2024 15:40:32 Blister of foot with infection 60048808 L08.9 toes right 5,4 resolvedke ep toes clean and dryapply betadine wet to dry dressings dailyrecom mend wide extra depth shoesfollo w up in one week Cellulitis of right foot 7456213293 0460161 L03.115 right foot - resolved Pain in left foot 902171 2802 99707 M79.672 rule out osteomyeli tis- toe fracturene g xrayspain is better Deep venou s thrombosis of lower extremity 546017643 I82.409 awaiting testing 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 0438349787 3508316 E11.621 right 2nd toewound debridedda jose wound careoffloa ding of toesfollow up in one week [id number] Brian Duran DPM [facility] [address] [place] [address] 10/24/2024 11:04:09 10/24/2024 13:03:54 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 7802348992 7979156 E11.621 right 2nd toe and right 5th toewound debridedda jose wound careoffloa ding of toesfollow up in 2-3 weeks, if problems arise prior to patient will need to go to urgent Care, ER, primary care as I will be out of town until November 12 which I notified the patient [id number] Bry carlos MD [facility] [place] [address] [facility] [address] [place] [address] 12/19/2024 09:30:35 12/19/2024 10:22:40 Screening - NAD 288845764 Z13.9 C-Scope: 02/07/15, Dr Wagner, [facility] 5 [facility]: 02/06/2021 : Dr Wagner, next in [...] Type 2 vito betes mellitus without complication 522447881 E11.9 On glimeperid e 2mg 2 tab [...] Eye: [facility] 04/2022 Malika Walsh [employer] endocrine 10/03/2024 , restarted the ozempic Hyperlipidemia 27954336 E78.5 On atorvastat in 80mg daily, should not be on any other statinStop the fenofibrat eNot on vascepa 1gm 2 cap bidDoes well Get labs Pain of le ft hip joint 2430111846 53581 M25.552 David Cerna PA 05/13/2022 , 05/22/2024 Low back pain 750457224 M54.50 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 [...] use of oxycodone or even morphine Gout 33129596 M10.9 On allopurino lDoes well Essential hypertension 05101787 I10 Not on HCTZ 12.5mg dailyOn lasix Tennille Lopes NPOn losartan 100mg dailyOn spironolac tone 50mg dailyOn K Does wellSeen by Dr Barron 04/08/2024 Thrombotic thrombocytopenic purpura 68784311 M31.[address] Bhatt in the pastLow plt could be from hepatitis Needs to keep apt with hepatology Dr Bhatt, 02/18/2022 , 03/02/2022 Dr Bhatt 05/23/2023 , f/u in 6 monthsDr Bhatt 05/21/2024 , f/u in 6 months Non-alcoho lic fatty liver 913986335 K76.0 US and hepatitis panel was done by Dr Juan carlos referral to GI OV 08/07/18:D id get liver biopsy, get the reportNext apt is on 08/30/[address] Granado ADDENDUM:Jesenia Lam, 09/07/18, get EGD and follow up in 4 months Addendum: 11/26/18:1 12/25/17: EGD at [facility] OV 12/11/18:F ollow up with GI Addendum:Jesenia Granado 01/08/19: Got a referral to bariatric surgery and also US liver every 6 months OV 04/09/19:S ees Dr Lam liver MD OV 08/20/19:S ees Dr Barone, [...] with Dr Barone OV 09/20/2023 Tennille Lopes [employer] GI: 05/03/2023 , next apt in 6 months OV 01/17/2024 : Sees GI OV 04/19/2024 : See her GI, referred 04/19/2024 OV 05/29/2024 : Referral provided last month OV 08/28/2024 : Sees Tennille Lopes [employer] GI OV 12/19/2024 : Keep apts with GI Chronic ki dney disease 232489630 N18.9 Needs to see nephrology , can refer Dysphagia 01540349 R13.1 0 EGD: 06/12/2021 : Dr Wagner, +ve esophageal ring, gastritisF eels that this is very intermitte nt, is able to eat and drink Urinary incontinence 165 221367 R32 On solifenaci n 10mg daily, given by [employer] OB Hypothyroidism 38184990 E03.9 On levothyrox ine 50mcgs daily Seen Dr Hernández Pain of pa ght hip joint 8584748533 84695 M25.551 David BENNETT 05/22/2024 , s/p kenalog Varicose v eins of lower extremity 79715535 I83.[address] Barron [facility] Restless legs 41989892 G 25.81 On ropinirole 0.25mg dailyDoes well Moderate r ecurrent major depression 79586416 F33.1 On paroxetine 10mg daily Does wellGiven to her by Dr Blanca 09/01/2022 Abdominal bloating 39255 9008 R14.0 Is on ozempic and opiatesAdv ised to stop the ozempic and curtail her use of opiatesWil l now proceed to [facility] ER as she prefers to go there as her liver MD is there Ascites 286769967 R18.8 Has seen her liver MDNow on aldactone 50mg dailyNow on lasix 40mg daily+ve ascites noted, will need to get drained, will need to go to the ER, will go to U ERDid d/w Dr. Chowdary [facility] ER attending, patient to proceed to the ER stat, she has verbalized her understand ing of the above Addendum: 04/23/2024 [facility] 04/20/2024 , large volume paracentes is performed, [...] the ER if any symptoms worsen! Headache 90377505 R51.9 MRI 05/28/2024 : NegDoes well now, intermitte nt headaches, advised not to take any tylenol Screening mammography 24 790227 Z12.31 Open wound of foot [address] Duran podiatry 10/24/2024 , next 11/14/2024 US venous 10/23/2024 : Neg for DVT Upper resp iratory infection 92218421 J06.9 Has noted a slight cough, productive for yellowish sputum, will start on augmentin, will call if not betterOff work note provided 12/19/2024 ER if worse [id number] Brian Duran DPM [facility] Podiatry [place] [address] [place] [address] 11/15/2024 14:48:22 11/21/2024 08:54:56 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 7867319279 3223197 E11.621 right 2nd toe - healedrigh t 5th toe- full-thick ness wounddaily wound care - daily with Betadine wet-to-dry dressingof floading of toesx-rays reviewed with the patient negative for erosive changes 5th toefollow up 1 weekobtain arterial ultrasound rule out arterial insufficie ncy [id number] Brian Duran DPM [facility] Podiatry [place] [address] [place] [address] 11/26/2024 11:26:36 11/30/2024 13:33:24 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 8796830195 2583651 E11.621 right 5th toe- full-thick ness wounddaily wound care - daily with Betadine wet-to-dry dressingof floading of toesmupiro jane dressing applied todayx-ray s reviewed with the patient negative for erosive changes 5th toefollow up 2 weeksobtai n arterial ultrasound rule out arterial insufficie ncy Peripheral arterial occlusive disease 295436616 I73.9 due to non-healin g wound spoke to [facility]- Dr. Cortez is vascular- will reach out to schedule a follow up and ART [id number] Brian Duran DPM [facility] Podiat[facility] [place] [address] [place] [address] 12/24/2024 12:33:38 12/25/2024 12:56:23 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 3257034202 2766252 E11.621 right 5th toe- full-thick ness wounddaily wound care - daily with Betadine wet-to-dry dressingfi bereket rocael n per PCPoffload ing of toesmupiro jane dressing applied todayx-ray s reviewed with the patient negative for erosive changes 5th toefollow up 2 weeks- repeat x-rays at that timearteri al ultrasound s on 11/28/2024 normal bilateral Peripheral arterial occlusive disease 948342041 I73.9 follow-up per vascular recommenda tionarteri al ultrasound s 11/28/2024 - normal [id number] Brian Duran DPM [facility] [place] [address] [place] [address] 01/03/2025 12:39:48 01/04/2025 14:20:42 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 7592741088 3903358 E11.621 right 5th toe- full-thick ness wounddaily [...] 11/28/2024 normal bilateral Peripheral arterial occlusive disease 681302264 I73.9 follow-up per vascular recommenda tionartsarthak al ultrasound s 11/28/2024 - normal [id number] Bry carlos MD [facility] Primary Care [facility] [address] [facility] [address] [place] [address] 01/07/2025 14:01:01 01/09/2025 10:46:52 Screening - NAD 957716648 Z13.9 C-Scope: 02/07/15, Dr Wagner, next in 5 years from [facility]: 02/06/2021 : Dr Wagner, next in 7 yearsEGD: 06/12/2021 : Dr Wagner Mammogram: 01/12/19: Neg 023: Neg PAP: Done by Dr Blanca, is on paxil for night sweats DEXA: done on 12/11/2020 , thru Dr Watkins12/06: Low bone mass, ca and vit d Get yearly flu shotUTD on Tdap 05/17/17UT D PCV #23 09/01/18, #12 09/10/2019 [facility] COVID 19 vaccine, get latest vaccineCan do RSV vaccine RTC in 3 monthsdo labsER if worse,she did verbalize her understand ing of the above Type 2 vito betes mellitus without complication 453280355 E11.9 On glimeperid e 2mg 2 tab [...] [place] on 02/15/2022 , next 06/21/2022 Eye: [facility] 04/2022 Malika Walsh [employer] endocrine 10/03/2024 , restarted the ozempicAnn Altgilbers 11/21/2024 Hyperlipidemia 15296614 E78.5 On atorvastat in 80mg daily, should not be on any other statinStop the fenofibrat eNot on vascepa 1gm 2 cap bidDoes well Get labs Pain of le ft hip joint 4423086203 32564 M25.552 David BENNETT 05/13/2022 , 05/22/2024 Low back pain 710714423 M54.50 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.[address] Bhatt in the pastLow plt could be from hepatitis Needs to keep apt with hepatology Dr Bhatt, 02/18/2022 , 03/02/2022 Dr Bhatt 05/23/2023 , f/u in 6 monthsDr Bhatt 05/21/2024 , f/u in 6 months Non-alcoho lic fatty liver 944934402 K76.0 US and hepatitis panel was done by Dr Martinez t a referral to GI OV 08/07/18:D id get liver biopsy, get the reportNext apt is on 08/30/[address] Granado ADDENDUM:Jesenia Lam, 09/07/18, get EGD and follow up in 4 months Addendum: 11/26/18:1 12/25/17: EGD at [facility] OV 12/11/18:F ollow up with GI Addendum:Jesenia Granado 01/08/19: Got a referral to bariatric surgery and also US liver every 6 months OV 04/09/19:S ees Dr Lam liver MD OV 08/20/19:S ees Dr Barone, [...] with Dr Barone OV 09/20/2023 Tennille Lopes [employer] GI: 05/03/2023 , next apt in 6 months OV 01/17/2024 : Sees GI OV 04/19/2024 : See her GI, referred 04/19/2024 OV 05/29/2024 : Referral provided last month OV 08/28/2024 : Sees Tennille Lopes [employer] GI OV 12/19/2024 : Keep apts with GI Chronic ki dney disease 092570602 N18.9 Needs to see nephrology , can refer Dysphagia 94375569 R13.1 0 EGD: 06/12/2021 : Dr Wagner, +ve esophageal ring, gastritisF eels that this is very intermitte nt, is able to eat and drink Urinary incontinence 165 640218 R32 On solifenaci n 10mg daily, given by [employer] OB Hypothyroidism 03768943 E03.9 On levothyrox ine 50mcgs daily Seen Dr [facility] [facility] 5339121296 70461 M25.551 David BENNETT 05/22/2024 , s/p kenalog Varicose v eins of lower extremity 04229525 I83.[address] Barron [facility] Restless legs 91862852 G 25.81 On ropinirole 0.25mg dailyDoes well Moderate r ecurrent major depression 26176776 F33.1 On paroxetine 10mg daily Does wellGiven to her by Dr Blanca 09/01/2022 Abdominal bloating 34508 9008 R14.0 Is on ozempic and opiatesAdv ised to stop the ozempic and curtail her use of opiatesWil l now proceed to U ER as she prefers to go there as her liver MD is there Ascites 841522186 R18.8 Has seen her liver MDNow on aldactone 50mg dailyNow on lasix 40mg daily+ve ascites noted, will need to get drained, will need to go to the ER, will go to [facility] Reuben d/w Dr. Chowdary [facility] ER attending, patient to proceed to the ER stat, she has verbalized her understand ing of the above Addendum: 04/23/2024 [facility] health 04/20/2024 , large volume paracentes is performed, now to see GI hepatology OV 05/29/2024 : States that she did see GI and now has increased her lasix OV 08/28/2024 : Sees GINow on aldactone and lasix OV 12/19/2024 : Has noted increased ascites, not tense, no abdominal pain, she is going to call Tennille Lopes [employer] and see if she should have this drained now, advised to go to the ER if any symptoms worsen! Headache 40236905 R51.9 MRI 05/28/2024 : NegDoes well now, intermitte nt headaches, advised not to take any tylenol Screening mammography 24 355292 Z12.31 Open wound of foot [address] Duran podiatry 10/24/2024 , next 11/14/2024 US venous 10/23/2024 : Neg for DVT Surgery Amputation of R 5th toeSurgeon : Eric earance: Cleared by Dr Barron and she will remain a moderate risk for this procedure [id number] Martín Coronado MD [facility] Ortho [place] [address] [place] [address] 01/22/2025 15:08:31 01/22/2025 15:52:02 Pain of right hip joint 5001929190 55309 M25.551 Trochanter ic bursitis of right hip 7998208353 15514 M70.61 [id number] Brian Duran DPM [facility] Podiat[facility] [place] [address] [place] [address] 02/04/2025 14:36:24 02/11/2025 09:51:36 Postoperative visit 704742979 Z48.89 Follow-up amputation right 5th toedressin gs changedpat ient formed on what dressings to apply- Betadine wet-to-dry dressing or apply triple antibiotic ointment and dry dressing dailyfollo w-up on week [id number] Brian Duran DPM [facility] Podiatry [place] [address] [place] [address] 02/11/2025 14:55:38 02/18/2025 12:36:36 Postoperative visit 166684891 Z48.89 Follow-up amputation right 5th toesilver nitrate applied to the distal aspect of the area of wound dehiscence dressings changedpat ient formed on what dressings to apply- Betadine wet-to-dry dressing dailyfollo w-up on week- Possible suture removal Dehiscence of surgical wound 91497933 T81.30XA distal aspect right 5th toe 0.5 cm in lengthsilv er nitrate applied to the area of granular tissue at the wound dehiscence Betadine wet-to-dry dressing applied [id number] Brian Duran DPM [facility] Podiatry [place] [address] [place] [address] 02/18/2025 09:53:04 02/21/2025 08:36:44 Postoperative visit 462119970 Z48.89 amputation right 5th toedressin gs changedmay DC dressingss utures removedpat h results- positive for chronic osteomyeli tis completely removed with amputation follow-up 2 months- for diabetic foot care Dehiscence of surgical wound 32633820 T81.30XA distal aspect right 5th toe healed [id number] Brian Duran DPM [facility] Podiat[place] [address] [facility] [address] [place] [address] 03/21/2025 13:53:53 03/25/2025 13:40:39 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 9688609919 7625518 E11.621 right 4th toe- full-thick ness wounddaily wound care - daily with Betadine wet-to-dry dressingof floading of toesx-rays rule out- osteomyeli tis 4th toearteria l ultrasound s on 11/28/2024 normal bilateralr eturn to office in 1 week Cellulitis of toe of right foot 5796666218 L03.031 right 4th toe-order for aerobic wound cultures right 4th toe with sensitivit y [id number] Brian Duran DPM [facility] Podiatry [place] [address] [place] [address] 03/28/2025 13:54:06 03/29/2025 11:44:24 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 9133506298 5297375 E11.621 right 4th toe- full-thick ness wounddaily wound care - daily with Betadine wet-to-dry dressingof floading of toesx-rays rule out- osteomyeli tis 4th toearteria l ultrasound s on 11/28/2024 normal bilateralr eturn to office in 1 week Cellulitis of toe of right foot 0417169146 L03.031 right 4th toeresolve d [id number] Brian Duran DPM [facility] Podiatry [place] [address] [place] [address] 04/08/2025 15:15:47 04/09/2025 15:19:46 Acute osteomyelitis 561035448 M86.18 order MRI to rule out osteomyeli tis right 4th toe Foot ulcer due to type 2 diabetes mellitus 0369616398 100 E11.621 right 4th toecontinu e Betadine wet-to-dry dressingwo und cleaned with Hibiclens todayprobi ng to bonepossib le osteomyeli tis obtain MRIfollow- up in 2 weeks [id number] Bry carlos MD [facility] Primary Care [facility] [address] [facility] [address] [place] [address] 04/15/2025 14:18:08 04/15/2025 15:23:47 Screening - NAD 857522900 Z13.9 C-Scope: 02/07/15, Dr Wagner, next in 5 years from [facility]: 02/06/2021 : Dr Wagner, next in [...] her understand ing of the above Hyperlipidemia 40668989 E78.5 On atorvastat in 80mg daily, should not be on any other statinStop the fenofibrat eNot on vascepa 1gm 2 cap bidDoes well Get labs Pain of le ft hip joint 9165457873 81608 M25.552 David Cerna PA 05/13/2022 , 05/22/2024 Low back pain 831446374 M54.50 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 [...] use of oxycodone or even morphine Gout 57415296 M10.9 On allopurino lDoes well Essential hypertension 26006428 I10 Not on HCTZ 12.5mg dailyOn lasix Tennille Lopes NPOn losartan 100mg dailyOn spironolac tone 50mg dailyOn K Does wellSeen by Dr Barron 04/08/2024 Dr Barron [facility] 11/28/2024 Thrombotic thrombocytopenic purpura 93692467 M31.[address] Bhatt in the pastLow plt could be from hepatitis Needs to keep apt with hepatology Dr Bhatt, 02/18/2022 , 03/02/2022 Dr Bhatt 05/23/2023 , f/u in 6 monthsDr Nova 05/21/2024 , f/u in 6 monthsDr Nova 11/21/2024 , f/u in 6 months Non-alcoho lic fatty liver 872120699 K76.0 US and hepatitis panel was done by Dr Martinez t a referral to GI OV 08/07/18:D id get liver biopsy, get the reportNext apt is on 08/30/[address] Granado ADDENDUM:Jesenia Lam, 09/07/18, get EGD and follow up in 4 months Addendum: 11/26/18:1 12/25/17: EGD at [facility] OV 12/11/18:F ollow up with GI Addendum:Jesenia Granado 01/08/19: Got a referral to bariatric surgery and also US liver every 6 months OV 04/09/19:S ees Dr Lam liver MD OV 08/20/19:S ees Dr Barone, is to get labs and is getting a study medication OV 12/17/2019 :Sees hepatologdelma gleason, is in a 'liver study' was told it was doing the sameNext apt in 2 month, she is getting an 'injection ' every h e did have a MRI done, get the report OV 04/14/2020 :Sees Dr aBrone GIIs to get a biopsy in May [...] with Dr Barone OV 09/20/2023 Tennille Lopes [employer] GI: 05/03/2023 , next apt in 6 months OV 01/17/2024 : Sees GI OV 04/19/2024 : See her GI, referred 04/19/2024 OV 05/29/2024 : Referral provided last month OV 08/28/2024 : Sees Tennille Lopes NP GI OV 12/19/2024 : Keep apts with GI OV 04/15/2025 : Sees GI Chronic ki dney disease 093976023 N18.9 Needs to see nephrology , can refer Dysphagia 06289333 R13.1 0 EGD: 06/12/2021 : Dr Wagner, +ve esophageal ring, gastritis Feels that this is very intermitte nt, is able to eat and drink Urinary incontinence 165 696731 R32 On solifenaci n 10mg daily, given by [employer] OB Hypothyroidism 09156733 E03.9 On levothyrox ine 50mcgs daily Seen Dr Edgar [facility] hip joint 3193397310 59201 M25.551 David Cerna PA 05/22/2024 , s/p kenalog Varicose v eins of lower extremity 36064124 I83.[address] Barron [facility] [facility] Restless legs [id number] G 25.81 On ropinirole 0.25mg dailyDoes well Moderate r ecurrent major depression 53250370 F33.1 On paroxetine 10mg daily Does wellGiven to her by Dr Blanca 09/01/2022 Abdominal bloating 95242 9008 R14.0 Is on ozempic and opiatesAdv ised to stop the ozempic and curtail her use of opiates, but now 04/15/2025 states that she has restarted the ozempic and is doing well on thisWill now proceed to U ER as she prefers to go there as her liver MD is there Ascites [id number] R18.8 Has seen her liver MDNow on aldactone 50mg dailyNow on lasix 40mg daily+ve ascites noted, will need to get drained, will need to go to the ER, will go to [facility] d/w Dr. Chowdary [facility] ER attending, patient to proceed to the ER stat, she has verbalized her understand ing of the above Addendum: 04/23/2024 [facility] health 04/20/2024 , large volume paracentes is performed, now to see GI hepatology OV 05/29/2024 : States that she did see GI and now has increased her lasix OV 08/28/2024 : Sees GINow on aldactone and lasix OV 12/19/2024 : Has noted increased ascites, not tense, no abdominal pain, she is going to call Tennille Lopes [employer]ANT [employer] OFFICER and see if she should have this drained now, advised to go to the ER if any symptoms worsen! OV 04/15/2025 : Does well today,keep apt with GI Headache 05371548 R51.9 MRI 05/28/2024 : NegDoes well now, intermitte nt headaches, advised not to take any tylenol Screening mammography 24 181806 Z12.31 Open wound of foot [address] Duran podiatry 10/24/2024 , next 11/14/2024 US venous 10/23/2024 : Neg for DVT Surgery Amputation of R 5th toeSurgeon : RogerCl earance: Cleared by Dr Barron and she will remain a moderate risk for this procedure Dr Duran, next apt 05/20/2025 Type 2 vito betes mellitus 42294541 E11.8 On glimeperid e 2mg 2 tab [...] Eye: [facility] 04/2022 Malika Walsh [employer] OFFIC[employer] endocrine 10/03/2024 , restarted the ozempicAnn Altgilbers 11/21/2024 [id number] Brian Duran DPM [facility] Davin Mercado [address] [place] [address] 05/06/2025 14:07:59 05/17/2025 08:42:56 Ulcer of toe of right foot [id number] 6411348 L97.512 MRI reviewed- concerns for osteomyeli tistoe overall look good with oral abx treatmentd ue to continued wound with cellulitis patient was recommende d to report to the nearest emergency room for further evaluation and care- patient states understand ingBetadin e wet-to-dry dressing applied to woundsfoll ow-up post discharge from hospital Cellulitis of toe of right foot [id number] L03.031 right 4th toeas above [id number] Brian Duran DPM [facility] [place] [address] [place] [address] 05/20/2025 12:12:11 05/22/2025 10:31:58 Ulcer of toe of right foot 4036577103 0390753 L97.512 MRI reviewed- reviewed possible osteomyeli tisnew x-rays show confirmed new erosive changescul tures revieweddu e to continued breakdown of bone who will proceed with amputation of the toe secondary to osteomyeli tisObtain surgical clearancep gustavo amputation of toe right 4th toe at the ambulatory surgery center Acute oste omyelitis of right foot 3217327504 085917 M86.171 right 4th toe- proximal and middle phalanxcul tures Pseudomona s [id number] Bry carlos MD [facility] [address] [facility], [facility] [address] [place] [address] 05/21/2025 15:20:18 05/21/2025 16:57:19 Screening - NAD 876393081 Z13.9 C-Scope: 02/07/15, alfredo Verma in [facility]: 02/06/2021 : Dr Wagner, alfredo in 7 yearsEGD: 06/12/2021 : Dr Wagner Mammogram: 01/12/19: Neg 023: Neg PAP: Done by Dr Blanca, is on paxil for night sweats DEXA: done on 12/11/2020 , thru Dr Watkins12/06: Low bone mass, ca and vit d Get yearly flu shotUTD on Tdap 05/17/17UT D PCV #23 09/01/18, #12 09/10/2019 UTD shingrix 10/16/18 [facility] on hep A vaccineUTD on COVID 19 vaccine, get latest vaccineCan do RSV vaccine RTC in 3 monthsdo labsER if worse,she did verbalize her understand ing of the above Hyperlipidemia 00498195 E78.5 On atorvastat in 80mg daily, should not be on any other statinStop the fenofibrat eNot on vascepa 1gm 2 cap bidDoes well Get labs Pain of le ft hip joint 5683318981 78325 M25.552 David BENNETT 05/13/2022 , 05/22/2024 Low back pain 928765180 M54.50 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 [...] proceed to the ER if worse Gout 86696998 M10.9 On allopurino lDoes well Essential hypertension 34194945 I10 Not on HCTZ 12.5mg dailyOn lasix Tennille Lopes NPOn losartan 100mg dailyOn spironolac tone 50mg dailyOn K Does wellSeen by Dr Barron 04/08/2024 Dr Barron [facility] 11/28/2024 Thrombotic thrombocytopenic purpura 31342627 M31.[address] Bhatt in the pastLow plt could be from hepatitis Needs to keep apt with hepatology Dr Bhatt, 02/18/2022 , 03/02/2022 Dr Bhatt 05/23/2023 , f/u in 6 monthsDr Bhatt 05/21/2024 , f/u in 6 monthsDr Nova 11/21/2024 , f/u in 6 months Non-alcoho lic fatty liver 400501757 K76.0 US and hepatitis panel was done by Dr Martinez t a referral to GI OV 08/07/18:D id get liver biopsy, get the reportNext apt is on 08/30/[address] Granado ADDENDUM:Jesenia Lam, 09/07/18, get EGD and follow up in 4 months Addendum: 11/26/18:1 12/25/17: EGD at [facility] OV 12/11/18:F ollow up with GI Addendum:Jesenia Granado 01/08/19: Got a referral to bariatric surgery and also US liver every 6 months OV 04/09/19:S ees Dr Lam liver MD OV 08/20/19:S ees Dr Barone, [...] OV 05/17/2023 : Keep apt with Dr Baroen OV 09/20/2023 Tennille Lopes [employer] OFFICER GI: 05/03/2023 , next apt in 6 months OV 01/17/2024 : Sees GI OV 04/19/2024 : See her GI, referred 04/19/2024 OV 05/29/2024 : Referral provided last month OV 08/28/2024 : Sees Tennille Lopes [employer] OFFICER GI OV 12/19/2024 : Keep apts with GI OV 04/15/2025 : Sees GI OV 05/21/2025 : Now sees her GI Chronic ki dney disease 617411144 N18.9 Needs to see nephrology , can refer Dysphagia 95065346 R13.1 0 EGD: 06/12/2021 : Dr Wagner, +ve esophageal ring, gastritis Feels that this is very intermitte nt, is able to eat and drink Urinary incontinence 165 968150 R32 On solifenaci n 10mg daily, given by [employer] OFFICER OB Hypothyroidism 95587634 E03.9 On levothyrox ine 50mcgs daily Seen Dr [facility] 7589797387 32716 M25.551 David BENNETT 05/22/2024 , s/p kenalog Varicose v eins of lower extremity 87670029 I83.[address] Barron [facility] Restless legs 05433638 G 25.81 On ropinirole 0.25mg dailyDoes well Moderate r ecurrent major depression 17610677 F33.1 Not on paroxetine 10mg daily Does wellwas given to her by Dr Blanca 09/01/2022 Abdominal bloating 35045 9008 R14.0 Is on ozempic and opiatesAdv ised to stop the ozempic and curtail her use of opiates, but now 04/15/2025 states that she has restarted the ozempic and is doing well on thisWill now proceed to [facility] ER as she prefers to go there as her liver MD is there OV 05/21/2025 :Advised to keep her apt with her GI Ascites 006731151 R18.8 Has seen her liver MDNow on aldactone 50mg dailyNow on lasix 40mg daily+ve ascites noted, will need to get drained, will need to go to the ER, will go to U ERDid d/w Dr. Chowdary [facility] ER attending, patient to proceed to the ER stat, she has verbalized her understand ing of the above Addendum: 04/23/2024 [facility] 04/20/2024 , large volume paracentes is performed, now to see GI hepatology OV 05/29/2024 : States that she did see GI and now has increased her lasix OV 08/28/2024 : Sees GINow on aldactone and lasix OV 12/19/2024 : Has noted increased ascites, not tense, no abdominal pain, she is going to call Tennille Lopes [employer] OFFICER and see if she should have this drained now, advised to go to the ER if any symptoms worsen! OV 04/15/2025 : Does well today,keep apt with GI OV 05/21/2025 : Keep apt with her GI Headache 70373422 R51.9 MRI 05/28/2024 : NegDoes well now, intermitte nt headaches, advised not to take any tylenol Screening mammography 24 761457 Z12.31 Open wound of foot [address] Duran podiatry 10/24/2024 , next 11/14/2024 US venous 10/23/2024 : Neg for DVT Surgery Amputation of R 5th toeSurgeon : RogerCl earance: Cleared by Dr Barron and she will remain a moderate risk for this procedure Dr Duran, next apt 05/20/2025 OV 05/21/2025 : Now is to get the R toe amputated on 05/31/2025 She is on ozempic and was told to let her surgeon know about thisShe will need clearance by Dr Barron her cardiologi stShe has already stopped the ozempic and has been told by her surgeon Dr Duran not to take it till after her surgery Type 2 vito betes mellitus 53537836 E11.8 On glimeperid e 2mg 2 tab [...] Eye: [facility] 04/2022 Malika Walsh [employer] OFFICER endocrine 10/03/2024 , restarted the ozempicAnn Altgilbers 11/21/2024 Malika Altgilbers 05/13/2025 , ozempic increased to 2mg weekly Health Concerns Section Related Observation LastModified by Organization Detai ls LastModified Time None Recorded Concern Status LastModified by Organization Details LastModified Time None Recorded Advance Directives Directive N: Payers Insurance Date Sequence Insurance Name Policy Number Policy Suarez Covered Member ID Suarez Member ID Guarantor Name 05/22/2025 1 [facility] (MEDICARE REPLACEMENT/ ADVANTAGE - HMO) [id number] Teri Russ [id number] Teri Russ 05/02/2025 2 [employer] (MEDICARE REPLACEMENT/ ADVANTAGE - HMO) [id number] Teri Russ [id number] Teri Russ 01/17/2024 1 [facility] [id number] Elias Russ [id number] Teri Russ 05/02/2025 1 [place] Teri Russ [id number] Teri Russ Notes Date Note Type Note Provider Name and Address Organization Details Recorded Time 04/08/2025 text/html . Patient is a 64-year-old female she returns with a wound to the right 4th toe. Patient states that the wound has not healed it continues to drain. Patient states that the cellulitis did resolve but she has noticed more drainage. Patient has mild swelling to the toe. Patient denies any other complaints. Brian Duran, ALEKSANDRA [address] [facility], [facility] [address], [place], [address], [facility] - [employer] 04/09/2025 08:57:23 04/15/2025 text/html 12/26/17Here to establish carePast PMD Dr Rader Hx:LBPDMIIHLDKnee painRLSReviewed social family and surgical historyHere to establish careShlea states that she does she pain management and get 'shots' in the knee, and feels that this is helping her so that she does not need as much opiatesShe is to see Dr Martin and the pain management MD Chato also was seeing a mds rn and wants another referral to a mds rn and an eye MD OV 02/06/18:Here for [...] timeShe did do the labsShe has done DEXAShe has yet to see hepatologyShe does have [...] Dr Barron for her R leg varicose veinsShe did do the labs on 01/02/2022 OV [...] well today Bry Harvey MD [address], [place], [address], [employer] [facility] [employer] 04/15/2025 18:09:52 05/06/2025 text/html . Patient is [...] understanding. Patient denies any other complaints. Brian Duran DPM [address], [place], [address], [employer] [facility] [email or web address] 05/15/2025 10:25:31 05/20/2025 text/html . Patient is a 64-year-old female who returns the office for follow-up on wound to the right 4th toe which was improving significantly but due to the swelling I did discuss the need for repeat x-rays which were performed and was found to have significant erosive changes of the proximal interphalangeal joint. I discuss this at length with the patient she will need amputation of the toe. Patient will obtain medical clearance we called her primary care doctor and scheduled her an office visit for tomorrow. Patient will obtain medical clearance we will plan surgery on May 31. Brian Duran DPM [address] [facility], [facility] [address], [place], [address], [place] [facility] [employer] 05/22/2025 10:35:49 05/21/2025 text/html 12/26/17Here to establish carePast PMD Dr Rader Hx:LBPDMIIHLDKnee painRLSReviewed social family and surgical historyHere to establish careShe states that she does she pain management and get 'shots' in the knee, and feels that this is helping her so that she does not need as much opiatesShe is to see Dr Martin and the pain management MD Chato also was seeing a mds rn and wants another referral to a mds rn and an eye MD OV 02/06/18:Here for [...] 04/14/2020:Here for her routine aptShe is doing wellSelpidio has done the labs OV 08/18/2020:Here for her routine aptShe is doing well at this timeShe did do the labsShe has done Orline has yet to see hepatologyShe does have a incisional hernia and has noted that it has increased in sizeOV 12/15/2020:Here for her routine aptShe did do the labsShe is doing Chelsea is seeing pain managementOV 04/27/2021:Here for her routine aptShe is doing wellSelpidio did do the labs and is here to review theseOV 09/17/2021:Here for her routine aptShe did do the labsShe does state that she feels tired as she has been working 14 hour daysOV 01/18/2022:Here for her routine aptShe is doing Chelsea does c/o R hip pain, feels it 'gives out'Also wants a referral to Dr Barron for her R leg varicose veinsShe did do the labs on 01/02/2022 OV [...] to the R lower leg and foot Bry Harvey MD [address] [place] [address], [place] [address], [place], [address], [place] [facility] 05/21/2025 19:03:46 OBGyn Episode No OBEpisode recorded.
--- OUTSIDE RECORDS SUMMARY | 2025-05-22 17:52 | XMS_ITS | Clinical Summary ---
Author Organization [facility] Address [address] [address] Care Team Providers Care Roofing Contractor Name Role Phone Jacob Harvey MD Primary Care Provider Source Comments [facility],non-owned Affiliates and Associated Physician Practices is amultiple site organization consisting of ambulatory clinics and hospital sitesin [place], [place], [place] and [place]. This disclosure is being madepursuant to the Care Everywhere program and may not contain all information available regarding this patient. 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 [...] Follow-Up [facility] GI [address] [facility] [place] [address] Tennille Lopes APRN-CNP 04/29/2025 10:22 AM CDT - 04/29/2025 11:59 PM CDT Hospital Encounter [facility] US [address] [place] [address] Tennille Lopes APRN-CNP Discharge Disposition: Home or [...] on file Legal Sex Female 8:11 AM PATIENT SAFETY COORDINATOR Gender Identity Not on file Sexual Orientation Not on file 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 Not on file Not on file Last Filed Vital Signs Vital Sign Reading Time Taken Comments Blood Pressure 122/70 10/25/2024 12:31 PM PATIENT SAFETY COORDINATOR Pulse 73 10/25/2024 12:31 PM PATIENT SAFETY COORDINATOR Temperature 36.6 C (97.8 F) 10/25/2024 12:31 PM PATIENT SAFETY COORDINATOR Respiratory Rate 18 04/19/2024 9:30 PM CDT Oxygen Saturation 98% 10/25/2024 12:31 PM PATIENT SAFETY COORDINATOR Inhaled Oxygen Concentration - - Weight 93 kg (205 lb) 10/25/2024 12:31 PM PATIENT SAFETY COORDINATOR Height 157.5 cm (5' 2) 10/25/2024 12:31 PM PATIENT SAFETY COORDINATOR Body Mass Index 37.49 10/25/2024 12:31 PM PATIENT SAFETY COORDINATOR Plan of Treatment Upcoming Encounters Date Type Department Care Team (Late st Contact Info) Description 06/14/2025 8:00 AM CDT Office Visit [facility] - GI [address] [facility] [place] [address] Tennille Lopes, [employer] TRUCK DRIVER-LIFE TEACHER [address] [place] [address] [address] [place] [address] Health Maintenance Due Date Last Done Comments [...] Management General On track( 024 12:39 PM PATIENT SAFETY COORDINATOR) Beatriz Fernández, RN Note: Expected end date: Ongoing Interventions: Take all medications as prescribed Let your doctor know right away about any changes in your medications Make sure to request a refill of your medication at least one week prior to your last dose Safety General On track( 024 1:06 PM PATIENT SAFETY COORDINATOR) No Merry Remy, RN Note: Expected end date: ongoing Interventions: Your nurse will assess your risk for falls/injury each visit Procedures Procedure Name Priority Date/Time Associated Diagnosis Comments US ABDOMEN LIMITED Routine 04/29/2025 10 :53 AM CDT 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 I, Hali Tobin MD have personally reviewed and interpreted this examination/study. 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 I, Hali Tobin MD have personally reviewed and interpreted this examination/study. > Interpreting Provider: Hali Tobin MD on 51:24 PM us Tennillemarcelle Lopes [employer] TR[employer]IVER-LIFE TEACHER US ORDERABLES Fin al Result * (ABNORMAL) BASIC METABOLIC PANEL (CALCIUM TOTAL) (11/06/2024 10:03 AM PATIENT SAFETY COORDINATOR) Glucose 150(H) 65 - 99 mg/dL [facility] [...] 10.4 mg/dL [facility] Comment: Test Performed at: [facility] [address] [place] [address] ZANE RIBEIRO MD Blood BLOOD SPECIMEN / Unknown 11/06/2024 10:03 AM PATIENT SAFETY COORDINATOR 11/06/2024 10:03 AM PATIENT SAFETY COORDINATOR Tennille Lopes [employer] TRUCK DRIVER-LIFE TEACHER LAB - CHEMISTRY ORD ERABLES Final Result Performing Organization Address City/[facility]/ZIP Co de Phone Number [place] [address] [place] [address] * (ABNORMAL) HEMOGLOBIN A1C (EXTERNAL RESULT ENTRY) (09/10/2023 11:58 AM CDT) Hemoglobin A1c (EXTERNAL RESULT) 6.9(A) % [facility] Blood BLOOD SPECIMEN / Unknown 09/10/2023 11:58 AM CDT Historical Provider MD LAB - CHEMISTRY ORDERABLE S Final Result Performing Organization Address [facility] Co de Phone Number [place] [address] [place] [address] * BONE DENSITY AXIAL SKELETON(1OR MORE SITES)[id number] (12/11/2020 10:12 AM PATIENT SAFETY COORDINATOR) Anatomical Region Laterality Modality Other 12/11/2020 1:36 PM PATIENT SAFETY COORDINATOR Narrative 12/11/2020 2:35 PM PATIENT SAFETY COORDINATOR EXAMINATION: Dual energy x-ray absorptiometry of the lumbar spine and hip. 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 Patient's height 64 in; weight 240 lb. FINDINGS: Detailed data from the exam is sent separately to the ordering physician and is also available on [employer], the Radiology Department's computerized picture archive system. [...] ordering physician and is also available on [employer], the Radiology Department's computerized picture archive system. [...] misti Non-reac tive 06/30/2018 3:41 PM CDT [facility] Comment: Hepatitis C Antibody screen [...] 12:37 PM CDT 06/30/2018 1:58 PM CDT [facility] Lenin Alejandro Granado MD LAB - CHEMISTR Y ORDERABLES Final Result [facility] [address] [place] [address], [facility] [phone] from Last 3 Months or Most Recently Relevant to [place] [address] [employer] [place] [address] Care Teams Roofing Contractor Relationship Specialty Start Date End Date Jacob Harvey MD [address] [facility] [address] [place] [address] PCP - General 06/30/18
--- OUTSIDE RECORDS SUMMARY | 2025-05-22 17:52 | XMS_ITS ---
Author Organization [facility] Address [address] [place] [address] Care Team Providers Care Web Design Instructor Name Role Phone Karen Hernández Primary Care Provider REASON FOR VISIT diabetes Encounters Encounter Location Date Provider Diagnosis [facility] - Karen Hernández [address] [place] [address] 09/03/2024 Karen Hernández Plan Of Treatment No Information Progress Notes * Brooklyn GUERREROAntioneOB: (64 yo F)Acc No.[id number]:09/03/2024 Progress Notes Patient: Teri RAMIREZ Provider: Twan Hernández MD :1960 A ge:64 Y S ex:Female Date:09/03/2024 Address:[address] [place], [place] [id number] Subjective: * Chief Complaints: * 1 . [...] of Escobar Hernández MD on 05/22/2025 at 05:51 PM CDT Sign off status: Pending * Provider: Twan Hernández MD Date: 1 Generated for Concha love/Nancy/eTransmitting on: 0 05/22/2025 05:51 PM CDT History and Physical Notes * [...]
--- OUTSIDE RECORDS SUMMARY | 2025-05-22 17:52 | XMS_ITS | Encounter Summary ---
Author Organization [facility] [employer] [place] [facility] Address [address] [place] [address] Care Team Providers Care Core Stripper Name Role Phone Jacob Harvey MD Primary Care Provider Reason for Visit * Reason Comments Follow Up Encounter Details Date Type Department Care Team (Late st Contact Info) Description 05/21/2025 10:00 AM CDT Office Visit [facility] Oncology and Hematology - [place] [address] [facility] [address] [place] [address] Eric Bhatt MD [address] [facility] [address] [place] [address] Other secondary thrombocytopenia (Primary Dx) Social History Tobacco Use Types Packs/Day Years [...] on file Sexual Orientation Not on file documented as of this encounter Last Filed Vital Signs Vital Sign Reading Time Taken Comments Blood Pressure 113/69 05/21/2025 9:47 AM CDT Pulse 77 05/21/2025 9:47 AM CDT Temperature 36.4 C (97.6 F) 05/21/2025 9:47 AM CDT Respiratory Rate 16 05/21/2025 9:47 AM CDT Oxygen Saturation 96% 05/21/2025 9:47 AM CDT Inhaled Oxygen Concentration - - Weight 94.4 kg (208 lb 3.2 oz) 05/21/2025 9:47 A M CDT Height - - Body Mass Index 36.88 03/02/2022 11:36 AM CDT documented in this encounter Progress Notes * Eric Bhatt MD - 05/21/2025 12:34 PM CDT HEMATOLOGY / ONCOLOGY PROGRESS NOTE Patient Identification: Name: Teri Russ Age: 64 y.o. Sex: female : 1960 DIAGNOSIS Thrombocytopenia CURRENT TREATMENT Expectant TREATMENT HISTORY SUBJECTIVE Patient came to the office for follow-up visit. She denies any bleeding and bruising. Denies any chest pain and shortness of breath. No other new complaints. Review of system Constitutional: Patient did not mention fevers, sweats, denies any tiredness and fatigue, weight and appetite stable HEENT: Patient did not mention sinus congestion, hearing or vision problems Respiratory: Patient did not mention cough, dyspnea, wheeze Cardiovascular: Patient did not mention chest pain, exertional chest pressure/discomfort, nausea, syncope, shortness of breath GI: Patient did not mention constipation, diarrhea, dsyphagia, reflux symptoms, vomiting, melena, denies any abdominal discomfort : Patient did not mention dysuria, frequency, incontinence, urgency Integumentary system: no lymphadenopathy, sweats, flushing Musculoskeletal: Patient not mention: myalgia, arthralgia Neurological: Patient did not mention blurry or disturbed vision, numbness/weakness, dizziness Skin: No lumps, bumps or rashes. 12 point review of system was reviewed Objective: Vital signs in last 24 hours: As per nursing note Exam: General appearance: alert, cooperative, no distress, appears stated age Head: normocephalic, without obvious abnormality, atraumatic Eyes: conjunctivae/corneas clear, EOM's intact Ears: normal external ear canals AU Nose: Nares normal. Septum midline. Mucosa normal. No drainage or sinus tenderness Throat: Lips, mucosa, and tongue normal. Teeth and gums normal Neck: supple, symmetrical, trachea midline. Lungs: clear to auscultation bilaterally Heart: regular rate and rhythm, S1, S2 normal, no murmur, click, rub or gallop Abdomen: soft, non-tender. Bowel sounds normal. No masses, No organomegaly Extremities: extremities normal, atraumatic, no cyanosis or edema Skin: Skin color, texture, turgor normal. No rashes or lesions Lymph nodes: No lymphadenopathy Neuro: No obvious focal deficit Exam as above PATH LABS Labs from February 18 showed ferritin 81 B12 more than 2000 AST/ALT 90 hemoglobin 14.4 platelet 105,000 iron 61 iron saturation 16% Labs from August 23 showed WBC 8.4 hemoglobin 16.2 platelet 110,000 neutrophils 78% Labs from February 18 showed creatinine 0.7 total bilirubin 0.7 WBC 6.1 hemoglobin 14.2 platelet 80,000 neutrophils 63% vitamin B12 more than 1000 Labs from May 20 showed WBC 4.2 hemoglobin 14.1 platelets 71,000 Labs from November 17 showed creatinine 0.8 B12 more than 1000 hemoglobin 14.3 platelet 87,000 WBC 5.1 Labs from April 26 showed WBC 4.9 hemoglobin 12.9 platelet 86,000 Labs from November 19 showed creatinine 1.4 B12 more than 1000 WBC 8.2 hemoglobin 13.6 platelet 117,000 Labs from May 20 showed WBC 4.0 hemoglobin 12.9 platelets 61,000 vitamin B12 more than 1000 Assessment: Plan: Patient Active Problem List Diagnosis Date Noted 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 Patient has a history of Rodríguez and now recent ultrasound showed liver cirrhosis. MRI abdomen from May 2020 showed hepatosplenomegaly with spleen size of 14.5 cm. Abdominal ultrasound done on February 11 showed hepatic cirrhosis with sequelae of portal hypertension including splenomegaly. Labs noted. Platelet count down to 61,000 but she remains asymptomatic. Patient is going to have right toe surgery due to infection next week. I will repeat labs in 1 week prior to the surgery and may need to give platelet transfusion based on the lab results. Liver cirrhosis. This has been managed by the motor racer at [facility]. Patient gets paracentesis as needed basis. Vitamin B12 deficiency. B12 level came back elevated at more than 1000. I will discontinue vitamin B12 supplement. Follow-up in 6 months. 05/21/2025 Eric Bhatt MD documented in this encounter Plan of Treatment Upcoming Encounters Date Type Department Care Team (Late st Contact Info) Description 11/26/2025 11:45 AM HOSPITALIST MEDICAL DIRECTOR Office Visit [facility] Oncology and Hematology - [place] [address] [facility] [address] [place] [address] Eric Bhatt MD [address] [facility] [address] [place] [address] Scheduled Orders Name Type Priority Associated Diagnoses Orde r Schedule CBC WITH DIFFERENTIAL Lab Stat Other secondary thrombocytopenia Expected: 11/21/2025, Expires: 05/21/2026 BASIC METABOLIC PANEL Lab Stat Other secondary thrombocytopenia Expected: 11/21/2025, Expires: 05/21/2026 VITAMIN B12 AND FOLATE Lab Routine Other secondary thrombocytopenia Expected: 11/21/2025, Expires: 05/21/2026 CBC WITHOUT DIFFERENTIAL Lab Stat Other secondary thrombocytopenia Expected: 05/28/2025, Expires: 05/21/2026 documented as of this encounter Visit Diagnoses Diagnosis Other secondary thrombocytopenia- Primary documented in this encounter Care Teams Core Stripper Relationship Specialty Start Date End Date Jacob Harvey MD PCP - General Internal Medicine 11/22/23 documented as of this encounter
--- OUTSIDE RECORDS SUMMARY | 2025-05-22 17:52 | XMS_ITS | Clinical Summary ---
Author Organization [facility]on [facility] [facility] Address [address] [place] [address] [place] [address] Care Team Providers Care Accounts Receivable Representative Name Role Phone Jacob Harvey MD Primary [...] (CRESTOR) 40 mg tablet 0 Active Vitamin A13-Mxmuf Acid 0.5-1 mg Tablet Vitamin B-12 TK [...] mg by mouth 2 times daily. 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 Encounters Date Type Department Care Team Description 05/21/2025 10:00 AM CDT Office Visit [facility] Oncology and Hematology - [place] [address] [address] [address] [address] Eric Bhatt MD Other secondary thrombocytopenia (Primary Dx) 04/30/2025 External Device Data STL ABSTRACTION Provider, [...] oz) 05/21/2025 9:47 A M CDT Height 160 cm (5' 3) 03/02/2022 11:36 AM CDT Body Mass Index 36.88 03/02/2022 11:36 AM CDT Plan of Treatment Upcoming Encounters Date Type Department Care Team (Late st Contact Info) Description 11/26/2025 11:45 AM MANAGER TELECOM Office Visit [facility] Oncology and Hematology - [place] [address] [facility] [address] [place] [address] Eric Bhatt MD [address] [facility] [employer] [address] [place] [address] Health Maintenance Due Date Last [...] - Risk 60-74 years 1-dose series) 2018 BREAST CANCER SCREENING 01/13/2020 01/13/20 19, 01/12/2019, 01/02/2018, Additional history exists DIABETES HBA1C Q 6 MONTHS 03/10/2024 09/10/2023 PNEUMOCOCCAL VACCINE 50+ YEA RS (3 of 3 - PCV20 or PCV21) 09/10/2024 09/10/2019, 09/01/2018 COVID-19 Vaccine (5 - 2023-2 5 season) 2025 08/25/2024, 09/03/2023, 10/24/2021, Additional history exists INFLUENZA VACCINE (#1) 2025 , 09/03/2023, 07/28/2022, Additional history exists OSTEOPOROSIS SCREENING 12/11/2025 1, 12/11/2020, 05/29/2020, Additional history exists DTAP/TDAP/TD VACCINES (2 - T d or Tdap) 05/17/2027 05/17/2017 ZOSTER VACCINE Completed 12/24/2018, 10/16/2018 Insurance Care Teams Accounts Receivable Representative Relationship Specialty Start Date End Date Jacob Harvey MD PCP - General Internal Medicine 11/22/23
[2025-05-22 18:15] VITALS: BP 142/81; PULSE 90; RESP 16; TEMP 36.9; O2SAT 98
--- NOTE | 2025-05-22 19:41 | PC.NURSE ---
Pt has pain patch on left deltoid upon arrival.
--- NOTE | 2025-05-22 19:58 | ED_ITS ---
HPI - Back Pain/Injury General Chief Complaint: Back Pain/Injury Stated Complaint: BACK PAIN RADIATION DOWN L LEG Time Seen by Provider: 05/22/25 19:30 History of Present Illness HPI Narrative: Patient is a 64-year-old female who presents to the ER with left lower back pain that radiates down her left leg. She reports the pain started yesterday. Patient denies any injury to her back, saddle anesthesia, or incontinence. She endorses a history of diabetes, bacteria in my right lower foot that made them remove two of my toes and hyperlipidemia. Patient reports she is scheduled for another toe amputation in approximately 2 weeks. Related Data Home Medications ?Medication ?Instructions ?Recorded ?Confirmed ?Last Taken ?Type allopurinol 100 mg tablet 100 mg PO BID 10/03/24 05/14/25 Unknown History ascorbic acid (vitamin C) 1,000 mg 1,000 mg PO DAILY 10/03/24 05/14/25 Unknown History tablet,extended release atorvastatin 80 mg tablet 80 mg PO DAILY 10/03/24 05/14/25 Unknown History baclofen 10 mg tablet 10 mg PO TID 10/03/24 05/14/25 Unknown History buprenorphine 10 mcg/hour weekly 1 patch transdermal WEEKLY 10/03/24 05/14/25 Unknown History transdermal patch calcium carbonate 600 mg PO DAILY 10/03/24 05/14/25 Unknown History cholecalciferol (vitamin D3) 125 125 mcg PO DAILY 10/03/24 05/14/25 Unknown History mcg (5,000 unit) capsule cinnamon bark 500 mg capsule 500 mg PO DAILY 10/03/24 05/14/25 Unknown History (Cinnamon) diclofenac sodium 75 mg 75 mg PO BID 10/03/24 05/14/25 Unknown History tablet,delayed release famotidine 20 mg tablet 20 mg PO DAILY 10/03/24 05/14/25 Unknown History furosemide 20 mg tablet 20 mg PO QAM 10/03/24 05/14/25 Unknown History gabapentin 600 mg tablet 600 mg PO BID 10/03/24 05/14/25 Unknown History levothyroxine 50 mcg tablet 50 mcg PO DAILY 10/03/24 05/14/25 Unknown History multivitamin 1 tablet PO DAILY 10/03/24 05/14/25 Unknown History ropinirole 0.25 mg tablet 0.25 mg PO BID 10/03/24 05/14/25 Unknown History spironolactone 25 mg tablet 25 mg PO DAILY 11/22/24 05/14/25 Unknown History losartan 100 mg tablet 50 mg PO DAILY 02/18/25 05/14/25 Unknown History mecobalamin (vitamin B12) 5,000 5,000 mcg PO .COMPLEX 02/18/25 05/14/25 Unknown History mcg chewable tablet Allergies Allergy/AdvReac Type Severity Reaction Status Date / Time cephalexin Allergy Mild Vomiting Verified 05/22/25 19:39 dulaglutide (From [facility]) AdvReac Mild Nausea Verified 05/22/25 19:39 metformin AdvReac Mild Migraine Verified 05/22/25 19:39 Review of Systems Review of Systems: All systems reviewed & are unremarkable except as noted in HPI and below PMFSH Past Medical History Medical History Acid reflux Arthritis Family History Family History Other Asthma Diabetes mellitus Family history of arthritis Family history of cardiovascular disease Family history of liver disease Family history of obesity Hypertension Social History Social History Smoking status: Never smoker Alcohol intake: current Substance use: never Do You Feel Safe in your Home?: Yes Lack of Transportation: No Lack of Food: Never True Current Housing: I Have Housing Concerned About Future Housing: No Difficulty Paying Gas/Electric Bills: No Difficulty Paying for Meds: No Currently Unemployed: No Education: High School Diploma/GED Difficulty w/ Childcare or Family Care: No Exam Narrative: GENERAL: Well appearing, well-nourished, non-toxic, in no acute distress. HEAD: Normocephalic, atraumatic. NECK: Supple. No adenopathy, no masses. RESPIRATORY: Airway patent, respirations nonlabored. Clear to auscultation bilaterally, no rales, rhonchi, wheezing. CARDIOVASCULAR: Regular rate and rhythm without murmurs, rubs, or gallops. R lower extremity more edematous than L lower extremity (known) ABDOMINAL: Soft, nontender, nondistended, no hepatosplenomegaly. Normoactive BS. MUSCULOSKELETAL: Moves all extremities. Strength/ROM intact without gross deformities. + straight leg test L lower extremity SKIN: Warm, dry, normal color. No rashes. NEURO: A&O X3. Speech clear. Cranial nerves II-XII intact. No ataxic movements. PSYCHIATRIC: Appropriate mood and affect. Normal interaction. Course Vital Signs Vital signs: Vital Signs Temperature 36.9 C 05/22/25 18:15 Pulse Rate 90 05/22/25 18:15 Respiratory Rate 16 05/22/25 18:15 Blood Pressure 142/81 H 05/22/25 18:15 Pulse Oximetry 98 05/22/25 18:15 Oxygen Delivery Room Air 05/22/25 18:15 Temperature 36.9 C 05/22/25 18:15 Pulse Rate 90 05/22/25 18:15 Respiratory Rate 16 05/22/25 18:15 Blood Pressure 142/81 H 05/22/25 18:15 Pulse Oximetry 98 05/22/25 18:15 Oxygen Delivery Room Air 05/22/25 18:15 MDM - Back Pain/Injury MDM Narrative Medical decision making narrative: Patient is a 64-year-old female who presents to the ER with left lower back pain that radiates down her left leg. She reports the pain started yesterday. Patient denies any injury to her back, saddle anesthesia, or incontinence. She endorses a history of diabetes, bacteria in my right lower foot that made them remove two of my toes and hyperlipidemia. Patient reports she is scheduled for another toe amputation in approximately 2 weeks. Labs Ordered: None necessary Imaging Ordered: CT lumbar scan Medications Ordered: Toradol 60 mg IM, prednisone 40 mg p.o. Results: Patient's lumbar CT scan indicates Stable grade 1 anterolisthesis at L3-4. Severe central canal narrowing and right neural foraminal narrowing at L4- 5, both secondary to degenerative changes. Cirrhosis with portal hypertension. Cholelithiasis, without definite evidence of cholecystitis. Diagnosis: Lumbar radiculopathy, sciatica Consults: neurosurgery (outpatient) Patient Education/Shared MDM: Results of imaging shared with patient. She endorses mild improvement of symptoms following medication administration. Patient strongly advised to follow-up with neurosurgery as soon as possible. She reports she is supposed to have a phone call with her pain management doctor tomorrow. Patient will be discharged home with a prescription for Valium. Strict return precautions provided. Patient verbalized understanding and is in agreement with plan. Vital signs stable at time of discharge. All questions answered. Differential Diagnosis Differential diagnosis: Likely lumbar radiculopathy, sciatica, strain of lumbar region and discitis Imaging Data Attestation: I personally reviewed and interpreted this imaging study as follows: Radiologist's impression: Impressions Lumbar Spine CT 05/22/25 20:11 IMPRESSION: Stable grade 1 anterolisthesis at L3-4. Severe central canal narrowing and right neural foraminal narrowing at L4-5, both secondary to degenerative changes. Cirrhosis with portal hypertension. Cholelithiasis, without definite evidence of cholecystitis. Discharge Plan Discharge Clinical Impression: Lumbar radiculopathy, Sciatica, Diabetic neuropathy associated with type 2 diabetes mellitus Patient Disposition: Home Condition: Stable Instructions: Antibiotic Form, Sciatica (ED), Back Pain (ED) Additional Instructions: Please return to the ER with any worsening symptoms. Follow-up with Neurosurgery and Pain Management as soon as possible. Take all medications as prescribed, including regularly scheduled medications. Patient Language: Wolof Prescriptions: New diazepam [Valium] 5 mg tablet 5 mg PO BID PRN (Reason: muscle spasm) Qty: 10 0RF No Action famotidine 20 mg tablet 20 mg PO DAILY furosemide 20 mg tablet 20 mg PO QAM Rx Instructions: take 1 1/2 pill daily ropinirole 0.25 mg tablet 0.25 mg PO BID diclofenac sodium 75 mg tablet,delayed release (DR/EC) 75 mg PO BID allopurinol 100 mg tablet 100 mg PO BID atorvastatin 80 mg tablet 80 mg PO DAILY levothyroxine 50 mcg tablet 50 mcg PO DAILY gabapentin 600 mg tablet 600 mg PO BID Rx Instructions: take 2 pills 3 times a day baclofen 10 mg tablet 10 mg PO TID buprenorphine 10 mcg/hour patch weekly 1 patch transdermal WEEKLY multivitamin Tablet 1 tablet PO DAILY calcium carbonate 600 mg calcium (1,500 mg) tablet 600 mg PO DAILY cinnamon bark [Cinnamon] 500 mg capsule 500 mg PO DAILY cholecalciferol (vitamin D3) 125 mcg (5,000 unit) capsule 125 mcg PO DAILY ascorbic acid (vitamin C) 1,000 mg tablet extended release 1,000 mg PO DAILY Gvoke HypoPen 2-Pack 1 mg/0.2 mL auto-injector 1 mg subcut ONCE Qty: 0.4 4RF Rx Instructions: may repeat once after 15 minutes if no response glimepiride 2 mg tablet 4 mg PO BIDWMEAL Qty: 360 1RF spironolactone 25 mg tablet 25 mg PO DAILY Rx Instructions: take 2 tablets daiy losartan 100 mg tablet 50 mg PO DAILY mecobalamin (vitamin B12) 5,000 mcg tablet,chewable 5,000 mcg PO .COMPLEX Rx Instructions: 5,000 mcg orally X 3 a week; insulin degludec [Tresiba FlexTouch U-100] 100 unit/mL (3 mL) insulin pen 20 unit subcut DAILY Qty: 30 1RF Jardiance 25 mg tablet 25 mg PO DAILY Qty: 90 1RF Ozempic 2 mg/dose (8 mg/3 mL) pen injector 2 mg subcut WEEKLY 90 Days Qty: 9 3RF Follow-up/Referrals: Candice,MD Jacob [Primary Care Provider] - Time of Disposition: 21:55
--- OUTSIDE RECORDS SUMMARY | 2025-05-22 20:12 | XMS_ITS | Encounter Summary ---
Author Organization [facility] [employer] [place] [facility] Address [address] [place] [address] Care Team Providers Care Nurse Staff Name Role Phone Jacob Harvey MD Primary Care Provider Reason for Visit * Reason Comments Follow Up Encounter Details Date Type Department Care Team (Late st Contact Info) Description 05/21/2025 10:00 AM CDT Office Visit [facility] Oncology and Hematology - [place] [address] [facility] [address] [place] [address] Eric Bhatt MD [address] [facility] [address] [place] [address] Other secondary thrombocytopenia (Primary Dx) [...] cirrhosis. This has been managed by the field account manager at [facility]. Patient gets paracentesis as needed basis. Vitamin B12 deficiency. B12 level came back elevated at more than 1000. I will discontinue vitamin B12 supplement. Follow-up in 6 months. 05/21/2025 Eric Bhatt MD documented in this encounter Plan of Treatment Upcoming Encounters Date Type Department Care Team (Late st Contact Info) Description 11/26/2025 11:45 AM CABLE DISPATCHER Office Visit [facility] Oncology and Hematology - [place] [address] [facility] [address] [place] [address] Eric Bhatt MD [address] [facility] [address] [place] [address] Scheduled Orders Name Type Priority [...] Primary documented in this encounter Care Teams Nurse Staff Relationship Specialty Start Date End Date Jacob Harvey MD PCP - General Internal Medicine 11/22/23 documented as of this encounter
--- OUTSIDE RECORDS SUMMARY | 2025-05-22 20:12 | XMS_ITS | Encounter Summary ---
Author Organization [facility] Address [address] [place] [address] Care Team Providers Care Seating Upholsterer Name Role Phone Jacob Harvey MD Primary Care Provider Reason for Visit * Reason Comments Cirrhosis Encounter Details Date Type Department Care Team (Late Contact Info) Description 04/05/2024 Telephone [facility] - [address] [address] Debi Luque RN Cirrhosis Social History Tobacco Use Types Packs/Day Years Used Date Smoking Tobacco: Former Cigarettes Smokeless Tobacco: Never Comments:Quit 1 1/2 years Alcohol Use Standard Drinks/Week Comments No 0 (1 standard drink = 0.6 oz pur e alcohol) Socially Comments No Sex and Gender Information Value Date Recorded Sex Assigned at Not on file Legal Sex Female 8:11 AM RECONSTRUCTIVE DENTIST Gender Identity Not on file Sexual Orientation Not on file 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 Author Medication Management General On track( 024 12:39 PM RECONSTRUCTIVE DENTIST) Beatriz Fernández, RN Note: Expected end date: Ongoing Interventions: Take all medications as prescribed Let your doctor know right away about any changes in your medications Make sure to request a refill of your medication at least one week prior to your last dose documented as of this encounter Visit Diagnoses Not on filedocumented in this encounter Care Teams Seating Upholsterer Relationship Specialty Start Date End Date Jacob Harvey MD [address] [phone] PCP - General 06/30/18 documented as of this encounter
--- OUTSIDE RECORDS SUMMARY | 2025-05-22 20:12 | XMS_ITS | Encounter Summary ---
Author Organization [facility] Address [address] [place] [address] Care Team Providers Care Can Handler Name Role Phone Jacob Harvey MD Primary Care Provider Encounter Details Date Type Department Care Team (Late Contact Info) Description 05/01/2025 Results Follow-Up [facility] - [place] [address] [place] [phone] Tennille Lopes, TRAFFIC INSPECTOR-PRESS MANAGER [address] OF GASTRO[place]OLOGY [place], [place] [id number] Social History Tobacco Use Types Packs/Day Years Used Date Smoking Tobacco: Former Cigarettes Smokeless Tobacco: Never Comments:Quit 1 1/2 years Alcohol Use Standard Drinks/Week Comments No 0 (1 standard drink = 0.6 oz pur e alcohol) Socially Comments No Sex and Gender Information Value Date Recorded Sex Assigned at Not on file Legal Sex Female 8:11 AM CLINICAL LABORATORY TECHNICIAN Gender Identity Not on file Sexual Orientation Not on file 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 Author Medication Management General On track( 024 12:39 PM CLINICAL LABORATORY TECHNICIAN) No Beatriz Mccall, RN Note: Expected end date: Ongoing Interventions: Take all medications as prescribed Let your doctor know right away about any changes in your medications Make sure to request a refill of your medication at least one week prior to your last dose Safety General On track( 024 1:06 PM CLINICAL LABORATORY TECHNICIAN) No Merry Remy, DEA Note: Expected end date: ongoing Interventions: Your nurse will assess your risk for falls/injury each visit documented as of this encounter Visit Diagnoses Not on filedocumented in this encounter Care Teams Can Handler Relationship Specialty Start Date End Date Jacob Harvey MD [address] [phone] PCP - General 06/30/18 documented as of this encounter
--- OUTSIDE RECORDS SUMMARY | 2025-05-22 20:12 | XMS_ITS | Referral Summary ---
Author Organization [facility] 8 [facility] Address [address] [facility] [address] [place] [address] Phone Care Team Providers Care Special Delivery Carrier Name Role Phone Johnson Harvey MD Primary Care Provide r Encounters Date Type Department Care Team Description 04/29/2025 2:00 PM CDT Orders Only [facility] [address] [place] [address] Other injury of unspecified body region, initial [...] on file Legal Sex Female 9:42 PM ENTRY LEVEL ELECTRICAL ENGINEER Gender Identity Not on file Sexual Orientation Not on file Last Filed Vital Signs Vital Sign Reading Time Taken Comments Blood Pressure 144/80 10/06/2022 6:35 PM ENTRY LEVEL ELECTRICAL ENGINEER Pulse 72 10/06/2022 6:35 PM ENTRY LEVEL ELECTRICAL ENGINEER Temperature 36.9 C (98.4 F) 10/06/2022 6:35 PM ENTRY LEVEL ELECTRICAL ENGINEER Respiratory Rate 16 10/06/2022 6:35 PM ENTRY LEVEL ELECTRICAL ENGINEER Oxygen Saturation 98% 10/06/2022 6:35 PM ENTRY LEVEL ELECTRICAL ENGINEER Inhaled Oxygen Concentration - - Weight 103.4 kg (228 lb) 10/06/2022 6:35 PM ENTRY LEVEL ELECTRICAL ENGINEER Height 162.6 cm (5' 4) 10/06/2022 6:35 PM ENTRY LEVEL ELECTRICAL ENGINEER Body Mass Index 39.14 10/06/2022 6:35 PM ENTRY LEVEL ELECTRICAL ENGINEER Plan of Treatment Not on file Procedures Procedure Name Priority Date/Time Associated Diagnosis Comments SCREENING MAMMOGRAM BILATERAL W JOSH Schedule Routine, Read Routine (OP Routine) 01/12/2019 11:47 AM ENTRY LEVEL ELECTRICAL ENGINEER Encounter for screening mammogram for malignant neoplasm of breast from Last 3 Months or Most Recently Relevant to Health Maintenance Results * Screening Mammogram Bilateral W Josh (01/12/2019 11:47 AM ENTRY LEVEL ELECTRICAL ENGINEER) Anatomical Region Laterality Modality Breast Bilateral Mammography Narrative 01/15/2019 10:26 AM CDT Mammogram Technique: Bilateral Digital Breast Tomosynthesis, Bilateral C-view 2D Screening mammogram. Views obtained: bilateral craniocaudal and bilateral mediolateral oblique. Computer Aided Detection was performed. Mammogram Findings: The present examination has been compared to a prior imaging study performed at [facility] on 01/02/2018. There are [...] to a prior imaging study performed at [facility] on 01/02/2018. There are scattered areas of fibroglandular density. There is no suspicious abnormality in either breast. Impression: Annual screening mammography is recommended. OVERALL FINAL ASSESSMENT: BI-RADS CATEGORY 1: Negative. Johnson Harvey MD IMG MAMMO PROCEDURES Final Result from Last 3 Months or Most Recently Relevant to Health Maintenance Insurance [facility] [place] [address] [facility] MEDICARE ADVANTAGE Care Teams Special Delivery Carrier Relationship Specialty Start Date End Date Johnson Harvey MD 4 [facility] [address] [place] [address] PCP - General 01/21/18
--- OUTSIDE RECORDS SUMMARY | 2025-05-22 20:12 | XMS_ITS | Clinical Summary ---
Author Organization [facility] [place] [facility] Address 8 [facility] [address] [place] [address] Phone Care Team Providers Care Director College Name Role Phone Johnson Harvey MD Primary [...] Description 04/29/2025 2:00 PM CDT Orders Only [facility] [address] [place] [address] Other injury of unspecified body region, initial [...] on file Legal Sex Female 9:42 PM DISTRIBUTION SYSTEM OPERATOR Gender Identity Not on file Sexual Orientation Not on file Obstetrics History Last Filed Vital Signs Vital Sign Reading Time Taken Comments Blood Pressure 144/80 10/06/2022 6:35 PM DISTRIBUTION SYSTEM OPERATOR Pulse 72 10/06/2022 6:35 PM DISTRIBUTION SYSTEM OPERATOR Temperature 36.9 C (98.4 F) 10/06/2022 6:35 PM DISTRIBUTION SYSTEM OPERATOR Respiratory Rate 16 10/06/2022 6:35 PM DISTRIBUTION SYSTEM OPERATOR Oxygen Saturation 98% 10/06/2022 6:35 PM DISTRIBUTION SYSTEM OPERATOR Inhaled Oxygen Concentration - - Weight 103.4 kg (228 lb) 10/06/2022 6:35 PM DISTRIBUTION SYSTEM OPERATOR Height 162.6 cm (5' 4) 10/06/2022 6:35 PM DISTRIBUTION SYSTEM OPERATOR Body Mass Index 39.14 10/06/2022 6:35 PM DISTRIBUTION SYSTEM OPERATOR Plan of Treatment Health Maintenance Due [...] Read Routine (OP Routine) 01/12/2019 11:47 AM DISTRIBUTION SYSTEM OPERATOR Encounter for screening mammogram for malignant neoplasm of breast from Last 3 Months or Most Recently Relevant to Health Maintenance Results * Screening Mammogram Bilateral W Josh (01/12/2019 11:47 AM DISTRIBUTION SYSTEM OPERATOR) Anatomical Region Laterality Modality Breast Bilateral Mammography Narrative 01/15/2019 10:26 AM CDT Mammogram Technique: Bilateral Digital Breast Tomosynthesis, Bilateral C-view 2D Screening mammogram. Views obtained: bilateral craniocaudal and bilateral mediolateral oblique. Computer Aided Detection was performed. Mammogram Findings: The present examination has been compared to a prior imaging study performed at [facility] on 01/02/2018. There are scattered [...] a prior imaging study performed at [facility] on 01/02/2018. There are scattered areas of fibroglandular density. There is no suspicious abnormality in either breast. Impression: Annual screening mammography is recommended. OVERALL FINAL ASSESSMENT: BI-RADS CATEGORY 1: Negative. Johnson Harvey MD IMG MAMMO PROCEDURES Final Result from Last 3 Months or Most Recently Relevant to Health Maintenance Insurance [employer] Care Teams Director College Relationship Specialty Start Date End Date Johnson Harvey MD [address] [address] PCP - General 01/21/18
--- OUTSIDE RECORDS SUMMARY | 2025-05-22 20:12 | XMS_ITS | Clinical Summary ---
Author Organization [facility] Address [address] [place] [address] Care Team Providers Care Manager English Name Role Phone Unavailable Primary Care Provider [...] patient's age to complete this topic Insurance [facility]
--- OUTSIDE RECORDS SUMMARY | 2025-05-22 20:12 | XMS_ITS | Clinical Summary ---
Author Organization [facility] Address [address] [place] [address] [place] [address] Care Team Providers Care Order Control Clerk Blood Bank Name Role Phone Jacob Harvey MD Primary [...] (CRESTOR) 40 mg tablet 0 Active Vitamin R10-Rgouh Acid 0.5-1 mg Tablet Vitamin B-12 TK [...] Description 05/21/2025 10:00 AM CDT Office Visit [facility] - [place] [address] [address] [address] Eric Bhatt MD Other secondary [...] st Contact Info) Description 11/26/2025 11:45 AM WELDER APPRENTICE COMBINATION Office Visit [facility] - [place] [address] [facility] [address] [place] [address] Eric Bhatt MD [address] [facility] [employer] [address] [place] [address] Health Maintenance Due Date Last [...] VACCINE Completed 12/24/2018, 10/16/2018 Insurance Care Teams Order Control Clerk Blood Bank Relationship Specialty Start Date End Date Jacob Harvey MD PCP - General Internal Medicine 11/22/23
--- OUTSIDE RECORDS SUMMARY | 2025-05-22 20:12 | XMS_ITS | Clinical Summary ---
Author Organization [facility] Address [address] [facility] [address] [address] Care Team Providers Care Hunting Guide Name Role Phone Jacob Harvey MD Primary Care Provider Source Comments [facility],non-owned Affiliates and Associated Physician Practices is amultiple site organization consisting of ambulatory clinics and hospital sitesin [place], [place], [place] and [place]. This disclosure is being madepursuant to the Care Everywhere program and may not contain all information available regarding this patient. 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 [...] Follow-Up [facility] - GI [address] [facility] [place] [address] Tennille Lopes APRN-CNP 04/29/2025 10:22 AM CDT - 04/29/2025 11:59 PM CDT Hospital Encounter [facility] [address] [place] [address] Tennille Lopes APRN-CNP Discharge Disposition: Home or [...] on file Legal Sex Female 8:11 AM LICENSE EXAMINER Gender Identity Not on file Sexual Orientation Not on file 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 [employer] Not on file Not on file Not on file Last Filed Vital Signs Vital Sign Reading Time Taken Comments Blood Pressure 122/70 10/25/2024 12:31 PM LICENSE EXAMINER Pulse 73 10/25/2024 12:31 PM LICENSE EXAMINER Temperature 36.6 C (97.8 F) 10/25/2024 12:31 PM LICENSE EXAMINER Respiratory Rate 18 04/19/2024 9:30 PM CDT Oxygen Saturation 98% 10/25/2024 12:31 PM LICENSE EXAMINER Inhaled Oxygen Concentration - - Weight 93 kg (205 lb) 10/25/2024 12:31 PM LICENSE EXAMINER Height 157.5 cm (5' 2) 10/25/2024 12:31 PM LICENSE EXAMINER Body Mass Index 37.49 10/25/2024 12:31 PM LICENSE EXAMINER Plan of Treatment Upcoming Encounters Date Type Department Care Team (Late st Contact Info) Description 06/14/2025 8:00 AM CDT Office Visit [facility] - GI [address] [facility] [place] [address] Tennille Lopes, LABORER CARPENTRY DOCK-FUNDRAISING CONSULTANT [address] [place] [address] [address] [place] [address] Health Maintenance Due Date Last Done Comments [...] Management General On track( 024 12:39 PM LICENSE EXAMINER) Beatriz Fernández, RN Note: Expected end date: Ongoing Interventions: Take all medications as prescribed Let your doctor know right away about any changes in your medications Make sure to request a refill of your medication at least one week prior to your last dose Safety General On track( 024 1:06 PM LICENSE EXAMINER) No Merry Remy, RN Note: Expected end date: ongoing Interventions: Your nurse will assess your risk for falls/injury each visit Procedures Procedure Name Priority Date/Time Associated Diagnosis Comments US ABDOMEN LIMITED Routine 04/29/2025 10 :53 AM CDT 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 I, Hali Tobin MD have personally reviewed and interpreted this examination/study. 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 I, Hali Tobin MD have personally reviewed and interpreted this examination/study. > Interpreting Provider: Hali Tobin MD on 51:24 PM us Tennillemarcelle Lopes LABORER CARPENTRY DOCK-FUNDRAISING CONSULTANT US ORDERABLES Fin al Result * (ABNORMAL) BASIC METABOLIC PANEL (CALCIUM TOTAL) (11/06/2024 10:03 AM LICENSE EXAMINER) Glucose 150(H) 65 - 99 mg/dL [facility] [...] 10.4 mg/dL [facility] Comment: Test Performed at: [facility] [address] [place] [address] ZANE RIBEIRO MD Blood BLOOD SPECIMEN / Unknown 11/06/2024 10:03 AM LICENSE EXAMINER 11/06/2024 10:03 AM LICENSE EXAMINER Tennille Lopes LABORER CARPENTRY DOCK-FUNDRAISING CONSULTANT LAB - CHEMISTRY ORD ERABLES Final Result Performing Organization Address City/[facility]/ZIP Co de Phone Number [facility] [address] [place] [address] * (ABNORMAL) HEMOGLOBIN A1C (EXTERNAL RESULT ENTRY) (09/10/2023 11:58 AM CDT) Hemoglobin A1c (EXTERNAL RESULT) 6.9(A) % [facility] Blood BLOOD SPECIMEN / Unknown 09/10/2023 11:58 AM CDT Historical Provider MD LAB - CHEMISTRY ORDERABLE S Final Result Performing Organization Address [facility] Co de Phone Number [place] [address] [place] [address] * BONE DENSITY AXIAL SKELETON(1OR MORE SITES)[id number] (12/11/2020 10:12 AM LICENSE EXAMINER) Anatomical Region Laterality Modality Other 12/11/2020 1:36 PM LICENSE EXAMINER Narrative 12/11/2020 2:35 PM LICENSE EXAMINER EXAMINATION: Dual energy x-ray absorptiometry of the lumbar spine and hip. 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 Patient's height 64 in; weight 240 lb. FINDINGS: Detailed data from the exam is sent separately to the ordering physician and is also available on [employer], the Radiology Department's computerized picture archive system. [...] ordering physician and is also available on [employer], the Radiology Department's computerized picture archive system. [...] misti Non-reac tive 06/30/2018 3:41 PM CDT [facility] Comment: Hepatitis C Antibody screen [...] 12:37 PM CDT 06/30/2018 1:58 PM CDT [facility] Lenin Alejandro Granado MD LAB - CHEMISTR Y ORDERABLES Final Result [facility] [address] [place] [address], [facility] [phone] from Last 3 Months or Most Recently Relevant to [place] [address] [employer] [place] [address] Care Teams Hunting Guide Relationship Specialty Start Date End Date Jacob Harvey MD [address] [facility] [address] [place] [address] PCP - General 06/30/18
[2025-05-22] MEDS: KETOROLAC 30 MG/ML VIAL (*BKC) IM (20:29)
[2025-05-22] MEDS: diazePAM (*CRX) 5 MG TABLET PO (21:24)
== END 2025-05-22 22:05 | disposition home or self-care (01) ==
PROVIDERS: Emergency Provider Registered Nurse; PCP Internal Medicine
DX: M54.16 Radiculopathy, lumbar region (principal); M54.42 Lumbago with sciatica, left side; E11.40 Type 2 diabetes mellitus with diabetic neuropathy, unspecified; K21.9 Gastro-esophageal reflux disease without esophagitis; M19.90 Unspecified osteoarthritis, unspecified site
CPT/HCPCS: 72131; 96372; 99284; A9270; J1885; J7512

== ENCOUNTER 2025-06-10 07:03 | Outpatient (CLI) | payer MEDICARE, SELFPAY ==
--- NOTE | ~2025-06-10 | MR_ITS ---
MRI of the lumbar spine Clinical History: Radiculopathy Technique: Axial T2-weighted images, and sagittal T1-weighted, T2-weighted, and T2 fat-sat images wer e acquired. COMPARISON: 09/03/2023 Findings: No acute fracture identified. There is minimal grade 1 anterolisthesis of L3 over L4. There is 3 mm retrolisthesis of L2 over L3. No suspicious bone marrow signal abnormality seen. At L1-L2, there is minimal disc bulge with mild facet arthropathy. No central canal stenosis. There i s mild left neural foraminal narrowing. Right neural foramen preserved. At L2-L3, there is mild disc bulge with advanced facet arthropathy. There is mild to moderate central canal stenosis. There is mild left neural foraminal narrowing. Right neural foramen preserved. L3-L4, there is advanced degenerative disc narrowing. There is disc bulge with severe facet arthropat hy. There is mild central canal stenosis. There is moderate right neural foraminal narrowing, and mil d left neural foraminal narrowing. At L4-L5, there is degenerative disc narrowing with disc bulge and severe facet arthropathy. There is moderate to advanced spinal canal stenosis. There is severe right neural foraminal narrowing. Left n eural foramen preserved. At L5-S1, there is no disc bulge or herniation. There is moderate to advanced facet arthropathy. No c entral canal stenosis or neural foraminal narrowing. Paravertebral soft tissues are unremarkable. Impression: Moderate degenerative spondylosis overall, as detailed above. Reviewed, dictated and finalized at [facility]. Impression: Moderate degenerative spondylosis overall, as detailed above.
== END 2025-06-10 07:04 | disposition home or self-care (01) ==
LOC: MICIMG 07:03
PROVIDERS: PCP Internal Medicine; Visit Provider Nurse Practitioner Family
DX: M47.26 Other spondylosis with radiculopathy, lumbar region (principal)
CPT/HCPCS: 72148